=== PATIENT | female | born 1945 | race Caucasian/White ===

== ENCOUNTER 2017-11-02 15:39 | Inpatient (IN) | payer MEDICARE, OTHER ==
[~2017-11-02] VITALS: Ht 157.5 cm; Wt 48.5 kg
[2017-11-02] VITALS (23 sets, daily range): BP systolic 66–158; BP diastolic 37–69; PULSE 74–111; RESP 10–28; TEMP 97.9–98.1; O2SAT 91–98
[~2017-11-02 15:39] MED LIST: ALPR.25 PO; AMLO10TA2 PO; ASPI81CH7 PO; DENO60P SQ; DEXT15CA10 PO; DULC10SU3 RECTAL; FAMO1TAB30 PO; FLUO-1 PO; GABA100C4 PO; GABA300C5 PO; IPRASOL INH; MELA1TAB18 PO; MILKSUS PO; ONETAB22 PO; POTA-163 PO; REME15TA PO; SPIR25TA PO; TYLE325T PO; VITA100T54 PO
[2017-11-02] MEDS ORDERED: SODIUM CHLORIDE 0.9% FLUSH 10 ML FLUSH IVF PRN (16:00)
[2017-11-02] MEDS ORDERED: methylPREDNISolone SOD SUCC 125 MG/2 ML VIAL IV PUSH ONE (16:00)
[2017-11-02] MEDS: RESP: ALBUTEROL 2.5 MG/IPRATROPIUM 0.5 MG NEB (SCH) INH ×2 (16:11→16:12)
--- NOTE | 2017-11-02 16:30 | RADRPT ---
EXAM DATE/TIME: 11/02/2017 16:09 [place] COMPARISON: No previous studies available for comparison. INDICATIONS : Short of breath. MEDICAL HISTORY : None. SURGICAL HISTORY : None. ENCOUNTER: Initial ACUITY: 1 day PAIN SCORE: 0/10 LOCATION: Bilateral chest FINDINGS: The cardiac silhouette is normal in transverse diameter. There is prominence of the aortic knob is wi th calcification characteristic of atherosclerotic vascular disease. There is subsegmental atelectasi s in the right base. Old right humeral head fracture is present with resorption. CONCLUSION: 1. Subsegmental atelectasis right base. Pedro Luis Anderson MD on November 02, 2017 at 16:19 Board Certified Radiologist. This report was verified electronically.
--- NOTE | 2017-11-02 16:31 | PD ---
HPI Chief Complaint: Respiratory Symptoms Time Seen by Provider: 15:56 Travel History International Travel<30 days: No Contact w/Intl Traveler<30days: No Traveled to known affect area: No History of Present Illness HPI 72 y/o female presents with sats in the eighties and shortness of breath from the half-way. She was given 1 DuoNeb and one albuterol treatment. She states this made her feel better. Here she is requiring 5 L of oxygen to maintain her saturations. She denies other specific complaints but history is limited on initial evaluation. PFSH Past Medical History Narrative Medical by half-way and our records Arthritis: Yes Cancer: No Cardiovascular Problems: No COPD: Yes Endocrine: No Genitourinary: No Immune Disorder: No Musculoskeletal: Yes Neurologic: No Psychiatric: No Reproductive: No Respiratory: Yes Past Surgical History Narrative Surgical by half-way and our records Abdominal Surgery: No Eye Surgery: Yes (CATARACTS 2003) Gynecologic Surgery: Yes (HYSTERECTOMY PARTIAL) Oral Surgery: Yes (TONSILS) Social History Tobacco Use: No (none now) Substance Use: No Allergies-Medications (Allergen,Severity, Reaction): Coded Allergies: No Known Allergies (Unverified Adverse Reaction, Unknown, 11/02/17) Reported Meds & Prescriptions Reported Meds & Active Scripts Active Reported Zofran (Ondansetron HCl) 4 Mg Tab 4 Mg PO Q6HR PRN Hydralazine (Hydralazine HCl) 100 Mg Tab 100 Mg PO TID Take with meals Aspirin Children's (Aspirin) 81 Mg Chew 81 Mg PO DAILY Vitamin B-1 (Thiamine HCl) 100 Mg Tab 100 Mg PO DAILY One Daily-Minerals (Multiple Vitamins W/ Minerals) 1 Tab 1 Tab PO DAILY Famotidine 10 Mg Tab 10 Mg PO BID Gabapentin 300 Mg Cap 300 Mg PO Q6HR PRN Duoneb (Ipratropium-Albuterol Neb) 0.5-2.5 Mg/3 Ml Neb 1 Nebule INH Q6HR NEB PRN Tussin Cough (Dextromethorphan HBr) 15 Mg Cap 15 Mg PO Q6H PRN Tylenol (Acetaminophen) 325 Mg Tab 650 Mg PO Q4H PRN Dulcolax Supp (Bisacodyl) 10 Mg Supp 10 Mg RECTAL DAILY PRN Milk of Magnesia Liq (Magnesium Hydroxide) 400 Mg/5 Ml Susp 30 Ml PO DAILY PRN Spironolactone 25 Mg Tab 25 Mg PO BID Amlodipine (Amlodipine Besylate) 10 Mg Tab 10 Mg PO DAILY Gabapentin 100 Mg Cap 200 Mg PO BID Prozac (Fluoxetine HCl) 10 Mg Cap 10 Mg PO DAILY Review of Systems ROS Limitations: Clinical Condition Except as stated in HPI: all other systems reviewed are Neg Physical Exam Exam Limitations: Clinical Condition Narrative GENERAL: 72-year-old female who appears short of breath SKIN: Focused skin assessment warm/dry. HEAD: Atraumatic. Normocephalic. EYES: No scleral icterus. No injection or drainage. ENT: No nasal bleeding or discharge. Mucous membranes pink and moist. NECK: Trachea midline. No JVD. CARDIOVASCULAR: Regular rate and rhythm. RESPIRATORY: Inspiratory and expiratory wheezing throughout, tachypnea noted GASTROINTESTINAL: Abdomen soft,nondistended. NEUROLOGICAL: Opens eyes to voice, moves all extremities, slow clear speech Data Data Last Documented VS Vital Signs Date Time Temp Pulse Resp B/P (MAP) Pulse Ox O2 Delivery O2 Flow Rate FiO2 11/02/17 16:49 111 26 89/65 (73) 93 Nasal Cannula 5.00 11/02/17 15:51 98.1 Orders Orders Complete Blood Count With Diff (11/02/17 15:56) Comprehensive Metabolic Panel (11/02/17 15:56) B-Type Natriuretic Peptide (11/02/17 15:56) Act Partial Throm Time (Ptt) (11/02/17 15:56) Prothrombin Time / Inr (Pt) (11/02/17 15:56) Magnesium (Mg) (11/02/17 15:56) Ckmb (Isoenzyme) Profile (11/02/17 15:56) Troponin I (11/02/17 15:56) Influenzae A/B Antigen (11/02/17 15:56) Blood Culture (11/02/17 15:56) Iv Access Insert/Monitor (11/02/17 15:56) Electrocardiogram (11/02/17 15:56) Ecg Monitoring (11/02/17 15:56) Oximetry (11/02/17 15:56) Oxygen Administration (11/02/17 15:56) Chest, Single Ap (11/02/17 15:56) Sodium Chloride 0.9% Flush (Ns Flush) (11/02/17 16:00) Methylprednisolone So Succ Inj (Solumedr (11/02/17 16:00) Albuterol-Ipratropium Neb (Duoneb Neb) (11/02/17 16:00) Lactic Acid (11/02/17 15:56) Resp Bipap / Cpap Non Invas Vt (11/02/17 ) CKMB (11/02/17 16:10) CKMB% (11/02/17 16:10) Sodium Chlorid 0.9% 500 Ml Inj (Ns 500 M (11/02/17 17:15) Piperacil-Tazo 4.5 Gm Premix (Zosyn 4.5 (11/02/17 17:10) Azithromycin Inj (Zithromax Inj) (11/02/17 17:10) Code Status (11/02/17 17:26) Sodium Chlor 0.9% 1000 Ml Inj (Ns 1000 M (11/02/17 17:30) Admit Order (Ed Use Only) (11/02/17 17:32) Labs Laboratory Tests Test 11/02/17 16:10 11/02/17 16:15 White Blood Count 22.4 TH/MM3 Red Blood Count 3.51 MIL/MM3 Hemoglobin 10.1 GM/DL Hematocrit 29.8 % Mean Corpuscular Volume 85.0 FL Mean Corpuscular Hemoglobin 28.7 PG Mean Corpuscular Hemoglobin Concent 33.8 % Red Cell Distribution Width 13.6 % Platelet Count 346 TH/MM3 Mean Platelet Volume 7.3 FL Neutrophils (%) (Auto) 80.3 % Lymphocytes (%) (Auto) 8.2 % Monocytes (%) (Auto) 11.3 % Eosinophils (%) (Auto) 0.1 % Basophils (%) (Auto) 0.1 % Neutrophils # (Auto) 18.0 TH/MM3 Lymphocytes # (Auto) 1.8 TH/MM3 Monocytes # (Auto) 2.5 TH/MM3 Eosinophils # (Auto) 0.0 TH/MM3 Basophils # (Auto) 0.0 TH/MM3 CBC Comment AUTO DIFF Differential Comment AUTO DIFF CONFIRMED Toxic Granulation 1+ Platelet Estimate NORMAL Platelet Morphology Comment NORMAL Basophilic Stippling FAINT Prothrombin Time 10.0 SEC Prothromb Time International Ratio 1.0 RATIO Activated Partial Thromboplast Time 27.8 SEC Blood Urea Nitrogen 79 MG/DL Creatinine 3.97 MG/DL Random Glucose 153 MG/DL Total Protein 7.8 GM/DL Albumin 3.1 GM/DL Calcium Level 8.0 MG/DL Magnesium Level 2.6 MG/DL Alkaline Phosphatase 58 U/L Aspartate Amino Transf (AST/SGOT) 23 U/L Alanine Aminotransferase (ALT/SGPT) 17 U/L Total Bilirubin 0.2 MG/DL Sodium Level 129 MEQ/L Potassium Level 3.3 MEQ/L Chloride Level 93 MEQ/L Carbon Dioxide Level 20.5 MEQ/L Anion Gap 16 MEQ/L Estimat Glomerular Filtration Rate 11 ML/MIN Total Creatine Kinase 295 U/L Creatine Kinase MB 3.0 NG/ML Creatine Kinase MB % 1.0 % Troponin I LESS THAN 0.02 NG/ML B-Type Natriuretic Peptide 60 PG/ML Lactic Acid Level 1.6 mmol/L [facility] Medical Decision Making Medical Screen Exam Complete: Yes Emergency Medical Condition: Yes Medical Record Reviewed: Yes (Past history confirmed) Interpretation(s) CBC & BMP Diagram 11/02/17 16:10 Total Protein 7.8, Albumin 3.1 L, Calcium Level 8.0 L, Magnesium Level 2.6 H, Alkaline Phosphatase 58, Aspartate Amino Transf (AST/SGOT) 23, Alanine Aminotransferase (ALT/SGPT) 17, Total Bilirubin 0.2 Last 24 hours Impressions Chest X-Ray 11/02/17 1556 Signed Impressions: Service Date/Time: Thursday, November 02, 2017 16:09 - CONCLUSION: 1. Subsegmental atelectasis right base. Pedro Luis Anderson MD Differential Diagnosis Pneumonia, influenza, COPD exacerbation, pneumothorax, heart failure Narrative Course We will check blood work, EKG, chest x-ray and dose with Solu-Medrol, duo nebs and placed on BiPAP., Patient is DNR patient ed workup shows acute renal failure, leukocytosis and COPD exacerbation. Patient did not tolerate BiPAP and stated that she did not want this or other aggressive measures. Will be given broad-spectrum antibiotics and IV fluids. Patient's power of commercial litigation attorney was attempted to be reached over the phone but did not answer. Person that is with patient agrees to care as described. On recheck patient is hypotensive. Will repeat IV fluid bolus. Patient is less responsive. Attempted to reach power of commercial litigation attorney again and left message. She will be monitored closely in the ICU. While honor DNR wishes. 1805 patient's bp improving with fluids, now will open eyes to voice, will continue current care Critical Care Narrative Aggregate critical care time was 45 minutes. Time to perform other separately billable procedures was not included in the critical care time. My time did not include minutes spent treating any other patients simultaneously or on activities that did not directly contribute to the patient's treatment. The services I provided to this patient were to treat and/or prevent clinically significant deterioration that could result in: respiratory failure, I provided critical care services requiring my management, as noted below: Chart data review, documentation time, medication orders and management, vital sign assessments/reviewing monitor data, ordering and reviewing lab tests, ordering and interpreting/reviewing x-rays and diagnostic studies, care of the patient and discussion of the patient with the admitting physicians. Sepsis Criteria SIRS Criteria (2 or more): Heart rate over 90, WBC > 63800, < 4000 or > 10% bands Sepsis Criteria (SIRS+source): Infect source susp/known Severe Sepsis (+one): Acute Oliguria/Renal Failure Criteria Outcome: Meets severe sepsis criteria Physician Communication Physician Communication dr hills agrees to admit in icu and updated about care Diagnosis Primary Impression: COPD exacerbation Additional Impressions: Acute renal failure Qualified Codes: N17.9 - Acute kidney failure, unspecified Sepsis Qualified Codes: A41.9 - Sepsis, unspecified organism Respiratory failure Qualified Codes: J96.00 - Acute respiratory failure, unspecified whether with hypoxia or hypercapnia Admitting Information Admitting Physician Requests: Admit Bertha Resendez MD Nov 02, 2017 16:31
[2017-11-02 16:38] LABS: BASOPHIL % 0.1 % (0.0-2.0); EOSINOPHIL % 0.1 % (0.0-4.0); HEMATOCRIT 29.8 % (35.0-46.0); HEMOGLOBIN 10.1 GM/DL (11.6-15.3); LYMPH % 8.2 % (9.0-44.0); LYMPHOCYTE # 1.8 TH/MM3 (1.0-4.8); MEAN CORPUSCULAR HEMOGLOBIN 28.7 PG (27.0-34.0); MEAN CORPUSCULAR HGB CONC 33.8 % (32.0-36.0); MEAN PLATELET VOLUME 7.3 FL (7.0-11.0); MONO % 11.3 % (0.0-8.0); MONOCYTE # 2.5 TH/MM3 (0-0.9); NEUT % 80.3 % (16.0-70.0); PLATELET COUNT 346 TH/MM3 (150-450); RED BLOOD COUNT 3.51 MIL/MM3 (4.00-5.30); RED CELL DISTRIBUTION WIDTH 13.6 % (11.6-17.2); WHITE BLOOD COUNT 22.4 TH/MM3 (4.0-11.0)
[2017-11-02 16:58] LABS: ALBUMIN 3.1 GM/DL (3.4-5.0); AST (GOT) 23 U/L (15-37); BICARBONATE 20.5 MEQ/L (21.0-32.0); BLOOD UREA NITROGEN 79 MG/DL (7-18); CHLORIDE 93 MEQ/L (98-107); CREATININE 3.97 MG/DL (0.50-1.00); GLOMERULAR FILTRATION RATE 11 ML/MIN (>89); GLUCOSE,RANDOM 153 MG/DL (74-106); MAGNESIUM 2.6 MG/DL (1.5-2.5); SODIUM (NA) 129 MEQ/L (136-145)
[2017-11-02 17:00] LABS: ALT (GPT) 17 U/L (10-53)
[2017-11-02 17:03] LABS: ALKALINE PHOSPHATASE 58 U/L (45-117); TOTAL BILIRUBIN ADULT 0.2 MG/DL (0.2-1.0); TOTAL PROTEIN 7.8 GM/DL (6.4-8.2); TROPONIN I LESS THAN 0.02 NG/ML (0.02-0.05)
[2017-11-02] MEDS ORDERED: AZITHROMYCIN INJ 500 MG in SODIUM CHLOR 0.9% 250 ML INJ 250 ML IV STA (17:10)
[2017-11-02] MEDS ORDERED: PIPERACIL-TAZO 4.5 GM PREMIX 100 ML IV STA (17:10)
[2017-11-02] MEDS ORDERED: SODIUM CHLORID 0.9% 500 ML INJ 500 ML IV ONE (17:15)
[2017-11-02] MEDS ORDERED: SODIUM CHLOR 0.9% 1000 ML INJ 1,000 ML IV ONE (17:30)
[2017-11-02 17:37] LABS: TOXIC GRANULATION 1+ (NORMAL)
[2017-11-02] MEDS ORDERED: ZOFR4TAB PO (17:37)
[2017-11-02] MEDS ORDERED: HYDR-3801 PO (17:37)
[2017-11-02] MEDS ORDERED: PIPERACIL-TAZO 3.375 GM PREMIX 50 ML IV SCH (18:15)
[2017-11-02] MEDS ORDERED: ONDANSETRON HCL 4 MG/2 ML VIAL IVP PRN (18:15)
[2017-11-02] MEDS ORDERED: MAGNESIUM HYDROXIDE SUSP 30 ML CUP PO PRN (18:15)
[2017-11-02] MEDS ORDERED: NALOXONE HCL 0.4 MG/ML AMP IV PUSH PRN (18:15)
[2017-11-02] MEDS ORDERED: BISACODYL 10 MG SUPP RECTAL PRN (18:15)
[2017-11-02] MEDS ORDERED: RESP: ALBUTEROL 1.25 MG/3 ML NEB (PRN) NEB (18:15)
[2017-11-02] MEDS ORDERED: Vancomycin Consult Pharmacy 1 EA OTHER SCH (18:15)
[2017-11-02] MEDS ORDERED: LACTULOSE SYRUP 20 GM/30 ML CUP PO PRN (18:15)
[2017-11-02] MEDS ORDERED: SODIUM CHLORIDE 0.9% FLUSH 10 ML FLUSH IV FLUSH PRN (18:15)
[2017-11-02] MEDS ORDERED: SENNOSIDES 8.6 MG TAB PO PRN (18:15)
--- NOTE | 2017-11-02 18:19 | HHI.HP ---
History of Present Illness Primary Care Physician Unknown Admission Diagnosis acute renal failure, copd exacerbation, sepsis Diagnoses: Sepsis Criteria SIRS Criteria (2 or more): Heart rate over 90, RR > 20 or PaCO2 < 32, WBC > 69386, < 4000 or > 10% bands Sepsis Criteria (SIRS+source): Infect source susp/known Severe Sepsis (+one): Organ Dysfunction, Hypotension, Acute Oliguria/Renal Failure Multiple Organ Dysfunction Syn: Evidence -2 organs failing Criteria Outcome: Meets severe sepsis criteria Review of Systems ROS Limitations: Clinical Condition, Altered Mental Status, Other (NEGATIVE FOURTEEN POINT ROS EXCEPT IN HPI AND A/P) Constitutional: DENIES: Fever, Chills, Change in appetite Endocrine: DENIES: Heat/cold intolerance Eyes: DENIES: Blurred vision, Eye pain Past Family Social History Allergies: Coded Allergies: No Known Allergies (Unverified Allergy, Unknown, 11/02/17) Physical Exam Vital Signs Vital Signs Date Time Temp Pulse Resp B/P (MAP) Pulse Ox O2 Delivery O2 Flow Rate FiO2 11/02/17 17:54 104 24 91/60 (70) 93 Nasal Cannula 5.00 11/02/17 17:39 99 28 99/64 (76) 91 Nasal Cannula 5.00 11/02/17 16:49 111 26 89/65 (73) 93 Nasal Cannula 5.00 11/02/17 15:51 98.1 85 20 158/69 (98) 91 Physical Exam GENERAL: This is a well-nourished, well-developed patient, in no apparent distress. SKIN: No rashes, ecchymoses or lesions. Cool and dry. HEAD: Atraumatic. Normocephalic. No temporal or scalp tenderness. EYES: Pupils equal round and reactive. Extraocular motions intact. No scleral icterus. No injection or drainage. ENT: Nose without bleeding, purulent drainage or septal hematoma. Throat without erythema, tonsillar hypertrophy or exudate. Uvula midline. Airway patent. NECK: Trachea midline. No JVD or lymphadenopathy. Supple, nontender, no meningeal signs. CARDIOVASCULAR: Regular rate and rhythm without murmurs, gallops, or rubs. RESPIRATORY: Clear to auscultation. Breath sounds equal bilaterally. No wheezes , rales, or rhonchi. GASTROINTESTINAL: Abdomen soft, non-tender, nondistended. No hepato-splenomegaly , or palpable masses. No guarding. MUSCULOSKELETAL: Extremities without clubbing, cyanosis, or edema. No joint tenderness, effusion, or edema noted. No calf tenderness. Negative Homans sign bilaterally. NEUROLOGICAL: Awake and alert. Cranial nerves II through XII intact. Motor and sensory grossly within normal limits. Five out of 5 muscle strength in all muscle groups. Normal speech. Laboratory Laboratory Tests Test 11/02/17 16:10 11/02/17 16:15 White Blood Count 22.4 Red Blood Count 3.51 Hemoglobin 10.1 Hematocrit 29.8 Mean Corpuscular Volume 85.0 Mean Corpuscular Hemoglobin 28.7 Mean Corpuscular Hemoglobin Concent 33.8 Red Cell Distribution Width 13.6 Platelet Count 346 Mean Platelet Volume 7.3 Neutrophils (%) (Auto) 80.3 Lymphocytes (%) (Auto) 8.2 Monocytes (%) (Auto) 11.3 Eosinophils (%) (Auto) 0.1 Basophils (%) (Auto) 0.1 Neutrophils # (Auto) 18.0 Lymphocytes # (Auto) 1.8 Monocytes # (Auto) 2.5 Eosinophils # (Auto) 0.0 Basophils # (Auto) 0.0 CBC Comment AUTO DIFF Differential Comment AUTO DIFF CONFIRMED Toxic Granulation 1+ Platelet Estimate NORMAL Platelet Morphology Comment NORMAL Basophilic Stippling FAINT Prothrombin Time 10.0 Prothromb Time International Ratio 1.0 Activated Partial Thromboplast Time 27.8 Blood Urea Nitrogen 79 Creatinine 3.97 Random Glucose 153 Total Protein 7.8 Albumin 3.1 Calcium Level 8.0 Magnesium Level 2.6 Alkaline Phosphatase 58 Aspartate Amino Transf (AST/SGOT) 23 Alanine Aminotransferase (ALT/SGPT) 17 Total Bilirubin 0.2 Sodium Level 129 Potassium Level 3.3 Chloride Level 93 Carbon Dioxide Level 20.5 Anion Gap 16 Estimat Glomerular Filtration Rate 11 Total Creatine Kinase 295 Creatine Kinase MB 3.0 Creatine Kinase MB % 1.0 Troponin I LESS THAN 0.02 B-Type Natriuretic Peptide 60 Lactic Acid Level 1.6 Date/Time Source Procedure Growth Status 11/02/17 16:05 Blood Peripheral Aerobic Blood Culture Pending Received 11/02/17 16:05 Blood Peripheral Anaerobic Blood Culture Pending Received 11/02/17 16:10 Nasal Aspirate Influenza Types A,B Antigen (JEROD) - Final NEGATIVE FOR FLU A AND B ANTIGEN.... Complete Result Diagram: 11/02/17 1610 11/02/17 1610 Caprini VTE Risk Assessment Caprini VTE Risk Assessment: Mod/High Risk (score >= 2) Caprini Risk Assessment Model Point Value = 1 Point Value = 2 Point Value = 3 Point Value = 5 Age 41-60 Minor surgery BMI > 25 kg/m2 Swollen legs Varicose veins or History of unexplained or recurrent spontaneous Oral contraceptives or hormone replacement Sepsis (< 1 month) Serious lung disease, including pneumonia (< 1 month) Abnormal pulmonary function Acute myocardial infarction Congestive heart failure (< 1 month) History of inflammatory bowel disease Medical patient at bed rest Age 61-74 Arthroscopic surgery Major open surgery (> 45 min) Laparoscopic surgery (> 45 min) Malignancy Confined to bed (> 72 hours) Immobilizing plaster cast Central venous access Age >= 75 History of VTE Family history of VTE Factor V Leiden Prothrombin [id number] Lupus anticoagulant Anticardiolipin antibodies Elevated serum homocysteine Heparin-induced thrombocytopenia Other congenital or acquired thrombophilia Stroke (< 1 month) Elective arthroplasty Hip, pelvis, or leg fracture Acute spinal cord injury (< 1 month) Prophylaxis Regimen Total Risk Factor Score Risk Level Prophylaxis Regimen 0-1 Low Early ambulation 2 Moderate Order ONE of the following: *Sequential Compression Device (SCD) *Heparin 5000 units SQ BID 3-4 Higher Order ONE of the following medications: *Heparin 5000 units SQ TID *Enoxaparin/Lovenox 40 mg SQ daily (WT < 150 kg, CrCl > 30 mL/min) *Enoxaparin/Lovenox 30 mg SQ daily (WT < 150 kg, CrCl > 10-29 mL/min) *Enoxaparin/Lovenox 30 mg SQ BID (WT < 150 kg, CrCl > 30 mL/min) AND/OR *Sequential Compression Device (SCD) 5 or more Highest Order ONE of the following medications: *Heparin 5000 units SQ TID (Preferred with Epidurals) *Enoxaparin/Lovenox 40 mg SQ daily (WT < 150 kg, CrCl > 30 mL/min) *Enoxaparin/Lovenox 30 mg SQ daily (WT < 150 kg, CrCl > 10-29 mL/min) *Enoxaparin/Lovenox 30 mg SQ BID (WT < 150 kg, CrCl > 30 mL/min) AND *Sequential Compression Device (SCD) Assessment and Plan Assessment and Plan see dictated h and p SEVERE SEPSIS: IV ABX, IVF, PNA RF: IVF, NEPHRO CONSULT HYPONATREMIA HYPOKALEMIA CVA, CHRONIC R BELEN HTN,, NOW HYPOTENSION Vazquez Sanchez MD Nov 02, 2017 18:19
[2017-11-02] MEDS ORDERED: D5-NS + KCL 40 MEQ INJ 1,000 ML IV SCH (20:00)
[2017-11-02] MEDS ORDERED: CHLORHEXIDINE GLUCONATE 2 % 1 PACK (2 CLOTHS)(extra cloths) TOPICAL PRN (20:30)
[2017-11-02] MEDS ORDERED: VANCOMYCIN 1,000 MG/NS 250 ML IV ONE ×2 (20:45)
[2017-11-02] MEDS: DOCUSATE SODIUM 50 MG/SENNA 8.6 MG TAB PO SCH (21:00)
[2017-11-02] MEDS: HEPARIN SODIUM - SQ 10,000 UNITS/ML VIAL SQ SCH (21:02)
[2017-11-02] MEDS: PANTOPRAZOLE SODIUM 40 MG VIAL IV PUSH SCH (21:02)
[2017-11-02] MEDS: SODIUM CHLORIDE 0.9% FLUSH 10 ML FLUSH IV FLUSH SCH (21:03)
[2017-11-02] MEDS ORDERED: NOREPINEPHRINE 4 MG/D5W 250 ML IV PRN (22:45)
[2017-11-03] VITALS (17 sets, daily range): BP systolic 90–163; BP diastolic 52–71; PULSE 67–121; RESP 10–28; TEMP 98.1–98.8; O2SAT 92–98
[2017-11-03 00:38] LABS: AMORPHOUS SEDIMENT, URINE RARE; BILIRUBIN, URINE NEG (NEG); BLOOD, URINE NEG (NEG); GLUCOSE,URINE NEG (NEG); KETONE, URINE NEG (NEG); NITRITE,URINE NEG (NEG); PH, URINE 5.5 (5.0-8.5); URINE COLOR YELLOW (YELLW/STRAW); URINE LEUKOCYTE ESTERASE NEG (NEG)
[2017-11-03] MEDS: methylPREDNISolone SOD SUCC 125 MG/2 ML VIAL IV PUSH SCH ×4 (01:26→16:38)
[2017-11-03] MEDS: PIPERACIL-TAZO 2.25 GM PREMIX 50 ML IV SCH ×3 (01:28→16:38)
[2017-11-03] MEDS: CHLORHEXIDINE GLUCONATE 2 % 1 PACK (2 CLOTHS)(taper/protocol) TOPICAL SCH (04:00)
[2017-11-03 07:31] LABS: AUTOMATED NEUTROPHIL # 17.6 TH/MM3 (1.8-7.7); BASOPHIL % 0.1 % (0.0-2.0); HEMATOCRIT 27.2 % (35.0-46.0); HEMOGLOBIN 9.2 GM/DL (11.6-15.3); LYMPH % 2.3 % (9.0-44.0); LYMPHOCYTE # 0.4 TH/MM3 (1.0-4.8); MEAN CORPUSCULAR HEMOGLOBIN 28.8 PG (27.0-34.0); MEAN CORPUSCULAR HGB CONC 33.9 % (32.0-36.0); MEAN PLATELET VOLUME 7.6 FL (7.0-11.0); MONO % 1.3 % (0.0-8.0); MONOCYTE # 0.2 TH/MM3 (0-0.9); NEUT % 96.3 % (16.0-70.0); PLATELET COUNT 313 TH/MM3 (150-450); RED CELL DISTRIBUTION WIDTH 13.7 % (11.6-17.2); WHITE BLOOD COUNT 18.3 TH/MM3 (4.0-11.0)
[2017-11-03] MEDS: HEPARIN SODIUM - SQ 10,000 UNITS/ML VIAL SQ SCH ×2 (07:49→16:40)
[2017-11-03] MEDS: SODIUM CHLORIDE 0.9% FLUSH 10 ML FLUSH IV FLUSH SCH ×2 (07:49→19:55)
[2017-11-03] MEDS: DOCUSATE SODIUM 50 MG/SENNA 8.6 MG TAB PO SCH ×2 (07:49→19:55)
[2017-11-03 07:57] LABS: BICARBONATE 17.9 MEQ/L (21.0-32.0); CALCIUM 7.8 MG/DL (8.5-10.1); CREATININE 3.36 MG/DL (0.50-1.00); RANDOM VANCOMYCIN 15.1 COMMENT
--- NOTE | 2017-11-03 09:38 | MB ---
cc: ARLEEN BACON M.D. DATE OF CONSULTATION 11/03/2017 REASON FOR CONSULTATION COPD exacerbation. HISTORY OF PRESENT ILLNESS The patient is a 72-year-old female with a known history of COPD admitted through the emergency room with increasing shortness of breath, cough, expectoration of a small amount of whitish sputum. Denies a history of fever or chills. Denies history of hemoptysis, TB or previous industrial exposure. PAST MEDICAL HISTORY 1. COPD as outlined above. 2. Chronic renal insufficiency. 3. Hypertension 4. Previous CVA MEDICATIONS Include: 1. Piperacillin 2. Tazobactam 3. Norepinephrine drip as needed 4. Was given one dose of vancomycin. 5. Nebulized albuterol ALLERGIES None known to medication. FAMILY HISTORY Noncontributory SOCIAL HISTORY Used to smoke, but not at present. Does not drink any alcohol. Does not use drugs. REVIEW OF SYSTEMS 12-point review of systems as per HPI and past history, otherwise negative. PHYSICAL EXAM On exam, the patient is alert, pulse 98, respiration 20, blood pressure 100/60. HEENT: Exam unremarkable. Eyes without icterus. NECK: Without adenopathy. Thyroid enlargement. Central trachea. CHEST: Few scattered rhonchi and scattered wheezing both lung quintero. CARDIAC: PMI distant. S1-S2 audible. 1/6 ejection systolic murmur left sternal border. ABDOMEN: Lax, bowel sounds audible. EXTREMITIES: No clubbing, cyanosis or edema. SKIN: Normal. No lymphadenopathy. LABORATORY DATA White counts 22,000, hemoglobin 10, hematocrit 29. BUN 79, creatinine 3.9, sodium 129, potassium 3.3. Chest x-ray, minor atelectatic change. IMPRESSION 1. COPD and acute exacerbation 2. Acute renal failure 3. Hypertension 4. CVA 5. Sepsis PLAN The patient is on antibiotic therapy as well as pressor therapy for underlying sepsis. Bronchodilator therapy for underlying COPD is given. Her chest x-ray will be followed. Pressor was weaned as tolerated. We will follow her course along with you and depending on progress proceed further. Arleen Bacon MD WWW/HARPAL /9:05 AM /9:17 AM
[2017-11-03] MEDS ORDERED: SODIUM CHLOR 0.9% 1000 ML INJ 1,000 ML IV SCH (09:45)
--- NOTE | 2017-11-03 10:43 | PD.ID.CON ---
History of Present Illness Service ID Consult Requested By Reason for Consult Evaluation and Mment of Sepsis. Primary Care Physician Unknown Diagnoses: History of Present Illness is a 72 y/o CCM with who presented to the ED on 11/02/17 with reports of shortness of breath, O2 saturation in the 80s from her nursing facility. She received duo nebs and albuterol with some subjective improvement. Patient placed on BiPAP in the ER. Received Solu-Medrol, DuoNeb's. CXR notes subsegmental atelectasis right base. Labs were significantly abnormal with BUN 79/creatinine 3.97. GFR 11. BNP 60. Lactic acid 1.6. Leukocytosis 22.4. DNR implemented patient with known DNR. She was admitted for further evaluation and treatment of sepsis, improving BP after IV fluids opening eyes. Nephrology consulted, pulmonology, palliative care consulted and following. Pulmonology consulted to continue antibiotic therapy and bronchodilators and follow CXR. Overnight critical care was consulted as BP was as low as 70/50s. She received fluids overnight but no pressors and BP now in 130s SBP. ID was consulted for evaluation of sepsis. Empiric antibiotics started Zosyn IV , Vanco IV and 1 dose of Azithro given. CXR with atelectasis.At the time of my evaluation patient is in the [facility], currently not on any pressors, saturations 96 % on 5 L. Review of Systems ROS Limitations: Clinical Condition (expressive aphasia), Poor Historian Past Family Social History Allergies: Coded Allergies: No Known Allergies (Unverified Allergy, Unknown, 11/02/17) Past Medical History Osteoporosis COPD CVA-residual right hemiparesis Past Surgical History Cataract surgery 2003 Partial hysterectomy Tonsillectomy Reported Medications Reported Meds & Active Scripts Active Reported Zofran (Ondansetron HCl) 4 Mg Tab 4 Mg PO Q6HR PRN Hydralazine (Hydralazine HCl) 100 Mg Tab 100 Mg PO TID Take with meals Aspirin Children's (Aspirin) 81 Mg Chew 81 Mg PO DAILY Vitamin B-1 (Thiamine HCl) 100 Mg Tab 100 Mg PO DAILY One Daily-Minerals (Multiple Vitamins W/ Minerals) 1 Tab 1 Tab PO DAILY Famotidine 10 Mg Tab 10 Mg PO BID Gabapentin 300 Mg Cap 300 Mg PO Q6HR PRN Duoneb (Ipratropium-Albuterol Neb) 0.5-2.5 Mg/3 Ml Neb 1 Nebule INH Q6HR NEB PRN Tussin Cough (Dextromethorphan HBr) 15 Mg Cap 15 Mg PO Q6H PRN Tylenol (Acetaminophen) 325 Mg Tab 650 Mg PO Q4H PRN Dulcolax Supp (Bisacodyl) 10 Mg Supp 10 Mg RECTAL DAILY PRN Milk of Magnesia Liq (Magnesium Hydroxide) 400 Mg/5 Ml Susp 30 Ml PO DAILY PRN Spironolactone 25 Mg Tab 25 Mg PO BID Amlodipine (Amlodipine Besylate) 10 Mg Tab 10 Mg PO DAILY Gabapentin 100 Mg Cap 200 Mg PO BID Prozac (Fluoxetine HCl) 10 Mg Cap 10 Mg PO DAILY Active Ordered Medications Current Medications Medications (Trade) Dose Ordered Sig/Felipa Route Start Time Stop Time Status Last Admin (NS Flush) 2 ml UNSCH PRN IV FLUSH 11/02/17 18:15 (NS Flush) 2 ml BID IV FLUSH 11/02/17 21:00 11/03/17 07:49 (Tylenol) 650 mg Q4H PRN PO 11/02/17 18:15 (Zofran Inj) 4 mg Q6H PRN IVP 11/02/17 18:15 (Heparin Inj) 5,000 units Q12H SQ 11/02/17 19:30 11/03/17 07:49 (Narcan Inj) 0.4 mg UNSCH PRN IV PUSH 11/02/17 18:15 (Abby-Colace) 1 tab BID PO 11/02/17 21:00 11/03/17 07:49 (Milk Of Magnesia Liq) 30 ml Q12H PRN PO 11/02/17 18:15 (Senokot) 17.2 mg Q12H PRN PO 11/02/17 18:15 (Dulcolax Supp) 10 mg DAILY PRN RECTAL 11/02/17 18:15 (Lactulose Liq) 30 ml DAILY PRN PO 11/02/17 18:15 (Ativan) 0.5 mg Q8H PRN PO 11/02/17 18:15 (Albuterol Neb) 1.25 mg Q4HR NEB PRN NEB 11/02/17 18:15 (Catapres) 0.1 mg Q6H PRN PO 11/02/17 18:15 (Protonix Inj) 40 mg Q24H IV PUSH 11/02/17 20:00 11/02/17 21:02 (SoluMEDROL INJ) 80 mg Q6HR IV PUSH 11/03/17 00:00 11/03/17 11:57 Miscellaneous Information Patient in critical care unit? Ass... [id number] .XX 11/02/17 20:15 11/02/17 20:15 (Chlorhexidine 2% Cloth) 3 pack DAILY@04 TOPICAL 11/03/17 04:00 11/07/17 04:01 11/03/17 04:00 (Chlorhexidine 2% Cloth) 3 pack UNSCH PRN TOPICAL 11/02/17 20:30 11/07/17 20:15 Piperacillin Sod/ Tazobactam Sod 50 ml @ 100 mls/hr Q8H IV 11/03/17 01:00 11/03/17 07:49 Norepinephrine Bitartrate 250 ml @ 7.5 mls/hr TITRATE PRN IV 11/02/17 22:45 11/02/17 22:40 Sodium Chloride 1,000 ml @ 42 mls/hr [id number] IV 11/03/17 09:45 11/03/17 11:57 (Zithromax) 500 mg Q24H PO 11/03/17 18:00 Linezolid 300 ml @ 300 mls/hr Q12H IV 11/03/17 12:00 11/03/17 11:57 Family History resident of long-term. Has a grand daughter. Social History Smoking exposure in past. No alcohol. No illicit drugs. Physical Exam Vital Signs Vital Signs Date Time Temp Pulse Resp B/P (MAP) Pulse Ox O2 Delivery O2 Flow Rate FiO2 11/03/17 08:55 96 Nasal Cannula 5.00 11/03/17 06:00 69 11/03/17 04:04 98.1 80 22 134/71 (92) 98 11/03/17 04:00 82 11/03/17 02:00 75 11/03/17 02:00 75 22 136/62 (86) 95 11/03/17 00:45 77 125/64 11/03/17 00:21 94 Nasal Cannula 5.00 11/03/17 00:00 98.2 68 10 90/52 (65) 98 2//18 00:00 68 2/20/18 22:40 74 78/44 2/20/18 22:00 74 10 74/40 (51) 94 2/20/18 22:00 74 2/20/18 21:45 75 11 79/43 (55) 94 11/02/18 21:34 76 19 83/44 (57) 94 18 21:33 77 18 79/42 (54) 94 2018 21:32 79 24 79/46 (57) 94 2/20/18 21:30 79 16 72/47 (55) 92 220/18 21:15 85 15 96/51 (66) 98 11/02/17 21:00 82 21 105/56 (72) 97 18 20:45 79 21 80/52 (61) 98 11/02/17 20:31 80 22 78/50 (59) 98 11/02/17 20:30 80 23 77/50 (59) 98 11/02/ 20:15 82 20 104/54 (71) 97 11/02/18 20:05 79 24 92/50 (64) 97 11/02/18 20:03 76 24 69/37 (48) 96 11/02/17 20:01 97.9 76 22 66/41 (49) 96 11/02/18 20:00 76 2/20/18 19:27 86 17 110/56 (74) 95 2/18 19:07 2/18 19:07 87 22 108/59 (75) 94 Nasal Cannula 4.00 18 18:28 89 22 112/55 (74) 95 Nasal Cannula 4.00 2/18 17:54 104 24 91/60 (70) 93 Nasal Cannula 5.00 2/18 17:39 99 28 99/64 (76) 91 Nasal Cannula 5.00 220/18 16:49 93 Nasal Cannula 5.00 220/18 16:49 111 26 89/65 (73) 93 Nasal Cannula 5.00 2/18 15:51 98.1 85 20 158/69 (98) 91 Physical Exam GENERAL: Thin built poorly nourished patient, in no apparent distress. SKIN: No rashes, ecchymoses or lesions. Cool and dry. HEAD: Atraumatic. Normocephalic. No temporal or scalp tenderness. EYES: Pupils equal round and reactive. Extraocular motions intact. No scleral icterus. No injection or drainage. ENT: Nose without bleeding, purulent drainage or septal hematoma. Throat without erythema, tonsillar hypertrophy or exudate. Uvula midline. Airway patent. NECK: Trachea midline. Supple, nontender, no meningeal signs. CARDIOVASCULAR: HS audible. RESPIRATORY: Clear to auscultation. Breath sounds equal bilaterally. No wheezes , rales, or rhonchi. GASTROINTESTINAL: Abdomen soft, non-tender, nondistended. MUSCULOSKELETAL: LLE with contracture. Pain on trying to extend it. Patient keeps her leg flexed at hip joint level. NEUROLOGICAL: Awake and alert. speech hesitant. Psych cooperative IV line sites with no e.o infection Laboratory Laboratory Tests Test 11/02/17 16:10 11/02/17 16:15 11/02/17 19:30 11/02/17 23:46 White Blood Count 22.4 Red Blood Count 3.51 Hemoglobin 10.1 Hematocrit 29.8 Mean Corpuscular Volume 85.0 Mean Corpuscular Hemoglobin 28.7 Mean Corpuscular Hemoglobin Concent 33.8 Red Cell Distribution Width 13.6 Platelet Count 346 Mean Platelet Volume 7.3 Neutrophils (%) (Auto) 80.3 Lymphocytes (%) (Auto) 8.2 Monocytes (%) (Auto) 11.3 Eosinophils (%) (Auto) 0.1 Basophils (%) (Auto) 0.1 Neutrophils # (Auto) 18.0 Lymphocytes # (Auto) 1.8 Monocytes # (Auto) 2.5 Eosinophils # (Auto) 0.0 Basophils # (Auto) 0.0 CBC Comment AUTO DIFF Differential Comment AUTO DIFF CONFIRMED Toxic Granulation 1+ Platelet Estimate NORMAL Platelet Morphology Comment NORMAL Basophilic Stippling FAINT Prothrombin Time 10.0 Prothromb Time International Ratio 1.0 Activated Partial Thromboplast Time 27.8 Blood Urea Nitrogen 79 Creatinine 3.97 Random Glucose 153 Total Protein 7.8 Albumin 3.1 Calcium Level 8.0 Magnesium Level 2.6 Alkaline Phosphatase 58 Aspartate Amino Transf (AST/SGOT) 23 Alanine Aminotransferase (ALT/SGPT) 17 Total Bilirubin 0.2 Sodium Level 129 Potassium Level 3.3 Chloride Level 93 Carbon Dioxide Level 20.5 Anion Gap 16 Estimat Glomerular Filtration Rate 11 Total Creatine Kinase 295 Creatine Kinase MB 3.0 Creatine Kinase MB % 1.0 Troponin I LESS THAN 0.02 B-Type Natriuretic Peptide 60 Lactic Acid Level 1.6 Nasal Screen MRSA (PCR) MRSA DETECTED Blood Gas Puncture Site RT RADIAL Blood Gas Patient Temperature 98.6 Blood Gas HCO3 17 Blood Gas Base Excess -8.4 Blood Gas Oxygen Saturation 92 Arterial Blood pH 7.30 Arterial Blood Partial Pressure CO2 35 Arterial Blood Partial Pressure O2 81 Arterial Blood Oxygen Content 13.9 Arterial Blood Carboxyhemoglobin 0.8 Arterial Blood Methemoglobin 1.5 Blood Gas Hemoglobin 10.6 Oxygen Delivery Device NASAL CANNULA Blood Gas Liter Flow 5 Test 11/03/17 00:05 11/03/17 05:40 Urine Color YELLOW Urine Turbidity HAZY Urine pH 5.5 Urine Specific [place] 1.014 Urine Protein 100 Urine Glucose (UA) NEG Urine Ketones NEG Urine Occult Blood NEG Urine Nitrite NEG Urine Bilirubin NEG Urine Urobilinogen LESS THAN 2.0 Urine Leukocyte Esterase NEG Urine RBC LESS THAN 1 Urine WBC 2 Urine Amorphous Sediment RARE Microscopic Urinalysis Comment CATH-CULT NOT IND White Blood Count 18.3 Red Blood Count 3.20 Hemoglobin 9.2 Hematocrit 27.2 Mean Corpuscular Volume 85.0 Mean Corpuscular Hemoglobin 28.8 Mean Corpuscular Hemoglobin Concent 33.9 Red Cell Distribution Width 13.7 Platelet Count 313 Mean Platelet Volume 7.6 Neutrophils (%) (Auto) 96.3 Lymphocytes (%) (Auto) 2.3 Monocytes (%) (Auto) 1.3 Eosinophils (%) (Auto) 0.0 Basophils (%) (Auto) 0.1 Neutrophils # (Auto) 17.6 Lymphocytes # (Auto) 0.4 Monocytes # (Auto) 0.2 Eosinophils # (Auto) 0.0 Basophils # (Auto) 0.0 CBC Comment DIFF FINAL Differential Comment Blood Urea Nitrogen 80 Creatinine 3.36 Random Glucose 213 Calcium Level 7.8 Sodium Level 135 Potassium Level 4.4 Chloride Level 102 Carbon Dioxide Level 17.9 Anion Gap 15 Estimat Glomerular Filtration Rate 13 Random Vancomycin Level 15.1 Date/Time Source Procedure Growth Status 11/02/17 16:05 Blood Peripheral Aerobic Blood Culture Pending Received 11/02/17 16:05 Blood Peripheral Anaerobic Blood Culture Pending Received 11/02/17 16:10 Nasal Aspirate Influenza Types A,B Antigen (JEROD) - Final NEGATIVE FOR FLU A AND B ANTIGEN.... Complete Result Diagram: 11/03/17 0540 11/03/17 0540 Imaging Last Impressions Chest X-Ray 11/02/17 1556 Signed Impressions: Service Date/Time: Thursday, November 02, 2017 16:09 - CONCLUSION: 1. Subsegmental atelectasis right base. Pedro Luis Anderson MD Assessment and Plan Assessment and Plan Possible Severe Sepsis present on admission (leucocytosis, tachycardia, hypotension) ? atypical Community acquired pneumonia vs aspiration PNA COPD acute exacerbation. Acute resp failure now on 5L NC. Hyponatremia. Acute renal failure: sepsis, prerenal. H/o CVA with left side deficit. Recs: Continue Zosyn IV for now DC vanco IV Start Zyvox IV pending cultures. Check Urine legionella Ag Check Pneumococcal Ag Check sputum Cultures. Check procalcitonin Follow cultures follow clinically. Jacklyn Cruz MD Nov 03, 2017 10:43
--- NOTE | 2017-11-03 10:45 | MH ---
cc: VAZQUEZ NORWOOD MD DATE OF ADMISSION: 11/02/2017 CHIEF COMPLAINT Weakness and coughing. HISTORY OF PRESENT ILLNESS Becky Cummings is a 72-year-old female, [facility] resident, who was there for rehabilitation status post CVA. She has had ongoing urgent hypertension there in the hospital and had been doing pretty well recently. She developed some rash recently as well. Unfortunately, she became weak and rhonchus. I was called by the nurse there to ask for transfer to the emergency room. We transferred her to [place] and she was found to be in renal failure and hypotensive. She is given DuoNeb and Albuterol treatment and was placed on 5 liters of oxygen. It was felt that she may have pneumonia, influenza, COPD. No pneumothorax or heart failure. She was thus treated for COPD exacerbation and severe sepsis in the emergency room. She was given broad-spectrum IV antibiotics and IV fluids. POA was attempted to be contacted. She was given another IV fluid bolus for hypotension and the patient continued to decline and they tried to put BiPAP on her and she was denying having BiPAP or intubation. I was thus called for admission to the ICU by the emergency room doctor. We discussed admission to the ICU and placed orders. I was called back again by the emergency room doctor that the patient was improving some and was less obtunded. She still suggested ICU admission. Was then called back with orders for requesting pressors. We started norepinephrine drip. She has now been taken off of that, she was only on it for 30 minutes. The patient appears to be at her baseline. She is asking to be discharged. PAST MEDICAL HISTORY 1. CVA. 2. Dysphasia. 3. Hypertension. 4. Hypokalemia. 5. Hyponatremia. 6. Gastroesophageal reflux disease. 7. Anxiety. 8. Major depression. 9. Smoker. 10. COPD. MEDICATION USP medications where she is long-term care are: 1. Famotidine 10 mg b.i.d. 2. Multivitamin. 3. Thiamine 100 mg daily. 4. Aspirin 81 mg daily. 5. Prozac 10 mg. 6. Gabapentin 200 mg daily. 7. Norvasc 10 mg. 8. Spironolactone 25 mg b.i.d. 9. Hydralazine 100 mg t.i.d. PAST SURGICAL HISTORY None. ALLERGIES NO KNOWN DRUG ALLERGIES. FAMILY HISTORY Noncontributory in her mother and father. She was unable to recall much. SOCIAL HISTORY She quit smoking. There is remote alcohol use. No illicit drug use that I know of. She lives at [facility] under long-term care. REVIEW OF SYSTEMS Weakness, hypotension, shortness of breath and altered mental status, ongoing chronic rash, it looks better. Negative 14-point review of systems otherwise. VITAL SIGNS: Temperature 98.1, blood pressure 90/52, O2 94% on 5 liters, pulse is 80, respirations are 18, O2 is 96% on 5 liters. PHYSICAL EXAMINATION GENERAL: She is an alert elderly female. She is on O2 in the ICU. She appears almost to be at her baseline but she is very weak. HEENT: Oropharynx is clear. Carotids are clear. No JVD. CHEST: Basilar rhonchi and crackles. Good air movement overall, poor effort. CARDIOVASCULAR: Regular rate and rhythm. No murmurs, rubs, clicks or gallops. ABDOMEN: Soft, nontender. No rebound or guarding. EXTREMITIES: No edema. SKIN: Old excoriations in the left leg and a faint rash in the left tibia. NEURO: A&O x 2. No apparent distress. Cranial nerves are intact. She has stable hemiparesis. LABORATORY DATA Sodium 135, creatinine 3.36, glucose 213, calcium 7.8. WBCs 18.3, previously 22.4, hemoglobin 9.2. IMAGING STUDIES Chest x-ray shows subsegmental atelectasis in the right base. ASSESSMENT A 72-year-old female, intermediate resident, admitted with severe sepsis requiring pressors, health care associated pneumonia, renal failure due to dehydration with chronic hyponatremia and hypokalemia. 1. Severe sepsis. 2. Pneumonia. 3. Renal failure. 4. Hyponatremia. 5. Hypokalemia. 6. CVA. 7. Hypertension, now hypotensive. 8. Pruritus and rash. 9. Anemia of chronic disease. 10. Hyperglycemia. PLAN 1. Inpatient admission for severe sepsis, renal failure and IV antibiotics. Plan as outlined below. Numerous consultations to be obtained as outlined. The patient would without inpatient admission. 2. Speech therapy and heart healthy diet. 3. Followup smart cultures. 4. Norepinephrine drip and we are titrating that to off now. 5. Zosyn IV. 6. Vancomycin IV. 7. DVT prophylaxis with heparin 5000 b.i.d. 8. Lorazepam p.r.n. 9. Solu-Medrol 80 mg IV q.6 hours. 10. GI prophylaxis with Protonix IV. 11. Telemetry. 12. SCDs. 13. Physical therapy. 14. Occupational therapy. 15. Speech therapy. 16. Consults to infectious disease for sepsis, yarn preparation supervisor for sepsis and pressor management, nephrology for renal failure, pulmonology for health care associated pneumonia and palliative care, as the patient is DNR and has failure to thrive, living a intermediate. 17. IV fluids and will remove the potassium at this point. Vazquez Norwood MD RP/TLL /9:29 AM /9:52 AM
--- NOTE | 2017-11-03 11:42 | PD.CONS ---
Consult Service Palliative Care Consult Requested By Dr. Sanchez Primary Care Physician Unknown Reason for Consultation a. To assist with evaluation and management of symptoms including: Dyspnea, confusion b. To assist medical decision maker(s) with: better understanding of current medical conditions; weighing benefits/burdens of medical treatment options; making medical treatment decisions. (Sandra Sanabria) HPI History of Present Illness This 72-year-old patient presented to the ED on 11/02/17 with reports of shortness of breath, O2 saturation in the 80s from her nursing facility. She received duo nebs and albuterol with some subjective improvement. No other complaints reported at time of presentation. * ED course: Patient placed on BiPAP in the ER. Received Solu-Medrol, DuoNeb' s. CXR notes subsegmental atelectasis right base. Labs= acute renal failure BUN 79/creatinine 3.97. GFR 11. BNP 60. Lactic acid 1.6. Leukocytosis 22.4. Urine on broad-spectrum antibiotics, IV fluid. He should not tolerating BiPAP reported she did not want that or other aggressive measures. DNR implemented patient with known DNR. ED physician notes attempt to reach power of cad developer x2. Person accompanying patient agrees to care currently in place. She was admitted for further evaluation and treatment of sepsis, improving BP after IV fluids opening eyes. *ED physician was later able to speak to his daughter on the phone who confirmed DNR, no central line and no BiPAP but continue other aggressive interventions. * Nephrology consulted, pulmonology, palliative care consulted to assist with clarification of goals of treatment. * Pulmonology to continue antibiotic therapy and bronchodilators, follow CXR. * ID consulted: Influenza negative. Blood cultures pending. Sputum pending. Urine for Legionella, pneumococcal pending. Patient on azithromycin, Zyvox. Vancomycin discontinued. Patient seen and examined in room sister Radha, granddaughter present at bedside. Nurse present for part of consultation. Patient is alert and pleasantly confused. Oriented to self and family members however confused hospitalization and hospital course. She is able to answer some ROS questions subjectively. She does indicate that she does not want any machines. Spoke with sister Radha and granddaughter at bedside. They endorse that patient had been doing okay at [facility] her admission there following acute CVA in February 2017. She has not had any recent hospitalizations. They tell me about one week ago she developed a scattered, discrete itching rash which was treated by various creams and eventually with what they describe his high-dose steroids and eventually the rash got better however they noted around the day or day after that the steroids were discontinued patient became increasingly short of breath. She had been short of breath for a a day or 2 prior to hospital presentation, with decreased oral intake only during that time. They tell me her mental status has fluctuated since her stroke she has some times where she is very clear and pretty oriented and other times where she is less clear. She was taking her meals in the dining area of the residential and engaged in some of the social activities there. He feel in general her health had been doing okay since her CVA last summer. Explore them healthcare surrogate, current conditions, prognosis, treatments in place and patient's previously expressed wishes based on review of palliative care consultation in February [address] Tan. They indicate they all remain in close communication with Sandra and the rest of the family. All questions answered, advised I would call daughter/ designated healthcare surrogate Sandra as well. Following this call to Sandra, voicemail left. . Function/Cognitive Trajectory Patient most recently was at [facility] for long- term care (since CVA February 2017). Uses a wheelchair. needs assist for ADLs. Family indicates no problem chewing or swallowing, though following acute CVA patient did have some dysphagia (Sandra Sanabria) Review of Systems ROS Limitations: Poor Historian (confused at times) Constitutional: COMPLAINS OF: Change in appetite (slight decrease past few days ), DENIES: Fatigue, Fever, Chills Respiratory: COMPLAINS OF: Cough, Shortness of breath (onset Wednesday) Cardiovascular: COMPLAINS OF: Dyspnea on Exertion, DENIES: Chest pain, Lower Extremity Edema Gastrointestinal: DENIES: Abdominal pain, Constipation, Diarrhea, Nausea, Vomiting, Difficulty Swallowing Musculoskeletal: COMPLAINS OF: Joint pain (family relates chronic) Integumentary: COMPLAINS OF: Rash (onset 1 week ago, now resolving) Immunologic/Allergic: COMPLAINS OF: Urticaria Neurologic: COMPLAINS OF: Localized weakness (Lt hemiparesis 2/2 CVA) Psychiatric: COMPLAINS OF: Confusion (mild, intermittent since CVA ) (Sandra Sanabria) Past Family Social History Coded Allergies: No Known Allergies (Unverified Allergy, Unknown, 11/02/17) Past Medical History Osteoporosis COPD CVA-residual right hemiparesis Hypertension Chronic low back pain Hyperlipidemia Depression . Past Surgical History Cataract surgery 2004 Partial hysterectomy Tonsillectomy . Reported Medications Zofran (Ondansetron HCl) 4 Mg Tab 4 Mg PO Q6HR PRN Hydralazine (Hydralazine HCl) 100 Mg Tab 100 Mg PO TID Take with meals Aspirin Children's (Aspirin) 81 Mg Chew 81 Mg PO DAILY Vitamin B-1 (Thiamine HCl) 100 Mg Tab 100 Mg PO DAILY One Daily-Minerals (Multiple Vitamins W/ Minerals) 1 Tab 1 Tab PO DAILY Famotidine 10 Mg Tab 10 Mg PO BID Gabapentin 300 Mg Cap 300 Mg PO Q6HR PRN Duoneb (Ipratropium-Albuterol Neb) 0.5-2.5 Mg/3 Ml Neb 1 Nebule INH Q6HR NEB PRN Tussin Cough (Dextromethorphan HBr) 15 Mg Cap 15 Mg PO Q6H PRN Tylenol (Acetaminophen) 325 Mg Tab 650 Mg PO Q4H PRN Dulcolax Supp (Bisacodyl) 10 Mg Supp 10 Mg RECTAL DAILY PRN Milk of Magnesia Liq (Magnesium Hydroxide) 400 Mg/5 Ml Susp 30 Ml PO DAILY PRN Spironolactone 25 Mg Tab 25 Mg PO BID Amlodipine (Amlodipine Besylate) 10 Mg Tab 10 Mg PO DAILY Gabapentin 100 Mg Cap 200 Mg PO BID Prozac (Fluoxetine HCl) 10 Mg Cap 10 Mg PO DAILY . Current Medications Medications (Trade) Dose Ordered Sig/Felipa Route Start Time Stop Time Status Last Admin (NS Flush) 2 ml UNSCH PRN IV FLUSH 11/02/17 18:15 (NS Flush) 2 ml BID IV FLUSH 11/02/17 21:00 11/03/17 07:49 (Tylenol) 650 mg Q4H PRN PO 11/02/17 18:15 (Zofran Inj) 4 mg Q6H PRN IVP 11/02/17 18:15 (Heparin Inj) 5,000 units Q12H SQ 11/02/17 19:30 11/03/17 07:49 (Narcan Inj) 0.4 mg UNSCH PRN IV PUSH 11/02/17 18:15 (Abby-Colace) 1 tab BID PO 11/02/17 21:00 11/03/17 07:49 (Milk Of Magnesia Liq) 30 ml Q12H PRN PO 11/02/17 18:15 (Senokot) 17.2 mg Q12H PRN PO 11/02/17 18:15 (Dulcolax Supp) 10 mg DAILY PRN RECTAL 11/02/17 18:15 (Lactulose Liq) 30 ml DAILY PRN PO 11/02/17 18:15 (Ativan) 0.5 mg Q8H PRN PO 11/02/17 18:15 (Albuterol Neb) 1.25 mg Q4HR NEB PRN NEB 11/02/17 18:15 (Catapres) 0.1 mg Q6H PRN PO 11/02/17 18:15 (Protonix Inj) 40 mg Q24H IV PUSH 11/02/17 20:00 11/02/17 21:02 (SoluMEDROL INJ) 80 mg Q6HR IV PUSH 11/03/17 00:00 11/03/17 06:04 Miscellaneous Information Patient in critical care unit? Ass... [id number] .XX 11/02/17 20:15 11/02/17 20:15 (Chlorhexidine 2% Cloth) 3 pack DAILY@04 TOPICAL 11/03/17 04:00 11/07/17 04:01 11/03/17 04:00 (Chlorhexidine 2% Cloth) 3 pack UNSCH PRN TOPICAL 11/02/17 20:30 11/07/17 20:15 Piperacillin Sod/ Tazobactam Sod 50 ml @ 100 mls/hr Q8H IV 11/03/17 01:00 11/03/17 07:49 Norepinephrine Bitartrate 250 ml @ 7.5 mls/hr TITRATE PRN IV 11/02/17 22:45 11/02/17 22:40 Sodium Chloride 1,000 ml @ 42 mls/hr [id number] IV 11/03/17 09:45 (Zithromax) 500 mg DAILY PO 11/04/17 09:00 UNV Linezolid 300 ml @ 300 mls/hr Q12H IV 11/03/17 11:15 UNV Family History Father secondary to renal disease . mother at age 54 of ICH, had underlying hypertension. Son of lung Cancer at age 46. Substance Use Tobacco: Former smoker/60 pack year history quit February 2017 Alcohol: No recent alcohol use, previously drank wine regularly socially Prescription med abuse: None Illicits: None . Psychosocial History . Most recently lives at [facility] since February 2017. Originally from [place] moved to [place] in 2002. 2011. 5 children, one of lung cancer. All of her children live in other states. Patient served in the [employer], [employer]. Spiritual/Cultural Factors Episcopal background no particular local affiliation, has previously declined supervisor corduroy cutting visits. (Sandra Sanabria) Health Care Surrogate: Copy in medical record Date completed: 02/2017 Health Care Surrogate(s): Name daughter Sandra Cummings as HCS Ethical and Legal Issues Patient orientation and cognitive processing has fluctuated since her CVA in 2016. At times she is more oriented and appropriate other times she is forgetful and mildly confused. She may be able to participate some in decision- making but would be best to observe shared decision making with her designated healthcare surrogate. Health care surrogate is named as daughter Sandra Cummings. It sounds as if family all communicates and is working together for decision- making. (Sandra Sanabria) Physical Exam Vital Signs Date Time Temp Pulse Resp B/P (MAP) Pulse Ox O2 Delivery O2 Flow Rate FiO2 11/03/17 08:55 96 Nasal Cannula 5.00 11/03/17 06:00 69 11/03/17 04:04 98.1 80 22 134/71 (92) 98 11/03/17 04:00 82 11/03/17 02:00 75 11/03/17 02:00 75 22 136/62 (86) 95 11/03/17 00:45 77 125/64 11/03/17 00:21 94 Nasal Cannula 5.00 11/03/17 00:00 98.2 68 10 90/52 (65) 98 11/03/17 00:00 68 11/02/17 22:40 74 78/44 11/02/17 22:00 74 10 74/40 (51) 94 11/02/17 22:00 74 11/02/17 21:45 75 11 79/43 (55) 94 11/02/17 21:34 76 19 83/44 (57) 94 11/02/17 21:33 77 18 79/42 (54) 94 11/02/17 21:32 79 24 79/46 (57) 94 11/02/17 21:30 79 16 72/47 (55) 92 11/02/17 21:15 85 15 96/51 (66) 98 11/02/17 21:00 82 21 105/56 (72) 97 11/02/17 20:45 79 21 80/52 (61) 98 11/02/17 20:31 80 22 78/50 (59) 98 11/02/17 20:30 80 23 77/50 (59) 98 11/02/17 20:15 82 20 104/54 (71) 97 11/02/17 20:05 79 24 92/50 (64) 97 11/02/17 20:03 76 24 69/37 (48) 96 11/02/17 20:01 97.9 76 22 66/41 (49) 96 11/02/17 20:00 76 11/02/17 19:27 86 17 110/56 (74) 95 11/02/17 19:07 11/02/17 19:07 87 22 108/59 (75) 94 Nasal Cannula 4.00 11/02/17 18:28 89 22 112/55 (74) 95 Nasal Cannula 4.00 11/02/17 17:54 104 24 91/60 (70) 93 Nasal Cannula 5.00 11/02/17 17:39 99 28 99/64 (76) 91 Nasal Cannula 5.00 11/02/17 16:49 93 Nasal Cannula 5.00 11/02/17 16:49 111 26 89/65 (73) 93 Nasal Cannula 5.00 11/02/17 15:51 98.1 85 20 158/69 (98) 91 Exam CONSTITUTIONAL/GENERAL: This is a very frail, thin elderly female alert and confused TUBES/LINES/DRAINS: Peripheral IV upper extremity, nasal cannula O2, Harris catheter SKIN: No jaundice, rashes, or lesions. multiple discreet scattered tiny (1-2mm) scabbed lesions LUE, healing. No wounds seen anteriorly. Skin temperature appropriate. Not diaphoretic. HEAD: Atraumatic. Normocephalic. EYES: Pupils equal and round and reactive. Extraocular motions intact. No scleral icterus. No injection or drainage. Fundi not examined. ENT: Hard of hearing. Nose without bleeding or purulent drainage. Throat without visible erythema, exudates, masses, or lesions. MM dry NECK: Trachea midline. Supple, nontender. No palpable thyroid enlargement or nodularity. CARDIOVASCULAR: Regular rate and rhythm without murmur. Peripheral pulses symmetric. RESPIRATORY/CHEST: Symmetric, unlabored respirations. scattered expiratory wheezes. Breath sounds equal bilaterally. NC 5LPM GASTROINTESTINAL: Abdomen soft, flat non-tender, nondistended. No flat palpable masses. No guarding. Bowel sounds present. GENITOURINARY: Without palpable bladder distension. Harris catheter in place. Clear light yellow urine. MUSCULOSKELETAL: Extremities without clubbing, cyanosis, or edema. No joint tenderness or effusion noted. Extremities very thin with muscle atrophy. Left upper extremity rigid, flaccid. Left lower extremity drawn up questionable contracture though patient indicates she can remove it when she wants to. LYMPHATICS: No palpable cervical or supraclavicular adenopathy. NEUROLOGICAL: Awake and alert. Oriented x1-2. pleasantly confused.Follows simple commands. cooperative. Moves RU, RLE, WILBER flaccid/rigid, left leg drawn up, ? contracted PSYCHIATRIC: No obvious anxiety/depression. no apparent hallucinations or other psychotic thought process. (Sandra Sanabria) Diagnostic Tests Laboratory Laboratory Tests Test 11/02/17 16:10 11/02/17 16:15 11/02/17 19:30 11/02/17 23:46 White Blood Count 22.4 TH/MM3 (4.0-11.0) Red Blood Count 3.51 MIL/MM3 (4.00-5.30) Hemoglobin 10.1 GM/DL (11.6-15.3) Hematocrit 29.8 % (35.0-46.0) Mean Corpuscular Volume 85.0 FL (80.0-100.0) Mean Corpuscular Hemoglobin 28.7 PG (27.0-34.0) Mean Corpuscular Hemoglobin Concent 33.8 % (32.0-36.0) Red Cell Distribution Width 13.6 % (11.6-17.2) Platelet Count 346 TH/MM3 (150-450) Mean Platelet Volume 7.3 FL (7.0-11.0) Neutrophils (%) (Auto) 80.3 % (16.0-70.0) Lymphocytes (%) (Auto) 8.2 % (9.0-44.0) Monocytes (%) (Auto) 11.3 % (0.0-8.0) Eosinophils (%) (Auto) 0.1 % (0.0-4.0) Basophils (%) (Auto) 0.1 % (0.0-2.0) Neutrophils # (Auto) 18.0 TH/MM3 (1.8-7.7) Lymphocytes # (Auto) 1.8 TH/MM3 (1.0-4.8) Monocytes # (Auto) 2.5 TH/MM3 (0-0.9) Eosinophils # (Auto) 0.0 TH/MM3 (0-0.4) Basophils # (Auto) 0.0 TH/MM3 (0-0.2) CBC Comment AUTO DIFF Differential Comment AUTO DIFF CONFIRMED Toxic Granulation 1+ (NORMAL) Platelet Estimate NORMAL (NORMAL) Platelet Morphology Comment NORMAL (NORMAL) Basophilic Stippling FAINT (NORMAL) Prothrombin Time 10.0 SEC (9.8-11.6) Prothromb Time International Ratio 1.0 RATIO Activated Partial Thromboplast Time 27.8 SEC (24.3-30.1) Blood Urea Nitrogen 79 MG/DL (7-18) Creatinine 3.97 MG/DL (0.50-1.00) Random Glucose 153 MG/DL (74-106) Total Protein 7.8 GM/DL (6.4-8.2) Albumin 3.1 GM/DL (3.4-5.0) Calcium Level 8.0 MG/DL (8.5-10.1) Magnesium Level 2.6 MG/DL (1.5-2.5) Alkaline Phosphatase 58 U/L (45-117) Aspartate Amino Transf (AST/SGOT) 23 U/L (15-37) Alanine Aminotransferase (ALT/SGPT) 17 U/L (10-53) Total Bilirubin 0.2 MG/DL (0.2-1.0) Sodium Level 129 MEQ/L (136-145) Potassium Level 3.3 MEQ/L (3.5-5.1) Chloride Level 93 MEQ/L (98-107) Carbon Dioxide Level 20.5 MEQ/L (21.0-32.0) Anion Gap 16 MEQ/L (5-15) Estimat Glomerular Filtration Rate 11 ML/MIN (>89) Total Creatine Kinase 295 U/L (26-192) Creatine Kinase MB 3.0 NG/ML (0.5-3.6) Creatine Kinase MB % 1.0 % (0.0-4.0) Troponin I LESS THAN 0.02 NG/ML B-Type Natriuretic Peptide 60 PG/ML (0-100) Lactic Acid Level 1.6 mmol/L (0.4-2.0) Nasal Screen MRSA (PCR) MRSA DETECTED (NOT DETECT) Blood Gas Puncture Site RT RADIAL Blood Gas Patient Temperature 98.6 Blood Gas HCO3 17 mmol/L (22-26) Blood Gas Base Excess -8.4 mmol/L (-2-2) Blood Gas Oxygen Saturation 92 % (90-100) Arterial Blood pH 7.30 (7.380-7.420) Arterial Blood Partial Pressure CO2 35 mmHg (38-42) Arterial Blood Partial Pressure O2 81 mmHg (61-120) Arterial Blood Oxygen Content 13.9 Vol % (12.0-20.0) Arterial Blood Carboxyhemoglobin 0.8 % (0-4) Arterial Blood Methemoglobin 1.5 % (0-2) Blood Gas Hemoglobin 10.6 G/DL (12.0-16.0) Oxygen Delivery Device NASAL CANNULA Blood Gas Liter Flow 5 L/M Test 11/03/17 00:05 11/03/17 05:40 Urine Color YELLOW (YELLW/STRAW) Urine Turbidity HAZY (CLEAR) Urine pH 5.5 (5.0-8.5) Urine Specific Allred 1.014 (1.002-1.035) Urine Protein 100 mg/dL (NEG-TRACE) Urine Glucose (UA) NEG mg/dL (NEG) Urine Ketones NEG mg/dL (NEG) Urine Occult Blood NEG (NEG) Urine Nitrite NEG (NEG) Urine Bilirubin NEG (NEG) Urine Urobilinogen LESS THAN 2.0 MG/DL (LESS Urine Leukocyte Esterase NEG (NEG) Urine RBC LESS THAN 1 /hpf (0-3) Urine WBC 2 /hpf (0-5) Urine Amorphous Sediment RARE Microscopic Urinalysis Comment CATH-CULT NOT IND White Blood Count 18.3 TH/MM3 (4.0-11.0) Red Blood Count 3.20 MIL/MM3 (4.00-5.30) Hemoglobin 9.2 GM/DL (11.6-15.3) Hematocrit 27.2 % (35.0-46.0) Mean Corpuscular Volume 85.0 FL (80.0-100.0) Mean Corpuscular Hemoglobin 28.8 PG (27.0-34.0) Mean Corpuscular Hemoglobin Concent 33.9 % (32.0-36.0) Red Cell Distribution Width 13.7 % (11.6-17.2) Platelet Count 313 TH/MM3 (150-450) Mean Platelet Volume 7.6 FL (7.0-11.0) Neutrophils (%) (Auto) 96.3 % (16.0-70.0) Lymphocytes (%) (Auto) 2.3 % (9.0-44.0) Monocytes (%) (Auto) 1.3 % (0.0-8.0) Eosinophils (%) (Auto) 0.0 % (0.0-4.0) Basophils (%) (Auto) 0.1 % (0.0-2.0) Neutrophils # (Auto) 17.6 TH/MM3 (1.8-7.7) Lymphocytes # (Auto) 0.4 TH/MM3 (1.0-4.8) Monocytes # (Auto) 0.2 TH/MM3 (0-0.9) Eosinophils # (Auto) 0.0 TH/MM3 (0-0.4) Basophils # (Auto) 0.0 TH/MM3 (0-0.2) CBC Comment DIFF FINAL Differential Comment Blood Urea Nitrogen 80 MG/DL (7-18) Creatinine 3.36 MG/DL (0.50-1.00) Random Glucose 213 MG/DL (74-106) Calcium Level 7.8 MG/DL (8.5-10.1) Sodium Level 135 MEQ/L (136-145) Potassium Level 4.4 MEQ/L (3.5-5.1) Chloride Level 102 MEQ/L (98-107) Carbon Dioxide Level 17.9 MEQ/L (21.0-32.0) Anion Gap 15 MEQ/L (5-15) Estimat Glomerular Filtration Rate 13 ML/MIN (>89) Random Vancomycin Level 15.1 COMMENT (Sandra Sanabria) Result Diagram: 11/03/17 0540 11/03/17 0540 Microbiology Microbiology Date/Time Source Procedure Growth Status 11/02/17 16:05 Blood Peripheral Aerobic Blood Culture - Preliminary NO GROWTH IN 1 DAY Resulted 11/02/17 16:05 Blood Peripheral Anaerobic Blood Culture - Preliminary NO GROWTH IN 1 DAY Resulted 11/02/17 16:10 Nasal Aspirate Influenza Types A,B Antigen (JEROD) - Final NEGATIVE FOR FLU A AND B ANTIGEN.... Complete Imaging Last Impressions Chest X-Ray 11/02/17 1556 Signed Impressions: Service Date/Time: Thursday, November 02, 2017 16:09 - CONCLUSION: 1. Subsegmental atelectasis right base. Pedro Luis Anderson MD (Sandra Sanabria) Patient/Family Conference Family Conference Time (mins): 25 Family Conference Location: Bedside Issues Discussed: Met with sisterryanughter bedside. Discussed the following: * Palliative care role, purpose, approach * Additional medical, psychosocial, history * Patients general health, functional status, and cognitive changes in the months leading up to the current hospitalization * Patient/family understanding of the current medical problems * Patient/family understanding of prognosis * Patients goals of care as best understood from advance directives and/or conversations and/or values * Current medical treatment options and benefits/burdens of those options * Likely scenarios comparing ongoing aggressive care with a transition to comfort measures only-review that if clinical course worsens then comfort measures could be considered * Questions answered to the best of my ability * Palliative care contact information provided Spoke with sister Radha and granddaughter at bedside. They endorse that patient had been doing okay at [facility] her admission there following acute CVA in February 2017. She has not had any recent hospitalizations. They tell me about one week ago she developed a scattered, discrete itching rash which was treated by various creams and eventually with what they describe his high-dose steroids and eventually the rash got better however they noted around the day or day after that the steroids were discontinued patient became increasingly short of breath. She had been short of breath for a a day or 2 prior to hospital presentation, with decreased oral intake only during that time. They tell me her mental status has fluctuated since her stroke she has some times where she is very clear and pretty oriented and other times where she is less clear. She was taking her meals in the dining area of the residential and engaged in some of the social activities there. He feel in general her health had been doing okay since her CVA last summer. Explore them healthcare surrogate, current conditions, prognosis, treatments in place and patient's previously expressed wishes based on review of palliative care consultation in February [address] Tan. They indicate they all remain in close communication with Sandra and the rest of the family. All questions answered, advised I would call daughter/ designated healthcare surrogate Sandra as well. (Sandra Sanabria) Assessment and Plan Disease Oriented Problem List: (1) Hypertension (2) H/O: CVA (cerebrovascular accident) (3) Osteoporosis (4) Acute renal failure (5) Respiratory failure (6) Sepsis (7) COPD exacerbation Symptom Scale: (1) Dyspnea 0-10 Scale: Unable to quantify (2) Confusion 0-10 Scale: Unable to quantify Pertinent Non-Medical Issues Psychosocial:. Most recently lives at [facility] since February 2017. Originally from [place] moved to [place] in 2002. 2011. 5 children, one of lung cancer. All of her children live in other states. Patient served in the [employer], [employer] Spiritual: Episcopal-no particular affiliation Legal:Patient orientation and cognitive processing has fluctuated since her CVA in 2016. At times she is more oriented and appropriate other times she is forgetful and mildly confused. She may be able to participate some in decision- making but would be best to observe shared decision making with her designated healthcare surrogate. Health care surrogate is named as daughter Sandra Cummings. It sounds as if family all communicates and is working together for decision- making. Ethical issues impacting care: Important Contacts Daughter Sandra Cummings healthcare surrogate -[phone]-[phone] sister Radha Lares [phone] / [phone] Daughter Claudia Gonzalez [phone] Carmelo Frey son [phone] . Prognosis This patient was admitted for acute shortness of breath. CXR findings of atelectasis, + acute renal failure, leukocytosis. Underlying history of COPD, history of CVA, advanced age. May be able to get through current acute episode and return to prior status at long-term nursing facility however does remain high risk for further complications and setbacks during acute hospital course. . Code Status: No Code Plan * Legal decision maker:Patient orientation and cognitive processing has fluctuated since her CVA in 2017. At times she is more oriented and appropriate other times she is forgetful and mildly confused. She may be able to participate some in decision-making but would be best to observe shared decision making with her designated healthcare surrogate. Health care surrogate is named as daughter Sandra Cummings. It sounds as if family all communicates and is working together for decision-making. * Goals: Currently goals somewhat aggressive to continue current conservative medical treatments short of BiPAP or intubation, cardiac resuscitation. Family hopeful to treat current illness and restore patient back to prior level at residential. *In the past patient and family have discussed hospice and comfort measures in the event of clinical deterioration, prior palliative care consultation February 2017. * CODE STATUS: DNR * SYMPTOMS: --Dyspnea-patient with shortness of breath 3 days, subjective improvement during hospitalization. Currently maintaining on 5 L nasal cannula. On nebulizers, steroids. If clinical deterioration and worsening of dyspnea and goals comfort oriented could consider opiates, benzos for symptom management. --Confusion- patient with history of CVA last year, some residual fluctuating confusion ongoing, this is likely worsened by acute sepsis. Continue to monitor. * Palliative care will continue to follow during hospital course as condition evolves, to assist patient/decision-maker with understanding of medical conditions, weighing benefits/burdens of treatment options, for clarification of goals of treatment. Additionally will assist with any symptoms of palliative concern (Sandra Sanabria) Thank you for the opportunity to participate in the care of Ms. Cummings. (Sandra Sanabria) Attestation To help prompt me to consider important information that might be impacting today's encounter and assessment, information from prior notes written by myself or my colleagues may have been "brought forward" into today's note. My signature on this note, however, is an attestation that I personally performed the exam, history, and/or decision-making noted today, and, unless otherwise indicated, the interactions with patient, family, and staff as well as the review of records all occurred today. I also attest that the listed assessment and stated plan reflect my best clinical judgment today based on the combination of historical information, prior notes, and today's exam/ interactions. When time spent is documented, it refers only to time spent today by the signer, or if indicated, combined time spent today by collaborating physician/nurse practitioner. (Sandra Sanabria) Collaborating MD Comments Chart reviewed. Case discussed with palliative care ARCHITECTURAL MANAGER. Above ARCHITECTURAL MANAGER note reviewed and I concur. . (Haseeb Esteban MD) Sandra Sanabria Nov 03, 2017 11:42 Haseeb Esteban MD Nov 10, 2017 17:07
[2017-11-03] MEDS: LINEZOLID 600 MG PREMIX 300 ML IV SCH (11:57)
[2017-11-03] MEDS ORDERED: VANCOMYCIN 1,000 MG/NS 250 ML IV ONE ×2 (12:00)
--- NOTE | 2017-11-03 12:32 | PD.CONS ---
HPI Service Critical Care Medicine Consult Requested By Dr Sanchez Reason for Consult Medical management, hypotension Primary Care Physician Unknown History of Present Illness I was consulted and managed patient overnight, this documentation is being performed later. 72 yo female with PMH with PMH of COPD, hypertension, hyperlipidemia, ischemic stroke 02/14/17 with residual left facial droop and aphasia, depression. She was admitted to [facility] by Dr. Sanchez 11/02/17 for COPD exacerbation. She was given DuoNeb 2, Solu-Medrol 125 mill grams IV, azithromycin, Zosyn, 1.5 L normal saline bolus in the emergency department. She was placed on BiPAP for increased work of breathing but she did not tolerate BiPAP. She indicated she did not want intubation if needed. She became hypotensive with blood pressure 79/49. Levophed was initiated and critical care medicine was consulted to assist with management of vasopressors and shock. Review of Systems Constitutional: DENIES: Fever Respiratory: COMPLAINS OF: Cough, Sputum production, Shortness of breath Cardiovascular: DENIES: Chest pain, Palpitations Past Family Social History Allergies: Coded Allergies: No Known Allergies (Unverified Allergy, Unknown, 11/02/17) Past Medical History Ischemic stroke 02/27 Chronic low back pain Depression Hypertension Hyperlipidemia History of tobacco abuse Past Surgical History Cataracts Hysterectomy Tonsillectomy Reported Medications Hydralazine 100 mg by mouth 3 times a day DuoNeb every 6 hours as needed Norvasc 10 mg by mouth daily Spironolactone 25 mg by mouth twice a day Aspirin 1 mg by mouth daily Tylenol 650 mg by mouth every 6 hours Gabapentin 300 Milligrams by mouth every 6 hours Prozac 10mg by mouth daily Dextromethorphan by mouth every 6 hours as needed Dulcolax Milk of magnesia 30 ML by mouth daily Zofran 4 mg by mouth every 6 hours Famotidine 10 mg by mouth twice a day Thiamine 100 mg by mouth daily Multivitamin one by mouth daily Family History Patient denies significant family medical history. Social History 60 pyh smoking No illicit drug use In [facility] since February 2017. Physical Exam Vital Signs Vital Signs Date Time Temp Pulse Resp B/P (MAP) Pulse Ox O2 Delivery O2 Flow Rate FiO2 11/03/17 08:55 96 Nasal Cannula 5.00 11/03/17 06:00 69 11/03/17 04:04 98.1 80 22 134/71 (92) 98 11/03/17 04:00 82 2/18 02:00 75 2/18 02:00 75 22 136/62 (86) 95 18 00:45 77 125/64 11/03/17 00:21 94 Nasal Cannula 5.00 11/03/17 00:00 98.2 68 10 90/52 (65) 98 11/03/17 00:00 68 2018 22:40 74 78/44 218 22:00 74 10 74/40 (51) 94 18 22:00 74 /18 21:45 75 11 79/43 (55) 94 11/02/17 21:34 76 19 83/44 (57) 94 11/02/17 21:33 77 18 79/42 (54) 94 11/02/17 21:32 79 24 79/46 (57) 94 11/02/17 21:30 79 16 72/47 (55) 92 11/02/17 21:15 85 15 96/51 (66) 98 11/02/17 21:00 82 21 105/56 (72) 97 11/02/17 20:45 79 21 80/52 (61) 98 11/02/17 20:31 80 22 78/50 (59) 98 11/02/17 20:30 80 23 77/50 (59) 98 11/02/17 20:15 82 20 104/54 (71) 97 11/02/17 20:05 79 24 92/50 (64) 97 11/02/17 20:03 76 24 69/37 (48) 96 11/02/17 20:01 97.9 76 22 66/41 (49) 96 18 20:00 76 220/18 19:27 86 17 110/56 (74) 95 11/02/17 19:07 220/18 19:07 87 22 108/59 (75) 94 Nasal Cannula 4.00 18 18:28 89 22 112/55 (74) 95 Nasal Cannula 4.00 11/02/17 17:54 104 24 91/60 (70) 93 Nasal Cannula 5.00 11/02/17 17:39 99 28 99/64 (76) 91 Nasal Cannula 5.00 11/02/17 16:49 93 Nasal Cannula 5.00 11/02/17 16:49 111 26 89/65 (73) 93 Nasal Cannula 5.00 11/02/17 15:51 98.1 85 20 158/69 (98) 91 Physical Exam GENERAL: Elderly female sitting up in [facility] bed. SKIN: Warm and dry. HEAD: Atraumatic. Normocephalic. EYES: Pupils equal and round, 3 mm and reactive bilaterally.. No scleral icterus. No injection or drainage. ENT: No nasal bleeding or discharge. Mucous membranes dry NECK: Trachea midline. No JVD. CARDIOVASCULAR: Regular rate and rhythm rate in 80s with no murmurs rubs or gallops appreciated. RESPIRATORY: Distant breath sounds with bilateral expiratory wheeze. Tachypneic but no accessory muscle use. No rales + rhonchi. GASTROINTESTINAL: Abdomen soft, non-tender, nondistended. Bowel sounds present MUSCULOSKELETAL: Extremities without clubbing, cyanosis pin. Thin lower extremities with no edema. NEUROLOGICAL: Awake and alert. Dysarthric speech. Left facial droop. No obvious cranial nerve deficits. Moving all extremities Laboratory Laboratory Tests Test 11/02/17 16:10 11/02/17 16:15 11/02/17 19:30 11/02/17 23:46 White Blood Count 22.4 Red Blood Count 3.51 Hemoglobin 10.1 Hematocrit 29.8 Mean Corpuscular Volume 85.0 Mean Corpuscular Hemoglobin 28.7 Mean Corpuscular Hemoglobin Concent 33.8 Red Cell Distribution Width 13.6 Platelet Count 346 Mean Platelet Volume 7.3 Neutrophils (%) (Auto) 80.3 Lymphocytes (%) (Auto) 8.2 Monocytes (%) (Auto) 11.3 Eosinophils (%) (Auto) 0.1 Basophils (%) (Auto) 0.1 Neutrophils # (Auto) 18.0 Lymphocytes # (Auto) 1.8 Monocytes # (Auto) 2.5 Eosinophils # (Auto) 0.0 Basophils # (Auto) 0.0 CBC Comment AUTO DIFF Differential Comment AUTO DIFF CONFIRMED Toxic Granulation 1+ Platelet Estimate NORMAL Platelet Morphology Comment NORMAL Basophilic Stippling FAINT Prothrombin Time 10.0 Prothromb Time International Ratio 1.0 Activated Partial Thromboplast Time 27.8 Blood Urea Nitrogen 79 Creatinine 3.97 Random Glucose 153 Total Protein 7.8 Albumin 3.1 Calcium Level 8.0 Magnesium Level 2.6 Alkaline Phosphatase 58 Aspartate Amino Transf (AST/SGOT) 23 Alanine Aminotransferase (ALT/SGPT) 17 Total Bilirubin 0.2 Sodium Level 129 Potassium Level 3.3 Chloride Level 93 Carbon Dioxide Level 20.5 Anion Gap 16 Estimat Glomerular Filtration Rate 11 Total Creatine Kinase 295 Creatine Kinase MB 3.0 Creatine Kinase MB % 1.0 Troponin I LESS THAN 0.02 B-Type Natriuretic Peptide 60 Lactic Acid Level 1.6 Nasal Screen MRSA (PCR) MRSA DETECTED Blood Gas Puncture Site RT RADIAL Blood Gas Patient Temperature 98.6 Blood Gas HCO3 17 Blood Gas Base Excess -8.4 Blood Gas Oxygen Saturation 92 Arterial Blood pH 7.30 Arterial Blood Partial Pressure CO2 35 Arterial Blood Partial Pressure O2 81 Arterial Blood Oxygen Content 13.9 Arterial Blood Carboxyhemoglobin 0.8 Arterial Blood Methemoglobin 1.5 Blood Gas Hemoglobin 10.6 Oxygen Delivery Device NASAL CANNULA Blood Gas Liter Flow 5 Test 11/03/17 00:05 11/03/17 05:40 Urine Color YELLOW Urine Turbidity HAZY Urine pH 5.5 Urine Specific [place] 1.014 Urine Protein 100 Urine Glucose (UA) NEG Urine Ketones NEG Urine Occult Blood NEG Urine Nitrite NEG Urine Bilirubin NEG Urine Urobilinogen LESS THAN 2.0 Urine Leukocyte Esterase NEG Urine RBC LESS THAN 1 Urine WBC 2 Urine Amorphous Sediment RARE Microscopic Urinalysis Comment CATH-CULT NOT IND White Blood Count 18.3 Red Blood Count 3.20 Hemoglobin 9.2 Hematocrit 27.2 Mean Corpuscular Volume 85.0 Mean Corpuscular Hemoglobin 28.8 Mean Corpuscular Hemoglobin Concent 33.9 Red Cell Distribution Width 13.7 Platelet Count 313 Mean Platelet Volume 7.6 Neutrophils (%) (Auto) 96.3 Lymphocytes (%) (Auto) 2.3 Monocytes (%) (Auto) 1.3 Eosinophils (%) (Auto) 0.0 Basophils (%) (Auto) 0.1 Neutrophils # (Auto) 17.6 Lymphocytes # (Auto) 0.4 Monocytes # (Auto) 0.2 Eosinophils # (Auto) 0.0 Basophils # (Auto) 0.0 CBC Comment DIFF FINAL Differential Comment Blood Urea Nitrogen 80 Creatinine 3.36 Random Glucose 213 Calcium Level 7.8 Sodium Level 135 Potassium Level 4.4 Chloride Level 102 Carbon Dioxide Level 17.9 Anion Gap 15 Estimat Glomerular Filtration Rate 13 Random Vancomycin Level 15.1 Date/Time Source Procedure Growth Status 2/20/18 16:05 Blood Peripheral Aerobic Blood Culture - Preliminary NO GROWTH IN 1 DAY Resulted 11/02/17 16:05 Blood Peripheral Anaerobic Blood Culture - Preliminary NO GROWTH IN 1 DAY Resulted 11/02/17 16:10 Nasal Aspirate Influenza Types A,B Antigen (JEROD) - Final NEGATIVE FOR FLU A AND B ANTIGEN.... Complete Result Diagram: 11/03/17 0540 11/03/17 0540 Septic Shock Reassessment Septic shock perfusion: reassessment completed Assessment and Plan Assessment and Plan NEURO: History of stroke Dysarthria Depression RESP: COPD Prior tobacco abuse Nasal cannula wean as tolerated Did not tolerate BiPAP. Solu-Medrol 80 mg IV every 6. DuoNeb every 6 hours. Albuterol every 2 hours as needed. Antibiotics as per below CV: Severe sepsis Receive total of 2 L normal saline bolus. On Levophed to maintain mean arterial pressure greater than 65, weaned off. GI: Heart healthy diet FEN/RENAL: Acute kidney injury Hyponatremia Noted nephrology consulted ID: Severe sepsis ?Atypical pneumonia vs aspiration Leukocytosis Continue Zosyn and azithromycin. HEME: Anemia Monitor CBC ENDO: Hyperglycemia, steroid induced Monitor bedside glucose before meals/hs and initiate low-dose insulin sliding scale as indicated while on steroids. PROPH: SCDs for DVT prophylaxis. Heparin 5000 units subcutaneous every 12 hours for DVT prophylaxis. Protonix 40 mg IV for stress ulcer prophylaxis. ACCESS: Has peripheral IV. Initially planned to place central venous line but patient weaned off Levophed within an hour and central venous line no longer appears necessary Palliative care medicine following DNR Level 2 Consult Pamela Mason MD Nov 03, 2017 12:32
--- NOTE | 2017-11-03 12:36 | PD.CONS ---
HPI Service Nephrology Consult Requested By Reason for Consult DANIEL Primary Care Physician Unknown History of Present Illness This is a 72 y/o female with COPD admitted for shortness of breath, COPD exacerbation. Her creatinine was 3.9 on arrival, is 3.3 today. There are no prior labs for comparison. PMH of CVA with hemiparesis, HTN, GERD, and osteoporosis. Her blood pressure was very low yesterday, 70/50s, was on pressors until last night. She is oliguric with mckeon, appears to be dehydrated. We were consulted to assist with management. Her blood pressure is now normal. She is DNR/DNI. Has proteinuria and elevated blood sugars. (Stormy Roach) Review of Systems Constitutional: COMPLAINS OF: Fatigue, DENIES: Fever, Weight gain (Stormy oRach) Past Family Social History Allergies: Coded Allergies: No Known Allergies (Unverified Allergy, Unknown, 11/02/17) Past Medical History COPD CVA-residual right hemiparesis OP GERD Depression Past Surgical History Cataract surgery 2003 Partial hysterectomy Tonsillectomy Reported Medications Zofran (Ondansetron HCl) 4 Mg Tab 4 Mg PO Q6HR PRN Hydralazine (Hydralazine HCl) 100 Mg Tab 100 Mg PO TID Take with meals Aspirin Children's (Aspirin) 81 Mg Chew 81 Mg PO DAILY Vitamin B-1 (Thiamine HCl) 100 Mg Tab 100 Mg PO DAILY One Daily-Minerals (Multiple Vitamins W/ Minerals) 1 Tab 1 Tab PO DAILY Famotidine 10 Mg Tab 10 Mg PO BID Gabapentin 300 Mg Cap 300 Mg PO Q6HR PRN Duoneb (Ipratropium-Albuterol Neb) 0.5-2.5 Mg/3 Ml Neb 1 Nebule INH Q6HR NEB PRN Tussin Cough (Dextromethorphan HBr) 15 Mg Cap 15 Mg PO Q6H PRN Tylenol (Acetaminophen) 325 Mg Tab 650 Mg PO Q4H PRN Dulcolax Supp (Bisacodyl) 10 Mg Supp 10 Mg RECTAL DAILY PRN Milk of Magnesia Liq (Magnesium Hydroxide) 400 Mg/5 Ml Susp 30 Ml PO DAILY PRN Spironolactone 25 Mg Tab 25 Mg PO BID Amlodipine (Amlodipine Besylate) 10 Mg Tab 10 Mg PO DAILY Gabapentin 100 Mg Cap 200 Mg PO BID Prozac (Fluoxetine HCl) 10 Mg Cap 10 Mg PO DAILY Active Ordered Medications Current Medications Medications (Trade) Dose Ordered Sig/Felipa Route Start Time Stop Time Status Last Admin (NS Flush) 2 ml UNSCH PRN IV FLUSH 11/02/17 18:15 (NS Flush) 2 ml BID IV FLUSH 11/02/17 21:00 11/03/17 07:49 (Tylenol) 650 mg Q4H PRN PO 11/02/17 18:15 (Zofran Inj) 4 mg Q6H PRN IVP 11/02/17 18:15 (Heparin Inj) 5,000 units Q12H SQ 11/02/17 19:30 11/03/17 07:49 (Narcan Inj) 0.4 mg UNSCH PRN IV PUSH 11/02/17 18:15 (Abby-Colace) 1 tab BID PO 11/02/17 21:00 11/03/17 07:49 (Milk Of Magnesia Liq) 30 ml Q12H PRN PO 11/02/17 18:15 (Senokot) 17.2 mg Q12H PRN PO 11/02/17 18:15 (Dulcolax Supp) 10 mg DAILY PRN RECTAL 11/02/17 18:15 (Lactulose Liq) 30 ml DAILY PRN PO 11/02/17 18:15 (Ativan) 0.5 mg Q8H PRN PO 11/02/17 18:15 (Albuterol Neb) 1.25 mg Q4HR NEB PRN NEB 11/02/17 18:15 (Catapres) 0.1 mg Q6H PRN PO 11/02/17 18:15 (Protonix Inj) 40 mg Q24H IV PUSH 11/02/17 20:00 11/02/17 21:02 (SoluMEDROL INJ) 80 mg Q6HR IV PUSH 11/03/17 00:00 11/03/17 11:57 Miscellaneous Information Patient in critical care unit? Ass... [id number] .XX 11/02/17 20:15 11/02/17 20:15 (Chlorhexidine 2% Cloth) 3 pack DAILY@04 TOPICAL 11/03/17 04:00 11/07/17 04:01 11/03/17 04:00 (Chlorhexidine 2% Cloth) 3 pack UNSCH PRN TOPICAL 11/02/17 20:30 11/07/17 20:15 Piperacillin Sod/ Tazobactam Sod 50 ml @ 100 mls/hr Q8H IV 11/03/17 01:00 11/03/17 07:49 Norepinephrine Bitartrate 250 ml @ 7.5 mls/hr TITRATE PRN IV 11/02/17 22:45 11/02/17 22:40 Sodium Chloride 1,000 ml @ 42 mls/hr [id number] IV 11/03/17 09:45 11/03/17 11:57 (Zithromax) 500 mg Q24H PO 11/03/17 18:00 Linezolid 300 ml @ 300 mls/hr Q12H IV 11/03/17 12:00 11/03/17 11:57 Family History Non contributory Social History Former smoker No ETOH Retired DNR/DNI (Stormy Roach) Physical Exam Vital Signs Vital Signs Date Time Temp Pulse Resp B/P (MAP) Pulse Ox O2 Delivery O2 Flow Rate FiO2 11/03/17 08:55 96 Nasal Cannula 5.00 11/03/17 06:00 69 11/03/17 04:04 98.1 80 22 134/71 (92) 98 11/03/17 04:00 82 11/03/17 02:00 75 11/03/17 02:00 75 22 136/62 (86) 95 11/03/17 00:45 77 125/64 11/03/17 00:21 94 Nasal Cannula 5.00 11/03/17 00:00 98.2 68 10 90/52 (65) 98 11/03/17 00:00 68 11/02/17 22:40 74 78/44 11/02/17 22:00 74 10 74/40 (51) 94 11/02/17 22:00 74 11/02/17 21:45 75 11 79/43 (55) 94 11/02/17 21:34 76 19 83/44 (57) 94 11/02/17 21:33 77 18 79/42 (54) 94 11/02/17 21:32 79 24 79/46 (57) 94 11/02/17 21:30 79 16 72/47 (55) 92 11/02/17 21:15 85 15 96/51 (66) 98 11/02/17 21:00 82 21 105/56 (72) 97 11/02/17 20:45 79 21 80/52 (61) 98 11/02/17 20:31 80 22 78/50 (59) 98 11/02/17 20:30 80 23 77/50 (59) 98 11/02/17 20:15 82 20 104/54 (71) 97 11/02/17 20:05 79 24 92/50 (64) 97 11/02/17 20:03 76 24 69/37 (48) 96 11/02/17 20:01 97.9 76 22 66/41 (49) 96 11/02/17 20:00 76 11/02/17 19:27 86 17 110/56 (74) 95 11/02/17 19:07 11/02/17 19:07 87 22 108/59 (75) 94 Nasal Cannula 4.00 11/02/17 18:28 89 22 112/55 (74) 95 Nasal Cannula 4.00 11/02/17 17:54 104 24 91/60 (70) 93 Nasal Cannula 5.00 11/02/17 17:39 99 28 99/64 (76) 91 Nasal Cannula 5.00 11/02/17 16:49 93 Nasal Cannula 5.00 11/02/17 16:49 111 26 89/65 (73) 93 Nasal Cannula 5.00 11/02/17 15:51 98.1 85 20 158/69 (98) 91 Physical Exam CONSTITUTIONAL/GENERAL: This is an adequately nourished patient, in no apparent distress. SKIN: Intact, dryu HEAD: Atraumatic. Normocephalic. EYES: Pupils equal and round and reactive. Extraocular motions intact. No scleral icterus. No injection or drainage. Fundi not examined. NECK: Trachea midline. Supple, nontender. No palpable thyroid enlargement or nodularity. CARDIOVASCULAR: Regular rate and rhythm without murmurs, gallops, or rubs. No JVD. Peripheral pulses symmetric. RESPIRATORY/CHEST: Symmetric, unlabored respirations. Rhonchi and rales throughout, wheezing. GASTROINTESTINAL: Abdomen soft, non-tender, nondistended. No hepato-splenomegaly , or palpable masses. No guarding. Bowel sounds present. GENITOURINARY: Without palpable bladder distension. Mckeon catheter in place. MUSCULOSKELETAL: Extremities without clubbing, cyanosis, or edema. No joint tenderness or effusion noted. No calf tenderness. No mottling or clubbing. NEUROLOGICAL: Awake and alert. Motor and sensory grossly within normal limits. Follows commands. Cognitively sharp. Moves all extremities. Laboratory Laboratory Tests Test 11/02/17 16:10 11/02/17 16:15 11/02/17 19:30 11/02/17 23:46 White Blood Count 22.4 Red Blood Count 3.51 Hemoglobin 10.1 Hematocrit 29.8 Mean Corpuscular Volume 85.0 Mean Corpuscular Hemoglobin 28.7 Mean Corpuscular Hemoglobin Concent 33.8 Red Cell Distribution Width 13.6 Platelet Count 346 Mean Platelet Volume 7.3 Neutrophils (%) (Auto) 80.3 Lymphocytes (%) (Auto) 8.2 Monocytes (%) (Auto) 11.3 Eosinophils (%) (Auto) 0.1 Basophils (%) (Auto) 0.1 Neutrophils # (Auto) 18.0 Lymphocytes # (Auto) 1.8 Monocytes # (Auto) 2.5 Eosinophils # (Auto) 0.0 Basophils # (Auto) 0.0 CBC Comment AUTO DIFF Differential Comment AUTO DIFF CONFIRMED Toxic Granulation 1+ Platelet Estimate NORMAL Platelet Morphology Comment NORMAL Basophilic Stippling FAINT Prothrombin Time 10.0 Prothromb Time International Ratio 1.0 Activated Partial Thromboplast Time 27.8 Blood Urea Nitrogen 79 Creatinine 3.97 Random Glucose 153 Total Protein 7.8 Albumin 3.1 Calcium Level 8.0 Magnesium Level 2.6 Alkaline Phosphatase 58 Aspartate Amino Transf (AST/SGOT) 23 Alanine Aminotransferase (ALT/SGPT) 17 Total Bilirubin 0.2 Sodium Level 129 Potassium Level 3.3 Chloride Level 93 Carbon Dioxide Level 20.5 Anion Gap 16 Estimat Glomerular Filtration Rate 11 Total Creatine Kinase 295 Creatine Kinase MB 3.0 Creatine Kinase MB % 1.0 Troponin I LESS THAN 0.02 B-Type Natriuretic Peptide 60 Lactic Acid Level 1.6 Nasal Screen MRSA (PCR) MRSA DETECTED Blood Gas Puncture Site RT RADIAL Blood Gas Patient Temperature 98.6 Blood Gas HCO3 17 Blood Gas Base Excess -8.4 Blood Gas Oxygen Saturation 92 Arterial Blood pH 7.30 Arterial Blood Partial Pressure CO2 35 Arterial Blood Partial Pressure O2 81 Arterial Blood Oxygen Content 13.9 Arterial Blood Carboxyhemoglobin 0.8 Arterial Blood Methemoglobin 1.5 Blood Gas Hemoglobin 10.6 Oxygen Delivery Device NASAL CANNULA Blood Gas Liter Flow 5 Test 11/03/17 00:05 11/03/17 05:40 Urine Color YELLOW Urine Turbidity HAZY Urine pH 5.5 Urine Specific Omega 1.014 Urine Protein 100 Urine Glucose (UA) NEG Urine Ketones NEG Urine Occult Blood NEG Urine Nitrite NEG Urine Bilirubin NEG Urine Urobilinogen LESS THAN 2.0 Urine Leukocyte Esterase NEG Urine RBC LESS THAN 1 Urine WBC 2 Urine Amorphous Sediment RARE Microscopic Urinalysis Comment CATH-CULT NOT IND White Blood Count 18.3 Red Blood Count 3.20 Hemoglobin 9.2 Hematocrit 27.2 Mean Corpuscular Volume 85.0 Mean Corpuscular Hemoglobin 28.8 Mean Corpuscular Hemoglobin Concent 33.9 Red Cell Distribution Width 13.7 Platelet Count 313 Mean Platelet Volume 7.6 Neutrophils (%) (Auto) 96.3 Lymphocytes (%) (Auto) 2.3 Monocytes (%) (Auto) 1.3 Eosinophils (%) (Auto) 0.0 Basophils (%) (Auto) 0.1 Neutrophils # (Auto) 17.6 Lymphocytes # (Auto) 0.4 Monocytes # (Auto) 0.2 Eosinophils # (Auto) 0.0 Basophils # (Auto) 0.0 CBC Comment DIFF FINAL Differential Comment Blood Urea Nitrogen 80 Creatinine 3.36 Random Glucose 213 Calcium Level 7.8 Sodium Level 135 Potassium Level 4.4 Chloride Level 102 Carbon Dioxide Level 17.9 Anion Gap 15 Estimat Glomerular Filtration Rate 13 Random Vancomycin Level 15.1 Date/Time Source Procedure Growth Status 11/02/17 16:05 Blood Peripheral Aerobic Blood Culture - Preliminary NO GROWTH IN 1 DAY Resulted 11/02/17 16:05 Blood Peripheral Anaerobic Blood Culture - Preliminary NO GROWTH IN 1 DAY Resulted 11/02/17 16:10 Nasal Aspirate Influenza Types A,B Antigen (JEROD) - Final NEGATIVE FOR FLU A AND B ANTIGEN.... Complete (Stormy Roach) Result Diagram: 11/03/17 0540 11/03/17 0540 Imaging Last 72 hours Impressions Chest X-Ray 11/02/17 6926 Signed Impressions: Service Date/Time: Thursday, November 02, 2017 16:09 - CONCLUSION: 1. Subsegmental atelectasis right base. Pedro Luis Anderson MD (Stormy Roach) Assessment and Plan Problem List: (1) Acute renal failure ICD Codes: N17.9 - Acute kidney failure, unspecified Status: Acute Plan: Unclear if she has preexisting renal disease DANIEL most likely due to sepsis syndrome and hypotension, diminished renal perfusion. UA with proteinuria, her blood sugar is elevated. Obtain A1c. Quantify proteinuria. She appears dry, start Monitor labs, has mild acidosis. Start 1/2 NS with 50 mEq of sodium bicarb at 75 cc/hr Monitor urine output Obtain renal US Repeat labs tomorrow. Avoid nephrotoxic agents, renally dose when appropriate. (2) Sepsis ICD Codes: A41.9 - Sepsis, unspecified organism Status: Acute Plan: Continue symptom management. Await culture results. Given vancomycin, on zithromax, zyvoxx, and zosyn. (3) COPD exacerbation ICD Codes: J44.1 - Chronic obstructive pulmonary disease with (acute) exacerbation Status: Acute Plan: On oxygen, monitor pulmonary status (Stormy Roach) Assessment and Plan patient was seen and examined. Agree with above assessment and plan. Cautious IVF. Avoid nephrotoxic agents. Baseline renal function is not known. (Isaias Miranda MD) Problem Qualifiers (1) Acute renal failure: Qualified Codes: N17.9 - Acute kidney failure, unspecified (2) Sepsis: Qualified Codes: A41.9 - Sepsis, unspecified organism Stormy Roach Nov 03, 2017 12:36 Isaias Miranda MD Nov 03, 2017 16:13
[2017-11-03] MEDS ORDERED: GLUCAGON 1 MG/ML VIAL OTHER PRN (13:00)
[2017-11-03] MEDS ORDERED: DEXTROSE 50% IN WATER 50 ML VIAL(D50) IV PUSH PRN (13:00)
[2017-11-03] MEDS ORDERED: MORPHINE SULFATE 2 MG/ML INJ IV ONE (13:15)
[2017-11-03] MEDS ORDERED: RESP: ALBUTEROL 2.5 MG/3 ML NEB (PRN) NEB (14:00)
[2017-11-03] MEDS: RESP: ALBUTEROL 2.5 MG/IPRATROPIUM 0.5 MG NEB (SCH) NEB ×2 (14:36→19:45)
--- NOTE | 2017-11-03 15:34 | EKG ---
Date Performed: 11/02/2017 Time Performed: 16:52:52 PTAGE: 72 years EKG: ATRIAL FIBRILLATION WITH RAPID VENTRICULAR RESPONSE ST DEPRESSION, CONSIDER SUBENDOCARDIAL INJURY ABNORMAL ECG INTERPRETATION BASED ON A DEFAULT AGE OF 38 YEARS NO PREVIOUS TRACING DOCTOR: Easton Gonzalez Interpretating Date/Time 11/03/2017 15:33:14
[2017-11-03] MEDS: INSULIN ASPART SUPPLEMENTAL SCALE SQ SCH ×2 (16:37→19:56)
[2017-11-03] MEDS: AZITHROMYCIN 250 MG TAB PO SCH (16:39)
[2017-11-03] MEDS: SODIUM BICARBONATE 8.4% INJ 50 MEQ in SODIUM CHLOR 0.45% 1000 ML INJ 1,000 ML IV SCH (18:07)
[2017-11-03] MEDS: PANTOPRAZOLE SODIUM 40 MG VIAL IV PUSH SCH (19:56)
[2017-11-04] VITALS (41 sets, daily range): BP systolic 99–169; BP diastolic 54–78; PULSE 64–101; RESP 11–29; TEMP 97.7–98.9; O2SAT 85–97
[2017-11-04] MEDS: methylPREDNISolone SOD SUCC 125 MG/2 ML VIAL IV PUSH SCH ×5 (00:01→22:34)
[2017-11-04] MEDS: CHLORHEXIDINE GLUCONATE 2 % 1 PACK (2 CLOTHS)(taper/protocol) TOPICAL SCH (00:01)
[2017-11-04] MEDS: LINEZOLID 600 MG PREMIX 300 ML IV SCH ×2 (00:01→13:40)
[2017-11-04] MEDS: PIPERACIL-TAZO 2.25 GM PREMIX 50 ML IV SCH ×3 (00:01→17:38)
[2017-11-04 04:44] LABS: AUTOMATED NEUTROPHIL # 17.2 TH/MM3 (1.8-7.7); HEMATOCRIT 24.4 % (35.0-46.0); HEMOGLOBIN 8.4 GM/DL (11.6-15.3); LYMPHOCYTE # 0.5 TH/MM3 (1.0-4.8); MEAN CELL VOLUME 84.7 FL (80.0-100.0); MEAN CORPUSCULAR HEMOGLOBIN 29.1 PG (27.0-34.0); MEAN CORPUSCULAR HGB CONC 34.4 % (32.0-36.0); MEAN PLATELET VOLUME 7.3 FL (7.0-11.0); MONO % 2.8 % (0.0-8.0); MONOCYTE # 0.5 TH/MM3 (0-0.9); NEUT % 94.2 % (16.0-70.0); PLATELET COUNT 280 TH/MM3 (150-450); RED BLOOD COUNT 2.88 MIL/MM3 (4.00-5.30); RED CELL DISTRIBUTION WIDTH 13.7 % (11.6-17.2); WHITE BLOOD COUNT 18.3 TH/MM3 (4.0-11.0)
[2017-11-04 05:20] LABS: BICARBONATE 20.5 MEQ/L (21.0-32.0); CALCIUM 7.6 MG/DL (8.5-10.1); CREATININE 2.53 MG/DL (0.50-1.00)
[2017-11-04] MEDS: INSULIN ASPART SUPPLEMENTAL SCALE SQ SCH ×4 (08:00→19:55)
[2017-11-04] MEDS: RESP: ALBUTEROL 2.5 MG/IPRATROPIUM 0.5 MG NEB (SCH) NEB ×3 (08:00→19:48)
[2017-11-04] MEDS: DOCUSATE SODIUM 50 MG/SENNA 8.6 MG TAB PO SCH ×2 (09:00→19:54)
[2017-11-04] MEDS: SODIUM CHLORIDE 0.9% FLUSH 10 ML FLUSH IV FLUSH SCH ×2 (09:00→19:55)
[2017-11-04] MEDS: HEPARIN SODIUM - SQ 10,000 UNITS/ML VIAL SQ SCH ×2 (09:21→19:55)
--- NOTE | 2017-11-04 09:31 | RADRPT ---
EXAM DATE/TIME: 11/04/2017 08:16 [place] COMPARISON: No previous studies available for comparison. INDICATIONS : Increased BUN/Creatinine. MEDICAL HISTORY : Chronic obstructive pulmonary disease. Hypertension. Renal failure, acute. Cerebrovascular accident. Weakness. Arthritis. Osteoporosis. GERD. Depression. Measles. MRSA. SURGICAL HISTORY : Tonsillectomy. Hysterectomy. Cataract removal. ENCOUNTER: Initial ACUITY: 1 day PAIN SCORE: 0/10 LOCATION: Bilateral flank MEASUREMENTS: RIGHT KIDNEY: 12.2 x 4.9 x 5.8 cm LEFT KIDNEY: 10.1 x 2.6 x 3.1 cm FINDINGS: RIGHT KIDNEY: Renal cortex is normal thickness. There is mild prominence of the collecting system and dilation of the proximal ureter measuring up to 1.3 cm. No evidence of mass. LEFT KIDNEY: There is diffuse thinning of the renal cortex O. stopped no evidence of mass or hydronephrosis. BLADDER: Harris catheter in a nondistended bladder. CONCLUSION: 1. Possible mild hydronephrosis on the right side. 2. Renal cortical thinning on the left without hydronephrosis. De Haque MD on November 04, 2017 at 9:27 Board Certified Radiologist. This report was verified electronically.
[2017-11-04] MEDS: SODIUM BICARBONATE 8.4% INJ 50 MEQ in SODIUM CHLOR 0.45% 1000 ML INJ 1,000 ML IV SCH ×2 (10:01→22:34)
--- NOTE | 2017-11-04 13:11 | HHI.HCPN ---
Reason for visit a. To assist with evaluation and management of symptoms including: Dyspnea, confusion b. To assist medical decision maker(s) with: better understanding of current medical conditions; weighing benefits/burdens of medical treatment options; making medical treatment decisions. (Sandra Sanabria) Subjective/Interval History Pt seen to follow up on comfort, goals. Seen at 1200. Dr. Cruz ID also seeing patient at time of my exam. Patient stable. Blood cultures negative to date. WBC 18.3. BUN and creatinine slowly downtrending 62/2.53. H&H also slowly downtrending, no reported sources of bleeding. 8.4/24.9. ST following patient tolerating mechanical soft diet with thin liquids with no symptoms of aspiration. Palliative care licensed master social worker called patient residential facility to discuss patient prior cognitive and functional status there in the past months--patient reported to have general confusion though generally pleasant hallucinating at times. At times refuses care. Remains flaccid on one side not able to self propel a wheelchair. Generally eating well feeding herself though otherwise requires total assist. Pt is alert, confused. Generally cooperative. She is trying to call her daughter Sandra on the phone.She thinks she is speaking to her (via the call button/remote). Lungs with some crackles left posterior base, faint expiratory wheezes anterior. No apparent respiratory distress or dyspnea during exam today. She denies any discomfort. She is cooperative though confused. Following exam call to daughter ([facility]) Sandra, voicemail left with palliative contact information. . (Sandra Sanabria) Advance Directives Health Care Surrogate: Copy in medical record (Sandra Sanabria) Advance Directive Specifics Date completed: 02/2017 Health Care Surrogate(s): Name daughter Sandra Cummings as HCS (Sandra Sanabria) Objective Vital Signs Date Time Temp Pulse Resp B/P (MAP) Pulse Ox O2 Delivery O2 Flow Rate FiO2 11/04/17 11:16 94 11/04/17 11:00 75 11/04/17 10:30 79 19 129/63 (85) 94 11/04/17 10:30 79 11/04/17 10:15 73 11 127/60 (82) 93 11/04/17 10:15 73 11/04/17 10:00 78 17 125/58 (80) 94 11/04/17 10:00 78 11/04/17 09:46 76 15 169/67 (101) 93 11/04/17 09:46 76 11/04/17 09:30 72 17 139/68 (91) 92 11/04/17 09:30 72 11/04/17 09:15 76 11/04/17 09:15 76 19 144/70 (94) 91 11/04/17 09:00 69 18 136/65 (88) 90 11/04/17 09:00 69 11/04/17 08:45 73 21 127/56 (79) 92 11/04/17 08:45 73 11/04/17 08:30 71 20 140/66 (90) 91 11/04/17 08:30 71 11/04/17 08:15 72 28 135/61 (85) 92 11/04/17 08:15 72 11/04/17 08:00 98.2 74 18 126/60 (82) 92 11/04/17 08:00 74 11/04/17 06:00 64 11/04/17 04:00 98.6 65 19 133/61 (85) 93 11/04/17 04:00 65 11/04/17 02:00 67 11/04/17 00:00 98.9 66 17 99/54 (69) 97 11/04/17 00:00 66 11/03/17 22:00 84 11/03/17 21:00 97 Nasal Cannula 3.00 11/03/17 20:00 98.8 84 28 121/62 (81) 96 11/03/17 20:00 121 11/03/17 19:44 92 21 11/03/17 18:00 71 11/03/17 16:00 98.6 77 24 124/61 (82) 94 11/03/17 16:00 77 11/03/17 14:00 77 Intake & Output 11/04/17 11/04/17 07:00 19:00 Intake Total 2077 ml Output Total 525 ml Balance 1552 ml Intake Oral 120 ml IV Total 1957 ml Output Urine Total 525 ml Physical Exam CONSTITUTIONAL/GENERAL: This is a very frail, thin elderly female alert and confused TUBES/LINES/DRAINS: Peripheral IV upper extremity, Harris catheter SKIN: No jaundice, rashes, or lesions. multiple discreet scattered tiny (1-2mm) scabbed lesions LUE, LLE, healing. skin warm/dry CARDIOVASCULAR: Regular rate and rhythm without murmur. Peripheral pulses symmetric. RESPIRATORY/CHEST: Symmetric, unlabored respirations. anterior faint expiratory wheezes, left posterior base crackles. Breath sounds equal bilaterally. appears to be tolerating room air GASTROINTESTINAL: Abdomen soft, flat non-tender, nondistended. No flat palpable masses. No guarding. Bowel sounds present. MUSCULOSKELETAL: Extremities without clubbing, cyanosis, or edema. No joint tenderness or effusion noted. Extremities very thin with muscle atrophy. Left upper extremity rigid, flaccid. Left lower extremity drawn up questionable contracture though patient indicates she can remove it when she wants to. NEUROLOGICAL: Awake and alert. Oriented x1-2. pleasantly confused.Follows simple commands, generally cooperative. Moves RU, RLE, WILBER flaccid/rigid, left leg drawn up, ? contracted PSYCHIATRIC: No obvious anxiety/depression. no apparent hallucinations or other psychotic thought process. (Sandra Sanabria) Diagnostic Tests Laboratory Laboratory Tests Test 11/02/17 16:10 11/02/17 16:15 11/02/17 19:30 11/02/17 23:46 White Blood Count 22.4 TH/MM3 (4.0-11.0) Red Blood Count 3.51 MIL/MM3 (4.00-5.30) Hemoglobin 10.1 GM/DL (11.6-15.3) Hematocrit 29.8 % (35.0-46.0) Mean Corpuscular Volume 85.0 FL (80.0-100.0) Mean Corpuscular Hemoglobin 28.7 PG (27.0-34.0) Mean Corpuscular Hemoglobin Concent 33.8 % (32.0-36.0) Red Cell Distribution Width 13.6 % (11.6-17.2) Platelet Count 346 TH/MM3 (150-450) Mean Platelet Volume 7.3 FL (7.0-11.0) Neutrophils (%) (Auto) 80.3 % (16.0-70.0) Lymphocytes (%) (Auto) 8.2 % (9.0-44.0) Monocytes (%) (Auto) 11.3 % (0.0-8.0) Eosinophils (%) (Auto) 0.1 % (0.0-4.0) Basophils (%) (Auto) 0.1 % (0.0-2.0) Neutrophils # (Auto) 18.0 TH/MM3 (1.8-7.7) Lymphocytes # (Auto) 1.8 TH/MM3 (1.0-4.8) Monocytes # (Auto) 2.5 TH/MM3 (0-0.9) Eosinophils # (Auto) 0.0 TH/MM3 (0-0.4) Basophils # (Auto) 0.0 TH/MM3 (0-0.2) CBC Comment AUTO DIFF Differential Comment AUTO DIFF CONFIRMED Toxic Granulation 1+ (NORMAL) Platelet Estimate NORMAL (NORMAL) Platelet Morphology Comment NORMAL (NORMAL) Basophilic Stippling FAINT (NORMAL) Prothrombin Time 10.0 SEC (9.8-11.6) Prothromb Time International Ratio 1.0 RATIO Activated Partial Thromboplast Time 27.8 SEC (24.3-30.1) Blood Urea Nitrogen 79 MG/DL (7-18) Creatinine 3.97 MG/DL (0.50-1.00) Random Glucose 153 MG/DL (74-106) Total Protein 7.8 GM/DL (6.4-8.2) Albumin 3.1 GM/DL (3.4-5.0) Calcium Level 8.0 MG/DL (8.5-10.1) Magnesium Level 2.6 MG/DL (1.5-2.5) Alkaline Phosphatase 58 U/L (45-117) Aspartate Amino Transf (AST/SGOT) 23 U/L (15-37) Alanine Aminotransferase (ALT/SGPT) 17 U/L (10-53) Total Bilirubin 0.2 MG/DL (0.2-1.0) Sodium Level 129 MEQ/L (136-145) Potassium Level 3.3 MEQ/L (3.5-5.1) Chloride Level 93 MEQ/L (98-107) Carbon Dioxide Level 20.5 MEQ/L (21.0-32.0) Anion Gap 16 MEQ/L (5-15) Estimat Glomerular Filtration Rate 11 ML/MIN (>89) Total Creatine Kinase 295 U/L (26-192) Creatine Kinase MB 3.0 NG/ML (0.5-3.6) Creatine Kinase MB % 1.0 % (0.0-4.0) Troponin I LESS THAN 0.02 NG/ML B-Type Natriuretic Peptide 60 PG/ML (0-100) Lactic Acid Level 1.6 mmol/L (0.4-2.0) Nasal Screen MRSA (PCR) MRSA DETECTED (NOT DETECT) Blood Gas Puncture Site RT RADIAL Blood Gas Patient Temperature 98.6 Blood Gas HCO3 17 mmol/L (22-26) Blood Gas Base Excess -8.4 mmol/L (-2-2) Blood Gas Oxygen Saturation 92 % (90-100) Arterial Blood pH 7.30 (7.380-7.420) Arterial Blood Partial Pressure CO2 35 mmHg (38-42) Arterial Blood Partial Pressure O2 81 mmHg (61-120) Arterial Blood Oxygen Content 13.9 Vol % (12.0-20.0) Arterial Blood Carboxyhemoglobin 0.8 % (0-4) Arterial Blood Methemoglobin 1.5 % (0-2) Blood Gas Hemoglobin 10.6 G/DL (12.0-16.0) Oxygen Delivery Device NASAL CANNULA Blood Gas Liter Flow 5 L/M Test 11/03/17 00:05 11/03/17 05:40 11/03/17 14:24 11/04/17 03:30 Urine Color YELLOW (YELLW/STRAW) Urine Turbidity HAZY (CLEAR) Urine pH 5.5 (5.0-8.5) Urine Specific [place] 1.014 (1.002-1.035) Urine Protein 100 mg/dL (NEG-TRACE) Urine Glucose (UA) NEG mg/dL (NEG) Urine Ketones NEG mg/dL (NEG) Urine Occult Blood NEG (NEG) Urine Nitrite NEG (NEG) Urine Bilirubin NEG (NEG) Urine Urobilinogen LESS THAN 2.0 MG/DL (LESS Urine Leukocyte Esterase NEG (NEG) Urine RBC LESS THAN 1 /hpf (0-3) Urine WBC 2 /hpf (0-5) Urine Amorphous Sediment RARE Microscopic Urinalysis Comment CATH-CULT NOT IND White Blood Count 18.3 TH/MM3 (4.0-11.0) 18.3 TH/MM3 (4.0-11.0) Red Blood Count 3.20 MIL/MM3 (4.00-5.30) 2.88 MIL/MM3 (4.00-5.30) Hemoglobin 9.2 GM/DL (11.6-15.3) 8.4 GM/DL (11.6-15.3) Hematocrit 27.2 % (35.0-46.0) 24.4 % (35.0-46.0) Mean Corpuscular Volume 85.0 FL (80.0-100.0) 84.7 FL (80.0-100.0) Mean Corpuscular Hemoglobin 28.8 PG (27.0-34.0) 29.1 PG (27.0-34.0) Mean Corpuscular Hemoglobin Concent 33.9 % (32.0-36.0) 34.4 % (32.0-36.0) Red Cell Distribution Width 13.7 % (11.6-17.2) 13.7 % (11.6-17.2) Platelet Count 313 TH/MM3 (150-450) 280 TH/MM3 (150-450) Mean Platelet Volume 7.6 FL (7.0-11.0) 7.3 FL (7.0-11.0) Neutrophils (%) (Auto) 96.3 % (16.0-70.0) 94.2 % (16.0-70.0) Lymphocytes (%) (Auto) 2.3 % (9.0-44.0) 3.0 % (9.0-44.0) Monocytes (%) (Auto) 1.3 % (0.0-8.0) 2.8 % (0.0-8.0) Eosinophils (%) (Auto) 0.0 % (0.0-4.0) 0.0 % (0.0-4.0) Basophils (%) (Auto) 0.1 % (0.0-2.0) 0.0 % (0.0-2.0) Neutrophils # (Auto) 17.6 TH/MM3 (1.8-7.7) 17.2 TH/MM3 (1.8-7.7) Lymphocytes # (Auto) 0.4 TH/MM3 (1.0-4.8) 0.5 TH/MM3 (1.0-4.8) Monocytes # (Auto) 0.2 TH/MM3 (0-0.9) 0.5 TH/MM3 (0-0.9) Eosinophils # (Auto) 0.0 TH/MM3 (0-0.4) 0.0 TH/MM3 (0-0.4) Basophils # (Auto) 0.0 TH/MM3 (0-0.2) 0.0 TH/MM3 (0-0.2) CBC Comment DIFF FINAL DIFF FINAL Differential Comment Blood Urea Nitrogen 80 MG/DL (7-18) 62 MG/DL (7-18) Creatinine 3.36 MG/DL (0.50-1.00) 2.53 MG/DL (0.50-1.00) Random Glucose 213 MG/DL (74-106) 182 MG/DL (74-106) Calcium Level 7.8 MG/DL (8.5-10.1) 7.6 MG/DL (8.5-10.1) Sodium Level 135 MEQ/L (136-145) 133 MEQ/L (136-145) Potassium Level 4.4 MEQ/L (3.5-5.1) 3.5 MEQ/L (3.5-5.1) Chloride Level 102 MEQ/L (98-107) 102 MEQ/L (98-107) Carbon Dioxide Level 17.9 MEQ/L (21.0-32.0) 20.5 MEQ/L (21.0-32.0) Anion Gap 15 MEQ/L (5-15) 11 MEQ/L (5-15) Estimat Glomerular Filtration Rate 13 ML/MIN (>89) 19 ML/MIN (>89) Random Vancomycin Level 15.1 COMMENT Procalcitonin 1.80 ng/mL (0.00-0.08) (Sandra Sanabria) Result Diagram: 11/04/17 0330 11/04/17 0330 Microbiology Microbiology Date/Time Source Procedure Growth Status 11/02/17 16:05 Blood Peripheral Aerobic Blood Culture - Preliminary NO GROWTH IN 2 DAYS Resulted 11/02/17 16:05 Blood Peripheral Anaerobic Blood Culture - Preliminary NO GROWTH IN 2 DAYS Resulted 11/02/17 16:10 Nasal Aspirate Influenza Types A,B Antigen (JEROD) - Final NEGATIVE FOR FLU A AND B ANTIGEN.... Complete 11/03/17 13:45 Urine Random Urine Legionella Antigen - Final PRESUMPTIVE NEGATIVE FOR LEGIONELLA P... Complete 11/03/17 13:45 Urine Random Urine Streptococcus pneumoniae Antigen (M - Final PRESUMPTIVE NEGATIVE FOR STREPTOCOCCU... Complete Imaging Last Impressions Renal Ultrasound 11/04/17 0000 Signed Impressions: Service Date/Time: October 08:16 - CONCLUSION: 1. Possible mild hydronephrosis on the right side. 2. Renal cortical thinning on the left without hydronephrosis. De Haque MD Chest X-Ray 11/02/17 6620 Signed Impressions: Service Date/Time: Thursday, November 02, 2017 16:09 - CONCLUSION: 1. Subsegmental atelectasis right base. Pedro Luis Anderson MD (EllySandra APPLICATION INTEGRATOR) Assessment and Plan Disease Oriented Problem List: (1) Hypertension (2) H/O: CVA (cerebrovascular accident) (3) Osteoporosis (4) Acute renal failure (5) Respiratory failure (6) Sepsis (7) COPD exacerbation Symptom Scale: (1) Dyspnea 0-10 Scale: Unable to quantify (2) Confusion 0-10 Scale: Unable to quantify Pertinent Non-Medical Issues Psychosocial:. Most recently lives at [facility] since February 2017. Originally from [place] moved to [place] in 2002. 2011. 5 children, one of lung cancer. All of her children live in other states. Patient served in the [employer], [employer], [employer]. Spiritual: Anabaptism-no particular affiliation Legal:Patient orientation and cognitive processing has fluctuated since her CVA in 2016. At times she is more oriented and appropriate other times she is forgetful and mildly confused. She may be able to participate some in decision- making but would be best to observe shared decision making with her designated healthcare surrogate. Health care surrogate is named as daughter Sandra Cummings. It sounds as if family all communicates and is working together for decision- making. Ethical issues impacting care: Important Contacts Daughter Sandra Cummings healthcare surrogate -Yananyqb-[phone] sister Radha Lares [phone] / [phone] Daughter Claudia Gonzalez [phone] Carmelo Frey son [phone] . Prognosis This patient was admitted for acute shortness of breath. CXR findings of atelectasis, + acute renal failure, leukocytosis. Underlying history of COPD, history of CVA, advanced age. May be able to get through current acute episode and return to prior status at long-term nursing facility however does remain high risk for further complications and setbacks during acute hospital course. . Code Status: No Code Plan * Legal decision maker:Patient orientation and cognitive processing has fluctuated since her CVA in 2017. At times she is more oriented and appropriate other times she is forgetful and mildly confused. She may be able to participate some in decision-making but would be best to observe shared decision making with her designated healthcare surrogate. Health care surrogate is named as daughter Sandra Cummings. It sounds as if family all communicates and is working together for decision-making. * Goals: Currently goals somewhat aggressive to continue current conservative medical treatments short of BiPAP or intubation, cardiac resuscitation per initial bedside interaction w family 11/03/17. Family hopeful to treat current illness and restore patient back to prior level at half-way. *In the past patient and family have discussed hospice and comfort measures in the event of clinical deterioration, prior palliative care consultation February 2017. * CODE STATUS: DNR * SYMPTOMS: --Dyspnea-patient with shortness of breath 3 days, subjective improvement during hospitalization. Currently tolerating Room air. On nebulizers, steroids. If clinical deterioration and worsening of dyspnea and goals comfort oriented could consider opiates, benzos for symptom management. --Confusion- patient with history of CVA last year, some residual fluctuating confusion ongoing, this is likely worsened by acute sepsis. Continue to monitor. * Palliative care will continue to follow during hospital course as condition evolves, to assist patient/decision-maker with understanding of medical conditions, weighing benefits/burdens of treatment options, for clarification of goals of treatment. Additionally will assist with any symptoms of palliative concern (Sandra Sanabria) Attestation To help prompt me to consider important information that might be impacting today's encounter and assessment, information from prior notes written by myself or my colleagues may have been "brought forward" into today's note. My signature on this note, however, is an attestation that I personally performed the exam, history, and/or decision-making noted today, and, unless otherwise indicated, the interactions with patient, family, and staff as well as the review of records all occurred today. I also attest that the listed assessment and stated plan reflect my best clinical judgment today based on the combination of historical information, prior notes, and today's exam/ interactions. When time spent is documented, it refers only to time spent today by the signer, or if indicated, combined time spent today by collaborating physician/nurse practitioner. (Sandra Sanabria) Collaborating MD Comments Chart reviewed. Case discussed with palliative care APPLICATION INTEGRATOR. Above APPLICATION INTEGRATOR note reviewed and I concur. . (Haseeb Esteban MD) Sandra Sanabria Nov 04, 2017 13:11 Haseeb Esteban MD Nov 10, 2017 17:18
--- NOTE | 2017-11-04 13:21 | HHI.HCSW ---
[employer] Visit [employer] Spoke with 's Kane RN to inquire about patient's functional status prior to hospitalization. Nursing reports Ms. Cummings was confused with possible hallucinations at times. Reportedly to have limited to no long-term or short- term memory. She is incontinent, needing cueing for care and refusing of care at times. Due to flaccidity she was unable to propel herself in a wheelchair and was total assist for most ADLs. She was able to feed herself and had a fairly good appetite. . Codie Gorman RN STARS, WHEAT WASHER Nov 04, 2017 13:21
--- NOTE | 2017-11-04 15:04 | HHI.FPPN ---
Subjective Remarks hallucinating, c/o pygmy ratllers everywhere seems to recognize me d/w RN almost to baseline, still weaker Objective Vitals Vital Signs Date Time Temp Pulse Resp B/P (MAP) Pulse Ox O2 Delivery O2 Flow Rate FiO2 11/04/17 11:16 94 11/04/17 11:00 75 11/04/17 10:30 79 19 129/63 (85) 94 11/04/17 10:30 79 11/04/17 10:15 73 11 127/60 (82) 93 11/04/17 10:15 73 11/04/17 10:00 78 17 125/58 (80) 94 11/04/17 10:00 78 11/04/17 09:46 76 15 169/67 (101) 93 11/04/17 09:46 76 11/04/17 09:30 72 17 139/68 (91) 92 11/04/17 09:30 72 11/04/17 09:15 76 11/04/17 09:15 76 19 144/70 (94) 91 11/04/17 09:00 69 18 136/65 (88) 90 11/04/17 09:00 69 11/04/17 08:45 73 21 127/56 (79) 92 11/04/17 08:45 73 11/04/17 08:30 71 20 140/66 (90) 91 11/04/17 08:30 71 11/04/17 08:15 72 28 135/61 (85) 92 11/04/17 08:15 72 11/04/17 08:00 98.2 74 18 126/60 (82) 92 11/04/17 08:00 74 11/04/17 06:00 64 11/04/17 04:00 98.6 65 19 133/61 (85) 93 11/04/17 04:00 65 11/04/17 02:00 67 11/04/17 00:00 98.9 66 17 99/54 (69) 97 11/04/17 00:00 66 11/03/17 22:00 84 11/03/17 21:00 97 Nasal Cannula 3.00 11/03/17 20:00 98.8 84 28 121/62 (81) 96 11/03/17 20:00 121 11/03/17 19:44 92 21 11/03/17 18:00 71 11/03/17 16:00 98.6 77 24 124/61 (82) 94 11/03/17 16:00 77 I/O 11/03/17 11/03/17 11/03/17 11/04/17 11/04/17 11/04/17 07:00 15:00 23:00 07:00 15:00 23:00 Intake Total 50 ml 50 ml 2087 ml 470 ml Output Total 450 ml 700 ml 525 ml Balance -400 ml 50 ml 1387 ml -55 ml Intake Oral 480 ml 120 ml IV Total 50 ml 50 ml 1607 ml 350 ml Output Urine Total 450 ml 700 ml 525 ml # Bowel Movements 1 Result Diagram: 11/04/1732911/04/17329 Objective Remarks GENERAL: SKIN: Warm and dry. HEAD: Atraumatic. Normocephalic. EYES: Pupils equal and round. No scleral icterus. No injection or drainage. ENT: No nasal bleeding or discharge. Mucous membranes pink and moist. NECK: Trachea midline. No JVD. CARDIOVASCULAR: Regular rate and rhythm. RESPIRATORY: No accessory muscle use. Clear to auscultation. Breath sounds equal bilaterally. GASTROINTESTINAL: Abdomen soft, non-tender, nondistended. Hepatic and splenic margins not palpable. MUSCULOSKELETAL: Extremities without clubbing, cyanosis, or edema. No obvious deformities. NEUROLOGICAL: Awake and alert. No obvious cranial nerve deficits. Motor grossly within normal limits. r joe, Normal speech. PSYCHIATRIC: Appropriate mood and affect; insight and judgment normal. Medications and IVs Current Medications Medications (Trade) Dose Ordered Sig/Felipa Route Start Time Stop Time Status Last Admin (NS Flush) 2 ml UNSCH PRN IV FLUSH 11/02/17 18:15 (NS Flush) 2 ml BID IV FLUSH 11/02/17 21:00 11/04/17 09:00 (Tylenol) 650 mg Q4H PRN PO 11/02/17 18:15 (Zofran Inj) 4 mg Q6H PRN IVP 11/02/17 18:15 (Heparin Inj) 5,000 units Q12H SQ 11/02/17 19:30 11/04/17 09:21 (Narcan Inj) 0.4 mg UNSCH PRN IV PUSH 11/02/17 18:15 (Abby-Colace) 1 tab BID PO 11/02/17 21:00 11/03/17 19:55 (Milk Of Magnesia Liq) 30 ml Q12H PRN PO 11/02/17 18:15 (Senokot) 17.2 mg Q12H PRN PO 11/02/17 18:15 (Dulcolax Supp) 10 mg DAILY PRN RECTAL 11/02/17 18:15 (Lactulose Liq) 30 ml DAILY PRN PO 11/02/17 18:15 (Ativan) 0.5 mg Q8H PRN PO 11/02/17 18:15 (Catapres) 0.1 mg Q6H PRN PO 11/02/17 18:15 (Protonix Inj) 40 mg Q24H IV PUSH 11/02/17 20:00 11/03/17 19:56 (SoluMEDROL INJ) 80 mg Q6HR IV PUSH 11/03/17 00:00 11/04/17 13:40 Miscellaneous Information Patient in critical care unit? Ass... [id number] .XX 11/02/17 20:15 11/02/17 20:15 (Chlorhexidine 2% Cloth) 3 pack DAILY@04 TOPICAL 11/03/17 04:00 11/07/17 04:01 11/04/17 00:01 (Chlorhexidine 2% Cloth) 3 pack UNSCH PRN TOPICAL 11/02/17 20:30 11/07/17 20:15 Piperacillin Sod/ Tazobactam Sod 50 ml @ 100 mls/hr Q8H IV 11/03/17 01:00 11/04/17 09:19 Norepinephrine Bitartrate 250 ml @ 7.5 mls/hr TITRATE PRN IV 11/02/17 22:45 11/02/17 22:40 (Zithromax) 500 mg Q24H PO 11/03/17 18:00 11/03/17 16:39 Linezolid 300 ml @ 300 mls/hr Q12H IV 11/03/17 12:00 11/04/17 13:40 (Duoneb Neb) 1 ampule Q6HR WHILE AWAKE NEB NEB 11/03/17 14:00 11/04/17 11:15 (Albuterol Neb) 2.5 mg Q2HR NEB PRN NEB 11/03/17 14:00 (D50w (Vial) Inj) 50 ml UNSCH PRN IV PUSH 11/03/17 13:00 (Glucagon Inj) 1 mg UNSCH PRN OTHER 11/03/17 13:00 (NovoLOG SUPPLEMENTAL SCALE) 1 ACHS SLIDING SCALE SQ 11/03/17 17:00 Sodium Bicarbonate 50 meq/Sodium Chloride 1,050 ml @ 75 mls/hr Q14H IV 11/03/17 18:00 11/04/17 10:01 A/P Assessment and Plan ASSESSMENT- A 72-year-old female, longterm resident, admitted with severe sepsis requiring pressors, health care associated pneumonia, renal failure due to dehydration with chronic hyponatremia and hypokalemia. 1. Severe sepsis. 2. Pneumonia. 3. Renal failure. 4. Hyponatremia. 5. Hypokalemia. 6. CVA. 7. Hypertension, now hypotensive. 8. Pruritus and rash. 9. Anemia of chronic disease. 10. Hyperglycemia. 11. hydronephrosis PLAN- -urology consult for hydronephrosis -Speech therapy and heart healthy diet. -Followup smart cultures. -Zosyn IV. -Vancomycin IV. -DVT prophylaxis with heparin 5000 b.i.d. -Lorazepam p.r.n. -Solu-Medrol 80 mg IV q.6 hours. -mckeon -GI prophylaxis with Protonix IV. -Telemetry. -SCDs. -Physical therapy. -Occupational therapy. -Speech therapy. -Consults to infectious disease for sepsis, general service officer for sepsis and pressor management, nephrology for renal failure, pulmonology for health care associated pneumonia and palliative care, as the patient is DNR and has failure to thrive, living in a longterm. -ivf Vazquez Sanchez MD Nov 04, 2017 15:04
--- NOTE | 2017-11-04 16:48 | HHI.IDPN ---
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 She received duo nebs and albuterol with some subjective improvement. Patient placed on BiPAP in the ER. Received Solu-Medrol, DuoNeb's. CXR notes subsegmental atelectasis right base. Labs were significantly abnormal with BUN 79/creatinine 3.97. GFR 11. BNP 60. Lactic acid 1.6. Leukocytosis 22.4. DNR implemented patient with known DNR. She was admitted for further evaluation and treatment of sepsis, improving BP after IV fluids opening eyes. Nephrology consulted, pulmonology, palliative care consulted and following. Pulmonology consulted to continue antibiotic therapy and bronchodilators and follow CXR. Overnight critical care was consulted as BP was as low as 70/50s. She received fluids overnight but no pressors and BP now in 130s SBP. ID was consulted for evaluation of sepsis. Empiric antibiotics started Zosyn IV , Vanco IV and 1 dose of Azithro given. CXR with atelectasis.At the time of my evaluation patient is in the IMC, currently not on any pressors, saturations 96 % on 5 L. Overnight events reviewed No fevers No rash No diarrhea Antibiotics Past Medical History Osteoporosis COPD CVA-residual right hemiparesis Past Surgical History Cataract surgery 2004 Partial hysterectomy Tonsillectomy Lines Line sites with no e.o infection Past Medical History reviewed Allergies: Coded Allergies: No Known Allergies (Unverified Allergy, Unknown, 11/02/17) Objective . Vital Signs Date Time Temp Pulse Resp B/P (MAP) Pulse Ox O2 Delivery O2 Flow Rate FiO2 11/04/17 16:45 83 16 134/63 (86) 11/04/17 16:30 82 24 132/62 (85) 85 11/04/17 16:00 98.1 85 21 118/72 (87) 11/04/17 15:15 91 11/04/17 15:00 91 11/04/17 15:00 91 14 136/64 (88) 11/04/17 14:45 95 19 129/59 (82) 11/04/17 14:45 95 11/04/17 14:30 91 26 127/60 (82) 11/04/17 14:30 91 11/04/17 14:15 91 11/04/17 14:15 91 26 130/58 (82) 11/04/17 14:00 101 19 132/78 (96) 11/04/17 14:00 101 11/04/17 13:45 92 11/04/17 13:45 92 27 134/65 (88) 11/04/17 13:30 93 11/04/17 13:30 93 26 133/62 (85) 11/04/17 13:15 92 29 143/64 (90) 11/04/17 13:15 92 11/04/17 13:00 88 11/04/17 13:00 88 23 132/63 (86) 11/04/17 12:45 94 25 145/70 (95) 11/04/17 12:45 94 11/04/17 12:31 91 11/04/17 12:31 91 18 147/70 (95) 11/04/17 12:15 90 11/04/17 12:15 90 23 113/70 (84) 11/04/17 12:00 98.5 90 25 122/58 (79) 11/04/17 12:00 90 11/04/17 11:16 94 11/04/17 11:00 75 11/04/17 10:30 79 19 129/63 (85) 94 11/04/17 10:30 79 11/04/17 10:15 73 11 127/60 (82) 93 11/04/17 10:15 73 11/04/17 10:00 78 17 125/58 (80) 94 11/04/17 10:00 78 11/04/17 09:46 76 15 169/67 (101) 93 11/04/17 09:46 76 11/04/17 09:30 72 17 139/68 (91) 92 11/04/17 09:30 72 11/04/17 09:15 76 11/04/17 09:15 76 19 144/70 (94) 91 11/04/17 09:00 69 18 136/65 (88) 90 11/04/17 09:00 69 11/04/17 08:45 73 21 127/56 (79) 92 11/04/17 08:45 73 11/04/17 08:30 71 20 140/66 (90) 91 2/22/18 08:30 71 11/04/17 08:15 72 28 135/61 (85) 92 11/04/17 08:15 72 11/04/17 08:00 98.2 74 18 126/60 (82) 92 11/04/17 08:00 74 11/04/17 06:00 64 11/04/17 04:00 98.6 65 19 133/61 (85) 93 11/04/17 04:00 65 11/04/17 02:00 67 11/04/17 00:00 98.9 66 17 99/54 (69) 97 11/04/17 00:00 66 11/03/17 22:00 84 11/03/17 21:00 97 Nasal Cannula 3.00 11/03/17 20:00 98.8 84 28 121/62 (81) 96 11/03/17 20:00 121 11/03/17 19:44 92 21 11/03/17 18:00 71 . Laboratory Tests Test 11/03/17 05:40 11/04/17 03:30 White Blood Count 18.3 TH/MM3 18.3 TH/MM3 Red Blood Count 3.20 MIL/MM3 2.88 MIL/MM3 Hemoglobin 9.2 GM/DL 8.4 GM/DL Hematocrit 27.2 % 24.4 % Mean Corpuscular Volume 85.0 FL 84.7 FL Mean Corpuscular Hemoglobin 28.8 PG 29.1 PG Mean Corpuscular Hemoglobin Concent 33.9 % 34.4 % Red Cell Distribution Width 13.7 % 13.7 % Platelet Count 313 TH/MM3 280 TH/MM3 Mean Platelet Volume 7.6 FL 7.3 FL Neutrophils (%) (Auto) 96.3 % 94.2 % Lymphocytes (%) (Auto) 2.3 % 3.0 % Monocytes (%) (Auto) 1.3 % 2.8 % Eosinophils (%) (Auto) 0.0 % 0.0 % Basophils (%) (Auto) 0.1 % 0.0 % Neutrophils # (Auto) 17.6 TH/MM3 17.2 TH/MM3 Lymphocytes # (Auto) 0.4 TH/MM3 0.5 TH/MM3 Monocytes # (Auto) 0.2 TH/MM3 0.5 TH/MM3 Eosinophils # (Auto) 0.0 TH/MM3 0.0 TH/MM3 Basophils # (Auto) 0.0 TH/MM3 0.0 TH/MM3 CBC Comment DIFF FINAL DIFF FINAL Differential Comment Laboratory Tests Test 11/03/17 05:40 11/03/17 14:24 11/04/17 03:30 Blood Urea Nitrogen 80 MG/DL 62 MG/DL Creatinine 3.36 MG/DL 2.53 MG/DL Random Glucose 213 MG/DL 182 MG/DL Calcium Level 7.8 MG/DL 7.6 MG/DL Sodium Level 135 MEQ/L 133 MEQ/L Potassium Level 4.4 MEQ/L 3.5 MEQ/L Chloride Level 102 MEQ/L 102 MEQ/L Carbon Dioxide Level 17.9 MEQ/L 20.5 MEQ/L Anion Gap 15 MEQ/L 11 MEQ/L Estimat Glomerular Filtration Rate 13 ML/MIN 19 ML/MIN Procalcitonin 1.80 ng/mL Microbiology Date/Time Source Procedure Growth Status 11/02/17 16:05 Blood Peripheral Aerobic Blood Culture - Preliminary NO GROWTH IN 2 DAYS Resulted 11/02/17 16:05 Blood Peripheral Anaerobic Blood Culture - Preliminary NO GROWTH IN 2 DAYS Resulted 11/02/17 16:10 Nasal Aspirate Influenza Types A,B Antigen (JEROD) - Final NEGATIVE FOR FLU A AND B ANTIGEN.... Complete 11/03/17 13:45 Urine Random Urine Legionella Antigen - Final PRESUMPTIVE NEGATIVE FOR LEGIONELLA P... Complete 11/03/17 13:45 Urine Random Urine Streptococcus pneumoniae Antigen (M - Final PRESUMPTIVE NEGATIVE FOR STREPTOCOCCU... Complete Imaging Last Impressions Renal Ultrasound 11/04/17 0000 Signed Impressions: Service Date/Time: October 08:16 - CONCLUSION: 1. Possible mild hydronephrosis on the right side. 2. Renal cortical thinning on the left without hydronephrosis. De Haque MD Chest X-Ray 11/02/17 1556 Signed Impressions: Service Date/Time: Thursday, November 02, 2017 16:09 - CONCLUSION: 1. Subsegmental atelectasis right base. Pedro Luis Anderson MD Physical Exam GENERAL: Thin built poorly nourished patient, in no apparent distress. SKIN: No rashes, ecchymoses or lesions. Cool and dry. HEAD: Atraumatic. Normocephalic. No temporal or scalp tenderness. EYES: Pupils equal round and reactive. Extraocular motions intact. No scleral icterus. No injection or drainage. ENT: Nose without bleeding, purulent drainage or septal hematoma. Throat without erythema, tonsillar hypertrophy or exudate. Uvula midline. Airway patent. NECK: Trachea midline. Supple, nontender, no meningeal signs. CARDIOVASCULAR: HS audible. RESPIRATORY: Clear to auscultation. Breath sounds equal bilaterally. No wheezes , rales, or rhonchi. GASTROINTESTINAL: Abdomen soft, non-tender, nondistended. MUSCULOSKELETAL: LLE with contracture. Pain on trying to extend it. Patient keeps her leg flexed at hip joint level. NEUROLOGICAL: Awake and alert. speech hesitant. Psych cooperative IV line sites with no e.o infection Assessment & Plan Remarks Possible Severe Sepsis present on admission (leucocytosis, tachycardia, hypotension) ? atypical Community acquired pneumonia vs aspiration PNA COPD acute exacerbation. Acute resp failure now on 5L NC. Hyponatremia. Acute renal failure: sepsis, prerenal. H/o CVA with left side deficit. Recs: Continue Zosyn IV for now. Continue Azithro oral. DC Zyvox IV. Check procalcitonin Follow cultures follow clinically. I will be off 11/05/2017 to 11/07/2017. Other ID MDs covering for me. Please check [facility] call center. Jacklyn Cruz MD Nov 04, 2017 16:48
--- NOTE | 2017-11-04 16:55 | HHI.PR ---
Subjective Remarks NO DISTRESS ON O2 CONFUSED Objective Vital Signs Date Time Temp Pulse Resp B/P (MAP) Pulse Ox O2 Delivery O2 Flow Rate FiO2 11/04/17 16:45 83 16 134/63 (86) 11/04/17 16:30 82 24 132/62 (85) 85 11/04/17 16:00 98.1 85 21 118/72 (87) 11/04/17 15:15 91 11/04/17 15:00 91 11/04/17 15:00 91 14 136/64 (88) 11/04/17 14:45 95 19 129/59 (82) 11/04/17 14:45 95 11/04/17 14:30 91 26 127/60 (82) 11/04/17 14:30 91 11/04/17 14:15 91 11/04/17 14:15 91 26 130/58 (82) 11/04/17 14:00 101 19 132/78 (96) 11/04/17 14:00 101 11/04/17 13:45 92 11/04/17 13:45 92 27 134/65 (88) 11/04/17 13:30 93 11/04/17 13:30 93 26 133/62 (85) 11/04/17 13:15 92 29 143/64 (90) 11/04/17 13:15 92 11/04/17 13:00 88 11/04/17 13:00 88 23 132/63 (86) 11/04/17 12:45 94 25 145/70 (95) 11/04/17 12:45 94 11/04/17 12:31 91 11/04/17 12:31 91 18 147/70 (95) 11/04/17 12:15 90 11/04/17 12:15 90 23 113/70 (84) 11/04/17 12:00 98.5 90 25 122/58 (79) 11/04/17 12:00 90 11/04/17 11:16 94 11/04/17 11:00 75 11/04/17 10:30 79 19 129/63 (85) 94 11/04/17 10:30 79 11/04/17 10:15 73 11 127/60 (82) 93 11/04/17 10:15 73 11/04/17 10:00 78 17 125/58 (80) 94 11/04/17 10:00 78 11/04/17 09:46 76 15 169/67 (101) 93 11/04/17 09:46 76 11/04/17 09:30 72 17 139/68 (91) 92 11/04/17 09:30 72 11/04/17 09:15 76 11/04/17 09:15 76 19 144/70 (94) 91 11/04/17 09:00 69 18 136/65 (88) 90 11/04/17 09:00 69 11/04/17 08:45 73 21 127/56 (79) 92 11/04/17 08:45 73 11/04/17 08:30 71 20 140/66 (90) 91 11/04/17 08:30 71 11/04/17 08:15 72 28 135/61 (85) 92 11/04/17 08:15 72 11/04/17 08:00 98.2 74 18 126/60 (82) 92 11/04/17 08:00 74 11/04/17 06:00 64 11/04/17 04:00 98.6 65 19 133/61 (85) 93 11/04/17 04:00 65 11/04/17 02:00 67 11/04/17 00:00 98.9 66 17 99/54 (69) 97 11/04/17 00:00 66 11/03/17 22:00 84 11/03/17 21:00 97 Nasal Cannula 3.00 11/03/17 20:00 98.8 84 28 121/62 (81) 96 11/03/17 20:00 121 11/03/17 19:44 92 21 11/03/17 18:00 71 I/O 11/03/17 11/03/17 11/03/17 11/04/17 11/04/17 11/04/17 07:00 15:00 23:00 07:00 15:00 23:00 Intake Total 50 ml 50 ml 2087 ml 470 ml Output Total 450 ml 700 ml 525 ml Balance -400 ml 50 ml 1387 ml -55 ml Intake Oral 480 ml 120 ml IV Total 50 ml 50 ml 1607 ml 350 ml Output Urine Total 450 ml 700 ml 525 ml # Bowel Movements 1 Result Diagram: 11/04/1732911/04/17329 Objective Remarks GENERAL: SKIN: Warm and dry. HEAD: Atraumatic. Normocephalic. EYES: Pupils equal and round. No scleral icterus. No injection or drainage. ENT: No nasal bleeding or discharge. Mucous membranes pink and moist. NECK: Trachea midline. No JVD. CARDIOVASCULAR: Regular rate and rhythm. RESPIRATORY: No accessory muscle use. Clear to auscultation. Breath sounds equal bilaterally. GASTROINTESTINAL: Abdomen soft, non-tender, nondistended. Hepatic and splenic margins not palpable. MUSCULOSKELETAL: Extremities without clubbing, cyanosis, or edema. No obvious deformities. NEUROLOGICAL: Awake and alert. No obvious cranial nerve deficits. Motor grossly within normal limits. Five out of 5 muscle strength in the arms and legs. Normal speech. PSYCHIATRIC: Appropriate mood and affect; insight and judgment normal. Assessment and Plan Assessment and Plan RESPIRATORY FAILURE PNA PLAN O2 ANTIBX F/U CXRAY Arleen Bacon MD Nov 04, 2017 16:55
[2017-11-04] MEDS: AZITHROMYCIN 250 MG TAB PO SCH (17:38)
--- NOTE | 2017-11-04 17:48 | HHI.CCPN ---
Subjective Remarks/Hospital Course 11/03: 72 yo female with PMH with PMH of COPD, hypertension, hyperlipidemia, ischemic stroke 02/14/17 with residual left facial droop and aphasia, depression. She was admitted to [facility] by Dr. Sanchez 11/02/17 for COPD exacerbation. She was given DuoNeb 2, Solu-Medrol 125 mill grams IV, azithromycin, Zosyn, 1.5 L normal saline bolus in the emergency department. She was placed on BiPAP for increased work of breathing but she did not tolerate BiPAP. She indicated she did not want intubation if needed. She became hypotensive with blood pressure 79/49. Levophed was initiated and critical care medicine was consulted to assist with management of vasopressors and shock. 11/04: Resting comfortably on nasal cannula today. Blood pressure maintained off pressors since yesterday. Objective Vital Signs Date Time Temp Pulse Resp B/P (MAP) Pulse Ox O2 Delivery O2 Flow Rate FiO2 11/04/17 17:15 79 11/04/17 16:45 16 134/63 (86) 11/04/17 16:30 85 11/04/17 16:00 98.1 11/03/17 21:00 Nasal Cannula 3.00 11/03/17 19:44 21 Intake and Output 11/04/17 11/04/17 11/05/17 08:00 16:00 00:00 Intake Total 470 ml Output Total 525 ml Balance -55 ml Result Diagram: 11/04/17 0330 11/04/17 0330 Other Results Microbiology Date/Time Source Procedure Growth Status 11/02/17 16:10 Nasal Aspirate Influenza Types A,B Antigen (JEROD) - Final NEGATIVE FOR FLU A AND B ANTIGEN.... Complete 11/03/17 13:45 Urine Random Urine Legionella Antigen - Final PRESUMPTIVE NEGATIVE FOR LEGIONELLA P... Complete 11/03/17 13:45 Urine Random Urine Streptococcus pneumoniae Antigen (M - Final PRESUMPTIVE NEGATIVE FOR STREPTOCOCCU... Complete Objective Remarks GENERAL: Elderly female sitting up in [facility] bed. SKIN: Warm and dry. HEAD: Atraumatic. Normocephalic. EYES: Pupils equal and round, 3 mm and reactive bilaterally.. No scleral icterus. No injection or drainage. ENT: No nasal bleeding or discharge. Mucous membranes dry NECK: Trachea midline. No JVD. CARDIOVASCULAR: Regular rate and rhythm rate in 80s with no murmurs rubs or gallops appreciated. RESPIRATORY: Distant breath sounds with bilateral expiratory wheeze. Tachypneic but no accessory muscle use. No rales + rhonchi. GASTROINTESTINAL: Abdomen soft, non-tender, nondistended. Bowel sounds present MUSCULOSKELETAL: Extremities without clubbing, cyanosis pin. Thin lower extremities with no edema. NEUROLOGICAL: Awake and alert. Dysarthric speech. Left facial droop. No obvious cranial nerve deficits. Moving all extremities A/P Assessment and Plan NEURO: History of stroke Dysarthria Depression RESP: COPD Prior tobacco abuse Nasal cannula wean as tolerated Did not tolerate BiPAP. Solu-Medrol 80 mg IV every 6. DuoNeb every 6 hours. Albuterol every 2 hours as needed. Antibiotics as per below CV: Severe sepsis Receive total of 2 L normal saline bolus yesterday. Off Levophed since yesterday. GI: Heart healthy diet FEN/RENAL: Acute kidney injury Hyponatremia Left hydronephrosis mild Noted nephrology consulted Left hydronephrosis on ultrasound which is mild. Urology consult requested for further evaluation. ID: Severe sepsis ?Atypical pneumonia vs aspiration Leukocytosis Continue Zosyn and azithromycin. HEME: Anemia Monitor CBC ENDO: Hyperglycemia, steroid induced Monitor bedside glucose before meals/hs and initiate low-dose insulin sliding scale as indicated while on steroids. PROPH: SCDs for DVT prophylaxis. Heparin 5000 units subcutaneous every 12 hours for DVT prophylaxis. Protonix 40 mg IV for stress ulcer prophylaxis. ACCESS: Has peripheral IV. Initially planned to place central venous line but patient weaned off Levophed within an hour and central venous line no longer appears necessary Palliative care medicine following DNR Discussed with Dr. Sanchez. Critical care will be signing off at this time, please reconsult if needed. Brian Cruz MD Nov 04, 2017 17:47
[2017-11-04] MEDS: PANTOPRAZOLE SODIUM 40 MG VIAL IV PUSH SCH (19:55)
--- NOTE | 2017-11-04 21:11 | HHI.NPPN ---
Subjective General Problems: Anemia, Hypotension Renal Failure: Acute History of Present Illness 72 y/o female with COPD admitted for shortness of breath, COPD exacerbation. Her creatinine was 3.9 on arrival, PMH of CVA with hemiparesis, HTN, GERD, and osteoporosis. Additional Remarks Patient is alert, mild SOB, not in distress. Review of Systems General Constitutional: Fatigue Respiratory Lungs: SOB Cardiovascular Cardiac: [place] Objective Data Data 11/04/17 11/05/17 19:00 07:00 Intake Total 2310 ml Output Total 850 ml Balance 1460 ml Intake Oral 960 ml IV Total 1350 ml Output Urine Total 850 ml # Bowel Movements 0 Vital Signs Date Time Temp Pulse Resp B/P (MAP) Pulse Ox O2 Delivery O2 Flow Rate FiO2 11/04/17 18:15 73 11/04/17 18:00 75 11/04/17 17:15 79 11/04/17 17:00 80 11/04/17 16:45 83 16 134/63 (86) 11/04/17 16:45 83 11/04/17 16:30 82 24 132/62 (85) 85 11/04/17 16:30 82 11/04/17 16:00 85 11/04/17 16:00 98.1 85 21 118/72 (87) 11/04/17 15:15 91 11/04/17 15:00 91 11/04/17 15:00 91 14 136/64 (88) 11/04/17 14:45 95 19 129/59 (82) 11/04/17 14:45 95 11/04/17 14:30 91 26 127/60 (82) 11/04/17 14:30 91 11/04/17 14:15 91 11/04/17 14:15 91 26 130/58 (82) 11/04/17 14:00 101 19 132/78 (96) 11/04/17 14:00 101 11/04/17 13:45 92 11/04/17 13:45 92 27 134/65 (88) 11/04/17 13:30 93 11/04/17 13:30 93 26 133/62 (85) 11/04/17 13:15 92 29 143/64 (90) 11/04/17 13:15 92 11/04/17 13:00 88 11/04/17 13:00 88 23 132/63 (86) 11/04/17 12:45 94 25 145/70 (95) 11/04/17 12:45 94 11/04/17 12:31 91 11/04/17 12:31 91 18 147/70 (95) 11/04/17 12:15 90 11/04/17 12:15 90 23 113/70 (84) 11/04/17 12:00 98.5 90 25 122/58 (79) 11/04/17 12:00 90 11/04/17 11:16 94 11/04/17 11:00 75 11/04/17 10:30 79 19 129/63 (85) 94 11/04/17 10:30 79 11/04/17 10:15 73 11 127/60 (82) 93 11/04/17 10:15 73 11/04/17 10:00 78 17 125/58 (80) 94 11/04/17 10:00 78 11/04/17 09:46 76 15 169/67 (101) 93 11/04/17 09:46 76 11/04/17 09:30 72 17 139/68 (91) 92 11/04/17 09:30 72 11/04/17 09:15 76 11/04/17 09:15 76 19 144/70 (94) 91 11/04/17 09:00 69 18 136/65 (88) 90 11/04/17 09:00 69 11/04/17 08:45 73 21 127/56 (79) 92 11/04/17 08:45 73 11/04/17 08:30 71 20 140/66 (90) 91 11/04/17 08:30 71 11/04/17 08:15 72 28 135/61 (85) 92 11/04/17 08:15 72 11/04/17 08:00 98.2 74 18 126/60 (82) 92 11/04/17 08:00 74 11/04/17 06:00 64 11/04/17 04:00 98.6 65 19 133/61 (85) 93 11/04/17 04:00 65 11/04/17 02:00 67 11/04/17 00:00 98.9 66 17 99/54 (69) 97 11/04/17 00:00 66 11/03/17 22:00 84 -: 11/04/17 0330 11/04/17 0330 Physical Exam General Appearance: No Acute Distress, Comfortable Eyes Eye Exam: Pupils Equal Throat Throat Exam: Oral Mucosa [place] & Moist Neck Neck Exam: Neck Supple Pulmonary Resp Exam: Breath Sounds Equal, No Distress, Crackles, Rhonchi, Decreased Bases Gastrointestinal/Abdomen GI Exam: Soft, Non-Tender, Non-Distended Genitourinary Exam: Clear Urine Extremeties Extremities Exam: Trace Edema Neurologic Neuro Exam: Alert, Awake Psychiatric Psych Exam: Appropriate Responses Assessment/Plan Problem List: (1) Acute renal failure ICD Codes: N17.9 - Acute kidney failure, unspecified Status: Acute Plan: Unclear if she has preexisting renal disease DANIEL most likely due to sepsis syndrome and hypotension, diminished renal perfusion. UA with proteinuria, her blood sugar is elevated. Obtain A1c. Quantify proteinuria. She appears dry, start Monitor labs, has mild acidosis. Start 1/2 NS with 50 mEq of sodium bicarb at 75 cc/hr Monitor urine output Renal U/S noted, if Creatinine not normalized, will get CT abd. Continue IVF. Creatinine and acidosis improving. Avoid Nephrotoxins, follow BMP. (2) Sepsis ICD Codes: A41.9 - Sepsis, unspecified organism Status: Acute Plan: Continue symptom management. Await culture results. Given vancomycin, on zithromax, zyvoxx, and zosyn. (3) COPD exacerbation ICD Codes: J44.1 - Chronic obstructive pulmonary disease with (acute) exacerbation Status: Acute Plan: On oxygen, monitor pulmonary status Problem Qualifiers (1) Acute renal failure: Qualified Codes: N17.9 - Acute kidney failure, unspecified (2) Sepsis: Qualified Codes: A41.9 - Sepsis, unspecified organism Gem Dempsey MD Nov 04, 2017 21:11
[2017-11-05] VITALS (49 sets, daily range): BP systolic 100–186; BP diastolic 61–115; PULSE 57–132; RESP 11–33; TEMP 97.9–98.6; O2SAT 89–97
[2017-11-05] MEDS: PIPERACIL-TAZO 2.25 GM PREMIX 50 ML IV SCH ×3 (00:25→18:18)
[2017-11-05] MEDS: CHLORHEXIDINE GLUCONATE 2 % 1 PACK (2 CLOTHS)(taper/protocol) TOPICAL SCH (04:00)
[2017-11-05 05:28] LABS: AUTOMATED NEUTROPHIL # 10.3 TH/MM3 (1.8-7.7); BASOPHIL % 0.1 % (0.0-2.0); HEMATOCRIT 24.6 % (35.0-46.0); HEMOGLOBIN 8.6 GM/DL (11.6-15.3); LYMPH % 3.8 % (9.0-44.0); LYMPHOCYTE # 0.4 TH/MM3 (1.0-4.8); MEAN CORPUSCULAR HEMOGLOBIN 28.9 PG (27.0-34.0); MEAN CORPUSCULAR HGB CONC 34.9 % (32.0-36.0); MEAN PLATELET VOLUME 7.6 FL (7.0-11.0); MONO % 3.5 % (0.0-8.0); MONOCYTE # 0.4 TH/MM3 (0-0.9); NEUT % 92.6 % (16.0-70.0); PLATELET COUNT 313 TH/MM3 (150-450); RED BLOOD COUNT 2.97 MIL/MM3 (4.00-5.30); RED CELL DISTRIBUTION WIDTH 13.8 % (11.6-17.2); WHITE BLOOD COUNT 11.1 TH/MM3 (4.0-11.0)
[2017-11-05] MEDS: methylPREDNISolone SOD SUCC 125 MG/2 ML VIAL IV PUSH SCH ×3 (05:30→18:18)
[2017-11-05 05:53] LABS: BICARBONATE 23.9 MEQ/L (21.0-32.0); CALCIUM 7.6 MG/DL (8.5-10.1); CREATININE 2.01 MG/DL (0.50-1.00)
[2017-11-05] MEDS: DOCUSATE SODIUM 50 MG/SENNA 8.6 MG TAB PO SCH ×2 (07:35→20:26)
[2017-11-05] MEDS: SODIUM CHLORIDE 0.9% FLUSH 10 ML FLUSH IV FLUSH SCH ×2 (07:35→20:25)
[2017-11-05] MEDS: HEPARIN SODIUM - SQ 10,000 UNITS/ML VIAL SQ SCH ×2 (07:36→18:19)
[2017-11-05] MEDS: INSULIN ASPART SUPPLEMENTAL SCALE SQ SCH ×4 (07:42→20:26)
[2017-11-05] MEDS: RESP: ALBUTEROL 2.5 MG/IPRATROPIUM 0.5 MG NEB (SCH) NEB ×3 (08:19→20:08)
[2017-11-05] MEDS ORDERED: POTASSIUM CHLORIDE 25 MEQ EFFERVESCENT TAB PO ONE (10:00)
--- NOTE | 2017-11-05 10:28 | HHI.IDPN ---
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 She received duo nebs and albuterol with some subjective improvement. Patient placed on BiPAP in the ER. Received Solu-Medrol, DuoNeb's. CXR notes subsegmental atelectasis right base. Labs were significantly abnormal with BUN 79/creatinine 3.97. GFR 11. BNP 60. Lactic acid 1.6. Leukocytosis 22.4. DNR implemented patient with known DNR. She was admitted for further evaluation and treatment of sepsis, improving BP after IV fluids opening eyes. Nephrology consulted, pulmonology, palliative care consulted and following. Pulmonology consulted to continue antibiotic therapy and bronchodilators and follow CXR. Overnight critical care was consulted as BP was as low as 70/50s. She received fluids overnight but no pressors and BP now in 130s SBP. ID was consulted for evaluation of sepsis. Empiric antibiotics started Zosyn IV , Vanco IV and 1 dose of Azithro given. CXR with atelectasis.At the time of my evaluation patient is in the IMC, currently not on any pressors, saturations 96 % on 5 L. Notes reviewed Temps ok BP ok On nasal O2 States her breathing is better Coughing, weak, not able to bring up any phlegm No CP No swallowing problem, no N/V No diarrhea No rash or itching WBC improving Creatinine improving UO good Antibiotics Current Medications Zosyn Zithromax Medications (Trade) Dose Ordered Sig/Felipa Route Start Time Stop Time Status Last Admin (NS Flush) 2 ml UNSCH PRN IV FLUSH 11/02/17 18:15 (NS Flush) 2 ml BID IV FLUSH 11/02/17 21:00 11/05/17 07:35 (Tylenol) 650 mg Q4H PRN PO 11/02/17 18:15 (Zofran Inj) 4 mg Q6H PRN IVP 11/02/17 18:15 (Heparin Inj) 5,000 units Q12H SQ 11/02/17 19:30 11/05/17 07:36 (Narcan Inj) 0.4 mg UNSCH PRN IV PUSH 11/02/17 18:15 (Abby-Colace) 1 tab BID PO 11/02/17 21:00 11/05/17 07:35 (Milk Of Magnesia Liq) 30 ml Q12H PRN PO 11/02/17 18:15 (Senokot) 17.2 mg Q12H PRN PO 11/02/17 18:15 (Dulcolax Supp) 10 mg DAILY PRN RECTAL 11/02/17 18:15 (Lactulose Liq) 30 ml DAILY PRN PO 11/02/17 18:15 (Ativan) 0.5 mg Q8H PRN PO 11/02/17 18:15 (Catapres) 0.1 mg Q6H PRN PO 11/02/17 18:15 (Protonix Inj) 40 mg Q24H IV PUSH 11/02/17 20:00 11/04/17 19:55 (SoluMEDROL INJ) 80 mg Q6HR IV PUSH 11/03/17 00:00 11/05/17 05:30 Miscellaneous Information Patient in critical care unit? Ass... [id number] .XX 11/02/17 20:15 11/02/17 20:15 (Chlorhexidine 2% Cloth) 3 pack DAILY@04 TOPICAL 11/03/17 04:00 11/07/17 04:01 11/05/17 04:00 (Chlorhexidine 2% Cloth) 3 pack UNSCH PRN TOPICAL 11/02/17 20:30 11/07/17 20:15 Piperacillin Sod/ Tazobactam Sod 50 ml @ 100 mls/hr Q8H IV 11/03/17 01:00 11/05/17 07:35 Norepinephrine Bitartrate 250 ml @ 7.5 mls/hr TITRATE PRN IV 11/02/17 22:45 11/02/17 22:40 (Zithromax) 500 mg Q24H PO 11/03/17 18:00 11/04/17 17:38 (Duoneb Neb) 1 ampule Q6HR WHILE AWAKE NEB NEB 11/03/17 14:00 11/05/17 08:19 (Albuterol Neb) 2.5 mg Q2HR NEB PRN NEB 11/03/17 14:00 (D50w (Vial) Inj) 50 ml UNSCH PRN IV PUSH 11/03/17 13:00 (Glucagon Inj) 1 mg UNSCH PRN OTHER 11/03/17 13:00 (NovoLOG SUPPLEMENTAL SCALE) 1 ACHS SLIDING SCALE SQ 11/03/17 17:00 11/04/17 17:00 Sodium Bicarbonate 50 meq/Sodium Chloride 1,050 ml @ 75 mls/hr Q14H IV 11/03/17 18:00 11/04/17 22:34 Lines Line sites with no e.o infection Past Medical History Past Medical History Osteoporosis COPD CVA-residual right hemiparesis Past Surgical History Cataract surgery 2004 Partial hysterectomy Tonsillectomy Allergies: Coded Allergies: No Known Allergies (Unverified Allergy, Unknown, 11/02/17) Objective . Vital Signs Date Time Temp Pulse Resp B/P (MAP) Pulse Ox O2 Delivery O2 Flow Rate FiO2 11/05/17 08:19 95 Nasal Cannula 2.00 11/05/17 06:26 92 11/05/17 04:00 93 11/05/17 04:00 98.6 93 21 151/68 (95) 91 11/05/17 02:00 95 11/05/17 00:00 98.3 89 13 128/61 (83) 90 11/05/17 00:00 89 11/04/17 22:00 96 11/04/17 20:00 97.7 84 23 147/69 (95) 90 11/04/17 20:00 84 11/04/17 19:47 93 21 11/04/17 18:15 73 11/04/17 18:00 75 11/04/17 17:15 79 11/04/17 17:00 80 11/04/17 16:45 83 16 134/63 (86) 11/04/17 16:45 83 11/04/17 16:30 82 24 132/62 (85) 85 11/04/17 16:30 82 11/04/17 16:00 85 11/04/17 16:00 98.1 85 21 118/72 (87) 11/04/17 15:15 91 11/04/17 15:00 91 11/04/17 15:00 91 14 136/64 (88) 11/04/17 14:45 95 19 129/59 (82) 11/04/17 14:45 95 11/04/17 14:30 91 26 127/60 (82) 11/04/17 14:30 91 11/04/17 14:15 91 11/04/17 14:15 91 26 130/58 (82) 11/04/17 14:00 101 19 132/78 (96) 11/04/17 14:00 101 11/04/17 13:45 92 11/04/17 13:45 92 27 134/65 (88) 11/04/17 13:30 93 11/04/17 13:30 93 26 133/62 (85) 11/04/17 13:15 92 29 143/64 (90) 11/04/17 13:15 92 11/04/17 13:00 88 11/04/17 13:00 88 23 132/63 (86) 11/04/17 12:45 94 25 145/70 (95) 11/04/17 12:45 94 11/04/17 12:31 91 11/04/17 12:31 91 18 147/70 (95) 11/04/17 12:15 90 11/04/17 12:15 90 23 113/70 (84) 11/04/17 12:00 98.5 90 25 122/58 (79) 11/04/17 12:00 90 11/04/17 11:16 94 11/04/17 11:00 75 11/04/17 10:30 79 19 129/63 (85) 94 11/04/17 10:30 79 . Laboratory Tests Test 11/04/17 03:30 11/05/17 04:24 White Blood Count 18.3 TH/MM3 11.1 TH/MM3 Red Blood Count 2.88 MIL/MM3 2.97 MIL/MM3 Hemoglobin 8.4 GM/DL 8.6 GM/DL Hematocrit 24.4 % 24.6 % Mean Corpuscular Volume 84.7 FL 83.0 FL Mean Corpuscular Hemoglobin 29.1 PG 28.9 PG Mean Corpuscular Hemoglobin Concent 34.4 % 34.9 % Red Cell Distribution Width 13.7 % 13.8 % Platelet Count 280 TH/MM3 313 TH/MM3 Mean Platelet Volume 7.3 FL 7.6 FL Neutrophils (%) (Auto) 94.2 % 92.6 % Lymphocytes (%) (Auto) 3.0 % 3.8 % Monocytes (%) (Auto) 2.8 % 3.5 % Eosinophils (%) (Auto) 0.0 % 0.0 % Basophils (%) (Auto) 0.0 % 0.1 % Neutrophils # (Auto) 17.2 TH/MM3 10.3 TH/MM3 Lymphocytes # (Auto) 0.5 TH/MM3 0.4 TH/MM3 Monocytes # (Auto) 0.5 TH/MM3 0.4 TH/MM3 Eosinophils # (Auto) 0.0 TH/MM3 0.0 TH/MM3 Basophils # (Auto) 0.0 TH/MM3 0.0 TH/MM3 CBC Comment DIFF FINAL DIFF FINAL Differential Comment Laboratory Tests Test 11/03/17 14:24 11/04/17 03:30 11/05/17 04:24 Procalcitonin 1.80 ng/mL Blood Urea Nitrogen 62 MG/DL 48 MG/DL Creatinine 2.53 MG/DL 2.01 MG/DL Random Glucose 182 MG/DL 124 MG/DL Calcium Level 7.6 MG/DL 7.6 MG/DL Sodium Level 133 MEQ/L 135 MEQ/L Potassium Level 3.5 MEQ/L 2.5 MEQ/L Chloride Level 102 MEQ/L 99 MEQ/L Carbon Dioxide Level 20.5 MEQ/L 23.9 MEQ/L Anion Gap 11 MEQ/L 12 MEQ/L Estimat Glomerular Filtration Rate 19 ML/MIN 24 ML/MIN Microbiology Date/Time Source Procedure Growth Status 11/02/17 16:05 Blood Peripheral Aerobic Blood Culture - Preliminary NO GROWTH IN 2 DAYS Resulted 11/02/17 16:05 Blood Peripheral Anaerobic Blood Culture - Preliminary NO GROWTH IN 2 DAYS Resulted 11/02/17 16:10 Nasal Aspirate Influenza Types A,B Antigen (JEROD) - Final NEGATIVE FOR FLU A AND B ANTIGEN.... Complete 11/03/17 13:45 Urine Random Urine Legionella Antigen - Final PRESUMPTIVE NEGATIVE FOR LEGIONELLA P... Complete 11/03/17 13:45 Urine Random Urine Streptococcus pneumoniae Antigen (M - Final PRESUMPTIVE NEGATIVE FOR STREPTOCOCCU... Complete Imaging Last Impressions Renal Ultrasound 11/04/17 0000 Signed Impressions: Service Date/Time: October 08:16 - CONCLUSION: 1. Possible mild hydronephrosis on the right side. 2. Renal cortical thinning on the left without hydronephrosis. De Haque MD Chest X-Ray 11/02/17 1556 Signed Impressions: Service Date/Time: Thursday, November 02, 2017 16:09 - CONCLUSION: 1. Subsegmental atelectasis right base. Pedro Luis Anderson MD Physical Exam GENERAL: awake, alert, frail, NAD SKIN: No rashes, ecchymoses or lesions. Cool and dry. HEAD: Atraumatic. Normocephalic. No temporal or scalp tenderness. EYES: Pupils equal round and reactive. Extraocular motions intact. No scleral icterus. No injection or drainage. ENT: Nose without bleeding, purulent drainage. MOist mucosa NECK: Trachea midline. Supple, nontender, no meningeal signs. CARDIOVASCULAR: HS audible. RESPIRATORY: Clear to auscultation. Breath sounds equal bilaterally. No wheezes , rales, or rhonchi. Decreased at bases GASTROINTESTINAL: Abdomen soft, non-tender, nondistended. MUSCULOSKELETAL: LLE with contracture. No pedal edema NEUROLOGICAL: Awake and alert. speech hesitant. Psych cooperative IV line sites with no e.o infection Assessment & Plan Remarks Possible Severe Sepsis present on admission (leucocytosis, tachycardia, hypotension) - leukocytosis improving ? atypical Community acquired pneumonia vs aspiration PNA COPD acute exacerbation. Acute resp failure now on 5L NC. Hyponatremia. Acute renal failure: sepsis, prerenal. - improving H/o CVA with left side deficit. Recs: Continue Zosyn IV for now. Continue Azithro oral. Repeat CXR. Follow procalcitonin Try and get sputum C/S Monitor progress Mi Rodarte MD Nov 05, 2017 10:28
[2017-11-05] MEDS: ACETAMINOPHEN 325 MG TAB PO PRN (10:37)
[2017-11-05] MEDS: cloNIDine HCL 0.1 MG TAB PO PRN (10:40)
--- NOTE | 2017-11-05 10:49 | HHI.FPPN ---
Objective Vitals Vital Signs Date Time Temp Pulse Resp B/P (MAP) Pulse Ox O2 Delivery O2 Flow Rate FiO2 11/05/17 08:19 95 Nasal Cannula 2.00 11/05/17 06:26 92 11/05/17 04:00 93 11/05/17 04:00 98.6 93 21 151/68 (95) 91 11/05/17 02:00 95 11/05/17 00:00 98.3 89 13 128/61 (83) 90 11/05/17 00:00 89 11/04/17 22:00 96 11/04/17 20:00 97.7 84 23 147/69 (95) 90 11/04/17 20:00 84 11/04/17 19:47 93 21 11/04/17 18:15 73 11/04/17 18:00 75 11/04/17 17:15 79 11/04/17 17:00 80 11/04/17 16:45 83 16 134/63 (86) 11/04/17 16:45 83 11/04/17 16:30 82 24 132/62 (85) 85 11/04/17 16:30 82 11/04/17 16:00 85 11/04/17 16:00 98.1 85 21 118/72 (87) 11/04/17 15:15 91 11/04/17 15:00 91 11/04/17 15:00 91 14 136/64 (88) 11/04/17 14:45 95 19 129/59 (82) 11/04/17 14:45 95 11/04/17 14:30 91 26 127/60 (82) 11/04/17 14:30 91 11/04/17 14:15 91 11/04/17 14:15 91 26 130/58 (82) 11/04/17 14:00 101 19 132/78 (96) 11/04/17 14:00 101 11/04/17 13:45 92 11/04/17 13:45 92 27 134/65 (88) 11/04/17 13:30 93 11/04/17 13:30 93 26 133/62 (85) 11/04/17 13:15 92 29 143/64 (90) 11/04/17 13:15 92 11/04/17 13:00 88 2/22/18 13:00 88 23 132/63 (86) 11/04/17 12:45 94 25 145/70 (95) 11/04/17 12:45 94 11/04/17 12:31 91 11/04/17 12:31 91 18 147/70 (95) 11/04/17 12:15 90 11/04/17 12:15 90 23 113/70 (84) 11/04/17 12:00 98.5 90 25 122/58 (79) 11/04/17 12:00 90 11/04/17 11:16 94 11/04/17 11:00 75 I/O 11/04/17 11/04/17 11/04/17 11/05/17 11/05/17 11/05/17 07:00 15:00 23:00 07:00 15:00 23:00 Intake Total 470 ml 1050 ml 2310 ml 200 ml Output Total 525 ml 850 ml 1000 ml Balance -55 ml 1050 ml 1460 ml -800 ml Intake Oral 120 ml 960 ml 150 ml IV Total 350 ml 1050 ml 1350 ml 50 ml Output Urine Total 525 ml 850 ml 1000 ml # Bowel Movements 0 1 Result Diagram: 11/05/17 0424 11/05/17423 Objective Remarks GENERAL: SKIN: Warm and dry. HEAD: Atraumatic. Normocephalic. EYES: Pupils equal and round. No scleral icterus. No injection or drainage. ENT: No nasal bleeding or discharge. Mucous membranes pink and moist. NECK: Trachea midline. No JVD. CARDIOVASCULAR: Regular rate and rhythm. RESPIRATORY: No accessory muscle use. Clear to auscultation. Breath sounds equal bilaterally. GASTROINTESTINAL: Abdomen soft, non-tender, nondistended. Hepatic and splenic margins not palpable. MUSCULOSKELETAL: Extremities without clubbing, cyanosis, or edema. No obvious deformities. NEUROLOGICAL: Awake and alert. No obvious cranial nerve deficits. Motor grossly within normal limits. r joe, Normal speech. PSYCHIATRIC: Appropriate mood and affect; insight and judgment normal. A/P Assessment and Plan ASSESSMENT- A 72-year-old female, residential resident, admitted with severe sepsis requiring pressors, health care associated pneumonia, renal failure due to dehydration with chronic hyponatremia and hypokalemia. 1. Severe sepsis. 2. Pneumonia. 3. Renal failure. 4. Hyponatremia. 5. Hypokalemia. 6. CVA. 7. Hypertension, now hypotensive. 8. Pruritus and rash. 9. Anemia of chronic disease. 10. Hyperglycemia. 11. hydronephrosis PLAN- -urology consult for hydronephrosis -Speech therapy and heart healthy diet. -Followup smart cultures. -ABX PER ID -DVT prophylaxis with heparin 5000 b.i.d. -Lorazepam p.r.n. -Solu-Medrol 80 mg IV q.6 hours. -mckeon -GI prophylaxis with Protonix IV. -Telemetry. -SCDs. -Physical therapy. -Occupational therapy. -Speech therapy. -Consults to infectious disease for sepsis, real estate closing coordinator for sepsis and pressor management, nephrology for renal failure, pulmonology for health care associated pneumonia and palliative care, as the patient is DNR and has failure to thrive, living in a residential. -ivf Vazquez Sanchez MD Nov 05, 2017 10:49
--- NOTE | 2017-11-05 11:28 | RADRPT ---
EXAM DATE/TIME: 11/05/2017 10:36 [facility] COMPARISON: CHEST SINGLE AP, November 02, 2017, 16:09. INDICATIONS : Cough. MEDICAL HISTORY : Chronic obstructive pulmonary disease. Hypertension. Renal failure, acute. Cerebrovascular accident. Weakness. Arthritis. Osteoporosis. GERD. Depression. Measles. MRSA. SURGICAL HISTORY : Tonsillectomy. Hysterectomy. Cataract removal. ENCOUNTER: Subsequent ACUITY: 3 days PAIN SCORE: Non-responsive. LOCATION: Bilateral chest FINDINGS: Rotated examination demonstrates a heart being mildly enlarged. There is left basilar effusion and co nsolidative change concerning for basilar pneumonia. The right lung demonstrates chronic interstitial changes. There is an old fracture of the right proximal humerus. CONCLUSION: 1. Left basilar consolidation and effusion concerning for pneumonia. Elan Menjivar MD on November 05, 2017 at 11:26 Board Certified Radiologist. This report was verified electronically.
--- NOTE | 2017-11-05 11:44 | HHI.HCPN ---
Reason for visit a. To assist with evaluation and management of symptoms including: Dyspnea, confusion b. To assist medical decision maker(s) with: better understanding of current medical conditions; weighing benefits/burdens of medical treatment options; making medical treatment decisions. (Sandra Sanabria) Subjective/Interval History Pt seen to follow up on comfort, goals Maintain stable in the ICU. Renal function slowly improving. Hypokalemia 2.5 this morning, repletion her medical attending. CXR Left basilar consolidation and effusion concerning for pneumonia. Patient has remained awake, confused at times though generally cooperative per nursing. Eating 50-75% meals w family assist. +having BMs. Patient examined in room, nurse is at bedside starting new IV. She is alert, oriented to self, naming family members. Otherwise confused. She is moving around-- hemiparesis CHIO VALENCIA drawn up. She appears comfortable-- no dyspnea or pain. . Family/friend interactions I attempted to reach daughter and healthcare surrogate Sandra again today, voicemail was full. . (Sandra Sanabria) Advance Directives Health Care Surrogate: Copy in medical record (Sandra Sanabria) Advance Directive Specifics Date completed: 02/2017 Health Care Surrogate(s): Name daughter Sandra Cummings as HCS (Sandra Sanabria) Objective Vital Signs Date Time Temp Pulse Resp B/P (MAP) Pulse Ox O2 Delivery O2 Flow Rate FiO2 11/05/17 08:19 95 Nasal Cannula 2.00 11/05/17 06:26 92 11/05/17 04:00 93 11/05/17 04:00 98.6 93 21 151/68 (95) 91 11/05/17 02:00 95 11/05/17 00:00 98.3 89 13 128/61 (83) 90 11/05/17 00:00 89 11/04/17 22:00 96 11/04/17 20:00 97.7 84 23 147/69 (95) 90 11/04/17 20:00 84 11/04/17 19:47 93 21 11/04/17 18:15 73 11/04/17 18:00 75 11/04/17 17:15 79 11/04/17 17:00 80 11/04/17 16:45 83 16 134/63 (86) 11/04/17 16:45 83 11/04/17 16:30 82 24 132/62 (85) 85 11/04/17 16:30 82 11/04/17 16:00 85 11/04/17 16:00 98.1 85 21 118/72 (87) 11/04/17 15:15 91 11/04/17 15:00 91 11/04/17 15:00 91 14 136/64 (88) 11/04/17 14:45 95 19 129/59 (82) 11/04/17 14:45 95 11/04/17 14:30 91 26 127/60 (82) 11/04/17 14:30 91 11/04/17 14:15 91 11/04/17 14:15 91 26 130/58 (82) 11/04/17 14:00 101 19 132/78 (96) 11/04/17 14:00 101 11/04/17 13:45 92 11/04/17 13:45 92 27 134/65 (88) 11/04/17 13:30 93 11/04/17 13:30 93 26 133/62 (85) 11/04/17 13:15 92 29 143/64 (90) 11/04/17 13:15 92 11/04/17 13:00 88 11/04/17 13:00 88 23 132/63 (86) 11/04/17 12:45 94 25 145/70 (95) 11/04/17 12:45 94 11/04/17 12:31 91 11/04/17 12:31 91 18 147/70 (95) 11/04/17 12:15 90 11/04/17 12:15 90 23 113/70 (84) 11/04/17 12:00 98.5 90 25 122/58 (79) 11/04/17 12:00 90 Intake & Output 11/05/17 11/05/17 07:00 19:00 Intake Total 1250 ml Output Total 1000 ml Balance 250 ml Intake Oral 150 ml IV Total 1100 ml Output Urine Total 1000 ml # Bowel Movements 1 Physical Exam CONSTITUTIONAL/GENERAL: This is a very frail, thin elderly female alert and confused TUBES/LINES/DRAINS: Peripheral IV RT upper extremity, Harris catheter SKIN: No jaundice, rashes, or lesions. multiple discreet scattered tiny (1-2mm) scabbed lesions LUE, LLE, healing. skin warm/dry CARDIOVASCULAR: Regular rate and rhythm without murmur. Peripheral pulses symmetric. RESPIRATORY/CHEST: Symmetric, unlabored respirations. decreased air movement. Breath sounds equal bilaterally. appears to be tolerating room air GASTROINTESTINAL: Abdomen soft, flat non-tender, nondistended. No flat palpable masses. No guarding. Bowel sounds present. NEUROLOGICAL: Awake and alert. Oriented x1-2. pleasantly confused.Follows simple commands, generally cooperative. Moves RU, RLE, WILBER flaccid/rigid, left leg drawn up, ? contracted PSYCHIATRIC: No obvious anxiety/depression. no apparent hallucinations or other psychotic thought process. (Sandra Sanabria) Diagnostic Tests Laboratory Laboratory Tests Test 11/02/17 16:10 11/02/17 16:15 11/02/17 19:30 11/02/17 23:46 White Blood Count 22.4 TH/MM3 (4.0-11.0) Red Blood Count 3.51 MIL/MM3 (4.00-5.30) Hemoglobin 10.1 GM/DL (11.6-15.3) Hematocrit 29.8 % (35.0-46.0) Mean Corpuscular Volume 85.0 FL (80.0-100.0) Mean Corpuscular Hemoglobin 28.7 PG (27.0-34.0) Mean Corpuscular Hemoglobin Concent 33.8 % (32.0-36.0) Red Cell Distribution Width 13.6 % (11.6-17.2) Platelet Count 346 TH/MM3 (150-450) Mean Platelet Volume 7.3 FL (7.0-11.0) Neutrophils (%) (Auto) 80.3 % (16.0-70.0) Lymphocytes (%) (Auto) 8.2 % (9.0-44.0) Monocytes (%) (Auto) 11.3 % (0.0-8.0) Eosinophils (%) (Auto) 0.1 % (0.0-4.0) Basophils (%) (Auto) 0.1 % (0.0-2.0) Neutrophils # (Auto) 18.0 TH/MM3 (1.8-7.7) Lymphocytes # (Auto) 1.8 TH/MM3 (1.0-4.8) Monocytes # (Auto) 2.5 TH/MM3 (0-0.9) Eosinophils # (Auto) 0.0 TH/MM3 (0-0.4) Basophils # (Auto) 0.0 TH/MM3 (0-0.2) CBC Comment AUTO DIFF Differential Comment AUTO DIFF CONFIRMED Toxic Granulation 1+ (NORMAL) Platelet Estimate NORMAL (NORMAL) Platelet Morphology Comment NORMAL (NORMAL) Basophilic Stippling FAINT (NORMAL) Prothrombin Time 10.0 SEC (9.8-11.6) Prothromb Time International Ratio 1.0 RATIO Activated Partial Thromboplast Time 27.8 SEC (24.3-30.1) Blood Urea Nitrogen 79 MG/DL (7-18) Creatinine 3.97 MG/DL (0.50-1.00) Random Glucose 153 MG/DL (74-106) Total Protein 7.8 GM/DL (6.4-8.2) Albumin 3.1 GM/DL (3.4-5.0) Calcium Level 8.0 MG/DL (8.5-10.1) Magnesium Level 2.6 MG/DL (1.5-2.5) Alkaline Phosphatase 58 U/L (45-117) Aspartate Amino Transf (AST/SGOT) 23 U/L (15-37) Alanine Aminotransferase (ALT/SGPT) 17 U/L (10-53) Total Bilirubin 0.2 MG/DL (0.2-1.0) Sodium Level 129 MEQ/L (136-145) Potassium Level 3.3 MEQ/L (3.5-5.1) Chloride Level 93 MEQ/L (98-107) Carbon Dioxide Level 20.5 MEQ/L (21.0-32.0) Anion Gap 16 MEQ/L (5-15) Estimat Glomerular Filtration Rate 11 ML/MIN (>89) Total Creatine Kinase 295 U/L (26-192) Creatine Kinase MB 3.0 NG/ML (0.5-3.6) Creatine Kinase MB % 1.0 % (0.0-4.0) Troponin I LESS THAN 0.02 NG/ML B-Type Natriuretic Peptide 60 PG/ML (0-100) Lactic Acid Level 1.6 mmol/L (0.4-2.0) Nasal Screen MRSA (PCR) MRSA DETECTED (NOT DETECT) Blood Gas Puncture Site RT RADIAL Blood Gas Patient Temperature 98.6 Blood Gas HCO3 17 mmol/L (22-26) Blood Gas Base Excess -8.4 mmol/L (-2-2) Blood Gas Oxygen Saturation 92 % (90-100) Arterial Blood pH 7.30 (7.380-7.420) Arterial Blood Partial Pressure CO2 35 mmHg (38-42) Arterial Blood Partial Pressure O2 81 mmHg (61-120) Arterial Blood Oxygen Content 13.9 Vol % (12.0-20.0) Arterial Blood Carboxyhemoglobin 0.8 % (0-4) Arterial Blood Methemoglobin 1.5 % (0-2) Blood Gas Hemoglobin 10.6 G/DL (12.0-16.0) Oxygen Delivery Device NASAL CANNULA Blood Gas Liter Flow 5 L/M Test 11/03/17 00:05 11/03/17 05:40 11/03/17 14:24 11/04/17 03:30 Urine Color YELLOW (YELLW/STRAW) Urine Turbidity HAZY (CLEAR) Urine pH 5.5 (5.0-8.5) Urine Specific [place] 1.014 (1.002-1.035) Urine Protein 100 mg/dL (NEG-TRACE) Urine Glucose (UA) NEG mg/dL (NEG) Urine Ketones NEG mg/dL (NEG) Urine Occult Blood NEG (NEG) Urine Nitrite NEG (NEG) Urine Bilirubin NEG (NEG) Urine Urobilinogen LESS THAN 2.0 MG/DL (LESS Urine Leukocyte Esterase NEG (NEG) Urine RBC LESS THAN 1 /hpf (0-3) Urine WBC 2 /hpf (0-5) Urine Amorphous Sediment RARE Microscopic Urinalysis Comment CATH-CULT NOT IND White Blood Count 18.3 TH/MM3 (4.0-11.0) 18.3 TH/MM3 (4.0-11.0) Red Blood Count 3.20 MIL/MM3 (4.00-5.30) 2.88 MIL/MM3 (4.00-5.30) Hemoglobin 9.2 GM/DL (11.6-15.3) 8.4 GM/DL (11.6-15.3) Hematocrit 27.2 % (35.0-46.0) 24.4 % (35.0-46.0) Mean Corpuscular Volume 85.0 FL (80.0-100.0) 84.7 FL (80.0-100.0) Mean Corpuscular Hemoglobin 28.8 PG (27.0-34.0) 29.1 PG (27.0-34.0) Mean Corpuscular Hemoglobin Concent 33.9 % (32.0-36.0) 34.4 % (32.0-36.0) Red Cell Distribution Width 13.7 % (11.6-17.2) 13.7 % (11.6-17.2) Platelet Count 313 TH/MM3 (150-450) 280 TH/MM3 (150-450) Mean Platelet Volume 7.6 FL (7.0-11.0) 7.3 FL (7.0-11.0) Neutrophils (%) (Auto) 96.3 % (16.0-70.0) 94.2 % (16.0-70.0) Lymphocytes (%) (Auto) 2.3 % (9.0-44.0) 3.0 % (9.0-44.0) Monocytes (%) (Auto) 1.3 % (0.0-8.0) 2.8 % (0.0-8.0) Eosinophils (%) (Auto) 0.0 % (0.0-4.0) 0.0 % (0.0-4.0) Basophils (%) (Auto) 0.1 % (0.0-2.0) 0.0 % (0.0-2.0) Neutrophils # (Auto) 17.6 TH/MM3 (1.8-7.7) 17.2 TH/MM3 (1.8-7.7) Lymphocytes # (Auto) 0.4 TH/MM3 (1.0-4.8) 0.5 TH/MM3 (1.0-4.8) Monocytes # (Auto) 0.2 TH/MM3 (0-0.9) 0.5 TH/MM3 (0-0.9) Eosinophils # (Auto) 0.0 TH/MM3 (0-0.4) 0.0 TH/MM3 (0-0.4) Basophils # (Auto) 0.0 TH/MM3 (0-0.2) 0.0 TH/MM3 (0-0.2) CBC Comment DIFF FINAL DIFF FINAL Differential Comment Blood Urea Nitrogen 80 MG/DL (7-18) 62 MG/DL (7-18) Creatinine 3.36 MG/DL (0.50-1.00) 2.53 MG/DL (0.50-1.00) Random Glucose 213 MG/DL (74-106) 182 MG/DL (74-106) Calcium Level 7.8 MG/DL (8.5-10.1) 7.6 MG/DL (8.5-10.1) Sodium Level 135 MEQ/L (136-145) 133 MEQ/L (136-145) Potassium Level 4.4 MEQ/L (3.5-5.1) 3.5 MEQ/L (3.5-5.1) Chloride Level 102 MEQ/L (98-107) 102 MEQ/L (98-107) Carbon Dioxide Level 17.9 MEQ/L (21.0-32.0) 20.5 MEQ/L (21.0-32.0) Anion Gap 15 MEQ/L (5-15) 11 MEQ/L (5-15) Estimat Glomerular Filtration Rate 13 ML/MIN (>89) 19 ML/MIN (>89) Random Vancomycin Level 15.1 COMMENT Procalcitonin 1.80 ng/mL (0.00-0.08) Test 11/05/17 04:24 White Blood Count 11.1 TH/MM3 (4.0-11.0) Red Blood Count 2.97 MIL/MM3 (4.00-5.30) Hemoglobin 8.6 GM/DL (11.6-15.3) Hematocrit 24.6 % (35.0-46.0) Mean Corpuscular Volume 83.0 FL (80.0-100.0) Mean Corpuscular Hemoglobin 28.9 PG (27.0-34.0) Mean Corpuscular Hemoglobin Concent 34.9 % (32.0-36.0) Red Cell Distribution Width 13.8 % (11.6-17.2) Platelet Count 313 TH/MM3 (150-450) Mean Platelet Volume 7.6 FL (7.0-11.0) Neutrophils (%) (Auto) 92.6 % (16.0-70.0) Lymphocytes (%) (Auto) 3.8 % (9.0-44.0) Monocytes (%) (Auto) 3.5 % (0.0-8.0) Eosinophils (%) (Auto) 0.0 % (0.0-4.0) Basophils (%) (Auto) 0.1 % (0.0-2.0) Neutrophils # (Auto) 10.3 TH/MM3 (1.8-7.7) Lymphocytes # (Auto) 0.4 TH/MM3 (1.0-4.8) Monocytes # (Auto) 0.4 TH/MM3 (0-0.9) Eosinophils # (Auto) 0.0 TH/MM3 (0-0.4) Basophils # (Auto) 0.0 TH/MM3 (0-0.2) CBC Comment DIFF FINAL Differential Comment Blood Urea Nitrogen 48 MG/DL (7-18) Creatinine 2.01 MG/DL (0.50-1.00) Random Glucose 124 MG/DL (74-106) Calcium Level 7.6 MG/DL (8.5-10.1) Sodium Level 135 MEQ/L (136-145) Potassium Level 2.5 MEQ/L (3.5-5.1) Chloride Level 99 MEQ/L (98-107) Carbon Dioxide Level 23.9 MEQ/L (21.0-32.0) Anion Gap 12 MEQ/L (5-15) Estimat Glomerular Filtration Rate 24 ML/MIN (>89) (Sandra Sanabria [facility]) Result Diagram: 11/05/17 0424 11/05/17 0424 Microbiology Microbiology Date/Time Source Procedure Growth Status 11/02/17 16:05 Blood Peripheral Aerobic Blood Culture - Preliminary NO GROWTH IN 3 DAYS Resulted 11/02/17 16:05 Blood Peripheral Anaerobic Blood Culture - Preliminary NO GROWTH IN 3 DAYS Resulted 11/02/17 16:10 Nasal Aspirate Influenza Types A,B Antigen (JEROD) - Final NEGATIVE FOR FLU A AND B ANTIGEN.... Complete 11/03/17 13:45 Urine Random Urine Legionella Antigen - Final PRESUMPTIVE NEGATIVE FOR LEGIONELLA P... Complete 11/03/17 13:45 Urine Random Urine Streptococcus pneumoniae Antigen (M - Final PRESUMPTIVE NEGATIVE FOR STREPTOCOCCU... Complete Imaging Last Impressions Chest X-Ray 11/05/17 0000 Signed Impressions: Service Date/Time: Sunday, November 05, 2017 10:36 - CONCLUSION: 1. Left basilar consolidation and effusion concerning for pneumonia. Elan Menjivar MD Renal Ultrasound 11/04/17 0000 Signed Impressions: Service Date/Time: October 08:16 - CONCLUSION: 1. Possible mild hydronephrosis on the right side. 2. Renal cortical thinning on the left without hydronephrosis. De Haque MD (EllySandra JOSEPH) Assessment and Plan Disease Oriented Problem List: (1) Hypertension (2) H/O: CVA (cerebrovascular accident) (3) Osteoporosis (4) Acute renal failure (5) Respiratory failure (6) Sepsis (7) COPD exacerbation Symptom Scale: (1) Dyspnea 0-10 Scale: Unable to quantify (2) Confusion 0-10 Scale: Unable to quantify Pertinent Non-Medical Issues Psychosocial:. Most recently lives at [facility] since February 2017. Originally from [place] moved to [place] in 2002. 2011. 5 children, one of lung cancer. All of her children live in other states. Patient served in the [employer], [employer], [employer]. Spiritual: Worship-no particular affiliation Legal:Patient orientation and cognitive processing has fluctuated since her CVA in 2016. At times she is more oriented and appropriate other times she is forgetful and mildly confused. She may be able to participate some in decision- making but would be best to observe shared decision making with her designated healthcare surrogate. Health care surrogate is named as daughter Sandra Cummings. It sounds as if family all communicates and is working together for decision- making. Ethical issues impacting care: Important Contacts Daughter Sandra Cummings healthcare surrogate -[phone] sister Radha Lares [phone] / [phone] Daughter Claudia Gonzalez [phone] Carmelo Frey son [phone] . Prognosis This patient was admitted for acute shortness of breath. CXR findings of atelectasis, + acute renal failure, leukocytosis. Underlying history of COPD, history of CVA, advanced age. May be able to get through current acute episode and return to prior status at long-term nursing facility however does remain high risk for further complications and setbacks during acute hospital course. . Code Status: No Code Plan * Legal decision maker:Patient orientation and cognitive processing has fluctuated since her CVA in 2016. At times she is more oriented and appropriate other times she is forgetful and mildly confused. She may be able to participate some in decision-making but would be best to observe shared decision making with her designated healthcare surrogate. Health care surrogate is named as daughter Sandra Cummings. It sounds as if family all communicates and is working together for decision-making. * Goals: Currently goals somewhat aggressive to continue current conservative medical treatments short of BiPAP or intubation, cardiac resuscitation per initial bedside interaction w family 11/03/17. Family hopeful to treat current illness and restore patient back to prior level at shelter. I have left several for dtr/HCS Sandra. *In the past patient and family have discussed hospice and comfort measures in the event of clinical deterioration, prior palliative care consultation February 2017. * CODE STATUS: DNR * SYMPTOMS: --Dyspnea-patient with shortness of breath 3 days, subjective improvement during hospitalization. Currently tolerating Room air. On nebulizers, steroids. If clinical deterioration and worsening of dyspnea and goals comfort oriented could consider opiates, benzos for symptom management. --Confusion- patient with history of CVA last year, some residual fluctuating confusion ongoing, this is likely worsened by acute sepsis. Continue to monitor. * Palliative care will continue to follow during hospital course as condition evolves, to assist patient/decision-maker with understanding of medical conditions, weighing benefits/burdens of treatment options, for clarification of goals of treatment. Additionally will assist with any symptoms of palliative concern (Sandra Sanabria) Attestation To help prompt me to consider important information that might be impacting today's encounter and assessment, information from prior notes written by myself or my colleagues may have been "brought forward" into today's note. My signature on this note, however, is an attestation that I personally performed the exam, history, and/or decision-making noted today, and, unless otherwise indicated, the interactions with patient, family, and staff as well as the review of records all occurred today. I also attest that the listed assessment and stated plan reflect my best clinical judgment today based on the combination of historical information, prior notes, and today's exam/ interactions. When time spent is documented, it refers only to time spent today by the signer, or if indicated, combined time spent today by collaborating physician/nurse practitioner. (Sandra Sanabria) Collaborating MD Comments Chart reviewed. Case discussed with palliative care AFRICAN HISTORY PROFESSOR. Above AFRICAN HISTORY PROFESSOR note reviewed and I concur. . (Haseeb Esteban MD) EllySandra RUIZ Nov 05, 2017 11:44 Haseeb Esteban MD Nov 10, 2017 17:29
--- NOTE | 2017-11-05 11:52 | HHI.NPPN ---
Subjective General Problems: Anemia, Hypotension Renal Failure: Acute History of Present Illness 72 y/o female with COPD admitted for shortness of breath, COPD exacerbation. Her creatinine was 3.9 on arrival, PMH of CVA with hemiparesis, HTN, GERD, and osteoporosis. Additional Remarks Patient is alert, not in distress, denies any SOB. (Malinda Dial) Review of Systems General Constitutional: Fatigue (Malinda Dial) Respiratory Lungs: SOB (Malinda Dial) Cardiovascular Cardiac: MCKEON Cardiac Remarks denies CP (Malinda Dial) Gastrointestinal GI Remarks No abdominal pain (Malinda Dial) Objective Data Data Vital Signs Date Time Temp Pulse Resp B/P (MAP) Pulse Ox O2 Delivery O2 Flow Rate FiO2 11/05/17 08:19 95 Nasal Cannula 2.00 11/05/17 06:26 92 11/05/17 04:00 93 11/05/17 04:00 98.6 93 21 151/68 (95) 91 11/05/17 02:00 95 11/05/17 00:00 98.3 89 13 128/61 (83) 90 11/05/17 00:00 89 11/04/17 22:00 96 11/04/17 20:00 97.7 84 23 147/69 (95) 90 11/04/17 20:00 84 11/04/17 19:47 93 21 11/04/17 18:15 73 11/04/17 18:00 75 11/04/17 17:15 79 11/04/17 17:00 80 11/04/17 16:45 83 16 134/63 (86) 11/04/17 16:45 83 11/04/17 16:30 82 24 132/62 (85) 85 11/04/17 16:30 82 11/04/17 16:00 85 11/04/17 16:00 98.1 85 21 118/72 (87) 11/04/17 15:15 91 11/04/17 15:00 91 11/04/17 15:00 91 14 136/64 (88) 11/04/17 14:45 95 19 129/59 (82) 11/04/17 14:45 95 11/04/17 14:30 91 26 127/60 (82) 11/04/17 14:30 91 11/04/17 14:15 91 11/04/17 14:15 91 26 130/58 (82) 11/04/17 14:00 101 19 132/78 (96) 11/04/17 14:00 101 11/04/17 13:45 92 11/04/17 13:45 92 27 134/65 (88) 11/04/17 13:30 93 11/04/17 13:30 93 26 133/62 (85) 11/04/17 13:15 92 29 143/64 (90) 11/04/17 13:15 92 11/04/17 13:00 88 11/04/17 13:00 88 23 132/63 (86) 11/04/17 12:45 94 25 145/70 (95) 11/04/17 12:45 94 11/04/17 12:31 91 11/04/17 12:31 91 18 147/70 (95) 11/04/17 12:15 90 11/04/17 12:15 90 23 113/70 (84) 11/04/17 12:00 98.5 90 25 122/58 (79) 11/04/17 12:00 90 (Malinda Dial) -: 11/05/17 0424 11/05/17 0424 Imaging Last Impressions Chest X-Ray 11/05/17 0000 Signed Impressions: Service Date/Time: Sunday, November 05, 2017 10:36 - CONCLUSION: 1. Left basilar consolidation and effusion concerning for pneumonia. Elan Menjivar MD Renal Ultrasound 11/04/17 0000 Signed Impressions: Service Date/Time: October 08:16 - CONCLUSION: 1. Possible mild hydronephrosis on the right side. 2. Renal cortical thinning on the left without hydronephrosis. De Haque MD (Malinda Dial) Physical Exam General Appearance: No Acute Distress, Comfortable (Malinda Dial) Eyes Eye Exam: Pupils Equal (Malinda Dial) Throat Throat Exam: Oral Mucosa [place] & Moist (Malinda Dial) Neck Neck Exam: Neck Supple (Malinda Dial) Pulmonary Resp Exam: Breath Sounds Equal, No Distress, Crackles, Decreased Bases (Malinda Dial) Gastrointestinal/Abdomen GI Exam: Soft, Non-Tender, Non-Distended (Malinda Dial) Genitourinary Exam: Clear Urine (Malinda Dial) Extremeties Extremities Exam: Trace Edema (Malinda Dial) Neurologic Neuro Exam: Alert, Awake (Malinda Dial) Psychiatric Psych Exam: Appropriate Responses (Malinda Dial) Assessment/Plan Problem List: (1) Acute renal failure ICD Codes: N17.9 - Acute kidney failure, unspecified Status: Acute Plan: Unclear if she has preexisting renal disease DANIEL most likely due to sepsis syndrome and hypotension, diminished renal perfusion. UA with proteinuria, Renal U/S noted Continues to have good UOP Plan Continue to monitor urine output Creatinine improving at 2.01 down from 2.53 Acidosis has resolved and patient is taking in Oral fluids well, will discontinue Bicarb gtt Avoid Nephrotoxins Will continue to monitor labs and UOP (2) Sepsis ICD Codes: A41.9 - Sepsis, unspecified organism Status: Acute Plan: Continue symptom management. Await culture results. Given vancomycin, on zithromax, zyvoxx, and zosyn. (3) COPD exacerbation ICD Codes: J44.1 - Chronic obstructive pulmonary disease with (acute) exacerbation Status: Acute Plan: On oxygen, monitor pulmonary status (Malinda Dial) Problem List: (1) Acute renal failure ICD Codes: N17.9 - Acute kidney failure, unspecified Status: Acute Plan: Unclear if she has preexisting renal disease DANIEL most likely due to sepsis syndrome and hypotension, diminished renal perfusion. UA with proteinuria, Renal U/S noted Continues to have good UOP Plan Continue to monitor urine output Creatinine improving at 2.01 down from 2.53 Acidosis has resolved and patient is taking in Oral fluids well, will discontinue Bicarb gtt Avoid Nephrotoxins Will continue to monitor labs and UOP Patient seen and examined, agree with above. Creatinine is improving, K was low and replaced. (2) Sepsis ICD Codes: A41.9 - Sepsis, unspecified organism Status: Acute Plan: Continue symptom management. Await culture results. Given vancomycin, on zithromax, zyvoxx, and zosyn. (3) COPD exacerbation ICD Codes: J44.1 - Chronic obstructive pulmonary disease with (acute) exacerbation Status: Acute Plan: On oxygen, monitor pulmonary status (Gem Dempsey MD) Problem Qualifiers (1) Acute renal failure: Qualified Codes: N17.9 - Acute kidney failure, unspecified (2) Sepsis: Qualified Codes: A41.9 - Sepsis, unspecified organism Malinda Dial Nov 05, 2017 11:52 Gem Dempsey MD Nov 05, 2017 22:50
--- NOTE | 2017-11-05 15:40 | HHI.PR ---
Subjective Remarks NO DISTRESS ON O2 CONFUSED Objective Vital Signs Date Time Temp Pulse Resp B/P (MAP) Pulse Ox O2 Delivery O2 Flow Rate FiO2 11/05/17 12:15 74 11/05/17 12:15 74 14 139/64 (89) 11/05/17 12:00 74 11/05/17 12:00 97.9 74 11 139/65 (89) 11/05/17 11:45 79 20 147/66 (93) 11/05/17 11:45 79 11/05/17 11:30 95 11/05/17 11:30 95 17 139/66 (90) 11/05/17 11:01 122 29 171/78 (109) 91 11/05/17 11:01 122 11/05/17 11:00 121 25 91 11/05/17 11:00 121 11/05/17 10:45 91 24 166/88 (114) 92 11/05/17 10:45 91 11/05/17 10:32 127 16 186/93 (124) 96 11/05/17 10:32 127 11/05/17 10:31 132 11/05/17 10:31 132 19 180/97 (124) 96 11/05/17 10:15 108 23 157/70 (99) 91 11/05/17 10:15 108 11/05/17 10:00 126 33 145/88 (107) 90 11/05/17 10:00 126 11/05/17 09:45 123 11/05/17 09:45 123 22 135/64 (87) 91 11/05/17 09:31 122 26 174/77 (109) 91 11/05/17 09:31 122 11/05/17 09:15 120 11/05/17 09:15 120 23 149/70 (96) 90 11/05/17 09:00 119 21 140/67 (91) 91 11/05/17 09:00 119 11/05/17 08:46 125 29 150/87 (108) 93 11/05/17 08:46 125 11/05/17 08:30 119 22 100/63 (75) 93 11/05/17 08:30 119 11/05/17 08:19 95 Nasal Cannula 2.00 11/05/17 08:15 96 11/05/17 08:15 96 23 149/84 (105) 90 11/05/17 08:03 98 11/05/17 08:03 98 16 152/70 (97) 94 11/05/17 08:00 105 11/05/17 08:00 98.1 105 20 182/86 (118) 96 11/05/17 06:26 92 11/05/17 04:00 93 11/05/17 04:00 98.6 93 21 151/68 (95) 91 11/05/17 02:00 95 11/05/17 00:00 98.3 89 13 128/61 (83) 90 11/05/17 00:00 89 11/04/17 22:00 96 11/04/17 20:00 97.7 84 23 147/69 (95) 90 11/04/17 20:00 84 11/04/17 19:47 93 21 11/04/17 18:15 73 11/04/17 18:00 75 11/04/17 17:15 79 11/04/17 17:00 80 11/04/17 16:45 83 16 134/63 (86) 11/04/17 16:45 83 11/04/17 16:30 82 24 132/62 (85) 85 11/04/17 16:30 82 11/04/17 16:00 85 11/04/17 16:00 98.1 85 21 118/72 (87) I/O 11/04/17 11/04/17 11/04/17 11/05/17 11/05/17 11/05/17 07:00 15:00 23:00 07:00 15:00 23:00 Intake Total 470 ml 1050 ml 2310 ml 200 ml 1000 ml Output Total 525 ml 850 ml 1000 ml Balance -55 ml 1050 ml 1460 ml -800 ml 1000 ml Intake Oral 120 ml 960 ml 150 ml IV Total 350 ml 1050 ml 1350 ml 50 ml 1000 ml Output Urine Total 525 ml 850 ml 1000 ml # Bowel Movements 0 1 Result Diagram: 11/05/1742311/05/17423 Objective Remarks GENERAL: SKIN: Warm and dry. HEAD: Atraumatic. Normocephalic. EYES: Pupils equal and round. No scleral icterus. No injection or drainage. ENT: No nasal bleeding or discharge. Mucous membranes pink and moist. NECK: Trachea midline. No JVD. CARDIOVASCULAR: Regular rate and rhythm. RESPIRATORY: No accessory muscle use. Clear to auscultation. Breath sounds equal bilaterally. GASTROINTESTINAL: Abdomen soft, non-tender, nondistended. Hepatic and splenic margins not palpable. MUSCULOSKELETAL: Extremities without clubbing, cyanosis, or edema. No obvious deformities. NEUROLOGICAL: Awake and alert. No obvious cranial nerve deficits. Motor grossly within normal limits. Five out of 5 muscle strength in the arms and legs. Normal speech. PSYCHIATRIC: Appropriate mood and affect; insight and judgment normal. Assessment and Plan Assessment and Plan RESPIRATORY FAILURE PNA S/P CVA CXRAY SAME PLAN O2 ANTIBX Arleen Bacon MD Nov 05, 2017 15:40
--- NOTE | 2017-11-05 15:54 | RADRPT ---
EXAM DATE/TIME: 11/05/2017 15:33 [facility] COMPARISON: No previous studies available for comparison. INDICATIONS : Acute renal failure, hydronephrosis. ORAL CONTRAST: No oral contrast ingested. RADIATION DOSE: 7.75 CTDIvol (mGy) MEDICAL HISTORY : Hypertension. Cerebrovascular disease. SURGICAL HISTORY : Hysterectomy. ENCOUNTER: Initial ACUITY: 1 day PAIN SCALE: 0/10 LOCATION: Bilateral abdomen TECHNIQUE: Volumetric scanning of the abdomen and pelvis was performed. Using automated exposure control and ad justment of the mA and/or kV according to patient size, radiation dose was kept as low as reasonably achievable to obtain optimal diagnostic quality images. DICOM format image data is available electro nically for review and comparison. FINDINGS: Imaging through the lung bases demonstrates bibasilar atelectasis. There is minimal pericardial effus ion. The appearance of the liver, spleen, pancreas and adrenal glands is within normal limits. The left ki dney is somewhat small in size. The right kidney is normal in size. There is no hydronephrosis. The abdominal aorta is mildly aneurysmal at the level the renal arteries measuring 3 cm. Distally, it measures 3.2 cm just above the iliac bifurcation. There is advanced atherosclerotic plaquing. There is no significant retroperitoneal adenopathy. No free air or free fluid is seen. The loops of small large bowel are nondilated. No free air is seen. There is a small amount of free fluid within the pelvis. No iliac or inguinal adenopathy is seen. The re is a Harris catheter within the bladder. There is a 6.5 x 4.9 cm masslike density in the lateral as pect of the right low pelvis. This may simply represent multiple loops of bowel matted together howev er, I cannot exclude a mass. Repeat imaging with oral contrast would be of benefit for further assess ment. The visualized osseous structures demonstrate degenerative changes but are otherwise intact. CONCLUSION: 1. The left kidney is somewhat smaller in size than the right. There is no hydronephrosis. 2. There is a 6.5 x 4.9 cm masslike density in the low pelvis on the right. This may simply be severa l loops of small bowel matted together however I cannot definitively exclude a mass. CT imaging with oral contrast would be of benefit for further assessment. 3. There are bibasilar areas of atelectasis. Elan Menjivar MD on November 05, 2017 at 15:44 Board Certified Radiologist. This report was verified electronically.
[2017-11-05] MEDS: NS + KCL 20 MEQ INJ 1,000 ML IV SCH (16:30)
--- NOTE | 2017-11-05 17:03 | PD.CONS ---
HPI Service Urology Consult Requested By Dr Urena Reason for Consult Right hydronephrosis Primary Care Physician Unknown Diagnosis: (1) Hydronephrosis ICD Code: N13.30 - Unspecified hydronephrosis (2) Acute renal failure ICD Code: N17.9 - Acute kidney failure, unspecified (3) Confusion ICD Code: R41.0 - Disorientation, unspecified History of Present Illness A 72-year-old female, [place], admitted with severe sepsis requiring pressors, health care associated pneumonia, renal failure due to dehydration with chronic hyponatremia and hypokalemia. She found an elevated Creatinine up to 3.9 which is improving now to 2, also had elevated white count. She also had a mckeon cath placed which is draining well. She is still confused so unable to collect a good history. Her leukocytosis is improving as well. On her initial Renal sonogram there was a mild hydro noted, possibly due to her septic condition effecting her renal function. Earlier today Dr Gabriel recommended to do CT scan and based on CT results she has no hydronephrosis b/ l. But she does have a questionable Large pelvic mass on a right which requires additional evaluation Review of Systems Except as stated in HPI: all other systems reviewed are Neg Past Family Social History Past Medical History Osteoporosis COPD CVA-residual right hemiparesis Hypertension Chronic low back pain Hyperlipidemia Depression Past Surgical History Cataract surgery 2004 Partial hysterectomy Tonsillectomy Allergies: Coded Allergies: No Known Allergies (Unverified Allergy, Unknown, 11/02/17) Family History cannot obtain Social History cannot obtain Physical Exam Vital Signs Date Time Temp Pulse Resp B/P (MAP) Pulse Ox O2 Delivery O2 Flow Rate FiO2 11/05/17 12:15 74 11/05/17 12:15 74 14 139/64 (89) 11/05/17 12:00 74 11/05/17 12:00 97.9 74 11 139/65 (89) 11/05/17 11:45 79 20 147/66 (93) 11/05/17 11:45 79 11/05/17 11:30 95 11/05/17 11:30 95 17 139/66 (90) 11/05/17 11:01 122 29 171/78 (109) 91 11/05/17 11:01 122 11/05/17 11:00 121 25 91 2/23/18 11:00 121 11/05/17 10:45 91 24 166/88 (114) 92 11/05/17 10:45 91 11/05/17 10:32 127 16 186/93 (124) 96 11/05/17 10:32 127 11/05/17 10:31 132 11/05/17 10:31 132 19 180/97 (124) 96 11/05/17 10:15 108 23 157/70 (99) 91 11/05/17 10:15 108 11/05/17 10:00 126 33 145/88 (107) 90 11/05/17 10:00 126 11/05/17 09:45 123 11/05/17 09:45 123 22 135/64 (87) 91 11/05/17 09:31 122 26 174/77 (109) 91 11/05/17 09:31 122 11/05/17 09:15 120 11/05/17 09:15 120 23 149/70 (96) 90 11/05/17 09:00 119 21 140/67 (91) 91 11/05/17 09:00 119 11/05/17 08:46 125 29 150/87 (108) 93 11/05/17 08:46 125 11/05/17 08:30 119 22 100/63 (75) 93 11/05/17 08:30 119 11/05/17 08:19 95 Nasal Cannula 2.00 11/05/17 08:15 96 11/05/17 08:15 96 23 149/84 (105) 90 11/05/17 08:03 98 11/05/17 08:03 98 16 152/70 (97) 94 11/05/17 08:00 105 11/05/17 08:00 98.1 105 20 182/86 (118) 96 11/05/17 06:26 92 11/05/17 04:00 93 11/05/17 04:00 98.6 93 21 151/68 (95) 91 11/05/17 02:00 95 11/05/17 00:00 98.3 89 13 128/61 (83) 90 11/05/17 00:00 89 11/04/17 22:00 96 11/04/17 20:00 97.7 84 23 147/69 (95) 90 11/04/17 20:00 84 11/04/17 19:47 93 21 11/04/17 18:15 73 11/04/17 18:00 75 11/04/17 17:15 79 11/04/17 17:00 80 11/04/17 16:45 83 16 134/63 (86) 11/04/17 16:45 83 Physical Exam GENERAL: This is a well-nourished, well-developed patient, in no apparent distress. NECK: Supple, nontender, no meningeal signs. CARDIOVASCULAR: Regular rate and rhythm without murmurs, gallops, or rubs. RESPIRATORY: Clear to auscultation. Breath sounds equal bilaterally. No wheezes , rales, or rhonchi. GASTROINTESTINAL: Abdomen soft, non-tender, nondistended. No hepato-splenomegaly , or palpable masses. No guarding. GENITOURINARY:Mckeon is in place draining clear yellow urine NEUROLOGICAL: Awake and alert. Confused Lab results reviewed: Yes Laboratory Tests Test 11/05/17 04:24 White Blood Count 11.1 Red Blood Count 2.97 Hemoglobin 8.6 Hematocrit 24.6 Mean Corpuscular Volume 83.0 Mean Corpuscular Hemoglobin 28.9 Mean Corpuscular Hemoglobin Concent 34.9 Red Cell Distribution Width 13.8 Platelet Count 313 Mean Platelet Volume 7.6 Neutrophils (%) (Auto) 92.6 Lymphocytes (%) (Auto) 3.8 Monocytes (%) (Auto) 3.5 Eosinophils (%) (Auto) 0.0 Basophils (%) (Auto) 0.1 Neutrophils # (Auto) 10.3 Lymphocytes # (Auto) 0.4 Monocytes # (Auto) 0.4 Eosinophils # (Auto) 0.0 Basophils # (Auto) 0.0 CBC Comment DIFF FINAL Differential Comment Blood Urea Nitrogen 48 Creatinine 2.01 Random Glucose 124 Calcium Level 7.6 Sodium Level 135 Potassium Level 2.5 Chloride Level 99 Carbon Dioxide Level 23.9 Anion Gap 12 Estimat Glomerular Filtration Rate 24 Date/Time Source Procedure Growth Status 11/02/17 16:05 Blood Peripheral Aerobic Blood Culture - Preliminary NO GROWTH IN 3 DAYS Resulted 11/02/17 16:05 Blood Peripheral Anaerobic Blood Culture - Preliminary NO GROWTH IN 3 DAYS Resulted 11/02/17 16:10 Nasal Aspirate Influenza Types A,B Antigen (JEROD) - Final NEGATIVE FOR FLU A AND B ANTIGEN.... Complete 11/03/17 13:45 Urine Random Urine Legionella Antigen - Final PRESUMPTIVE NEGATIVE FOR LEGIONELLA P... Complete 11/03/17 13:45 Urine Random Urine Streptococcus pneumoniae Antigen (M - Final PRESUMPTIVE NEGATIVE FOR STREPTOCOCCU... Complete Result Diagram: 11/05/17 0424 11/05/17 0424 Personally reviewed images: Yes Imaging Last Impressions Chest X-Ray 11/05/17 0000 Signed Impressions: Service Date/Time: Sunday, November 05, 2017 10:36 - CONCLUSION: 1. Left basilar consolidation and effusion concerning for pneumonia. Elan Menjivar MD Abdomen/Pelvis CT 11/05/17 0000 Signed Impressions: Service Date/Time: Sunday, November 05, 2017 15:33 - CONCLUSION: 1. The left kidney is somewhat smaller in size than the right. There is no hydronephrosis. 2. There is a 6.5 x 4.9 cm masslike density in the low pelvis on the right. This may simply be several loops of small bowel matted together however I cannot definitively exclude a mass. CT imaging with oral contrast would be of benefit for further assessment. 3. There are bibasilar areas of atelectasis. Elan Menjivar MD Renal Ultrasound 11/04/17 0000 Signed Impressions: Service Date/Time: October 08:16 - CONCLUSION: 1. Possible mild hydronephrosis on the right side. 2. Renal cortical thinning on the left without hydronephrosis. De Haque MD Assessment and Plan Assessment and Plan 72 y.o F admitted due to sepsis and DANIEL Found mild hydro on a right, Urology consulted Plan: No acute intervention needed by REFUGIO Continue care as per primary team. Treat UTI according to C&S No hydronephrosis seen on CT scan Labs and vitals are improving Primary team is to Address right pelvic mass Keep mckeon as long as needed by primary team to monitor I&O while treating her other issues Discussed Condition With Dr Harvey HUFF attending, who agrees with this plan Problem Qualifiers (1) Acute renal failure: Qualified Codes: N17.9 - Acute kidney failure, unspecified Armando Quinonez Nov 05, 2017 17:03
[2017-11-05] MEDS: AZITHROMYCIN 250 MG TAB PO SCH (18:19)
[2017-11-05] MEDS: PANTOPRAZOLE SODIUM 40 MG VIAL IV PUSH SCH (20:25)
[2017-11-06] VITALS (13 sets, daily range): BP systolic 126–188; BP diastolic 74–91; PULSE 56–101; RESP 9–27; TEMP 97.4–98.9; O2SAT 87–99
[2017-11-06] MEDS: PIPERACIL-TAZO 2.25 GM PREMIX 50 ML IV SCH ×3 (00:26→16:36)
[2017-11-06] MEDS: methylPREDNISolone SOD SUCC 125 MG/2 ML VIAL IV PUSH SCH ×2 (00:26→06:24)
[2017-11-06] MEDS: CHLORHEXIDINE GLUCONATE 2 % 1 PACK (2 CLOTHS)(taper/protocol) TOPICAL SCH (04:00)
[2017-11-06 06:40] LABS: AUTOMATED NEUTROPHIL # 6.6 TH/MM3 (1.8-7.7); BASOPHIL % 0.1 % (0.0-2.0); HEMATOCRIT 27.6 % (35.0-46.0); HEMOGLOBIN 9.6 GM/DL (11.6-15.3); LYMPH % 6.1 % (9.0-44.0); LYMPHOCYTE # 0.4 TH/MM3 (1.0-4.8); MEAN CELL VOLUME 83.3 FL (80.0-100.0); MEAN CORPUSCULAR HGB CONC 34.9 % (32.0-36.0); MEAN PLATELET VOLUME 7.5 FL (7.0-11.0); MONO % 4.3 % (0.0-8.0); MONOCYTE # 0.3 TH/MM3 (0-0.9); NEUT % 89.5 % (16.0-70.0); PLATELET COUNT 335 TH/MM3 (150-450); RED BLOOD COUNT 3.31 MIL/MM3 (4.00-5.30); RED CELL DISTRIBUTION WIDTH 13.3 % (11.6-17.2); WHITE BLOOD COUNT 7.4 TH/MM3 (4.0-11.0)
[2017-11-06 06:51] LABS: BICARBONATE 26.7 MEQ/L (21.0-32.0); CREATININE 1.73 MG/DL (0.50-1.00)
[2017-11-06] MEDS: HEPARIN SODIUM - SQ 10,000 UNITS/ML VIAL SQ SCH ×2 (07:30→20:05)
[2017-11-06] MEDS: RESP: ALBUTEROL 2.5 MG/IPRATROPIUM 0.5 MG NEB (SCH) NEB ×3 (07:50→19:18)
[2017-11-06] MEDS: INSULIN ASPART SUPPLEMENTAL SCALE SQ SCH ×4 (08:00→20:19)
[2017-11-06] MEDS: DOCUSATE SODIUM 50 MG/SENNA 8.6 MG TAB PO SCH ×3 (09:00→20:20)
[2017-11-06] MEDS: SODIUM CHLORIDE 0.9% FLUSH 10 ML FLUSH IV FLUSH SCH ×2 (10:30→20:05)
--- NOTE | 2017-11-06 10:36 | HHI.PR ---
Subjective Remarks Patient is lying in bed in NAD. On room air oxygen Objective Vital Signs Vital Signs Date Time Temp Pulse Resp B/P (MAP) Pulse Ox O2 Delivery O2 Flow Rate FiO2 11/06/17 08:00 98.9 81 14 188/84 (118) 94 11/06/17 07:51 93 21 11/06/17 06:00 61 11/06/17 04:00 59 11/06/17 04:00 97.4 59 12 184/81 (115) 90 11/06/17 02:00 101 11/06/17 00:00 56 11/06/17 00:00 98.6 56 9 161/74 (103) 92 11/05/17 22:00 57 11/05/17 20:09 95 21 11/05/17 20:00 98.6 66 16 159/72 (101) 89 11/05/17 20:00 66 11/05/17 19:00 66 12 148/67 (94) 92 11/05/17 18:45 68 14 168/81 (110) 95 11/05/17 18:45 68 11/05/17 18:32 69 11/05/17 18:32 69 26 155/78 (103) 11/05/17 18:31 71 11/05/17 18:31 71 27 161/115 (130) 11/05/17 18:15 63 12 159/82 (107) 94 11/05/17 18:15 63 11/05/17 18:00 63 11/05/17 18:00 63 16 156/75 (102) 97 11/05/17 17:46 70 11/05/17 17:46 70 30 162/77 (105) 93 11/05/17 17:30 72 16 156/75 (102) 89 11/05/17 17:30 72 18 17:15 68 18 17:15 68 17 149/81 (103) 95 11/05/17 17:00 65 11/05/17 17:00 65 11 148/76 (100) 94 11/05/17 16:45 68 17 151/84 (106) 94 11/05/17 16:45 68 11/05/17 16:30 66 19 154/74 (100) 93 11/05/17 16:30 66 11/05/17 16:15 66 11/05/17 16:15 66 21 154/72 (99) 94 11/05/17 16:00 67 11/05/17 16:00 98.6 67 12 94 11/05/17 15:50 68 11/05/17 15:15 71 11/05/17 15:00 71 11/05/17 14:45 72 11/05/17 14:30 72 11/05/17 14:15 81 11/05/17 14:00 78 11/05/17 12:15 74 11/05/17 12:15 74 14 139/64 (89) 11/05/17 12:00 74 11/05/17 12:00 97.9 74 11 139/65 (89) 11/05/17 11:45 79 20 147/66 (93) 11/05/17 11:45 79 11/05/17 11:30 95 11/05/17 11:30 95 17 139/66 (90) 11/05/17 11:01 122 29 171/78 (109) 91 11/05/17 11:01 122 11/05/17 11:00 121 25 91 11/05/17 11:00 121 11/05/17 10:45 91 24 166/88 (114) 92 11/05/17 10:45 91 11/05/17 10:32 127 16 186/93 (124) 96 11/05/17 10:32 127 11/05/17 10:31 132 11/05/17 10:31 132 19 180/97 (124) 96 I/O 11/05/17 11/05/17 11/05/17 11/06/17 11/06/17 11/06/17 07:00 15:00 23:00 07:00 15:00 23:00 Intake Total 200 ml 1000 ml 1010 ml 170 ml Output Total 1000 ml 500 ml 550 ml Balance -800 ml 1000 ml 510 ml -380 ml Intake Oral 150 ml 960 ml 120 ml IV Total 50 ml 1000 ml 50 ml 50 ml Output Urine Total 1000 ml 500 ml 550 ml # Bowel Movements 1 4 1 Result Diagram: 11/06/17 0512 11/06/17 0512 Other Results Last Impressions Chest X-Ray 11/05/17 0000 Signed Impressions: Service Date/Time: Sunday, November 05, 2017 10:36 - CONCLUSION: 1. Left basilar consolidation and effusion concerning for pneumonia. Elan Menjivar MD Abdomen/Pelvis CT 11/05/17 0000 Signed Impressions: Service Date/Time: Sunday, November 05, 2017 15:33 - CONCLUSION: 1. The left kidney is somewhat smaller in size than the right. There is no hydronephrosis. 2. There is a 6.5 x 4.9 cm masslike density in the low pelvis on the right. This may simply be several loops of small bowel matted together however I cannot definitively exclude a mass. CT imaging with oral contrast would be of benefit for further assessment. 3. There are bibasilar areas of atelectasis. Elan Menjivar MD Renal Ultrasound 11/04/17 0000 Signed Impressions: Service Date/Time: October 08:16 - CONCLUSION: 1. Possible mild hydronephrosis on the right side. 2. Renal cortical thinning on the left without hydronephrosis. De Haque MD Objective Remarks GENERAL: Patient is 72 lying in bed in NAD SKIN: Warm and dry. HEAD: Normocephalic. EYES: No scleral icterus. No injection or drainage. NECK: Supple, trachea midline. No JVD or lymphadenopathy. CARDIOVASCULAR: Regular rate and rhythm without murmurs, gallops, or rubs. RESPIRATORY: Breath sounds equal bilaterally. No accessory muscle use. GASTROINTESTINAL: Abdomen soft, non-tender, nondistended. MUSCULOSKELETAL: No cyanosis, or edema. Neuro: Awake. A/P Assessment and Plan 1)Resp Insuff 2)Pneumonia 3)ARF 4)Hyponatremia 5)CVA Plan Oxygen PRN keep sat >92% Bronchodilators Taper IV steroids- Decrease solumederol 40mg Q6 Continue with abx ( Zosyn) WBC is trending down Monitor renal function, avoid nephrotoxins. Needs K replacement GI./DVT prophylaxis- on Protonix and Heparin SQ respectively Continue treatment plan Paulette Cruz MD Nov 06, 2017 10:36
[2017-11-06] MEDS: methylPREDNISolone SOD SUCC 40 MG/1 ML VIAL IV PUSH SCH ×3 (11:52→23:33)
--- NOTE | 2017-11-06 12:05 | HHI.NPPN ---
Subjective General Problems: Anemia, Hypotension Renal Failure: Acute History of Present Illness 72 y/o female with COPD admitted for shortness of breath, COPD exacerbation. Her creatinine was 3.9 on arrival, PMH of CVA with hemiparesis, HTN, GERD, and osteoporosis. Additional Remarks No acute complaints Review of Systems General Constitutional: Fatigue Respiratory Lungs: SOB Cardiovascular Cardiac: MCKEON Cardiac Remarks denies CP Gastrointestinal GI Remarks No abdominal pain Objective Data Data Vital Signs Date Time Temp Pulse Resp B/P (MAP) Pulse Ox O2 Delivery O2 Flow Rate FiO2 11/06/17 10:00 96 11/06/17 08:00 81 11/06/17 08:00 98.9 81 14 188/84 (118) 94 11/06/17 07:51 93 21 11/06/17 06:00 61 11/06/17 04:00 59 11/06/17 04:00 97.4 59 12 184/81 (115) 90 11/06/17 02:00 101 11/06/17 00:00 56 11/06/17 00:00 98.6 56 9 161/74 (103) 92 11/05/17 22:00 57 11/05/17 20:09 95 21 11/05/17 20:00 98.6 66 16 159/72 (101) 89 11/05/17 20:00 66 11/05/17 19:00 66 12 148/67 (94) 92 11/05/17 18:45 68 14 168/81 (110) 95 11/05/17 18:45 68 11/05/17 18:32 69 11/05/17 18:32 69 26 155/78 (103) 11/05/17 18:31 71 11/05/17 18:31 71 27 161/115 (130) 11/05/17 18:15 63 12 159/82 (107) 94 11/05/17 18:15 63 11/05/17 18:00 63 11/05/17 18:00 63 16 156/75 (102) 97 11/05/17 17:46 70 11/05/17 17:46 70 30 162/77 (105) 93 11/05/17 17:30 72 16 156/75 (102) 89 11/05/17 17:30 72 11/05/17 17:15 68 11/05/17 17:15 68 17 149/81 (103) 95 11/05/17 17:00 65 11/05/17 17:00 65 11 148/76 (100) 94 11/05/17 16:45 68 17 151/84 (106) 94 11/05/17 16:45 68 11/05/17 16:30 66 19 154/74 (100) 93 11/05/17 16:30 66 11/05/17 16:15 66 11/05/17 16:15 66 21 154/72 (99) 94 11/05/17 16:00 67 11/05/17 16:00 98.6 67 12 94 11/05/17 15:50 68 11/05/17 15:15 71 11/05/17 15:00 71 11/05/17 14:45 72 11/05/17 14:30 72 11/05/17 14:15 81 11/05/17 14:00 78 11/05/17 12:15 74 11/05/17 12:15 74 14 139/64 (89) -: 11/06/17 0512 11/06/17 0512 Physical Exam General Appearance: No Acute Distress, Comfortable Eyes Eye Exam: Pupils Equal Throat Throat Exam: Oral Mucosa Devine & Moist Neck Neck Exam: Neck Supple Pulmonary Resp Exam: Breath Sounds Equal, No Distress, Crackles, Decreased Bases Gastrointestinal/Abdomen GI Exam: Soft, Non-Tender, Non-Distended Genitourinary Exam: Clear Urine Extremeties Extremities Exam: Trace Edema Neurologic Neuro Exam: Alert, Awake Psychiatric Psych Exam: Appropriate Responses Assessment/Plan Problem List: (1) Acute renal failure ICD Codes: N17.9 - Acute kidney failure, unspecified Status: Acute Plan: Unclear if she has preexisting renal disease DANIEL most likely due to sepsis syndrome and hypotension, diminished renal perfusion. UA with proteinuria, Renal U/S noted Continues to have good UOP Plan Continue to monitor urine output Creatinine continues to improve - 2.5 -> 2.0 -> 1.7 today Acidosis has resolved and patient is taking in Oral fluids well Avoid Nephrotoxins Will continue to monitor labs and UOP Will give KCl today, check Mag in AM (2) Sepsis ICD Codes: A41.9 - Sepsis, unspecified organism Status: Acute Plan: Continue symptom management. cultures negative, continue to monitor. (3) COPD exacerbation ICD Codes: J44.1 - Chronic obstructive pulmonary disease with (acute) exacerbation Status: Acute Plan: On oxygen, monitor pulmonary status Problem Qualifiers (1) Acute renal failure: Qualified Codes: N17.9 - Acute kidney failure, unspecified (2) Sepsis: Qualified Codes: A41.9 - Sepsis, unspecified organism Elan Barber MD Nov 06, 2017 12:05
[2017-11-06] MEDS: POTASSIUM CHLOR 20 MEQ PREMIX 100 ML IV SCH ×2 (12:51→14:33)
--- NOTE | 2017-11-06 13:27 | HHI.PR ---
Subjective Remarks f/u for sepsis, PNA, COPD exacerbation patient asking for coke. otherwise she has no complaints. Denied any SOB, CP, or cough. discussed case with patient's nurse who stated no issues and transfer already placed. patient did not know location but gave me her name. she could also answer questions appropriately. Objective Vitals Vital Signs Date Time Temp Pulse Resp B/P (MAP) Pulse Ox O2 Delivery O2 Flow Rate FiO2 11/06/17 10:00 96 11/06/17 08:00 81 11/06/17 08:00 98.9 81 14 188/84 (118) 94 11/06/17 07:51 93 21 11/06/17 06:00 61 11/06/17 04:00 59 11/06/17 04:00 97.4 59 12 184/81 (115) 90 11/06/17 02:00 101 11/06/17 00:00 56 11/06/17 00:00 98.6 56 9 161/74 (103) 92 11/05/17 22:00 57 11/05/17 20:09 95 21 11/05/17 20:00 98.6 66 16 159/72 (101) 89 11/05/17 20:00 66 11/05/17 19:00 66 12 148/67 (94) 92 11/05/17 18:45 68 14 168/81 (110) 95 11/05/17 18:45 68 11/05/17 18:32 69 11/05/17 18:32 69 26 155/78 (103) 11/05/17 18:31 71 11/05/17 18:31 71 27 161/115 (130) 11/05/17 18:15 63 12 159/82 (107) 94 11/05/17 18:15 63 11/05/17 18:00 63 11/05/17 18:00 63 16 156/75 (102) 97 11/05/17 17:46 70 11/05/17 17:46 70 30 162/77 (105) 93 11/05/17 17:30 72 16 156/75 (102) 89 11/05/17 17:30 72 11/05/17 17:15 68 11/05/17 17:15 68 17 149/81 (103) 95 11/05/17 17:00 65 11/05/17 17:00 65 11 148/76 (100) 94 11/05/17 16:45 68 17 151/84 (106) 94 11/05/17 16:45 68 11/05/17 16:30 66 19 154/74 (100) 93 11/05/17 16:30 66 11/05/17 16:15 66 11/05/17 16:15 66 21 154/72 (99) 94 11/05/17 16:00 67 11/05/17 16:00 98.6 67 12 94 11/05/17 15:50 68 11/05/17 15:15 71 11/05/17 15:00 71 11/05/17 14:45 72 11/05/17 14:30 72 11/05/17 14:15 81 11/05/17 14:00 78 I/O 11/05/17 11/05/17 11/05/17 11/06/17 11/06/17 11/06/17 07:00 15:00 23:00 07:00 15:00 23:00 Intake Total 200 ml 1000 ml 1010 ml 170 ml Output Total 1000 ml 500 ml 550 ml Balance -800 ml 1000 ml 510 ml -380 ml Intake Oral 150 ml 960 ml 120 ml IV Total 50 ml 1000 ml 50 ml 50 ml Output Urine Total 1000 ml 500 ml 550 ml # Bowel Movements 1 4 1 Result Diagram: 11/06/1751111/06/17511 Objective Remarks GENERAL: in NAD CARDIOVASCULAR: Regular rate and rhythm without murmurs, gallops, or rubs. RESPIRATORY: Breath sounds equal bilaterally. No accessory muscle use. GASTROINTESTINAL: Abdomen soft, non-tender, nondistended. MUSCULOSKELETAL: No cyanosis, or edema. BACK: Nontender without obvious deformity. No CVA tenderness. Medications and IVs Current Medications Sodium Chloride (NS Flush) 2 ml UNSCH PRN IVF FLUSH AFTER USING IV ACCESS Last administered on 11/02/17at 16:33; Start 11/02/17 at 16:00; Stop 11/02/17 at 19:06 ; Status DC Methylprednisolone Sodium Succinate (SoluMEDROL INJ) 125 mg ONCE ONCE IV PUSH Last administered on 11/02/17at 16:33; Start 11/02/17 at 16:00; Stop 11/02/17 at 16:01; Status DC Albuterol/ Ipratropium (Duoneb Neb) 1 ampule Q15M INH Last administered on 11/02at 16:12; Start 11/02/17 at 16:00; Stop 11/02/17 at 16:16; Status DC Sodium Chloride 500 ml @ 500 mls/hr BOLUS ONCE IV Last administered on at 17:25; Start 11/02/17 at 17:15; Stop 11/02/17 at 18:14; Status DC Piperacillin Sod/ Tazobactam Sod 100 ml @ 200 mls/hr ONCE STAT IV Last administered on 11/02/17at 17:25; Start 11/02/17 at 17:10; Stop 11/02/17 at 17:39 ; Status DC Azithromycin 500 mg/Sodium Chloride 250 ml @ 250 mls/hr ONCE STAT IV Last administered on 11/02/17at 18:34; Start 11/02/17 at 17:10; Stop 11/02/17 at 18:09 ; Status DC Sodium Chloride 1,000 ml @ 999 mls/hr BOLUS ONCE IV Last administered on 11/02at 18:35; Start 11/02/17 at 17:30; Stop 11/02/17 at 18:30; Status DC Sodium Chloride (NS Flush) 2 ml UNSCH PRN IV FLUSH FLUSH AFTER USING IV ACCESS ; Start 11/02/17 at 18:15 Sodium Chloride (NS Flush) 2 ml BID IV FLUSH Last administered on 11/06/17at 10: 30; Start 11/02/17 at 21:00 Acetaminophen (Tylenol) 650 mg Q4H PRN PO TEMP > 100.4 Last administered on at 10:37; Start 11/02/17 at 18:15 Ondansetron HCl (Zofran Inj) 4 mg Q6H PRN IVP NAUSEA OR VOMITING; Start at 18:15 Heparin Sodium (Porcine) (Heparin Inj) 5,000 units Q12H SQ Last administered on 11/06/17at 07:30; Start 11/02/17 at 19:30 Naloxone HCl (Narcan Inj) 0.4 mg UNSCH PRN IV PUSH SEE LABEL COMMENTS; Start at 18:15 Senna/Docusate Sodium (Abby-Colace) 1 tab BID PO Last administered on at 07:35; Start 11/02/17 at 21:00 Magnesium Hydroxide (Milk Of Magnesia Liq) 30 ml Q12H PRN PO Mild constipation ; Start 11/02/17 at 18:15 Sennosides (Senokot) 17.2 mg Q12H PRN PO Moderate constipation; Start 11/02/17 at 18:15 Bisacodyl (Dulcolax Supp) 10 mg DAILY PRN RECTAL SEVERE CONSITIPATION; Start at 18:15 Lactulose (Lactulose Liq) 30 ml DAILY PRN PO SEVERE CONSITIPATION; Start at 18:15 Lorazepam (Ativan) 0.5 mg Q8H PRN PO SEVERE ANXIETY OR AGITATION; Start at 18:15 Albuterol Sulfate (Albuterol Neb) 1.25 mg Q4HR NEB PRN NEB COUGH; Start at 18:15; Stop 11/03/17 at 12:51; Status DC Clonidine (Catapres) 0.1 mg Q6H PRN PO SBP>160, DBP>90 Last administered on at 10:40; Start 11/02/17 at 18:15 Potassium Chloride/Dextrose/ Sod Cl 1,000 ml @ 84 mls/hr [id number] IV Last administered on 11/02/17at 21:02; Start 11/02/17 at 20:00; Stop 11/03/17 at 09:41 ; Status DC Pantoprazole Sodium (Protonix Inj) 40 mg Q24H IV PUSH Last administered on 11/05at 20:25; Start 11/02/17 at 20:00 Methylprednisolone Sodium Succinate (SoluMEDROL INJ) 80 mg Q6HR IV PUSH Last administered on 11/06/17at 06:24; Start 11/03/17 at 00:00; Stop 11/06/17 at 10:37 ; Status DC Piperacillin Sod/ Tazobactam Sod 50 ml @ 100 mls/hr Q6H IV ; Start 11/02/17 at 18:15; Status UNV Pharmacy Profile Note 0 ml @ 0 mls/hr UNSCH OTHER ; Start 11/02/17 at 18:15; Stop 11/03/17 at 11:09; Status DC Miscellaneous Information Patient in critical care unit? Ass... [id number] Last administered on 11/02/17at 20:15; Start 11/02/17 at 20:15 Chlorhexidine Gluconate (Chlorhexidine 2% Cloth) 3 pack DAILY@04 TOPICAL Last administered on 11/06/17at 04:00; Start 11/03/17 at 04:00; Stop 11/07/17 at 04:01 Chlorhexidine Gluconate (Chlorhexidine 2% Cloth) 3 pack UNSCH PRN TOPICAL HYGIENIC CARE; Start 11/02/17 at 20:30; Stop 11/07/17 at 20:15 Vancomycin HCl 1000 mg/Sodium Chloride 250 ml @ 250 mls/hr ONCE ONCE IV Last administered on 11/02/17at 21:03; Start 11/02/17 at 20:45; Stop 11/03/17 at 11:09 ; Status DC Piperacillin Sod/ Tazobactam Sod 50 ml @ 100 mls/hr Q8H IV Last administered on 11/06/17at 10:39; Start 11/03/17 at 01:00 Norepinephrine Bitartrate 250 ml @ 7.5 mls/hr TITRATE PRN IV Maintain MAP > 65 mmHg Last administered on 11/02/17at 22:40; Start 11/02/17 at 22:45 Sodium Chloride 1,000 ml @ 42 mls/hr [id number] IV Last administered on at 11:57; Start 11/03/17 at 09:45; Stop 11/03/17 at 21:20; Status DC Vancomycin HCl 1000 mg/Sodium Chloride 250 ml @ 250 mls/hr ONCE ONCE IV ; Start 11/03/17 at 12:00; Stop 11/03/17 at 12:00; Status DC Azithromycin (Zithromax) 500 mg Q24H PO Last administered on 11/05/17at 18:19; Start 11/03/17 at 18:00 Linezolid 300 ml @ 300 mls/hr Q12H IV Last administered on 11/04/17at 13:40; Start 11/03/17 at 12:00; Stop 11/04/17 at 16:56; Status DC Albuterol/ Ipratropium (Duoneb Neb) 1 ampule Q6HR WHILE AWAKE NEB NEB Last administered on 11/06/17at 07:50; Start 11/03/17 at 14:00 Albuterol Sulfate (Albuterol Neb) 2.5 mg Q2HR NEB PRN NEB WHEEZING; Start 11/03 at 14:00 Dextrose (D50w (Vial) Inj) 50 ml UNSCH PRN IV PUSH HYPOGLYCEMIA-SEE COMMENTS; Start 11/03/17 at 13:00 Glucagon (Glucagon Inj) 1 mg UNSCH PRN OTHER HYPOGLYCEMIA-SEE COMMENTS; Start 11/03/17 at 13:00 Insulin Aspart (NovoLOG SUPPLEMENTAL SCALE) 1 ACHS SLIDING SCALE SQ Last administered on 11/06/17at 12:00; Start 11/03/17 at 17:00 Morphine Sulfate (Morphine Inj) 1 mg ONCE ONCE IV Last administered on at 15:17; Start 11/03/17 at 13:15; Stop 11/03/17 at 13:16; Status DC Sodium Bicarbonate 50 meq/Sodium Chloride 1,050 ml @ 75 mls/hr Q14H IV Last administered on 11/04/17at 22:34; Start 11/03/17 at 18:00; Stop 11/05/17 at 11:53 ; Status DC Potassium Bicarb/ Potassium Chloride (K-Lyte Cl Eff) 50 meq NOW ONCE PO Last administered on 11/05/17at 10:00; Start 11/05/17 at 10:00; Stop 11/05/17 at 10:01 ; Status DC Potassium Chloride/Sodium Chloride 1,000 ml @ 30 mls/hr Q24H IV Last administered on 11/05/17at 16:30; Start 11/05/17 at 15:45 Methylprednisolone Sodium Succinate (SoluMEDROL INJ) 40 mg Q6HR IV PUSH Last administered on 11/06/17at 11:52; Start 11/06/17 at 12:00 Potassium Chloride 100 ml @ 50 mls/hr Q2H IV Last administered on 11/06/17at 12 :51; Start 11/06/17 at 13:00; Stop 11/06/17 at 16:59 A/P Problem List: (1) Hydronephrosis ICD Code: N13.30 - Unspecified hydronephrosis (2) Acute renal failure ICD Code: N17.9 - Acute kidney failure, unspecified Status: Acute (3) Confusion ICD Code: R41.0 - Disorientation, unspecified Assessment and Plan A 72-year-old female, residential resident, admitted with severe sepsis requiring pressors, health care associated pneumonia, renal failure due to dehydration with chronic hyponatremia and hypokalemia. Severe sepsis -s/p pressors. -on zosyn on azithromycin. -ID ff. PNA -CAP vs aspiration -on zosyn and azithromycin. Acute Renal failure with hydronephrosis -improving. -urologist consulted continue with medical management. COPD exacerbation -improving. -continue with current regimen. DVT prophylaxis with heparin 5000 b.i.d. Discharge Planning clinically improving pending transfer to med/surg Problem Qualifiers (1) Acute renal failure: Qualified Codes: N17.9 - Acute kidney failure, unspecified Svetlana Quezada MD Nov 06, 2017 13:27
[2017-11-06] MEDS: AZITHROMYCIN 250 MG TAB PO SCH (18:23)
[2017-11-06] MEDS: PANTOPRAZOLE SODIUM 40 MG VIAL IV PUSH SCH (20:05)
[2017-11-06] MEDS: NS + KCL 20 MEQ INJ 1,000 ML IV SCH (23:34)
[2017-11-07] VITALS (14 sets, daily range): BP systolic 149–200; BP diastolic 64–92; PULSE 54–80; RESP 12–26; TEMP 97.4–98.9; O2SAT 88–94
[2017-11-07] MEDS: PIPERACIL-TAZO 2.25 GM PREMIX 50 ML IV SCH ×3 (00:31→16:05)
[2017-11-07] MEDS: CHLORHEXIDINE GLUCONATE 2 % 1 PACK (2 CLOTHS)(taper/protocol) TOPICAL SCH (04:00)
[2017-11-07 05:13] LABS: AUTOMATED NEUTROPHIL # 7.5 TH/MM3 (1.8-7.7); BASOPHIL % 0.1 % (0.0-2.0); EOSINOPHIL % 0.1 % (0.0-4.0); HEMATOCRIT 26.2 % (35.0-46.0); HEMOGLOBIN 9.1 GM/DL (11.6-15.3); LYMPH % 5.1 % (9.0-44.0); LYMPHOCYTE # 0.4 TH/MM3 (1.0-4.8); MEAN CELL VOLUME 83.9 FL (80.0-100.0); MEAN CORPUSCULAR HEMOGLOBIN 29.1 PG (27.0-34.0); MEAN CORPUSCULAR HGB CONC 34.7 % (32.0-36.0); MEAN PLATELET VOLUME 7.4 FL (7.0-11.0); MONO % 5.2 % (0.0-8.0); MONOCYTE # 0.4 TH/MM3 (0-0.9); NEUT % 89.5 % (16.0-70.0); PLATELET COUNT 295 TH/MM3 (150-450); RED BLOOD COUNT 3.12 MIL/MM3 (4.00-5.30); RED CELL DISTRIBUTION WIDTH 13.5 % (11.6-17.2); WHITE BLOOD COUNT 8.4 TH/MM3 (4.0-11.0)
[2017-11-07 05:38] LABS: ALBUMIN 2.7 GM/DL (3.4-5.0); AST (GOT) 16 U/L (15-37); BICARBONATE 26.7 MEQ/L (21.0-32.0); BLOOD UREA NITROGEN 33 MG/DL (7-18); CALCIUM 8.2 MG/DL (8.5-10.1); CHLORIDE 104 MEQ/L (98-107); CREATININE 1.63 MG/DL (0.50-1.00); GLOMERULAR FILTRATION RATE 31 ML/MIN (>89); GLUCOSE,RANDOM 116 MG/DL (74-106); MAGNESIUM 1.7 MG/DL (1.5-2.5); SODIUM (NA) 138 MEQ/L (136-145)
[2017-11-07 05:40] LABS: ALT (GPT) 19 U/L (10-53); PHOSPHORUS 2.7 MG/DL (2.5-4.9)
[2017-11-07 05:41] LABS: ALKALINE PHOSPHATASE 39 U/L (45-117); TOTAL BILIRUBIN ADULT 0.2 MG/DL (0.2-1.0); TOTAL PROTEIN 6.5 GM/DL (6.4-8.2)
[2017-11-07] MEDS: methylPREDNISolone SOD SUCC 40 MG/1 ML VIAL IV PUSH SCH ×2 (06:06→20:13)
[2017-11-07] MEDS: HEPARIN SODIUM - SQ 10,000 UNITS/ML VIAL SQ SCH ×2 (06:06→20:13)
[2017-11-07] MEDS: INSULIN ASPART SUPPLEMENTAL SCALE SQ SCH ×4 (07:52→20:20)
[2017-11-07] MEDS: cloNIDine HCL 0.1 MG TAB PO PRN ×2 (07:52→16:05)
[2017-11-07] MEDS: DOCUSATE SODIUM 50 MG/SENNA 8.6 MG TAB PO SCH ×2 (08:12→20:14)
[2017-11-07] MEDS: SODIUM CHLORIDE 0.9% FLUSH 10 ML FLUSH IV FLUSH SCH ×2 (08:25→20:14)
[2017-11-07 08:56] LABS: BANDS 4 % (0-6); LYMPHOCYTES 14 % (9-44); MONOCYTES 9 % (0-8); MYELOCYTES 2 % (0-0); NEUTROPHIL # MANUAL DIFF 6.5 TH/MM3 (1.8-7.7); POLYS (SEG NEUTROPHILS) 71 % (16-70)
--- NOTE | 2017-11-07 10:31 | HHI.PR ---
Subjective Remarks Patient is lying in bed in NAD. On room air oxygen. Afebrile. Denies any SOB Objective Vital Signs Vital Signs Date Time Temp Pulse Resp B/P (MAP) Pulse Ox O2 Delivery O2 Flow Rate FiO2 11/07/17 10:00 60 11/07/17 08:00 97.4 80 24 167/92 (117) 88 11/07/17 08:00 80 11/07/17 06:00 62 11/07/17 04:00 60 11/07/17 04:00 97.9 60 12 156/74 (101) 88 11/07/17 02:00 59 11/07/17 00:00 65 11/07/17 00:00 98.2 65 12 149/64 (92) 90 11/06/17 22:00 69 11/06/17 20:00 98.5 87 13 129/91 (104) 87 11/06/17 20:00 87 11/06/17 19:19 92 11/06/17 18:00 64 11/06/17 16:00 98.3 88 13 137/90 (106) 88 11/06/17 16:00 88 11/06/17 12:00 98.4 97 27 126/74 (91) 99 11/06/17 12:00 97 I/O 11/06/17 11/06/17 11/06/17 11/07/17 11/07/17 11/07/17 07:00 15:00 23:00 07:00 15:00 23:00 Intake Total 170 ml 150 ml 390 ml 1463 ml Output Total 550 ml 850 ml 450 ml Balance -380 ml 150 ml -460 ml 1013 ml Intake Oral 120 ml 240 ml 240 ml IV Total 50 ml 150 ml 150 ml 1223 ml Output Urine Total 550 ml 850 ml 450 ml # Bowel Movements 1 3 0 Result Diagram: 11/07/17 0437 11/07/17 0437 Other Results Last Impressions Chest X-Ray 11/05/17 0000 Signed Impressions: Service Date/Time: Sunday, November 05, 2017 10:36 - CONCLUSION: 1. Left basilar consolidation and effusion concerning for pneumonia. Elan Menjivar MD Abdomen/Pelvis CT 11/05/17 0000 Signed Impressions: Service Date/Time: Sunday, November 05, 2017 15:33 - CONCLUSION: 1. The left kidney is somewhat smaller in size than the right. There is no hydronephrosis. 2. There is a 6.5 x 4.9 cm masslike density in the low pelvis on the right. This may simply be several loops of small bowel matted together however I cannot definitively exclude a mass. CT imaging with oral contrast would be of benefit for further assessment. 3. There are bibasilar areas of atelectasis. Elan Menjivar MD Renal Ultrasound 11/04/17 0000 Signed Impressions: Service Date/Time: October 08:16 - CONCLUSION: 1. Possible mild hydronephrosis on the right side. 2. Renal cortical thinning on the left without hydronephrosis. De Haque MD Objective Remarks GENERAL: Patient is 72 lying in bed in NAD SKIN: Warm and dry. HEAD: Normocephalic. EYES: No scleral icterus. No injection or drainage. NECK: Supple, trachea midline. No JVD or lymphadenopathy. CARDIOVASCULAR: Regular rate and rhythm without murmurs, gallops, or rubs. RESPIRATORY: Breath sounds equal bilaterally. No accessory muscle use. GASTROINTESTINAL: Abdomen soft, non-tender, nondistended. MUSCULOSKELETAL: No cyanosis, or edema. Neuro: Awake. A/P Assessment and Plan 1)Resp Insuff 2)Pneumonia 3)ARF 4)Hyponatremia 5)CVA Plan Oxygen PRN keep sat >92% Bronchodilators, check CXR Taper IV steroids- decrease solumederol 40mg Q12 Continue with abx ( Zosyn) WBC is trending down Strep pneumonia and Legionella urinary ag negative Monitor renal function, avoid nephrotoxins. GI./DVT prophylaxis- on Protonix and Heparin SQ respectively Continue treatment plan Paulette Cruz MD Nov 07, 2017 10:31
--- NOTE | 2017-11-07 11:24 | HHI.NPPN ---
Subjective General Problems: Anemia, Hypotension Renal Failure: Acute History of Present Illness 72 y/o female with COPD admitted for shortness of breath, COPD exacerbation. Her creatinine was 3.9 on arrival, PMH of CVA with hemiparesis, HTN, GERD, and osteoporosis. Additional Remarks No acute complaints Review of Systems General Constitutional: Fatigue Respiratory Lungs: SOB Cardiovascular Cardiac: MCKEON Cardiac Remarks denies CP Gastrointestinal GI Remarks No abdominal pain Objective Data Data Vital Signs Date Time Temp Pulse Resp B/P (MAP) Pulse Ox O2 Delivery O2 Flow Rate FiO2 11/07/17 10:00 60 11/07/17 08:00 97.4 80 24 167/92 (117) 88 11/07/17 08:00 80 11/07/17 06:00 62 11/07/17 04:00 60 11/07/17 04:00 97.9 60 12 156/74 (101) 88 11/07/17 02:00 59 11/07/17 00:00 65 11/07/17 00:00 98.2 65 12 149/64 (92) 90 11/06/17 22:00 69 11/06/17 20:00 98.5 87 13 129/91 (104) 87 11/06/17 20:00 87 11/06/17 19:19 92 11/06/17 18:00 64 11/06/17 16:00 98.3 88 13 137/90 (106) 88 11/06/17 16:00 88 11/06/17 12:00 98.4 97 27 126/74 (91) 99 11/06/17 12:00 97 -: 11/07/17 0437 11/07/17 0437 Physical Exam General Appearance: No Acute Distress, Comfortable Eyes Eye Exam: Pupils Equal Throat Throat Exam: Oral Mucosa [place] & Moist Neck Neck Exam: Neck Supple Pulmonary Resp Exam: Breath Sounds Equal, No Distress, Crackles, Decreased Bases Gastrointestinal/Abdomen GI Exam: Soft, Non-Tender, Non-Distended Genitourinary Exam: Clear Urine Extremeties Extremities Exam: Trace Edema Neurologic Neuro Exam: Alert, Awake Psychiatric Psych Exam: Appropriate Responses Assessment/Plan Problem List: (1) Acute renal failure ICD Codes: N17.9 - Acute kidney failure, unspecified Status: Acute Plan: Unclear if she has preexisting renal disease DANIEL most likely due to sepsis syndrome and hypotension, diminished renal perfusion. UA with proteinuria, Renal U/S noted Continues to have good UOP Plan Continue to monitor urine output Creatinine continues to improve - 2.5 -> 2.0 -> 1.7-> 1.6 today Good UOP with 1.3 L UOP/24 hours Acidosis has resolved and patient is taking in Oral fluids well Avoid Nephrotoxins Will continue to monitor labs and UOP given KCl yesterday, continue to monitor. (2) Sepsis ICD Codes: A41.9 - Sepsis, unspecified organism Status: Acute Plan: Continue symptom management. cultures negative, continue to monitor. (3) COPD exacerbation ICD Codes: J44.1 - Chronic obstructive pulmonary disease with (acute) exacerbation Status: Acute Plan: On oxygen, monitor pulmonary status Problem Qualifiers (1) Acute renal failure: Qualified Codes: N17.9 - Acute kidney failure, unspecified (2) Sepsis: Qualified Codes: A41.9 - Sepsis, unspecified organism Elan Barber MD Nov 07, 2017 11:24
--- NOTE | 2017-11-07 15:36 | HHI.PR ---
Subjective Remarks Follow-up for pneumonia COPD exacerbation Patient has no complaints. She denied any shortness of breathing. She continues to seem intermittently confused but can follow commands. This seems stable from her baseline yesterday. Patient again asking for Coke. Her nurses at the bedside during interview. She stated that they have Pepsi and she can call down to nutrition for that. 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 Otherwise no other acute events overnight. Objective Vitals Vital Signs Date Time Temp Pulse Resp B/P (MAP) Pulse Ox O2 Delivery O2 Flow Rate FiO2 11/07/17 15:25 89 11/07/17 14:00 58 11/07/17 12:00 64 11/07/17 12:00 98.9 64 16 155/67 (96) 93 11/07/17 10:00 60 11/07/17 08:00 97.4 80 24 167/92 (117) 88 11/07/17 08:00 80 11/07/17 06:00 62 11/07/17 04:00 60 11/07/17 04:00 97.9 60 12 156/74 (101) 88 11/07/17 02:00 59 11/07/17 00:00 65 11/07/17 00:00 98.2 65 12 149/64 (92) 90 11/06/17 22:00 69 11/06/17 20:00 98.5 87 13 129/91 (104) 87 11/06/17 20:00 87 11/06/17 19:19 92 11/06/17 18:00 64 11/06/17 16:00 98.3 88 13 137/90 (106) 88 11/06/17 16:00 88 I/O 11/06/17 11/06/17 11/06/17 11/07/17 11/07/17 11/07/17 07:00 15:00 23:00 07:00 15:00 23:00 Intake Total 170 ml 150 ml 390 ml 1463 ml 50 ml Output Total 550 ml 850 ml 450 ml Balance -380 ml 150 ml -460 ml 1013 ml 50 ml Intake Oral 120 ml 240 ml 240 ml IV Total 50 ml 150 ml 150 ml 1223 ml 50 ml Output Urine Total 550 ml 850 ml 450 ml # Bowel Movements 1 3 0 Result Diagram: 11/07/17 0437 11/07/17 0437 Objective Remarks GENERAL: in NAD CARDIOVASCULAR: Regular rate and rhythm without murmurs, gallops, or rubs. RESPIRATORY: Breath sounds equal bilaterally. No accessory muscle use. GASTROINTESTINAL: Abdomen soft, non-tender, nondistended. MUSCULOSKELETAL: No cyanosis, or edema. BACK: Nontender without obvious deformity. No CVA tenderness. Medications and IVs Current Medications Sodium Chloride (NS Flush) 2 ml UNSCH PRN IVF FLUSH AFTER USING IV ACCESS Last administered on 11/02/17at 16:33; Start 11/02/17 at 16:00; Stop 11/02/17 at 19:06 ; Status DC Methylprednisolone Sodium Succinate (SoluMEDROL INJ) 125 mg ONCE ONCE IV PUSH Last administered on 11/02/17at 16:33; Start 11/02/17 at 16:00; Stop 11/02/17 at 16:01; Status DC Albuterol/ Ipratropium (Duoneb Neb) 1 ampule Q15M INH Last administered on 11/02at 16:12; Start 11/02/17 at 16:00; Stop 11/02/17 at 16:16; Status DC Sodium Chloride 500 ml @ 500 mls/hr BOLUS ONCE IV Last administered on at 17:25; Start 11/02/17 at 17:15; Stop 11/02/17 at 18:14; Status DC Piperacillin Sod/ Tazobactam Sod 100 ml @ 200 mls/hr ONCE STAT IV Last administered on 11/02/17at 17:25; Start 11/02/17 at 17:10; Stop 11/02/17 at 17:39 ; Status DC Azithromycin 500 mg/Sodium Chloride 250 ml @ 250 mls/hr ONCE STAT IV Last administered on 11/02/17at 18:34; Start 11/02/17 at 17:10; Stop 11/02/17 at 18:09 ; Status DC Sodium Chloride 1,000 ml @ 999 mls/hr BOLUS ONCE IV Last administered on 11/02at 18:35; Start 11/02/17 at 17:30; Stop 11/02/17 at 18:30; Status DC Sodium Chloride (NS Flush) 2 ml UNSCH PRN IV FLUSH FLUSH AFTER USING IV ACCESS ; Start 11/02/17 at 18:15 Sodium Chloride (NS Flush) 2 ml BID IV FLUSH Last administered on 11/07/17at 08: 25; Start 11/02/17 at 21:00 Acetaminophen (Tylenol) 650 mg Q4H PRN PO TEMP > 100.4 Last administered on at 10:37; Start 11/02/17 at 18:15 Ondansetron HCl (Zofran Inj) 4 mg Q6H PRN IVP NAUSEA OR VOMITING Last administered on 11/06/17at 16:36; Start 11/02/17 at 18:15 Heparin Sodium (Porcine) (Heparin Inj) 5,000 units Q12H SQ Last administered on 11/07/17 06:06; Start 11/02/17 at 19:30 Naloxone HCl (Narcan Inj) 0.4 mg UNSCH PRN IV PUSH SEE LABEL COMMENTS; Start at 18:15 Senna/Docusate Sodium (Abby-Colace) 1 tab BID PO Last administered on at 07:35; Start 11/02/17 at 21:00 Magnesium Hydroxide (Milk Of Magnesia Liq) 30 ml Q12H PRN PO Mild constipation ; Start 11/02/17 at 18:15 Sennosides (Senokot) 17.2 mg Q12H PRN PO Moderate constipation; Start 11/02/17 at 18:15 Bisacodyl (Dulcolax Supp) 10 mg DAILY PRN RECTAL SEVERE CONSITIPATION; Start at 18:15 Lactulose (Lactulose Liq) 30 ml DAILY PRN PO SEVERE CONSITIPATION; Start at 18:15 Lorazepam (Ativan) 0.5 mg Q8H PRN PO SEVERE ANXIETY OR AGITATION; Start at 18:15 Albuterol Sulfate (Albuterol Neb) 1.25 mg Q4HR NEB PRN NEB COUGH; Start at 18:15; Stop 11/03/17 at 12:51; Status DC Clonidine (Catapres) 0.1 mg Q6H PRN PO SBP>160, DBP>90 Last administered on at 07:52; Start 11/02/17 at 18:15 Potassium Chloride/Dextrose/ Sod Cl 1,000 ml @ 84 mls/hr [id number] IV Last administered on 11/02/17at 21:02; Start 11/02/17 at 20:00; Stop 11/03/17 at 09:41 ; Status DC Pantoprazole Sodium (Protonix Inj) 40 mg Q24H IV PUSH Last administered on 11/06at 20:05; Start 11/02/17 at 20:00 Methylprednisolone Sodium Succinate (SoluMEDROL INJ) 80 mg Q6HR IV PUSH Last administered on 11/06/17at 06:24; Start 11/03/17 at 00:00; Stop 11/06/17 at 10:37 ; Status DC Piperacillin Sod/ Tazobactam Sod 50 ml @ 100 mls/hr Q6H IV ; Start 11/02/17 at 18:15; Status UNV Pharmacy Profile Note 0 ml @ 0 mls/hr UNSCH OTHER ; Start 11/02/17 at 18:15; Stop 11/03/17 at 11:09; Status DC Miscellaneous Information Patient in critical care unit? Ass... Q361D .XX Last administered on 11/02/17at 20:15; Start 11/02/17 at 20:15 Chlorhexidine Gluconate (Chlorhexidine 2% Cloth) 3 pack DAILY@04 TOPICAL Last administered on 11/07/17at 04:00; Start 11/03/17 at 04:00; Stop 11/07/17 at 04:01 ; Status DC Chlorhexidine Gluconate (Chlorhexidine 2% Cloth) 3 pack UNSCH PRN TOPICAL HYGIENIC CARE; Start 11/02/17 at 20:30; Stop 11/07/17 at 20:15 Vancomycin HCl 1000 mg/Sodium Chloride 250 ml @ 250 mls/hr ONCE ONCE IV Last administered on 11/02/17at 21:03; Start 11/02/17 at 20:45; Stop 11/03/17 at 11:09 ; Status DC Piperacillin Sod/ Tazobactam Sod 50 ml @ 100 mls/hr Q8H IV Last administered on 11/07/17at 08:12; Start 11/03/17 at 01:00 Norepinephrine Bitartrate 250 ml @ 7.5 mls/hr TITRATE PRN IV Maintain MAP > 65 mmHg Last administered on 11/02/17at 22:40; Start 11/02/17 at 22:45 Sodium Chloride 1,000 ml @ 42 mls/hr [id number] IV Last administered on at 11:57; Start 11/03/17 at 09:45; Stop 11/03/17 at 21:20; Status DC Vancomycin HCl 1000 mg/Sodium Chloride 250 ml @ 250 mls/hr ONCE ONCE IV ; Start 11/03/17 at 12:00; Stop 11/03/17 at 12:00; Status DC Azithromycin (Zithromax) 500 mg Q24H PO Last administered on 11/06/17at 18:23; Start 11/03/17 at 18:00 Linezolid 300 ml @ 300 mls/hr Q12H IV Last administered on 11/04/17at 13:40; Start 11/03/17 at 12:00; Stop 11/04/17 at 16:56; Status DC Albuterol/ Ipratropium (Duoneb Neb) 1 ampule Q6HR WHILE AWAKE NEB NEB Last administered on 11/06/17at 19:18; Start 11/03/17 at 14:00; Stop 11/07/17 at 13:59 ; Status DC Albuterol Sulfate (Albuterol Neb) 2.5 mg Q2HR NEB PRN NEB WHEEZING Last administered on 11/07/17at 15:25; Start 11/03/17 at 14:00 Dextrose (D50w (Vial) Inj) 50 ml UNSCH PRN IV PUSH HYPOGLYCEMIA-SEE COMMENTS; Start 11/03/17 at 13:00 Glucagon (Glucagon Inj) 1 mg UNSCH PRN OTHER HYPOGLYCEMIA-SEE COMMENTS; Start 11/03/17 at 13:00 Insulin Aspart (NovoLOG SUPPLEMENTAL SCALE) 1 ACHS SLIDING SCALE SQ Last administered on 11/06/17at 12:00; Start 11/03/17 at 17:00 Morphine Sulfate (Morphine Inj) 1 mg ONCE ONCE IV Last administered on at 15:17; Start 11/03/17 at 13:15; Stop 11/03/17 at 13:16; Status DC Sodium Bicarbonate 50 meq/Sodium Chloride 1,050 ml @ 75 mls/hr Q14H IV Last administered on 11/04/17at 22:34; Start 11/03/17 at 18:00; Stop 11/05/17 at 11:53 ; Status DC Potassium Bicarb/ Potassium Chloride (K-Lyte Cl Eff) 50 meq NOW ONCE PO Last administered on 11/05/17at 10:00; Start 11/05/17 at 10:00; Stop 11/05/17 at 10:01 ; Status DC Potassium Chloride/Sodium Chloride 1,000 ml @ 30 mls/hr Q24H IV Last administered on 11/06/17at 23:34; Start 11/05/17 at 15:45 Methylprednisolone Sodium Succinate (SoluMEDROL INJ) 40 mg Q6HR IV PUSH Last administered on 11/07/17at 06:06; Start 11/06/17 at 12:00; Stop 11/07/17 at 10:31 ; Status DC Potassium Chloride 100 ml @ 50 mls/hr Q2H IV Last administered on 11/06/17at 14 :33; Start 11/06/17 at 13:00; Stop 11/06/17 at 16:59; Status DC Methylprednisolone Sodium Succinate (SoluMEDROL INJ) 40 mg Q12HR IV PUSH ; Start 11/07/17 at 21:00 A/P Problem List: (1) Hydronephrosis ICD Code: N13.30 - Unspecified hydronephrosis (2) Acute renal failure ICD Code: N17.9 - Acute kidney failure, unspecified Status: Acute (3) Confusion ICD Code: R41.0 - Disorientation, unspecified Assessment and Plan A 72-year-old female, longterm resident, admitted with severe sepsis requiring pressors, health care associated pneumonia, renal failure due to dehydration with chronic hyponatremia and hypokalemia. Severe sepsis -s/p pressors. -on zosyn on azithromycin. -ID ff. PNA -CAP vs aspiration -on zosyn and azithromycin. Acute Renal failure with hydronephrosis -improving. -urologist consulted continue with medical management. COPD exacerbation -improving. -continue with current regimen. -Geomagnetist following. Patient on Zosyn, azithromycin, nebulizer, and Solu- Medrol. Solu-Medrol is being weaned off by fermenter champagne. DVT prophylaxis with heparin 5000 b.i.d. Discharge Planning Transfer place about 2 days ago to [facility]. She continues to improve clinically. Problem Qualifiers (1) Acute renal failure: Qualified Codes: N17.9 - Acute kidney failure, unspecified Svetlana Quezada MD Nov 07, 2017 15:36
[2017-11-07] MEDS: AZITHROMYCIN 250 MG TAB PO SCH (18:04)
[2017-11-07] MEDS: PANTOPRAZOLE SODIUM 40 MG VIAL IV PUSH SCH (20:13)
[2017-11-08] VITALS (11 sets, daily range): BP systolic 158–184; BP diastolic 72–93; PULSE 50–82; RESP 10–22; TEMP 96.9–99; O2SAT 89–96
[2017-11-08] MEDS: PIPERACIL-TAZO 2.25 GM PREMIX 50 ML IV SCH (00:08)
[2017-11-08] MEDS: cloNIDine HCL 0.1 MG TAB PO PRN ×2 (00:08→05:34)
[2017-11-08] MEDS: LORazepam 0.5 MG TAB PO PRN ×2 (03:14→15:31)
[2017-11-08 04:52] LABS: AUTOMATED NEUTROPHIL # 11.7 TH/MM3 (1.8-7.7); BASOPHIL % 0.2 % (0.0-2.0); HEMOGLOBIN 9.3 GM/DL (11.6-15.3); LYMPH % 6.6 % (9.0-44.0); LYMPHOCYTE # 0.9 TH/MM3 (1.0-4.8); MEAN CELL VOLUME 84.1 FL (80.0-100.0); MEAN CORPUSCULAR HGB CONC 34.5 % (32.0-36.0); MEAN PLATELET VOLUME 7.4 FL (7.0-11.0); MONO % 4.6 % (0.0-8.0); MONOCYTE # 0.6 TH/MM3 (0-0.9); NEUT % 88.6 % (16.0-70.0); PLATELET COUNT 293 TH/MM3 (150-450); RED BLOOD COUNT 3.21 MIL/MM3 (4.00-5.30); RED CELL DISTRIBUTION WIDTH 13.3 % (11.6-17.2); WHITE BLOOD COUNT 13.2 TH/MM3 (4.0-11.0)
[2017-11-08 05:06] LABS: ALBUMIN 2.5 GM/DL (3.4-5.0); ALT (GPT) 23 U/L (10-53); AST (GOT) 22 U/L (15-37); BICARBONATE 26.4 MEQ/L (21.0-32.0); BLOOD UREA NITROGEN 26 MG/DL (7-18); CALCIUM 7.8 MG/DL (8.5-10.1); CHLORIDE 103 MEQ/L (98-107); CREATININE 1.49 MG/DL (0.50-1.00); GLOMERULAR FILTRATION RATE 34 ML/MIN (>89); GLUCOSE,RANDOM 107 MG/DL (74-106); MAGNESIUM 1.6 MG/DL (1.5-2.5); PHOSPHORUS 2.3 MG/DL (2.5-4.9); SODIUM (NA) 136 MEQ/L (136-145)
[2017-11-08 05:08] LABS: ALKALINE PHOSPHATASE 36 U/L (45-117); TOTAL BILIRUBIN ADULT 0.2 MG/DL (0.2-1.0); TOTAL PROTEIN 6.1 GM/DL (6.4-8.2)
--- NOTE | 2017-11-08 05:59 | RADRPT ---
EXAM DATE/TIME: 11/08/2017 02:59 [place] COMPARISON: CHEST SINGLE AP, November 05, 2017, 10:36. INDICATIONS : Shortness of breath, possible pulmonary disease. MEDICAL HISTORY : Chronic obstructive pulmonary disease. Hypertension Renal failure, acute. CVA GERD MRSA SURGICAL HISTORY : Tonsillectomy. Hysterectomy. ENCOUNTER: Subsequent ACUITY: 4 - 6 days PAIN SCORE: Non-responsive. LOCATION: Bilateral chest FINDINGS: Persistent mild airspace consolidation and likely trace left pleural effusion. Cardiomediastinal cont ours are stable. Remainder of exam is unchanged. CONCLUSION: 1. Stable left lower lung zone airspace disease and trace pleural effusion. 2. No significant interval change. Dylon Medrano MD on November 08, 2017 at 5:57 Board Certified Radiologist. This report was verified electronically.
[2017-11-08] MEDS: NS + KCL 20 MEQ INJ 1,000 ML IV SCH ×2 (06:36→18:01)
[2017-11-08] MEDS: HEPARIN SODIUM - SQ 10,000 UNITS/ML VIAL SQ SCH ×2 (06:37→19:22)
--- NOTE | 2017-11-08 07:15 | HHI.FPPN ---
Subjective Remarks bp over 200 d/w RN very weak Objective Vitals Vital Signs Date Time Temp Pulse Resp B/P (MAP) Pulse Ox O2 Delivery O2 Flow Rate FiO2 11/08/17 06:00 50 11/08/17 04:00 52 11/08/17 04:00 98.8 52 13 180/81 (114) 95 11/08/17 02:00 51 11/08/17 00:00 53 11/08/17 00:00 99.0 53 10 174/72 (106) 89 11/07/17 22:03 92 21 11/07/17 22:00 55 11/07/17 20:00 61 11/07/17 20:00 98.4 61 12 200/81 (120) 93 11/07/17 18:00 54 11/07/17 16:00 98.6 60 26 182/77 (112) 94 11/07/17 16:00 60 11/07/17 15:25 89 11/07/17 14:00 58 11/07/17 12:00 64 11/07/17 12:00 98.9 64 16 155/67 (96) 93 11/07/17 10:00 60 11/07/17 08:00 97.4 80 24 167/92 (117) 88 11/07/17 08:00 80 I/O 11/07/17 11/07/17 11/07/17 11/08/17 11/08/17 11/08/17 07:00 15:00 23:00 07:00 15:00 23:00 Intake Total 1463 ml 50 ml 530 ml 1005 ml Output Total 450 ml 525 ml 1000 ml Balance 1013 ml 50 ml 5 ml 5 ml Intake Oral 240 ml 480 ml 240 ml IV Total 1223 ml 50 ml 50 ml 765 ml Output Urine Total 450 ml 525 ml 1000 ml # Bowel Movements 0 0 Result Diagram: 11/08/1739911/08/17399 Objective Remarks GENERAL: SKIN: Warm and dry. HEAD: Atraumatic. Normocephalic. EYES: Pupils equal and round. No scleral icterus. No injection or drainage. ENT: No nasal bleeding or discharge. Mucous membranes pink and moist. NECK: Trachea midline. No JVD. CARDIOVASCULAR: Regular rate and rhythm. RESPIRATORY: No accessory muscle use. Clear to auscultation. Breath sounds equal bilaterally. GASTROINTESTINAL: Abdomen soft, non-tender, nondistended. Hepatic and splenic margins not palpable. MUSCULOSKELETAL: Extremities without clubbing, cyanosis, or edema. No obvious deformities. NEUROLOGICAL: Awake and alert. No obvious cranial nerve deficits. Motor grossly within normal limits. r joe, Normal speech. PSYCHIATRIC: Appropriate mood and affect; insight and judgment normal. Medications and IVs Current Medications Medications (Trade) Dose Ordered Sig/Felipa Route Start Time Stop Time Status Last Admin (NS Flush) 2 ml UNSCH PRN IV FLUSH 11/02/17 18:15 (NS Flush) 2 ml BID IV FLUSH 11/02/17 21:00 11/08/17 08:33 (Tylenol) 650 mg Q4H PRN PO 11/02/17 18:15 11/05/17 10:37 (Zofran Inj) 4 mg Q6H PRN IVP 11/02/17 18:15 11/06/17 16:36 (Heparin Inj) 5,000 units Q12H SQ 11/02/17 19:30 11/08/17 06:37 (Narcan Inj) 0.4 mg UNSCH PRN IV PUSH 11/02/17 18:15 (Abby-Colace) 1 tab BID PO 11/02/17 21:00 11/08/17 08:32 (Milk Of Magnesia Liq) 30 ml Q12H PRN PO 11/02/17 18:15 (Senokot) 17.2 mg Q12H PRN PO 11/02/17 18:15 (Dulcolax Supp) 10 mg DAILY PRN RECTAL 11/02/17 18:15 (Lactulose Liq) 30 ml DAILY PRN PO 11/02/17 18:15 (Ativan) 0.5 mg Q8H PRN PO 11/02/17 18:15 11/08/17 03:14 (Catapres) 0.1 mg Q6H PRN PO 11/02/17 18:15 11/08/17 05:34 (Protonix Inj) 40 mg Q24H IV PUSH 11/02/17 20:00 11/07/17 20:13 Miscellaneous Information Patient in critical care unit? Ass... Q361D .XX 11/02/17 20:15 11/02/17 20:15 Norepinephrine Bitartrate 250 ml @ 7.5 mls/hr TITRATE PRN IV 11/02/17 22:45 11/02/17 22:40 (Zithromax) 500 mg Q24H PO 11/03/17 18:00 11/07/17 18:04 (Albuterol Neb) 2.5 mg Q2HR NEB PRN NEB 11/03/17 14:00 11/07/17 15:25 (D50w (Vial) Inj) 50 ml UNSCH PRN IV PUSH 11/03/17 13:00 (Glucagon Inj) 1 mg UNSCH PRN OTHER 11/03/17 13:00 (NovoLOG SUPPLEMENTAL SCALE) 1 ACHS SLIDING SCALE SQ 11/03/17 17:00 11/06/17 12:00 Potassium Chloride/Sodium Chloride 1,000 ml @ 30 mls/hr Q24H IV 11/05/17 15:45 11/08/17 06:36 (SoluMEDROL INJ) 40 mg Q12HR IV PUSH 11/07/17 21:00 11/08/17 08:32 Ceftriaxone Sodium 1000 mg/ Sodium Chloride 100 ml @ 200 mls/hr Q24H IV 11/08/17 08:30 UNV A/P Assessment and Plan ASSESSMENT- A 72-year-old female, [facility] resident, admitted with severe sepsis requiring pressors, health care associated pneumonia, renal failure due to dehydration with chronic hyponatremia and hypokalemia. 1. Severe sepsis. 2. Pneumonia. 3. Renal failure. 4. Hyponatremia. 5. Hypokalemia. 6. CVA. 7. Hypertension, now hypotensive. 8. Pruritus and rash. 9. Anemia of chronic disease. 10. Hyperglycemia. 11. hydronephrosis 12. abdominal mass PLAN- -CT abdomen without iv contrast but with po contrast for abdom mass, discussed with radiologist -urology consult for hydronephrosis -Speech therapy and heart healthy diet. -Followup smart cultures. -ABX PER ID -DVT prophylaxis with heparin 5000 b.i.d. -Lorazepam p.r.n. -Solu-Medrol 80 mg IV q.6 hours. -mckeon -GI prophylaxis with Protonix IV. -Telemetry. -SCDs. -Physical therapy. -Occupational therapy. -Speech therapy. -Consults to infectious disease for sepsis, an/syq 13 nav/c2 operator for sepsis and pressor management, nephrology for renal failure, pulmonology for health care associated pneumonia and palliative care, as the patient is DNR and has failure to thrive, living in a [facility]. -Vazquez Vázquez MD Nov 08, 2017 07:15
[2017-11-08] MEDS: INSULIN ASPART SUPPLEMENTAL SCALE SQ SCH ×4 (08:00→20:24)
--- NOTE | 2017-11-08 08:22 | HHI.IDPN ---
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 She received duo nebs and albuterol with some subjective improvement. Patient placed on BiPAP in the ER. Received Solu-Medrol, DuoNeb's. CXR notes subsegmental atelectasis right base. Labs were significantly abnormal with BUN 79/creatinine 3.97. GFR 11. BNP 60. Lactic acid 1.6. Leukocytosis 22.4. DNR implemented patient with known DNR. She was admitted for further evaluation and treatment of sepsis, improving BP after IV fluids opening eyes. Nephrology consulted, pulmonology, palliative care consulted and following. Pulmonology consulted to continue antibiotic therapy and bronchodilators and follow CXR. Overnight critical care was consulted as BP was as low as 70/50s. She received fluids overnight but no pressors and BP now in 130s SBP. ID was consulted for evaluation of sepsis. Empiric antibiotics started Zosyn IV , Vanco IV and 1 dose of Azithro given. CXR with atelectasis.At the time of my evaluation patient is in the [facility], currently not on any pressors, saturations 96 % on 5 L. ID following for Pneumonia. Overnight events reviewed. Notes reviewed CT with right pelvic mass. Temps ok BP ok No diarrhea No rash or itching WBC improving Creatinine improving UO good Antibiotics Current Medications Zosyn Zithromax Medications (Trade) Dose Ordered Sig/Felipa Route Start Time Stop Time Status Last Admin (NS Flush) 2 ml UNSCH PRN IV FLUSH 11/02/17 18:15 (NS Flush) 2 ml BID IV FLUSH 11/02/17 21:00 11/05/17 07:35 (Tylenol) 650 mg Q4H PRN PO 11/02/17 18:15 (Zofran Inj) 4 mg Q6H PRN IVP 11/02/17 18:15 (Heparin Inj) 5,000 units Q12H SQ 11/02/17 19:30 11/05/17 07:36 (Narcan Inj) 0.4 mg UNSCH PRN IV PUSH 11/02/17 18:15 (Abby-Colace) 1 tab BID PO 11/02/17 21:00 11/05/17 07:35 (Milk Of Magnesia Liq) 30 ml Q12H PRN PO 11/02/17 18:15 (Senokot) 17.2 mg Q12H PRN PO 11/02/17 18:15 (Dulcolax Supp) 10 mg DAILY PRN RECTAL 11/02/17 18:15 (Lactulose Liq) 30 ml DAILY PRN PO 11/02/17 18:15 (Ativan) 0.5 mg Q8H PRN PO 11/02/17 18:15 (Catapres) 0.1 mg Q6H PRN PO 11/02/17 18:15 (Protonix Inj) 40 mg Q24H IV PUSH 11/02/17 20:00 11/04/17 19:55 (SoluMEDROL INJ) 80 mg Q6HR IV PUSH 11/03/17 00:00 11/05/17 05:30 Miscellaneous Information Patient in critical care unit? Ass... Q361D .XX 11/02/17 20:15 11/02/17 20:15 (Chlorhexidine 2% Cloth) 3 pack DAILY@04 TOPICAL 11/03/17 04:00 11/07/17 04:01 11/05/17 04:00 (Chlorhexidine 2% Cloth) 3 pack UNSCH PRN TOPICAL 11/02/17 20:30 11/07/17 20:15 Piperacillin Sod/ Tazobactam Sod 50 ml @ 100 mls/hr Q8H IV 11/03/17 01:00 11/05/17 07:35 Norepinephrine Bitartrate 250 ml @ 7.5 mls/hr TITRATE PRN IV 11/02/17 22:45 11/02/17 22:40 (Zithromax) 500 mg Q24H PO 11/03/17 18:00 11/04/17 17:38 (Duoneb Neb) 1 ampule Q6HR WHILE AWAKE NEB NEB 11/03/17 14:00 11/05/17 08:19 (Albuterol Neb) 2.5 mg Q2HR NEB PRN NEB 11/03/17 14:00 (D50w (Vial) Inj) 50 ml UNSCH PRN IV PUSH 11/03/17 13:00 (Glucagon Inj) 1 mg UNSCH PRN OTHER 11/03/17 13:00 (NovoLOG SUPPLEMENTAL SCALE) 1 ACHS SLIDING SCALE SQ 11/03/17 17:00 11/04/17 17:00 Sodium Bicarbonate 50 meq/Sodium Chloride 1,050 ml @ 75 mls/hr Q14H IV 11/03/17 18:00 11/04/17 22:34 Lines Line sites with no e.o infection Past Medical History Past Medical History Osteoporosis COPD CVA-residual right hemiparesis Past Surgical History Cataract surgery 2004 Partial hysterectomy Tonsillectomy Allergies: Coded Allergies: No Known Allergies (Unverified Allergy, Unknown, 11/02/17) Objective . Vital Signs Date Time Temp Pulse Resp B/P (MAP) Pulse Ox O2 Delivery O2 Flow Rate FiO2 11/08/17 06:00 50 11/08/17 04:00 52 11/08/17 04:00 98.8 52 13 180/81 (114) 95 11/08/17 02:00 51 11/08/17 00:00 53 11/08/17 00:00 99.0 53 10 174/72 (106) 89 11/07/17 22:03 92 21 11/07/17 22:00 55 11/07/17 20:00 61 11/07/17 20:00 98.4 61 12 200/81 (120) 93 11/07/17 18:00 54 11/07/17 16:00 98.6 60 26 182/77 (112) 94 11/07/17 16:00 60 11/07/17 15:25 89 11/07/17 14:00 58 11/07/17 12:00 64 11/07/17 12:00 98.9 64 16 155/67 (96) 93 11/07/17 10:00 60 . Laboratory Tests Test 11/07/17 04:37 11/08/17 04:00 White Blood Count 8.4 TH/MM3 13.2 TH/MM3 Red Blood Count 3.12 MIL/MM3 3.21 MIL/MM3 Hemoglobin 9.1 GM/DL 9.3 GM/DL Hematocrit 26.2 % 27.0 % Mean Corpuscular Volume 83.9 FL 84.1 FL Mean Corpuscular Hemoglobin 29.1 PG 29.0 PG Mean Corpuscular Hemoglobin Concent 34.7 % 34.5 % Red Cell Distribution Width 13.5 % 13.3 % Platelet Count 295 TH/MM3 293 TH/MM3 Mean Platelet Volume 7.4 FL 7.4 FL Neutrophils (%) (Auto) 89.5 % 88.6 % Lymphocytes (%) (Auto) 5.1 % 6.6 % Monocytes (%) (Auto) 5.2 % 4.6 % Eosinophils (%) (Auto) 0.1 % 0.0 % Basophils (%) (Auto) 0.1 % 0.2 % Neutrophils # (Auto) 7.5 TH/MM3 11.7 TH/MM3 Lymphocytes # (Auto) 0.4 TH/MM3 0.9 TH/MM3 Monocytes # (Auto) 0.4 TH/MM3 0.6 TH/MM3 Eosinophils # (Auto) 0.0 TH/MM3 0.0 TH/MM3 Basophils # (Auto) 0.0 TH/MM3 0.0 TH/MM3 CBC Comment AUTO DIFF DIFF FINAL Differential Total Cells Counted 100 Neutrophils % (Manual) 71 % Band Neutrophils % 4 % Lymphocytes % 14 % Monocytes % 9 % Neutrophils # (Manual) 6.5 TH/MM3 Myelocytes 2 % Differential Comment FINAL DIFF MANUAL Platelet Estimate NORMAL Platelet Morphology Comment NORMAL Laboratory Tests Test 11/07/17 04:37 11/08/17 04:00 Blood Urea Nitrogen 33 MG/DL 26 MG/DL Creatinine 1.63 MG/DL 1.49 MG/DL Random Glucose 116 MG/DL 107 MG/DL Total Protein 6.5 GM/DL 6.1 GM/DL Albumin 2.7 GM/DL 2.5 GM/DL Calcium Level 8.2 MG/DL 7.8 MG/DL Phosphorus Level 2.7 MG/DL 2.3 MG/DL Magnesium Level 1.7 MG/DL 1.6 MG/DL Alkaline Phosphatase 39 U/L 36 U/L Aspartate Amino Transf (AST/SGOT) 16 U/L 22 U/L Alanine Aminotransferase (ALT/SGPT) 19 U/L 23 U/L Total Bilirubin 0.2 MG/DL 0.2 MG/DL Sodium Level 138 MEQ/L 136 MEQ/L Potassium Level 3.5 MEQ/L 3.6 MEQ/L Chloride Level 104 MEQ/L 103 MEQ/L Carbon Dioxide Level 26.7 MEQ/L 26.4 MEQ/L Anion Gap 7 MEQ/L 7 MEQ/L Estimat Glomerular Filtration Rate 31 ML/MIN 34 ML/MIN Imaging Last Impressions Chest X-Ray 11/05/17 0000 Signed Impressions: Service Date/Time: Sunday, November 05, 2017 10:36 - CONCLUSION: 1. Left basilar consolidation and effusion concerning for pneumonia. Elan Menjivar MD Abdomen/Pelvis CT 11/05/17 0000 Signed Impressions: Service Date/Time: Sunday, November 05, 2017 15:33 - CONCLUSION: 1. The left kidney is somewhat smaller in size than the right. There is no hydronephrosis. 2. There is a 6.5 x 4.9 cm masslike density in the low pelvis on the right. This may simply be several loops of small bowel matted together however I cannot definitively exclude a mass. CT imaging with oral contrast would be of benefit for further assessment. 3. There are bibasilar areas of atelectasis. Elan Menjivar MD Renal Ultrasound 11/04/17 0000 Signed Impressions: Service Date/Time: October 08:16 - CONCLUSION: 1. Possible mild hydronephrosis on the right side. 2. Renal cortical thinning on the left without hydronephrosis. De Haque MD Physical Exam GENERAL: awake, alert, frail, NAD SKIN: No rashes, ecchymoses or lesions. Cool and dry. HEAD: Atraumatic. Normocephalic. No temporal or scalp tenderness. EYES: Pupils equal round and reactive. Extraocular motions intact. No scleral icterus. No injection or drainage. ENT: Nose without bleeding, purulent drainage. MOist mucosa NECK: Trachea midline. Supple, nontender, no meningeal signs. CARDIOVASCULAR: HS audible. RESPIRATORY: Clear to auscultation. Breath sounds equal bilaterally. No wheezes , rales, or rhonchi. Decreased at bases GASTROINTESTINAL: Abdomen soft, non-tender, nondistended. MUSCULOSKELETAL: LLE with contracture. No pedal edema NEUROLOGICAL: Awake and alert. speech hesitant. Psych cooperative IV line sites with no e.o infection Assessment & Plan Remarks Possible Severe Sepsis present on admission (leucocytosis, tachycardia, hypotension) - leukocytosis improving ? atypical Community acquired pneumonia vs aspiration PNA COPD acute exacerbation. Acute resp failure now on 5L NC. Hyponatremia. Acute renal failure: sepsis, prerenal. - improving H/o CVA with left side deficit. Recs: DC Zosyn IV for now. Start Ceftriaxone IV. Continue Azithro oral. Check procalcitonin dw RN Kezia Torres to bring to attention of and Palliative care team the Right pelvic mass seen on CT Abd/pelvis. Will likely stop antibiotics in am and observe clinically. Right pelvic mass needs to be addressed. Jacklyn Cruz MD Nov 08, 2017 08:22
[2017-11-08] MEDS: DOCUSATE SODIUM 50 MG/SENNA 8.6 MG TAB PO SCH ×2 (08:32→20:18)
[2017-11-08] MEDS: methylPREDNISolone SOD SUCC 40 MG/1 ML VIAL IV PUSH SCH ×2 (08:32→20:18)
[2017-11-08] MEDS: SODIUM CHLORIDE 0.9% FLUSH 10 ML FLUSH IV FLUSH SCH ×2 (08:33→20:18)
[2017-11-08] MEDS ORDERED: DIATRIZOATE MEGLUM/DIATRIZOATE SOD 9 ML CUP PO ONE (09:30)
--- NOTE | 2017-11-08 09:44 | HHI.NPPN ---
Subjective General Problems: Anemia, Hypotension Renal Failure: Acute History of Present Illness 72 y/o female with COPD admitted for shortness of breath, COPD exacerbation. Her creatinine was 3.9 on arrival, no hx of CKD. PMH of CVA with hemiparesis, HTN, GERD, and osteoporosis. Interval History She is resting, easy to arouse. Blood pressure is elevated today. Renal function is better. Non oliguric. (Stormy Roach) Review of Systems General Constitutional: Fatigue (Stormy Roach) Respiratory Lungs: SOB (Stormy Roach) Cardiovascular Cardiac: MCKEON Cardiac Remarks denies CP (Stormy Roach) Gastrointestinal GI Remarks No abdominal pain (Stormy Roach) Objective Data Data Vital Signs Date Time Temp Pulse Resp B/P (MAP) Pulse Ox O2 Delivery O2 Flow Rate FiO2 11/08/17 06:00 50 11/08/17 04:00 52 11/08/17 04:00 98.8 52 13 180/81 (114) 95 11/08/17 02:00 51 11/08/17 00:00 53 11/08/17 00:00 99.0 53 10 174/72 (106) 89 11/07/17 22:03 92 21 11/07/17 22:00 55 11/07/17 20:00 61 11/07/17 20:00 98.4 61 12 200/81 (120) 93 11/07/17 18:00 54 11/07/17 16:00 98.6 60 26 182/77 (112) 94 11/07/17 16:00 60 11/07/17 15:25 89 11/07/17 14:00 58 11/07/17 12:00 64 11/07/17 12:00 98.9 64 16 155/67 (96) 93 11/07/17 10:00 60 (Stormy Roach) -: 11/08/17 0400 11/08/17 0400 Tubes & Lines: Mckeon (Stormy Roach) Physical Exam General Appearance: No Acute Distress, Comfortable, Sleeping, Malnourished (Stormy Roach) Eyes Eye Exam: Pupils Equal, Pupils Reactive (Stormy Roach) Throat Throat Exam: Oral Mucosa [place] & Moist (Stormy RoachP) Neck Neck Exam: Neck Supple (Stormy Roach) Pulmonary Resp Exam: Breath Sounds Equal, No Distress, Crackles, Decreased Bases Resp Remarks wheezing bilaterally (Stormy Roach SOCIAL MEDIA DEVELOPER) Gastrointestinal/Abdomen GI Exam: Soft, Non-Tender, Bowel Sounds Present, Non-Distended (Stormy Roach) Genitourinary Exam: Clear Urine (Stormy Roach) Musculoskeletal MS Exam: Joints Intact, Atrophy, Unable to Ambulate (Stormy Roach) Integumentary Skin Exam: Warm, Dry, Intact (Stormy Roach) Extremeties Extremities Exam: No Edema, Pedal Pulses Palpable (Stormy Roach) Neurologic Neuro Exam: Alert, Awake (Stormy Roach) Psychiatric Psych Exam: Appropriate Responses (Stormy Roach) Assessment/Plan Discussed Condition With: Patient Assessment Summary: DANIEL/Acute Renal Failure, Dehydration Problem List: (1) Acute renal failure ICD Codes: N17.9 - Acute kidney failure, unspecified Status: Acute Plan: Unclear if she has preexisting renal disease DANIEL most likely due to sepsis syndrome and hypotension, diminished renal perfusion. Renal function is improving, she is non oliguric Taper off IVF over next day, encourage PO fluids. CT negative for hydronephrosis, urology has evaluated Replace phosphorus orally Start amlodipine for HTN. Attempt mckeon removal. Avoid nephrotoxic agents. (2) Sepsis ICD Codes: A41.9 - Sepsis, unspecified organism Status: Acute Plan: Continue symptom management. cultures negative, continue to monitor. (3) COPD exacerbation ICD Codes: J44.1 - Chronic obstructive pulmonary disease with (acute) exacerbation Status: Acute Plan: On oxygen, monitor pulmonary status Plan We will sign off at this time. Please call us if needed. (Stormy Roach) Plan patient was seen and examined. Agree with above assessment and plan. Renal function has improved. Avoid nephrotoxins. (Isaias Miranda MD) Problem Qualifiers (1) Acute renal failure: Qualified Codes: N17.9 - Acute kidney failure, unspecified (2) Sepsis: Qualified Codes: A41.9 - Sepsis, unspecified organism Stormy Roach Nov 08, 2017 09:44 Isaias Miranda MD Nov 08, 2017 12:31
[2017-11-08] MEDS ORDERED: POTASSIUM PHOSPHATE MONOBASIC 500 MG TAB PO ONE (10:00)
[2017-11-08] MEDS: cefTRIAXone INJ 1,000 MG in SODIUM CHLORIDE 0.9% INJ 100 ML IV SCH (10:27)
[2017-11-08] MEDS: ACETAMINOPHEN 325 MG TAB PO PRN (10:48)
--- NOTE | 2017-11-08 15:26 | RADRPT ---
EXAM DATE/TIME: 11/08/2017 15:05 [facility] COMPARISON: CT ABDOMEN & PELVIS W/O CONTRAST, November 05, 2017, 15:33. INDICATIONS : Abdnormal prior CT abdomen, evaluate for mass. ORAL CONTRAST: Prescribed oral contrast ingested. RADIATION DOSE: 12.96 CTDIvol (mGy) MEDICAL HISTORY : Hypertension. Chronic obstructive pulmonary disease. Stroke. SURGICAL HISTORY : Hysterectomy. ENCOUNTER: Subsequent ACUITY: 1 day PAIN SCALE: 0/10 LOCATION: Bilateral abdomen TECHNIQUE: Volumetric scanning of the abdomen and pelvis was performed. Using automated exposure control and ad justment of the mA and/or kV according to patient size, radiation dose was kept as low as reasonably achievable to obtain optimal diagnostic quality images. DICOM format image data is available electro nically for review and comparison. FINDINGS: Stable bibasilar parenchymal changes with mild cardiomegaly. The liver and spleen are unremarkable The pancreas appears normal The left kidney is small. The right kidney is normal size. Extensive Vas-Cath cases are evident. There is no ascites or adenopathy In the pelvis trace ascites is evident. Pelvic mass is not identified. Bladder decompressed by Fole y. Abdominal cedeño intact. There is no inguinal adenopathy Review of bone windows reveals only degenerative changes. CONCLUSION: There is no intrapelvic mass. There is mild ascites. Combination of ascites and unopacified was bow el simulating mass. Otherwise exam is stable. Papo Menjivar MD FACR on November 08, 2017 at 15:22 Board Certified Radiologist. This report was verified electronically.
--- NOTE | 2017-11-08 16:43 | HHI.PR ---
Subjective Remarks NO SOB ON O2 CONFUSED Objective Vital Signs Date Time Temp Pulse Resp B/P (MAP) Pulse Ox O2 Delivery O2 Flow Rate FiO2 11/08/17 12:00 98.0 82 22 184/81 (115) 96 11/08/17 12:00 82 11/08/17 10:00 53 11/08/17 08:00 61 11/08/17 08:00 97.8 61 17 177/93 (121) 91 11/08/17 06:00 50 11/08/17 04:00 52 11/08/17 04:00 98.8 52 13 180/81 (114) 95 11/08/17 02:00 51 11/08/17 00:00 53 11/08/17 00:00 99.0 53 10 174/72 (106) 89 11/07/17 22:03 92 21 11/07/17 22:00 55 11/07/17 20:00 61 11/07/17 20:00 98.4 61 12 200/81 (120) 93 11/07/17 18:00 54 I/O 11/07/17 11/07/17 11/07/17 11/08/17 11/08/17 11/08/17 07:00 15:00 23:00 07:00 15:00 23:00 Intake Total 1463 ml 50 ml 530 ml 1005 ml Output Total 450 ml 525 ml 1000 ml Balance 1013 ml 50 ml 5 ml 5 ml Intake Oral 240 ml 480 ml 240 ml IV Total 1223 ml 50 ml 50 ml 765 ml Output Urine Total 450 ml 525 ml 1000 ml # Bowel Movements 0 0 Result Diagram: 11/08/17 04011/08/17 040 Objective Remarks GENERAL: SKIN: Warm and dry. HEAD: Atraumatic. Normocephalic. EYES: Pupils equal and round. No scleral icterus. No injection or drainage. ENT: No nasal bleeding or discharge. Mucous membranes pink and moist. NECK: Trachea midline. No JVD. CARDIOVASCULAR: Regular rate and rhythm. RESPIRATORY: No accessory muscle use. Clear to auscultation. Breath sounds equal bilaterally. GASTROINTESTINAL: Abdomen soft, non-tender, nondistended. Hepatic and splenic margins not palpable. MUSCULOSKELETAL: Extremities without clubbing, cyanosis, or edema. No obvious deformities. NEUROLOGICAL: Awake and alert. No obvious cranial nerve deficits. Motor grossly within normal limits. Five out of 5 muscle strength in the arms and legs. Normal speech. PSYCHIATRIC: Appropriate mood and affect; insight and judgment normal. Medications and IVs GENERAL: SKIN: Warm and dry. HEAD: Atraumatic. Normocephalic. EYES: Pupils equal and round. No scleral icterus. No injection or drainage. ENT: No nasal bleeding or discharge. Mucous membranes pink and moist. NECK: Trachea midline. No JVD. CARDIOVASCULAR: Regular rate and rhythm. RESPIRATORY: No accessory muscle use. Clear to auscultation. Breath sounds equal bilaterally. GASTROINTESTINAL: Abdomen soft, non-tender, nondistended. Hepatic and splenic margins not palpable. MUSCULOSKELETAL: Extremities without clubbing, cyanosis, or edema. No obvious deformities. NEUROLOGICAL: Awake and alert. No obvious cranial nerve deficits. Motor grossly within normal limits. Five out of 5 muscle strength in the arms and legs. Normal speech. PSYCHIATRIC: Appropriate mood and affect; insight and judgment normal. Assessment and Plan Assessment and Plan RESPIRATORY FAILURE PNA S/P CVA CXRAY SAME PLAN O2 ANTIBX INCREASE ACTIVITY Arleen Bacon MD Nov 08, 2017 16:43
[2017-11-08] MEDS: AZITHROMYCIN 250 MG TAB PO SCH (17:58)
[2017-11-08] MEDS: PANTOPRAZOLE SODIUM 40 MG VIAL IV PUSH SCH (20:18)
[2017-11-09] VITALS (9 sets, daily range): BP systolic 134–184; BP diastolic 69–92; PULSE 54–94; RESP 16–18; TEMP 96.2–98.4; O2SAT 92–98
[2017-11-09] MEDS: INSULIN ASPART SUPPLEMENTAL SCALE SQ SCH ×4 (07:13→21:00)
[2017-11-09 07:42] LABS: AUTOMATED NEUTROPHIL # 13.3 TH/MM3 (1.8-7.7); LYMPH % 8.3 % (9.0-44.0); LYMPHOCYTE # 1.3 TH/MM3 (1.0-4.8); MEAN CELL VOLUME 83.2 FL (80.0-100.0); MEAN CORPUSCULAR HEMOGLOBIN 28.6 PG (27.0-34.0); MEAN CORPUSCULAR HGB CONC 34.4 % (32.0-36.0); MEAN PLATELET VOLUME 7.3 FL (7.0-11.0); MONO % 5.7 % (0.0-8.0); MONOCYTE # 0.9 TH/MM3 (0-0.9); PLATELET COUNT 325 TH/MM3 (150-450); RED BLOOD COUNT 3.85 MIL/MM3 (4.00-5.30); RED CELL DISTRIBUTION WIDTH 13.2 % (11.6-17.2); WHITE BLOOD COUNT 15.5 TH/MM3 (4.0-11.0)
[2017-11-09] MEDS: DOCUSATE SODIUM 50 MG/SENNA 8.6 MG TAB PO SCH ×2 (07:59→21:00)
[2017-11-09] MEDS: HEPARIN SODIUM - SQ 10,000 UNITS/ML VIAL SQ SCH ×2 (08:00→18:19)
[2017-11-09 08:01] LABS: BICARBONATE 24.6 MEQ/L (21.0-32.0); CALCIUM 8.1 MG/DL (8.5-10.1); CREATININE 1.3 MG/DL (0.50-1.00)
[2017-11-09] MEDS: cefTRIAXone INJ 1,000 MG in SODIUM CHLORIDE 0.9% INJ 100 ML IV SCH (08:01)
[2017-11-09] MEDS: SODIUM CHLORIDE 0.9% FLUSH 10 ML FLUSH IV FLUSH SCH ×2 (08:02→21:00)
[2017-11-09] MEDS: methylPREDNISolone SOD SUCC 40 MG/1 ML VIAL IV PUSH SCH (08:02)
--- NOTE | 2017-11-09 09:20 | HHI.FPPN ---
Subjective Remarks increased weakness harsh cough returned c/o sputum asking to smoke d/w RN Objective Vitals Vital Signs Date Time Temp Pulse Resp B/P (MAP) Pulse Ox O2 Delivery O2 Flow Rate FiO2 11/09/17 08:00 98.4 88 18 166/92 (116) 92 11/09/17 05:13 96.2 54 17 160/70 (100) 94 11/09/17 03:53 61 11/09/17 00:00 97.8 54 17 168/80 (109) 98 11/08/17 23:44 57 11/08/17 20:22 96.9 52 16 166/88 (114) 93 11/08/17 20:05 71 11/08/17 16:00 97.8 53 158/77 (104) 94 11/08/17 16:00 53 11/08/17 12:00 98.0 82 22 184/81 (115) 96 11/08/17 12:00 82 11/08/17 10:00 53 I/O 11/08/17 11/08/17 11/08/17 11/09/17 11/09/17 11/09/17 07:00 15:00 23:00 07:00 15:00 23:00 Intake Total 1005 ml 1108 ml 608 ml Output Total 1000 ml 900 ml Balance 5 ml 208 ml 608 ml Intake Oral 240 ml 720 ml 480 ml IV Total 765 ml 388 ml 128 ml Output Urine Total 1000 ml 900 ml # Voids 4 # Bowel Movements 0 1 3 Result Diagram: 11/09/1725 11/09/1725 Objective Remarks GENERAL: SKIN: Warm and dry. HEAD: Atraumatic. Normocephalic. EYES: Pupils equal and round. No scleral icterus. No injection or drainage. ENT: No nasal bleeding or discharge. Mucous membranes pink and moist. NECK: Trachea midline. No JVD. CARDIOVASCULAR: Regular rate and rhythm. RESPIRATORY: No accessory muscle use. Clear to auscultation. Breath sounds equal bilaterally. GASTROINTESTINAL: Abdomen soft, non-tender, nondistended. Hepatic and splenic margins not palpable. MUSCULOSKELETAL: Extremities without clubbing, cyanosis, or edema. No obvious deformities. NEUROLOGICAL: Awake and alert. No obvious cranial nerve deficits. Motor grossly within normal limits. r joe, Normal speech. PSYCHIATRIC: Appropriate mood and affect; insight and judgment normal. Medications and IVs Current Medications Medications (Trade) Dose Ordered Sig/Felipa Route Start Time Stop Time Status Last Admin (NS Flush) 2 ml UNSCH PRN IV FLUSH 11/02/17 18:15 (NS Flush) 2 ml BID IV FLUSH 11/02/17 21:00 11/09/17 08:02 (Tylenol) 650 mg Q4H PRN PO 11/02/17 18:15 11/08/17 10:48 (Zofran Inj) 4 mg Q6H PRN IVP 11/02/17 18:15 11/06/17 16:36 (Heparin Inj) 5,000 units Q12H SQ 11/02/17 19:30 11/09/17 08:00 (Narcan Inj) 0.4 mg UNSCH PRN IV PUSH 11/02/17 18:15 (Abby-Colace) 1 tab BID PO 11/02/17 21:00 11/08/17 20:18 (Milk Of Magnesia Liq) 30 ml Q12H PRN PO 11/02/17 18:15 (Senokot) 17.2 mg Q12H PRN PO 11/02/17 18:15 (Dulcolax Supp) 10 mg DAILY PRN RECTAL 11/02/17 18:15 (Lactulose Liq) 30 ml DAILY PRN PO 11/02/17 18:15 (Ativan) 0.5 mg Q8H PRN PO 11/02/17 18:15 11/08/17 15:31 (Catapres) 0.1 mg Q6H PRN PO 11/02/17 18:15 11/08/17 05:34 (Protonix Inj) 40 mg Q24H IV PUSH 11/02/17 20:00 11/08/17 20:18 Miscellaneous Information Patient in critical care unit? Ass... [id number] .XX 11/02/17 20:15 11/02/17 20:15 Norepinephrine Bitartrate 250 ml @ 7.5 mls/hr TITRATE PRN IV 11/02/17 22:45 11/02/17 22:40 (Zithromax) 500 mg Q24H PO 11/03/17 18:00 11/08/17 17:58 (Albuterol Neb) 2.5 mg Q2HR NEB PRN NEB 11/03/17 14:00 11/07/17 15:25 (D50w (Vial) Inj) 50 ml UNSCH PRN IV PUSH 11/03/17 13:00 (Glucagon Inj) 1 mg UNSCH PRN OTHER 11/03/17 13:00 (NovoLOG SUPPLEMENTAL SCALE) 1 ACHS SLIDING SCALE SQ 11/03/17 17:00 11/06/17 12:00 Potassium Chloride/Sodium Chloride 1,000 ml @ 30 mls/hr Q24H IV 11/05/17 15:45 11/08/17 18:01 (SoluMEDROL INJ) 40 mg Q12HR IV PUSH 11/07/17 21:00 11/09/17 08:02 Ceftriaxone Sodium 1000 mg/ Sodium Chloride 100 ml @ 200 mls/hr Q24H IV 11/08/17 09:00 11/09/17 08:01 (Norvasc) 10 mg DAILY PO 11/08/17 09:30 11/09/17 07:59 A/P Assessment and Plan ASSESSMENT- A 72-year-old female, senior care resident, admitted with severe sepsis requiring pressors, health care associated pneumonia, renal failure due to dehydration with chronic hyponatremia and hypokalemia. 1. Severe sepsis. 2. Pneumonia. 3. Renal failure. 4. Hyponatremia. 5. Hypokalemia. 6. CVA. 7. Hypertension, now hypotensive. 8. Pruritus and rash. 9. Anemia of chronic disease. 10. Hyperglycemia. 11. hydronephrosis 12. abdominal mass, negative on ct, no ,mass PLAN- -Restart iv azithrom, increase solumedrol iv, start duonebs, cxr and maybe dc when pneumonia resolves/controlled. -restart hydralazine -urology consult for hydronephrosis -Speech therapy and heart healthy diet. -Followup smart cultures. -DVT prophylaxis with heparin 5000 b.i.d. -Lorazepam p.r.n. -mckeon -GI prophylaxis with Protonix IV. -Telemetry. -SCDs. -Physical therapy. -Occupational therapy. -Speech therapy. -s/p Consults to infectious disease for sepsis, entry level accounting clerk for sepsis and pressor management, nephrology for renal failure, pulmonology for health care associated pneumonia and palliative care, as the patient is DNR and has failure to thrive, living in a senior care. -ivf Vazquez Sanchez MD Nov 09, 2017 09:20
[2017-11-09] MEDS: cloNIDine HCL 0.1 MG TAB PO PRN (10:46)
[2017-11-09] MEDS: hydrALAZINE HCL 25 MG TAB PO SCH ×2 (10:46→18:17)
[2017-11-09] MEDS: methylPREDNISolone SOD SUCC 125 MG/2 ML VIAL IV SCH ×2 (10:47→18:19)
--- NOTE | 2017-11-09 14:18 | HHI.HCPN ---
Reason for visit a. To assist with evaluation and management of symptoms including: Dyspnea, confusion b. To assist medical decision maker(s) with: better understanding of current medical conditions; weighing benefits/burdens of medical treatment options; making medical treatment decisions. Subjective/Interval History Pt seen to follow up on comfort, goals transferred out of ICU to medical unit. Renal function slowly improving. CBC unremarkable, except WBC 15.5- pt on steroids. Concern RE poss mass on CT abdomen/pelvis, repeat w contrast negative, no mass identified.D/w ID, will transition to PO abx. She is documented to be eating about 10% of meals. Nursing reports mental status continues to fluctuate, periods of confusion. Seen in room as ID also evaluating pt. oriented to self, Da Russo and though she is in the hospital however does not know why she is in hospital. 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 She denies pain, complains of not hungry for the food that they have sense on her lunch tray which is in front of her currently. She says she doesn't like it. She denies dyspnea. She does wants to get out of the hospital and have a cigarette, she points to the window and indicates she can go out there and smoke. . Family/friend interactions Following exam call to daughter Sandra provided update. Review of current treatments, patient status. Sounds as if patient is close to her baseline based on family's report of her mild confusion. She reports patient had been maintained on a pured diet due to holding solid foods in her mouth. At this time she remains hopeful the patient can be stabilized back to baseline of a week or so ago and return to her prior function and status at long-term nursing facility. If the patient experiences additional complication or decline she is open to have further conversations regarding hospice and comfort measures. Additionally if the patient begins to experience recurrent infections or issues in a nursing facility she would also want to transition to comfort probably with hospice at that time. All questions answered, she has palliative contact information. . Advance Directives Health Care Surrogate: Copy in medical record Advance Directive Specifics Date completed: 02/2017 Health Care Surrogate(s): Name daughter Sandra Cummings as HCS Objective Vital Signs Date Time Temp Pulse Resp B/P (MAP) Pulse Ox O2 Delivery O2 Flow Rate FiO2 11/09/17 08:30 184/82 (116) 11/09/17 08:00 98.4 88 18 166/92 (116) 92 11/09/17 05:13 96.2 54 17 160/70 (100) 94 11/09/17 03:53 61 11/09/17 00:00 97.8 54 17 168/80 (109) 98 11/08/17 23:44 57 11/08/17 20:22 96.9 52 16 166/88 (114) 93 11/08/17 20:05 71 11/08/17 16:00 97.8 53 158/77 (104) 94 11/08/17 16:00 53 Intake & Output 11/09/17 11/09/17 07:00 19:00 Intake Total 996 ml 100 ml Balance 996 ml 100 ml Intake Oral 480 ml IV Total 516 ml 100 ml # Voids 4 # Bowel Movements 3 Physical Exam CONSTITUTIONAL/GENERAL: This is a very frail, thin elderly female alert and confused TUBES/LINES/DRAINS: Peripheral IV RT upper extremity, Harris catheter SKIN: No jaundice, rashes, or lesions. multiple discreet scattered tiny (1-2mm) scabbed lesions LUE, LLE, healing. skin warm/dry CARDIOVASCULAR: Regular rate and rhythm without murmur. Peripheral pulses symmetric. RESPIRATORY/CHEST: Symmetric, unlabored respirations. decreased air movement, faint expiratory wheezes upper. Breath sounds equal bilaterally. appears to be tolerating room air GASTROINTESTINAL: Abdomen soft, flat non-tender, nondistended. No flat palpable masses. No guarding. Bowel sounds present. NEUROLOGICAL: Awake and alert. Oriented x2. pleasantly confused.Follows simple commands, generally cooperative. Moves RU, RLE, WILBER flaccid/rigid, left leg ? contracted PSYCHIATRIC: No obvious anxiety/depression. no apparent hallucinations or other psychotic thought process. Diagnostic Tests Laboratory Laboratory Tests Test 11/07/17 04:37 11/08/17 04:00 11/09/17 06:25 White Blood Count 8.4 TH/MM3 (4.0-11.0) 13.2 TH/MM3 (4.0-11.0) 15.5 TH/MM3 (4.0-11.0) Red Blood Count 3.12 MIL/MM3 (4.00-5.30) 3.21 MIL/MM3 (4.00-5.30) 3.85 MIL/MM3 (4.00-5.30) Hemoglobin 9.1 GM/DL (11.6-15.3) 9.3 GM/DL (11.6-15.3) 11.0 GM/DL (11.6-15.3) Hematocrit 26.2 % (35.0-46.0) 27.0 % (35.0-46.0) 32.0 % (35.0-46.0) Mean Corpuscular Volume 83.9 FL (80.0-100.0) 84.1 FL (80.0-100.0) 83.2 FL (80.0-100.0) Mean Corpuscular Hemoglobin 29.1 PG (27.0-34.0) 29.0 PG (27.0-34.0) 28.6 PG (27.0-34.0) Mean Corpuscular Hemoglobin Concent 34.7 % (32.0-36.0) 34.5 % (32.0-36.0) 34.4 % (32.0-36.0) Red Cell Distribution Width 13.5 % (11.6-17.2) 13.3 % (11.6-17.2) 13.2 % (11.6-17.2) Platelet Count 295 TH/MM3 (150-450) 293 TH/MM3 (150-450) 325 TH/MM3 (150-450) Mean Platelet Volume 7.4 FL (7.0-11.0) 7.4 FL (7.0-11.0) 7.3 FL (7.0-11.0) Neutrophils (%) (Auto) 89.5 % (16.0-70.0) 88.6 % (16.0-70.0) 86.0 % (16.0-70.0) Lymphocytes (%) (Auto) 5.1 % (9.0-44.0) 6.6 % (9.0-44.0) 8.3 % (9.0-44.0) Monocytes (%) (Auto) 5.2 % (0.0-8.0) 4.6 % (0.0-8.0) 5.7 % (0.0-8.0) Eosinophils (%) (Auto) 0.1 % (0.0-4.0) 0.0 % (0.0-4.0) 0.0 % (0.0-4.0) Basophils (%) (Auto) 0.1 % (0.0-2.0) 0.2 % (0.0-2.0) 0.0 % (0.0-2.0) Neutrophils # (Auto) 7.5 TH/MM3 (1.8-7.7) 11.7 TH/MM3 (1.8-7.7) 13.3 TH/MM3 (1.8-7.7) Lymphocytes # (Auto) 0.4 TH/MM3 (1.0-4.8) 0.9 TH/MM3 (1.0-4.8) 1.3 TH/MM3 (1.0-4.8) Monocytes # (Auto) 0.4 TH/MM3 (0-0.9) 0.6 TH/MM3 (0-0.9) 0.9 TH/MM3 (0-0.9) Eosinophils # (Auto) 0.0 TH/MM3 (0-0.4) 0.0 TH/MM3 (0-0.4) 0.0 TH/MM3 (0-0.4) Basophils # (Auto) 0.0 TH/MM3 (0-0.2) 0.0 TH/MM3 (0-0.2) 0.0 TH/MM3 (0-0.2) CBC Comment AUTO DIFF DIFF FINAL DIFF FINAL Differential Total Cells Counted 100 Neutrophils % (Manual) 71 % (16-70) Band Neutrophils % 4 % (0-6) Lymphocytes % 14 % (9-44) Monocytes % 9 % (0-8) Neutrophils # (Manual) 6.5 TH/MM3 (1.8-7.7) Myelocytes 2 % (0-0) Differential Comment FINAL DIFF MANUAL Platelet Estimate NORMAL (NORMAL) Platelet Morphology Comment NORMAL (NORMAL) Blood Urea Nitrogen 33 MG/DL (7-18) 26 MG/DL (7-18) 22 MG/DL (7-18) Creatinine 1.63 MG/DL (0.50-1.00) 1.49 MG/DL (0.50-1.00) 1.30 MG/DL (0.50-1.00) Random Glucose 116 MG/DL (74-106) 107 MG/DL (74-106) 82 MG/DL (74-106) Total Protein 6.5 GM/DL (6.4-8.2) 6.1 GM/DL (6.4-8.2) Albumin 2.7 GM/DL (3.4-5.0) 2.5 GM/DL (3.4-5.0) Calcium Level 8.2 MG/DL (8.5-10.1) 7.8 MG/DL (8.5-10.1) 8.1 MG/DL (8.5-10.1) Phosphorus Level 2.7 MG/DL (2.5-4.9) 2.3 MG/DL (2.5-4.9) Magnesium Level 1.7 MG/DL (1.5-2.5) 1.6 MG/DL (1.5-2.5) Alkaline Phosphatase 39 U/L (45-117) 36 U/L (45-117) Aspartate Amino Transf (AST/SGOT) 16 U/L (15-37) 22 U/L (15-37) Alanine Aminotransferase (ALT/SGPT) 19 U/L (10-53) 23 U/L (10-53) Total Bilirubin 0.2 MG/DL (0.2-1.0) 0.2 MG/DL (0.2-1.0) Sodium Level 138 MEQ/L (136-145) 136 MEQ/L (136-145) 136 MEQ/L (136-145) Potassium Level 3.5 MEQ/L (3.5-5.1) 3.6 MEQ/L (3.5-5.1) 3.6 MEQ/L (3.5-5.1) Chloride Level 104 MEQ/L (98-107) 103 MEQ/L (98-107) 102 MEQ/L (98-107) Carbon Dioxide Level 26.7 MEQ/L (21.0-32.0) 26.4 MEQ/L (21.0-32.0) 24.6 MEQ/L (21.0-32.0) Anion Gap 7 MEQ/L (5-15) 7 MEQ/L (5-15) 9 MEQ/L (5-15) Estimat Glomerular Filtration Rate 31 ML/MIN (>89) 34 ML/MIN (>89) 40 ML/MIN (>89) Procalcitonin 0.18 ng/mL (0.00-0.08) Result Diagram: 11/09/1762411/09/17624 Microbiology Microbiology Date/Time Source Procedure Growth Status 11/02/17 16:05 Blood Peripheral Aerobic Blood Culture - Final NO GROWTH IN 5 DAYS Complete 11/02/17 16:05 Blood Peripheral Anaerobic Blood Culture - Final NO GROWTH IN 5 DAYS Complete 11/02/17 16:10 Nasal Aspirate Influenza Types A,B Antigen (JEROD) - Final NEGATIVE FOR FLU A AND B ANTIGEN.... Complete 11/03/17 13:45 Urine Random Urine Legionella Antigen - Final PRESUMPTIVE NEGATIVE FOR LEGIONELLA P... Complete 11/03/17 13:45 Urine Random Urine Streptococcus pneumoniae Antigen (M - Final PRESUMPTIVE NEGATIVE FOR STREPTOCOCCU... Complete Imaging Last Impressions Chest X-Ray 11/08/17 0600 Signed Impressions: Service Date/Time: Wednesday, November 08, 2017 02:59 - CONCLUSION: 1. Stable left lower lung zone airspace disease and trace pleural effusion. 2. No significant interval change. Dylon Medrano MD Abdomen/Pelvis CT 11/08/17 0000 Signed Impressions: Service Date/Time: Wednesday, November 08, 2017 15:05 - CONCLUSION: There is no intrapelvic mass. There is mild ascites. Combination of ascites and unopacified was bowel simulating mass. Otherwise exam is stable. Papo Menjivar MD FACR Renal Ultrasound 11/04/17 0000 Signed Impressions: Service Date/Time: October 08:16 - CONCLUSION: 1. Possible mild hydronephrosis on the right side. 2. Renal cortical thinning on the left without hydronephrosis. De Haque MD Assessment and Plan Disease Oriented Problem List: (1) Hypertension (2) H/O: CVA (cerebrovascular accident) (3) Osteoporosis (4) Acute renal failure (5) Respiratory failure (6) Sepsis (7) COPD exacerbation Symptom Scale: (1) Dyspnea 0-10 Scale: Unable to quantify (2) Confusion 0-10 Scale: Unable to quantify Pertinent Non-Medical Issues Psychosocial:. Most recently lives at [facility] since February 2017. Originally from [place] moved to [place] in 2002. 2011. 5 children, one of lung cancer. All of her children live in other states. Patient served in the [employer], [employer], [employer]. Spiritual: Congregational-no particular affiliation Legal:Patient orientation and cognitive processing has fluctuated since her CVA in 2016. At times she is more oriented and appropriate other times she is forgetful and mildly confused. She may be able to participate some in decision- making but would be best to observe shared decision making with her designated healthcare surrogate. Health care surrogate is named as daughter Sandra Cummings. It sounds as if family all communicates and is working together for decision- making. Ethical issues impacting care: Important Contacts Daughter Sandra Cummings healthcare surrogate -Njqafeqh-[phone] sister Radha Lares [phone] / [phone] Daughter Claudia Gonzalez [phone] Carmelo Frey son [phone] . Prognosis This patient was admitted for acute shortness of breath. CXR findings of atelectasis, + acute renal failure, leukocytosis. Underlying history of COPD, history of CVA, advanced age. May be able to get through current acute episode and return to prior status at long-term nursing facility however does remain high risk for further complications and setbacks during acute hospital course. . Code Status: No Code Plan * Legal decision maker:Patient orientation and cognitive processing has fluctuated since her CVA in 2016. At times she is more oriented and appropriate other times she is forgetful and mildly confused. She may be able to participate some in decision-making but would be best to observe shared decision making with her designated healthcare surrogate. Health care surrogate is named as daughter Sandra Cummings. It sounds as if family all communicates and is working together for decision-making. * Goals: Currently goals somewhat aggressive to continue current conservative medical treatments short of BiPAP or intubation, cardiac resuscitation per initial bedside interaction w family 11/03/17. Family hopeful to treat current illness and restore patient back to prior level at residential. Health care surrogate Sandra will consider hospice and comfort transition if the parent has additional complication or decline, or experiences recurrent issues once back in her nursing facility. *In the past patient and family have discussed hospice and comfort measures in the event of clinical deterioration, prior palliative care consultation February 2017. * CODE STATUS: DNR * SYMPTOMS: --Dyspnea-patient with shortness of breath 3 days, subjective improvement during hospitalization. Currently tolerating Room air. On nebulizers, steroids. If clinical deterioration and worsening of dyspnea and goals comfort oriented could consider opiates, benzos for symptom management. --Confusion- patient with history of CVA last year, some residual fluctuating confusion ongoing, this is likely worsened by acute sepsis. Continue to monitor. -- Dysphagia:-Daughter indicates in the past patient had been maintained on a pured diet because with solid consistencies at times she would forget to swallow and hold food in her mouth, may consider putting patient back on pured diet. ST evaluated patient here 11/03 and patient tolerated all diet consistencies at that time. * Palliative care will continue to follow during hospital course as condition evolves, to assist patient/decision-maker with understanding of medical conditions, weighing benefits/burdens of treatment options, for clarification of goals of treatment. Additionally will assist with any symptoms of palliative concern Attestation To help prompt me to consider important information that might be impacting today's encounter and assessment, information from prior notes written by myself or my colleagues may have been "brought forward" into today's note. My signature on this note, however, is an attestation that I personally performed the exam, history, and/or decision-making noted today, and, unless otherwise indicated, the interactions with patient, family, and staff as well as the review of records all occurred today. I also attest that the listed assessment and stated plan reflect my best clinical judgment today based on the combination of historical information, prior notes, and today's exam/ interactions. When time spent is documented, it refers only to time spent today by the signer, or if indicated, combined time spent today by collaborating physician/nurse practitioner. Sandra Sanabria Nov 09, 2017 14:17
[2017-11-09] MEDS: NS + KCL 20 MEQ INJ 1,000 ML IV SCH (14:32)
[2017-11-09] MEDS: LORazepam 0.5 MG TAB PO PRN (14:54)
--- NOTE | 2017-11-09 15:01 | HHI.IDPN ---
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 She received duo nebs and albuterol with some subjective improvement. Patient placed on BiPAP in the ER. Received Solu-Medrol, DuoNeb's. CXR notes subsegmental atelectasis right base. Labs were significantly abnormal with BUN 79/creatinine 3.97. GFR 11. BNP 60. Lactic acid 1.6. Leukocytosis 22.4. DNR implemented patient with known DNR. She was admitted for further evaluation and treatment of sepsis, improving BP after IV fluids opening eyes. Nephrology consulted, pulmonology, palliative care consulted and following. Pulmonology consulted to continue antibiotic therapy and bronchodilators and follow CXR. Overnight critical care was consulted as BP was as low as 70/50s. She received fluids overnight but no pressors and BP now in 130s SBP. ID was consulted for evaluation of sepsis. Empiric antibiotics started Zosyn IV , Vanco IV and 1 dose of Azithro given. CXR with atelectasis.At the time of my evaluation patient is in the [facility], currently not on any pressors, saturations 96 % on 5 L. ID following for Pneumonia. Overnight events reviewed. Notes reviewed CT with right pelvic mass. Temps ok BP ok No diarrhea No rash or itching WBC improving Creatinine improving UO good Antibiotics Current Medications Zosyn Zithromax Medications (Trade) Dose Ordered Sig/Felipa Route Start Time Stop Time Status Last Admin (NS Flush) 2 ml UNSCH PRN IV FLUSH 11/02/17 18:15 (NS Flush) 2 ml BID IV FLUSH 11/02/17 21:00 11/05/17 07:35 (Tylenol) 650 mg Q4H PRN PO 11/02/17 18:15 (Zofran Inj) 4 mg Q6H PRN IVP 11/02/17 18:15 (Heparin Inj) 5,000 units Q12H SQ 11/02/17 19:30 11/05/17 07:36 (Narcan Inj) 0.4 mg UNSCH PRN IV PUSH 11/02/17 18:15 (Abby-Colace) 1 tab BID PO 11/02/17 21:00 11/05/17 07:35 (Milk Of Magnesia Liq) 30 ml Q12H PRN PO 11/02/17 18:15 (Senokot) 17.2 mg Q12H PRN PO 11/02/17 18:15 (Dulcolax Supp) 10 mg DAILY PRN RECTAL 11/02/17 18:15 (Lactulose Liq) 30 ml DAILY PRN PO 11/02/17 18:15 (Ativan) 0.5 mg Q8H PRN PO 11/02/17 18:15 (Catapres) 0.1 mg Q6H PRN PO 11/02/17 18:15 (Protonix Inj) 40 mg Q24H IV PUSH 11/02/17 20:00 11/04/17 19:55 (SoluMEDROL INJ) 80 mg Q6HR IV PUSH 11/03/17 00:00 11/05/17 05:30 Miscellaneous Information Patient in critical care unit? Ass... [id number] .XX 11/02/17 20:15 11/02/17 20:15 (Chlorhexidine 2% Cloth) 3 pack DAILY@04 TOPICAL 11/03/17 04:00 11/07/17 04:01 11/05/17 04:00 (Chlorhexidine 2% Cloth) 3 pack UNSCH PRN TOPICAL 11/02/17 20:30 11/07/17 20:15 Piperacillin Sod/ Tazobactam Sod 50 ml @ 100 mls/hr Q8H IV 11/03/17 01:00 11/05/17 07:35 Norepinephrine Bitartrate 250 ml @ 7.5 mls/hr TITRATE PRN IV 11/02/17 22:45 11/02/17 22:40 (Zithromax) 500 mg Q24H PO 11/03/17 18:00 11/04/17 17:38 (Duoneb Neb) 1 ampule Q6HR WHILE AWAKE NEB NEB 11/03/17 14:00 11/05/17 08:19 (Albuterol Neb) 2.5 mg Q2HR NEB PRN NEB 11/03/17 14:00 (D50w (Vial) Inj) 50 ml UNSCH PRN IV PUSH 11/03/17 13:00 (Glucagon Inj) 1 mg UNSCH PRN OTHER 11/03/17 13:00 (NovoLOG SUPPLEMENTAL SCALE) 1 ACHS SLIDING SCALE SQ 11/03/17 17:00 11/04/17 17:00 Sodium Bicarbonate 50 meq/Sodium Chloride 1,050 ml @ 75 mls/hr Q14H IV 11/03/17 18:00 11/04/17 22:34 Lines Line sites with no e.o infection Past Medical History Past Medical History Osteoporosis COPD CVA-residual right hemiparesis Past Surgical History Cataract surgery 2004 Partial hysterectomy Tonsillectomy Allergies: Coded Allergies: No Known Allergies (Unverified Allergy, Unknown, 11/02/17) Objective . Vital Signs Date Time Temp Pulse Resp B/P (MAP) Pulse Ox O2 Delivery O2 Flow Rate FiO2 11/09/17 14:04 150/77 (101) 11/09/17 08:30 184/82 (116) 11/09/17 08:00 98.4 88 18 166/92 (116) 92 11/09/17 05:13 96.2 54 17 160/70 (100) 94 11/09/17 03:53 61 11/09/17 00:00 97.8 54 17 168/80 (109) 98 11/08/17 23:44 57 11/08/17 20:22 96.9 52 16 166/88 (114) 93 11/08/17 20:05 71 11/08/17 16:00 97.8 53 158/77 (104) 94 11/08/17 16:00 53 11/09/17 11/09/17 11/10/17 15:00 23:00 07:00 Intake Total 100 ml Balance 100 ml IV Total 100 ml . Laboratory Tests Test 11/08/17 04:00 11/09/17 06:25 White Blood Count 13.2 TH/MM3 15.5 TH/MM3 Red Blood Count 3.21 MIL/MM3 3.85 MIL/MM3 Hemoglobin 9.3 GM/DL 11.0 GM/DL Hematocrit 27.0 % 32.0 % Mean Corpuscular Volume 84.1 FL 83.2 FL Mean Corpuscular Hemoglobin 29.0 PG 28.6 PG Mean Corpuscular Hemoglobin Concent 34.5 % 34.4 % Red Cell Distribution Width 13.3 % 13.2 % Platelet Count 293 TH/MM3 325 TH/MM3 Mean Platelet Volume 7.4 FL 7.3 FL Neutrophils (%) (Auto) 88.6 % 86.0 % Lymphocytes (%) (Auto) 6.6 % 8.3 % Monocytes (%) (Auto) 4.6 % 5.7 % Eosinophils (%) (Auto) 0.0 % 0.0 % Basophils (%) (Auto) 0.2 % 0.0 % Neutrophils # (Auto) 11.7 TH/MM3 13.3 TH/MM3 Lymphocytes # (Auto) 0.9 TH/MM3 1.3 TH/MM3 Monocytes # (Auto) 0.6 TH/MM3 0.9 TH/MM3 Eosinophils # (Auto) 0.0 TH/MM3 0.0 TH/MM3 Basophils # (Auto) 0.0 TH/MM3 0.0 TH/MM3 CBC Comment DIFF FINAL DIFF FINAL Differential Comment Laboratory Tests Test 11/08/17 04:00 11/09/17 06:25 Blood Urea Nitrogen 26 MG/DL 22 MG/DL Creatinine 1.49 MG/DL 1.30 MG/DL Random Glucose 107 MG/DL 82 MG/DL Total Protein 6.1 GM/DL Albumin 2.5 GM/DL Calcium Level 7.8 MG/DL 8.1 MG/DL Phosphorus Level 2.3 MG/DL Magnesium Level 1.6 MG/DL Alkaline Phosphatase 36 U/L Aspartate Amino Transf (AST/SGOT) 22 U/L Alanine Aminotransferase (ALT/SGPT) 23 U/L Total Bilirubin 0.2 MG/DL Sodium Level 136 MEQ/L 136 MEQ/L Potassium Level 3.6 MEQ/L 3.6 MEQ/L Chloride Level 103 MEQ/L 102 MEQ/L Carbon Dioxide Level 26.4 MEQ/L 24.6 MEQ/L Anion Gap 7 MEQ/L 9 MEQ/L Estimat Glomerular Filtration Rate 34 ML/MIN 40 ML/MIN Procalcitonin 0.18 ng/mL Imaging Last Impressions Chest X-Ray 11/05/17 0000 Signed Impressions: Service Date/Time: Sunday, November 05, 2017 10:36 - CONCLUSION: 1. Left basilar consolidation and effusion concerning for pneumonia. Elan Menjivar MD Abdomen/Pelvis CT 11/05/17 0000 Signed Impressions: Service Date/Time: Sunday, November 05, 2017 15:33 - CONCLUSION: 1. The left kidney is somewhat smaller in size than the right. There is no hydronephrosis. 2. There is a 6.5 x 4.9 cm masslike density in the low pelvis on the right. This may simply be several loops of small bowel matted together however I cannot definitively exclude a mass. CT imaging with oral contrast would be of benefit for further assessment. 3. There are bibasilar areas of atelectasis. Elan Menjivar MD Renal Ultrasound 11/04/17 0000 Signed Impressions: Service Date/Time: October 08:16 - CONCLUSION: 1. Possible mild hydronephrosis on the right side. 2. Renal cortical thinning on the left without hydronephrosis. De Haque MD Physical Exam GENERAL: awake, alert, frail, NAD SKIN: No rashes, ecchymoses or lesions. Cool and dry. HEAD: Atraumatic. Normocephalic. No temporal or scalp tenderness. EYES: Pupils equal round and reactive. Extraocular motions intact. No scleral icterus. No injection or drainage. ENT: Nose without bleeding, purulent drainage. MOist mucosa NECK: Trachea midline. Supple, nontender, no meningeal signs. CARDIOVASCULAR: HS audible. RESPIRATORY: Clear to auscultation. Breath sounds equal bilaterally. No wheezes , rales, or rhonchi. Decreased at bases GASTROINTESTINAL: Abdomen soft, non-tender, nondistended. MUSCULOSKELETAL: LLE with contracture. No pedal edema NEUROLOGICAL: Awake and alert. speech hesitant. Psych cooperative IV line sites with no e.o infection Assessment & Plan Remarks Possible Severe Sepsis present on admission (leucocytosis, tachycardia, hypotension) - leukocytosis improving ? atypical Community acquired pneumonia vs aspiration PNA COPD acute exacerbation. Leucocytosis: improved then increased once steroid dose increased. Likely steroid effect. Acute resp failure now on 5L NC. Hyponatremia. Acute renal failure: sepsis, prerenal. - improving H/o CVA with left side deficit. Recs: DC Ceftriaxone IV. Continue Azithro oral (stop date in [facility]) Follow clinically. Will sign off please call back if any change in clinical condition or questions. Jacklyn Cruz MD Nov 09, 2017 15:01
[2017-11-09] MEDS: RESP: ALBUTEROL 2.5 MG/IPRATROPIUM 0.5 MG NEB (SCH) NEB ×2 (15:44→19:33)
[2017-11-09] MEDS ORDERED: AZITHROMYCIN INJ 500 MG in SODIUM CHLOR 0.9% 250 ML INJ 250 ML IV SCH (17:00)
--- NOTE | 2017-11-09 18:52 | HHI.PR ---
Subjective Remarks NO SOB ON O2 CONFUSED Objective Vital Signs Date Time Temp Pulse Resp B/P (MAP) Pulse Ox O2 Delivery O2 Flow Rate FiO2 11/09/17 15:44 92 21 11/09/17 14:04 150/77 (101) 11/09/17 08:30 184/82 (116) 11/09/17 08:00 98.4 88 18 166/92 (116) 92 11/09/17 05:13 96.2 54 17 160/70 (100) 94 11/09/17 03:53 61 11/09/17 00:00 97.8 54 17 168/80 (109) 98 11/08/17 23:44 57 11/08/17 20:22 96.9 52 16 166/88 (114) 93 11/08/17 20:05 71 I/O 11/08/17 11/08/17 11/08/17 11/09/17 11/09/17 11/09/17 07:00 15:00 23:00 07:00 15:00 23:00 Intake Total 1005 ml 1108 ml 608 ml 1100 ml 320 ml Output Total 1000 ml 900 ml Balance 5 ml 208 ml 608 ml 1100 ml 320 ml Intake Oral 240 ml 720 ml 480 ml 320 ml IV Total 765 ml 388 ml 128 ml 1100 ml Output Urine Total 1000 ml 900 ml # Voids 4 2 # Bowel Movements 0 1 3 2 Result Diagram: 11/09/1762411/09/17624 Objective Remarks GENERAL: SKIN: Warm and dry. HEAD: Atraumatic. Normocephalic. EYES: Pupils equal and round. No scleral icterus. No injection or drainage. ENT: No nasal bleeding or discharge. Mucous membranes pink and moist. NECK: Trachea midline. No JVD. CARDIOVASCULAR: Regular rate and rhythm. RESPIRATORY: No accessory muscle use. Clear to auscultation. Breath sounds equal bilaterally. GASTROINTESTINAL: Abdomen soft, non-tender, nondistended. Hepatic and splenic margins not palpable. MUSCULOSKELETAL: Extremities without clubbing, cyanosis, or edema. No obvious deformities. NEUROLOGICAL: Awake and alert. No obvious cranial nerve deficits. Motor grossly within normal limits. Five out of 5 muscle strength in the arms and legs. Normal speech. PSYCHIATRIC: Appropriate mood and affect; insight and judgment normal. Assessment and Plan Assessment and Plan RESPIRATORY FAILURE PNA S/P CVA PLAN O2 ANTIBX pulmonary toilet Arleen Bacon MD Nov 09, 2017 18:52
[2017-11-09] MEDS: PANTOPRAZOLE SODIUM 40 MG VIAL IV PUSH SCH (21:45)
[2017-11-10] VITALS (7 sets, daily range): BP systolic 120–153; BP diastolic 64–78; PULSE 62–85; RESP 15–17; TEMP 96.5–98.4; O2SAT 90–98
[2017-11-10] MEDS: methylPREDNISolone SOD SUCC 125 MG/2 ML VIAL IV SCH ×3 (00:28→10:54)
[2017-11-10] MEDS: LORazepam 0.5 MG TAB PO PRN ×2 (00:32→08:24)
[2017-11-10] MEDS: hydrALAZINE HCL 25 MG TAB PO SCH ×2 (04:32→10:53)
[2017-11-10] MEDS: RESP: ALBUTEROL 2.5 MG/IPRATROPIUM 0.5 MG NEB (SCH) NEB ×2 (07:43→11:25)
[2017-11-10] MEDS: INSULIN ASPART SUPPLEMENTAL SCALE SQ SCH ×2 (08:00→11:43)
[2017-11-10] MEDS: DOCUSATE SODIUM 50 MG/SENNA 8.6 MG TAB PO SCH (08:23)
[2017-11-10] MEDS: HEPARIN SODIUM - SQ 10,000 UNITS/ML VIAL SQ SCH (08:27)
[2017-11-10] MEDS: SODIUM CHLORIDE 0.9% FLUSH 10 ML FLUSH IV FLUSH SCH (08:29)
[2017-11-10] MEDS ORDERED: AZITHROMYCIN 250 MG TAB PO SCH (09:00)
[2017-11-10] MEDS ORDERED: HYDR-3799 PO (09:08)
[2017-11-10] MEDS ORDERED: AZIT250T3 PO (09:08)
[2017-11-10] MEDS ORDERED: Albuterol Neb NEB (09:08)
--- NOTE | 2017-11-10 09:09 | HHI.DCPOC ---
Discharge Care Plan Diagnosis: (1) Hydronephrosis (2) H/O: CVA (cerebrovascular accident) (3) Hypertension (4) Dyspnea (5) Confusion (6) Osteoporosis (7) COPD exacerbation (8) Sepsis (9) Respiratory failure (10) Acute renal failure Goals to Promote Your Health * To prevent worsening of your condition and complications * To maintain your health at the optimal level Directions to Meet Your Goals Take your medications as prescribed Follow your dietary instruction Follow activity as directed Keep your appointments as scheduled Take your immunizations and boosters as scheduled If your symptoms worsen call your PCP, if no PCP go to Urgent Care Center or Emergency Room Smoking is Dangerous to Your Health. Avoid second hand smoke Call the 24-hour hour crisis hotline for domestic abuse at Vazquez Sanchez MD Nov 10, 2017 09:09
--- NOTE | 2017-11-10 09:12 | HHI.DS ---
Discharge Summary Admission Date Nov 02, 2017 at 17:33 Discharge Date: Nov 10, 2017 Admitting Diagnosis acute renal failure, copd exacerbation, sepsis (1) Hydronephrosis ICD Codes: N13.30 - Unspecified hydronephrosis (2) Acute renal failure ICD Codes: N17.9 - Acute kidney failure, unspecified Status: Acute (3) Confusion ICD Codes: R41.0 - Disorientation, unspecified CBC/BMP: 11/09/17 0625 11/09/17 0625 Significant Findings Laboratory Tests Test 11/08/17 04:00 11/09/17 06:25 White Blood Count 13.2 TH/MM3 (4.0-11.0) 15.5 TH/MM3 (4.0-11.0) Red Blood Count 3.21 MIL/MM3 (4.00-5.30) 3.85 MIL/MM3 (4.00-5.30) Hemoglobin 9.3 GM/DL (11.6-15.3) 11.0 GM/DL (11.6-15.3) Hematocrit 27.0 % (35.0-46.0) 32.0 % (35.0-46.0) Neutrophils (%) (Auto) 88.6 % (16.0-70.0) 86.0 % (16.0-70.0) Lymphocytes (%) (Auto) 6.6 % (9.0-44.0) 8.3 % (9.0-44.0) Neutrophils # (Auto) 11.7 TH/MM3 (1.8-7.7) 13.3 TH/MM3 (1.8-7.7) Lymphocytes # (Auto) 0.9 TH/MM3 (1.0-4.8) Blood Urea Nitrogen 26 MG/DL (7-18) 22 MG/DL (7-18) Creatinine 1.49 MG/DL (0.50-1.00) 1.30 MG/DL (0.50-1.00) Random Glucose 107 MG/DL (74-106) Total Protein 6.1 GM/DL (6.4-8.2) Albumin 2.5 GM/DL (3.4-5.0) Calcium Level 7.8 MG/DL (8.5-10.1) 8.1 MG/DL (8.5-10.1) Phosphorus Level 2.3 MG/DL (2.5-4.9) Alkaline Phosphatase 36 U/L (45-117) Estimat Glomerular Filtration Rate 34 ML/MIN (>89) 40 ML/MIN (>89) Procalcitonin 0.18 ng/mL (0.00-0.08) Imaging GENERAL: SKIN: Warm and dry. HEAD: Atraumatic. Normocephalic. EYES: Pupils equal and round. No scleral icterus. No injection or drainage. ENT: No nasal bleeding or discharge. Mucous membranes pink and moist. NECK: Trachea midline. No JVD. CARDIOVASCULAR: Regular rate and rhythm. RESPIRATORY: No accessory muscle use. Clear to auscultation. Breath sounds equal bilaterally. GASTROINTESTINAL: Abdomen soft, non-tender, nondistended. Hepatic and splenic margins not palpable. MUSCULOSKELETAL: Extremities without clubbing, cyanosis, or edema. No obvious deformities. NEUROLOGICAL: Awake and alert. No obvious cranial nerve deficits. Motor grossly within normal limits.R BELEN.. Normal speech. PSYCHIATRIC: Appropriate mood and affect; insight and judgment normal. Hospital Course A 72-year-old female, [facility] resident, admitted with severe sepsis requiring pressors, health care associated pneumonia, renal failure due to dehydration with chronic hyponatremia and hypokalemia. 1. Severe sepsis. 2. Pneumonia. 3. Renal failure. d/t dehyration and spironolactone 4. Hyponatremia. 5. Hypokalemia. 6. CVA. 7. Hypertension, now hypotensive. 8. Pruritus and rash. 9. Anemia of chronic disease. 10. Hyperglycemia. 11. hydronephrosis 12. abdominal mass, negative on ct, no ,mass PLAN- -Restarted iv azithrom, increase solumedrol iv, start duonebs, cxr and maybe dc when pneumonia resolves/controlled. -restart hydralazine -urology consult for hydronephrosis -Speech therapy and heart healthy diet. -Followup smart cultures. -DVT prophylaxis with heparin 5000 b.i.d. -Lorazepam p.r.n. -mckeon -GI prophylaxis with Protonix IV. -Telemetry. -SCDs. -Physical therapy. -Occupational therapy. -Speech therapy. -s/p Consults to infectious disease for sepsis, etiquette teacher for sepsis and pressor management, nephrology for renal failure, pulmonology for health care associated pneumonia and palliative care, as the patient is DNR and has failure to thrive, living in a [facility]. -ivf stable, chest clear, see orders for dc to snf Pt Condition on Discharge: Stable Discharge Disposition: Discharge to SNF Discharge Instructions DIET: Follow Instructions for: Heart Healthy Diet Speech Therapy-Diet Recommenda: Mechanical Soft Activities you can perform: Regular-No Restrictions New Medications: Azithromycin (Azithromycin) 250 Mg Tab 250 MG PO DAILY for pna for 5 Days, #5 TAB Hydralazine HCl (Hydralazine HCl) 25 Mg Tablet 25 MG PO Q8H for HTN for 30 Days, #90 TAB 11 Refills [Albuterol Neb] () 2.5 MG/3 ML NEBU 2.5 MG NEB Q2HR NEB PRN for WHEEZING for 30 Days Continued Medications: Acetaminophen (Tylenol) 325 Mg Tab 650 MG PO Q4H PRN for MILD PAIN/ELEVATED TEMP, TAB 0 Refills Amlodipine (Amlodipine) 10 Mg Tab 10 MG PO DAILY for Blood Pressure Management, #30 TAB 0 Refills Aspirin (Aspirin Children's) 81 Mg Chew 81 MG PO DAILY, TAB 0 Refills Bisacodyl Supp (Dulcolax Supp) 10 Mg Supp 10 MG RECTAL DAILY PRN for CONSTIPATION, #12 SUPP 0 Refills Dextromethorphan (Tussin Cough) 15 Mg Cap 15 MG PO Q6H PRN for COUGH, CAP 0 Refills Ipratropium-Albuterol Neb (Duoneb) 0.5-2.5 Mg/3 Ml Neb 1 NEBULE INH Q6HR NEB PRN for SOB/WHEEZING, #120 NEBULE 0 Refills Magnesium Hydroxide Liq (Milk of Magnesia Liq) 400 Mg/5 Ml Susp 30 ML PO DAILY PRN for INDIGESTION OR UPSET STOMACH, #1 BOTTLE 0 Refills Ondansetron (Zofran) 4 Mg Tab 4 MG PO Q6HR PRN for NAUSEA OR VOMITING, TAB 0 Refills Discontinued Medications: Famotidine (Famotidine) 10 Mg Tab 10 MG PO BID, #60 TAB 0 Refills Fluoxetine (Prozac) 10 Mg Cap 10 MG PO DAILY, #30 CAP 0 Refills Gabapentin (Gabapentin) 100 Mg Cap 200 MG PO BID, #60 CAP 0 Refills Gabapentin (Gabapentin) 300 Mg Cap 300 MG PO Q6HR PRN for PAIN, #60 CAP 0 Refills Hydralazine (Hydralazine) 100 Mg Tab 100 MG PO TID for Blood Pressure Management, TAB 0 Refills Take with meals Multiple Vitamins W/ Minerals (One Daily-Minerals) 1 Tab 1 TAB PO DAILY for Nutritional Supplement, #100 TAB 0 Refills Spironolactone (Spironolactone) 25 Mg Tab 25 MG PO BID, #60 TAB 0 Refills Thiamine (Vitamin B-1) 100 Mg Tab 100 MG PO DAILY for Nutritional Supplement, TAB 0 Refills Vazquez Sanchez MD Nov 10, 2017 09:12
[2017-11-10 09:32] LABS: AUTOMATED NEUTROPHIL # 13.1 TH/MM3 (1.8-7.7); BASOPHIL % 0.1 % (0.0-2.0); HEMATOCRIT 35.7 % (35.0-46.0); HEMOGLOBIN 12.1 GM/DL (11.6-15.3); LYMPH % 3.7 % (9.0-44.0); LYMPHOCYTE # 0.5 TH/MM3 (1.0-4.8); MEAN CELL VOLUME 83.9 FL (80.0-100.0); MEAN CORPUSCULAR HEMOGLOBIN 28.5 PG (27.0-34.0); MEAN PLATELET VOLUME 7.4 FL (7.0-11.0); MONO % 1.5 % (0.0-8.0); MONOCYTE # 0.2 TH/MM3 (0-0.9); NEUT % 94.7 % (16.0-70.0); PLATELET COUNT 359 TH/MM3 (150-450); RED BLOOD COUNT 4.26 MIL/MM3 (4.00-5.30); RED CELL DISTRIBUTION WIDTH 13.4 % (11.6-17.2); WHITE BLOOD COUNT 13.9 TH/MM3 (4.0-11.0)
[2017-11-10 09:58] LABS: BICARBONATE 20.5 MEQ/L (21.0-32.0); CALCIUM 8.2 MG/DL (8.5-10.1); CREATININE 1.44 MG/DL (0.50-1.00)
== END 2017-11-10 13:19 | DRG 871 ==
LOC: NEPE 15:39 → NEDA 17:33 → HIMW 19:20 → N07A 11-08 19:16
PROVIDERS: ADMIT Family Medicine; ATTEND Family Medicine
DX: A41.9 Sepsis, unspecified organism (principal); J96.00 Acute respiratory failure, unspecified whether with hypoxia or hypercapnia; R57.9 Shock, unspecified; J18.9 Pneumonia, unspecified organism; N17.9 Acute kidney failure, unspecified; E87.2 Acidosis; I69.351 Hemiplegia and hemiparesis following cerebral infarction affecting right dominant side; E86.0 Dehydration; Z68.1 Body mass index [BMI] 19.9 or less, adult; J44.1 Chronic obstructive pulmonary disease with (acute) exacerbation; J44.0 Chronic obstructive pulmonary disease with (acute) lower respiratory infection; E87.1 Hypo-osmolality and hyponatremia; J98.11 Atelectasis; N39.0 Urinary tract infection, site not specified; R44.3 Hallucinations, unspecified; D63.8 Anemia in other chronic diseases classified elsewhere; R65.20 Severe sepsis without septic shock; R62.7 Adult failure to thrive; M19.90 Unspecified osteoarthritis, unspecified site; Z66 Do not resuscitate; K21.9 Gastro-esophageal reflux disease without esophagitis; E87.6 Hypokalemia; I10 Essential (primary) hypertension; R21 Rash and other nonspecific skin eruption; F41.9 Anxiety disorder, unspecified; F32.9 Major depressive disorder, single episode, unspecified; Y95 Nosocomial condition; R73.9 Hyperglycemia, unspecified; M81.0 Age-related osteoporosis without current pathological fracture; M54.5 Low back pain; T38.0X5A Adverse effect of glucocorticoids and synthetic analogues, initial encounter; L29.9 Pruritus, unspecified; G89.29 Other chronic pain; R19.00 Intra-abdominal and pelvic swelling, mass and lump, unspecified site; E78.5 Hyperlipidemia, unspecified; I69.320 Aphasia following cerebral infarction; Z87.891 Personal history of nicotine dependence
CPT/HCPCS: 36600; 71045; 74176; 76775; 80048; 80053; 80202; 81001; 82550; 82552; 82805; 82948; 83605; 83735; 83880; 84100; 84145; 84484; 85007; 85025; 85027; 85610; 85730; 87040; 87449; 87641; 87804; 93005; 94640; 94664; 96374; 96375; C9113; J0456; J0696; J1644; J1815; J2020; J2270; J2405; J2543; J2920; J2930; J3370; J3480; J7030; J7040; J7050; J7613; Q9963

== ENCOUNTER 2017-11-16 16:17 | Observation (INO) | payer MEDICARE, OTHER ==
[~2017-11-16] VITALS: Ht 162.6 cm; Wt 48.0 kg
[~2017-11-16 16:17] MED LIST changes: +ASPI-516 CHEW; +AZIT250T3 PO; +Albuterol Neb NEB; -DENO60P SQ; +DIFL100T PO; -FAMO1TAB30 PO; +FAMO20TA2 PO; -FLUO-1 PO; +FLUO20CA12 PO; -GABA300C5 PO; +HYDR-3516 PO; +HYDR-3799 PO; -MELA1TAB18 PO; +MELA1TAB31 PO; +NICO21DI25 T-DERMAL; -ONETAB22 PO; -POTA-163 PO; -REME15TA PO; -SPIR25TA PO; +THERTAB15 PO; +THIA100 PO; -VITA100T54 PO; +ZOFR4TAB PO
[2017-11-16 16:20] VITALS: BP 175/85; PULSE 101; RESP 18; TEMP 98.3; O2SAT 98
[2017-11-16] MEDS ORDERED: SODIUM CHLORIDE 0.9% FLUSH 10 ML FLUSH IVF PRN (16:30)
[2017-11-16] MEDS ORDERED: DOXY1CAP74 PO (16:34)
[2017-11-16] MEDS ORDERED: ALBU.5I NEB (16:34)
[2017-11-16] MEDS ORDERED: HYDR-3801 PO (16:34)
[2017-11-16] MEDS ORDERED: LEVA500T33 PO (16:34)
[2017-11-16 16:57] LABS: AUTOMATED NEUTROPHIL # 15.5 TH/MM3 (1.8-7.7); BASOPHIL # 0.1 TH/MM3 (0-0.2); BASOPHIL % 0.4 % (0.0-2.0); EOSINOPHIL # 0.1 TH/MM3 (0-0.4); EOSINOPHIL % 0.4 % (0.0-4.0); HEMATOCRIT 33.1 % (35.0-46.0); HEMOGLOBIN 11.1 GM/DL (11.6-15.3); LYMPHOCYTE # 0.9 TH/MM3 (1.0-4.8); MEAN CELL VOLUME 85.2 FL (80.0-100.0); MEAN CORPUSCULAR HEMOGLOBIN 28.5 PG (27.0-34.0); MEAN CORPUSCULAR HGB CONC 33.5 % (32.0-36.0); MEAN PLATELET VOLUME 7.2 FL (7.0-11.0); MONO % 7.2 % (0.0-8.0); MONOCYTE # 1.3 TH/MM3 (0-0.9); PLATELET COUNT 246 TH/MM3 (150-450); RED BLOOD COUNT 3.88 MIL/MM3 (4.00-5.30); WHITE BLOOD COUNT 17.8 TH/MM3 (4.0-11.0)
[2017-11-16 17:13] LABS: BACTERIA, URINE RARE /hpf; BILIRUBIN, URINE NEG (NEG); BLOOD, URINE NEG (NEG); GLUCOSE,URINE NEG (NEG); KETONE, URINE NEG (NEG); NITRITE,URINE NEG (NEG); URINE COLOR YELLOW (YELLW/STRAW); URINE LEUKOCYTE ESTERASE NEG (NEG)
[2017-11-16 17:22] LABS: ALBUMIN 3.1 GM/DL (3.4-5.0); AST (GOT) 21 U/L (15-37); BICARBONATE 23.9 MEQ/L (21.0-32.0); BLOOD UREA NITROGEN 12 MG/DL (7-18); CALCIUM 8.4 MG/DL (8.5-10.1); CHLORIDE 104 MEQ/L (98-107); CREATININE 1.16 MG/DL (0.50-1.00); GLOMERULAR FILTRATION RATE 46 ML/MIN (>89); GLUCOSE,RANDOM 108 MG/DL (74-106); SODIUM (NA) 136 MEQ/L (136-145)
[2017-11-16 17:23] LABS: ALKALINE PHOSPHATASE 43 U/L (45-117); ALT (GPT) 19 U/L (10-53); TOTAL BILIRUBIN ADULT 0.3 MG/DL (0.2-1.0); TOTAL PROTEIN 7.1 GM/DL (6.4-8.2)
--- NOTE | 2017-11-16 17:39 | PD ---
HPI Chief Complaint: Seizure Time Seen by Provider: 16:28 Travel History International Travel<30 days: No Contact w/Intl Traveler<30days: No Traveled to known affect area: No History of Present Illness HPI 72-year-old female patient from [facility] with history of previous CVA, hypertension, multiple medical issues, here because of a witnessed seizure episode and was post ictal according to staff and halfway and daughter. She currently is fairly disoriented and not able to give me much history. She apparently does not have history of seizures in the past. Modifying Factors: None Associated Signs & Symptoms: Seizure, disorientation Risk Factors: Elderly PFSH Past Medical History Medical History: Unable to Obtain Arthritis: Yes Asthma: Yes Autoimmune Disease: No Depression: Yes Heart Rhythm Problems: No Cancer: No Cardiovascular Problems: Yes High Cholesterol: No Chemotherapy: No Chest Pain: No Congestive Heart Failure: No COPD: No Cerebrovascular Accident: Yes Diabetes: No Endocrine: No GERD: No Genitourinary: Yes Headaches: Yes Hiatal Hernia: No Hypertension: Yes Immune Disorder: No Kidney Stones: No Musculoskeletal: Yes Neurologic: Yes Psychiatric: No Reproductive: Yes Respiratory: Yes Migraines: Yes Radiation Therapy: No Renal Failure: No Seizures: No Sickle Cell Disease: No Sleep Apnea: No Thyroid Disease: No Ulcer: No Influenza Vaccination: No (uto) Past Surgical History Abdominal Surgery: No AICD: No Arteriovenous Shunt: No Cardiac Surgery: No Ear Surgery: Yes (Otitismedia to left ear in 1962, MD removed infection) Endocrine Surgery: No Eye Surgery: No Genitourinary Surgery: No Gynecologic Surgery: Yes (Partial hysterectomy at age 29 due to Endometriosis) Insulin Pump: No Joint Replacement: No Oral Surgery: Yes (Tonsellectomy at age 8) Pacemaker: No Thoracic Surgery: No Other Surgery: Yes Social History Alcohol Use: No Tobacco Use: No Substance Use: No Allergies-Medications (Allergen,Severity, Reaction): Coded Allergies: bee venom protein (honey bee) (Unverified Allergy, Severe, Anaphalyxis, 11/16/17) Throat closes Reported Meds & Prescriptions Reported Meds & Active Scripts Active Gabapentin 100 Mg Cap 100 Mg PO BID Fluoxetine (Fluoxetine HCl) 20 Mg Capsule 20 Mg PO HS Aspirin 81 Mg Chew 81 Mg CHEW DAILY Amlodipine (Amlodipine Besylate) 10 Mg Tab 10 Mg PO DAILY Reported Doxycycline 40 Mg Cap 100 Mg PO DAILY Levaquin (Levofloxacin) 500 Mg Tablet 500 Mg PO DAILY Hydralazine (Hydralazine HCl) 100 Mg Tab 75 Mg PO TID Take with meals Albuterol Neb (Albuterol Sulfate) 2.5 Mg/0.5 Ml Neb 2.5 Mg NEB Q2HR NEB PRN Note: The Albuterol Sulfate Inhalation Solution is concentrated and must be diluted. Read complete instructions carefully before using. Review of Systems Except as stated in HPI: all other systems reviewed are Neg Physical Exam Narrative GENERAL: Well-developed elderly female patient currently and moderate distress, awake, disoriented. SKIN: Focused skin assessment warm/dry. HEAD: Atraumatic. Normocephalic. EYES: Pupils equal and round. No scleral icterus. No injection or drainage. ENT: No nasal bleeding or discharge. Mucous membranes pink and moist. NECK: Trachea midline. No JVD. CARDIOVASCULAR: Regular rate and rhythm. No murmur appreciated. RESPIRATORY: No accessory muscle use. Clear to auscultation. Breath sounds equal bilaterally. GASTROINTESTINAL: Abdomen soft, non-tender, nondistended. Hepatic and splenic margins not palpable. MUSCULOSKELETAL: No obvious deformities. No clubbing. No cyanosis. No edema. NEUROLOGICAL: Awake and alert. No obvious cranial nerve deficits. Motor grossly within normal limits. Normal speech. PSYCHIATRIC: Disoriented; insight and judgment poor. Data Data Last Documented VS Vital Signs Date Time Temp Pulse Resp B/P (MAP) Pulse Ox O2 Delivery O2 Flow Rate FiO2 11/16/17 16:20 98.3 101 18 175/85 (115) 98 Room Air Orders Orders Complete Blood Count With Diff (11/16/17 16:28) Electrocardiogram (11/16/17 ) Ct Brain W/O Iv Contrast(Rout) (11/16/17 ) Blood Glucose (11/16/17 16:28) Ecg Monitoring (11/16/17 16:28) Iv Access Insert/Monitor (11/16/17 16:28) Oximetry (11/16/17 16:28) Cath For Specimen (11/16/17 16:28) Comprehensive Metabolic Panel (11/16/17 16:28) Sodium Chloride 0.9% Flush (Ns Flush) (11/16/17 16:30) Urinalysis - C+S If Indicated (11/16/17 16:28) Labs Laboratory Tests Test 11/16/17 16:20 White Blood Count 17.8 TH/MM3 Red Blood Count 3.88 MIL/MM3 Hemoglobin 11.1 GM/DL Hematocrit 33.1 % Mean Corpuscular Volume 85.2 FL Mean Corpuscular Hemoglobin 28.5 PG Mean Corpuscular Hemoglobin Concent 33.5 % Red Cell Distribution Width 14.0 % Platelet Count 246 TH/MM3 Mean Platelet Volume 7.2 FL Neutrophils (%) (Auto) 87.0 % Lymphocytes (%) (Auto) 5.0 % Monocytes (%) (Auto) 7.2 % Eosinophils (%) (Auto) 0.4 % Basophils (%) (Auto) 0.4 % Neutrophils # (Auto) 15.5 TH/MM3 Lymphocytes # (Auto) 0.9 TH/MM3 Monocytes # (Auto) 1.3 TH/MM3 Eosinophils # (Auto) 0.1 TH/MM3 Basophils # (Auto) 0.1 TH/MM3 CBC Comment DIFF FINAL Differential Comment Urine Color YELLOW Urine Turbidity CLEAR Urine pH 7.0 Urine Specific [place] 1.014 Urine Protein 300 mg/dL Urine Glucose (UA) NEG mg/dL Urine Ketones NEG mg/dL Urine Occult Blood NEG Urine Nitrite NEG Urine Bilirubin NEG Urine Urobilinogen LESS THAN 2.0 MG/DL Urine Leukocyte Esterase NEG Urine RBC 1 /hpf Urine WBC 4 /hpf Urine Bacteria RARE /hpf Urine Yeast (Budding) FEW Microscopic Urinalysis Comment CULT NOT INDICATED Blood Urea Nitrogen 12 MG/DL Creatinine 1.16 MG/DL Random Glucose 108 MG/DL Total Protein 7.1 GM/DL Albumin 3.1 GM/DL Calcium Level 8.4 MG/DL Alkaline Phosphatase 43 U/L Aspartate Amino Transf (AST/SGOT) 21 U/L Alanine Aminotransferase (ALT/SGPT) 19 U/L Total Bilirubin 0.3 MG/DL Sodium Level 136 MEQ/L Potassium Level 3.5 MEQ/L Chloride Level 104 MEQ/L Carbon Dioxide Level 23.9 MEQ/L Anion Gap 8 MEQ/L Estimat Glomerular Filtration Rate 46 ML/MIN [facility] Medical Decision Making Medical Screen Exam Complete: Yes Emergency Medical Condition: Yes Medical Record Reviewed: Yes Interpretation(s) EKG shows sinus tachycardia at a rate of 100 bpm with no signs of ST acute elevations or depressions. Laboratory Tests Test 11/16/17 16:20 White Blood Count 17.8 TH/MM3 (4.0-11.0) Red Blood Count 3.88 MIL/MM3 (4.00-5.30) Hemoglobin 11.1 GM/DL (11.6-15.3) Hematocrit 33.1 % (35.0-46.0) Neutrophils (%) (Auto) 87.0 % (16.0-70.0) Lymphocytes (%) (Auto) 5.0 % (9.0-44.0) Neutrophils # (Auto) 15.5 TH/MM3 (1.8-7.7) Lymphocytes # (Auto) 0.9 TH/MM3 (1.0-4.8) Monocytes # (Auto) 1.3 TH/MM3 (0-0.9) Urine Protein 300 mg/dL (NEG-TRACE) Urine Bacteria RARE /hpf (NONE) Urine Yeast (Budding) FEW (NONE) Creatinine 1.16 MG/DL (0.50-1.00) Random Glucose 108 MG/DL (74-106) Albumin 3.1 GM/DL (3.4-5.0) Calcium Level 8.4 MG/DL (8.5-10.1) Alkaline Phosphatase 43 U/L (45-117) Estimat Glomerular Filtration Rate 46 ML/MIN (>89) Last [address] 11/16/17 0000 Signed Impressions: Service Date/Time: Thursday, November 16, 2017 17:22 - CONCLUSION: 1. No acute intracranial hemorrhage. 2. Large old infarct involving the right MCA territory. 3. Bilateral cortical atrophy. Nicola Hillman MD Differential Diagnosis New onset seizure, altered mental status: Epileptic seizure versus acute intracranial processes versus metabolic issues versus dehydration versus dysrhythmias Narrative Course CAT scan did not show any signs of acute intracranial processes. Lab work was unremarkable for significant metabolic issues. At this point, patient is postictal in the ER my plan would be to admit her for observation and further evaluation of new onset seizure. She apparently has not had history. Case was discussed with Dr. Sanchez for admission. Diagnosis Primary Impression: New onset seizure Admitting Information Admitting Physician Requests: Admit Jaziel Arrington MD Nov 16, 2017 17:39
--- NOTE | 2017-11-16 17:41 | RADRPT ---
EXAM DATE/TIME: 11/16/2017 17:22 [facility] COMPARISON: CT BRAIN W/O CONTRAST, March 02, 2017, 15:39. INDICATIONS : Altered mental status. RADIATION DOSE: 32.85 CTDIvol (mGy) MEDICAL HISTORY : Cerebrovascular disease. Hypertension. SURGICAL HISTORY : None. ENCOUNTER: Initial ACUITY: 1 day PAIN SCALE: 3/10 LOCATION: Bilateral cranial TECHNIQUE: Multiple contiguous axial images were obtained of the head. Using automated exposure control and adj ustment of the mA and/or kV according to patient size, radiation dose was kept as low as reasonably a chievable to obtain optimal diagnostic quality images. DICOM format image data is available electro nically for review and comparison. FINDINGS: CEREBRUM: The ventricles are normal for age. There is bilateral cortical atrophy. No evidence of midline shift , mass lesion, hemorrhage or acute infarction. No extra-axial fluid collections are seen. There is a n old infarct involving the right MCA territory. POSTERIOR FOSSA: The cerebellum and brainstem are intact. The 4th ventricle is midline. The cerebellopontine angle i s unremarkable. EXTRACRANIAL: The visualized portion of the orbits is intact. SKULL: The calvaria is intact. No evidence of skull fracture. CONCLUSION: 1. No acute intracranial hemorrhage. 2. Large old infarct involving the right MCA territory. 3. Bilateral cortical atrophy. Nicola Hillman MD on November 16, 2017 at 17:39 Board Certified Radiologist. This report was verified electronically.
[2017-11-16] MEDS ORDERED: LORazepam 2 MG/ML VIAL IV PRN (19:30)
[2017-11-16] MEDS: DEXT 5%-NACL 0.9% 1000 ML INJ 1,000 ML IV SCH (19:36)
[2017-11-16 19:52] VITALS: BP 165/77; PULSE 85; RESP 16; O2SAT 95
--- NOTE | 2017-11-16 21:13 | HHI.HP ---
History of Present Illness Primary Care Physician Vazquez Sanchez MD Admission Diagnosis New onset seizure Diagnoses: Past Family Social History Allergies: Coded Allergies: bee venom protein (honey bee) (Unverified Allergy, Severe, Anaphalyxis, 11/16/17) Throat closes Physical Exam Vital Signs Vital Signs Date Time Temp Pulse Resp B/P (MAP) Pulse Ox O2 Delivery O2 Flow Rate FiO2 11/16/17 19:52 85 16 165/77 (106) 95 Room Air 11/16/17 19:52 85 Room Air 11/16/17 16:20 98.3 101 18 175/85 (115) 98 Room Air Physical Exam GENERAL: This is a well-nourished, well-developed patient, in no apparent distress. SKIN: No rashes, ecchymoses or lesions. Cool and dry. HEAD: Atraumatic. Normocephalic. No temporal or scalp tenderness. EYES: Pupils equal round and reactive. Extraocular motions intact. No scleral icterus. No injection or drainage. ENT: Nose without bleeding, purulent drainage or septal hematoma. Throat without erythema, tonsillar hypertrophy or exudate. Uvula midline. Airway patent. NECK: Trachea midline. No JVD or lymphadenopathy. Supple, nontender, no meningeal signs. CARDIOVASCULAR: Regular rate and rhythm without murmurs, gallops, or rubs. RESPIRATORY: Clear to auscultation. Breath sounds equal bilaterally. No wheezes , rales, or rhonchi. GASTROINTESTINAL: Abdomen soft, non-tender, nondistended. No hepato-splenomegaly , or palpable masses. No guarding. MUSCULOSKELETAL: Extremities without clubbing, cyanosis, or edema. No joint tenderness, effusion, or edema noted. No calf tenderness. Negative Homans sign bilaterally. NEUROLOGICAL: Awake and alert. Cranial nerves II through XII intact. Motor and sensory grossly within normal limits. Five out of 5 muscle strength in all muscle groups. Normal speech. Laboratory Laboratory Tests Test 11/16/17 16:20 White Blood Count 17.8 Red Blood Count 3.88 Hemoglobin 11.1 Hematocrit 33.1 Mean Corpuscular Volume 85.2 Mean Corpuscular Hemoglobin 28.5 Mean Corpuscular Hemoglobin Concent 33.5 Red Cell Distribution Width 14.0 Platelet Count 246 Mean Platelet Volume 7.2 Neutrophils (%) (Auto) 87.0 Lymphocytes (%) (Auto) 5.0 Monocytes (%) (Auto) 7.2 Eosinophils (%) (Auto) 0.4 Basophils (%) (Auto) 0.4 Neutrophils # (Auto) 15.5 Lymphocytes # (Auto) 0.9 Monocytes # (Auto) 1.3 Eosinophils # (Auto) 0.1 Basophils # (Auto) 0.1 CBC Comment DIFF FINAL Differential Comment Urine Color YELLOW Urine Turbidity CLEAR Urine pH 7.0 Urine Specific [place] 1.014 Urine Protein 300 Urine Glucose (UA) NEG Urine Ketones NEG Urine Occult Blood NEG Urine Nitrite NEG Urine Bilirubin NEG Urine Urobilinogen LESS THAN 2.0 Urine Leukocyte Esterase NEG Urine RBC 1 Urine WBC 4 Urine Bacteria RARE Urine Yeast (Budding) FEW Microscopic Urinalysis Comment CULT NOT INDICATED Blood Urea Nitrogen 12 Creatinine 1.16 Random Glucose 108 Total Protein 7.1 Albumin 3.1 Calcium Level 8.4 Alkaline Phosphatase 43 Aspartate Amino Transf (AST/SGOT) 21 Alanine Aminotransferase (ALT/SGPT) 19 Total Bilirubin 0.3 Sodium Level 136 Potassium Level 3.5 Chloride Level 104 Carbon Dioxide Level 23.9 Anion Gap 8 Estimat Glomerular Filtration Rate 46 Result Diagram: 11/16/17 1620 11/16/17 1620 Caprini VTE Risk Assessment Caprini VTE Risk Assessment: Mod/High Risk (score >= 2) Caprini Risk Assessment Model Point Value = 1 Point Value = 2 Point Value = 3 Point Value = 5 Age 41-60 Minor surgery BMI > 25 kg/m2 Swollen legs Varicose veins or History of unexplained or recurrent spontaneous Oral contraceptives or hormone replacement Sepsis (< 1 month) Serious lung disease, including pneumonia (< 1 month) Abnormal pulmonary function Acute myocardial infarction Congestive heart failure (< 1 month) History of inflammatory bowel disease Medical patient at bed rest Age 61-74 Arthroscopic surgery Major open surgery (> 45 min) Laparoscopic surgery (> 45 min) Malignancy Confined to bed (> 72 hours) Immobilizing plaster cast Central venous access Age >= 75 History of VTE Family history of VTE Factor V Leiden Prothrombin [id number] Lupus anticoagulant Anticardiolipin antibodies Elevated serum homocysteine Heparin-induced thrombocytopenia Other congenital or acquired thrombophilia Stroke (< 1 month) Elective arthroplasty Hip, pelvis, or leg fracture Acute spinal cord injury (< 1 month) Prophylaxis Regimen Total Risk Factor Score Risk Level Prophylaxis Regimen 0-1 Low Early ambulation 2 Moderate Order ONE of the following: *Sequential Compression Device (SCD) *Heparin 5000 units SQ BID 3-4 Higher Order ONE of the following medications: *Heparin 5000 units SQ TID *Enoxaparin/Lovenox 40 mg SQ daily (WT < 150 kg, CrCl > 30 mL/min) *Enoxaparin/Lovenox 30 mg SQ daily (WT < 150 kg, CrCl > 10-29 mL/min) *Enoxaparin/Lovenox 30 mg SQ BID (WT < 150 kg, CrCl > 30 mL/min) AND/OR *Sequential Compression Device (SCD) 5 or more Highest Order ONE of the following medications: *Heparin 5000 units SQ TID (Preferred with Epidurals) *Enoxaparin/Lovenox 40 mg SQ daily (WT < 150 kg, CrCl > 30 mL/min) *Enoxaparin/Lovenox 30 mg SQ daily (WT < 150 kg, CrCl > 10-29 mL/min) *Enoxaparin/Lovenox 30 mg SQ BID (WT < 150 kg, CrCl > 30 mL/min) AND *Sequential Compression Device (SCD) Vazquez Sanchez MD Nov 16, 2017 21:13
[2017-11-16] MEDS ORDERED: hydrALAZINE HCL 20 MG/ML VIAL IV PUSH PRN (21:15)
[2017-11-16] MEDS ORDERED: LACTULOSE SYRUP 20 GM/30 ML CUP PO PRN (21:15)
[2017-11-16] MEDS ORDERED: ACETAMINOPHEN/HYDROcodone 325 MG/5 MG TAB PO PRN (21:15)
[2017-11-16] MEDS ORDERED: cloNIDine HCL 0.1 MG TAB PO PRN (21:15)
[2017-11-16] MEDS ORDERED: BISACODYL 10 MG SUPP RECTAL PRN (21:15)
[2017-11-16] MEDS ORDERED: NALOXONE HCL 0.4 MG/ML AMP IV PUSH PRN (21:15)
[2017-11-16] MEDS ORDERED: ACETAMINOPHEN 325 MG TAB PO PRN (21:15)
[2017-11-16] MEDS ORDERED: MORPHINE SULFATE 8 MG/ML INJ IV PUSH PRN (21:15)
[2017-11-16] MEDS ORDERED: ENALAPRILAT 2.5 MG/2 ML VIAL IV PUSH PRN (21:15)
[2017-11-16] MEDS ORDERED: SENNOSIDES 8.6 MG TAB PO PRN (21:15)
[2017-11-16] MEDS ORDERED: ONDANSETRON HCL 4 MG/2 ML VIAL IVP PRN (21:15)
[2017-11-16] MEDS ORDERED: MAGNESIUM HYDROXIDE SUSP 30 ML CUP PO PRN (21:15)
[2017-11-16] MEDS ORDERED: AZITHROMYCIN INJ 500 MG in SODIUM CHLOR 0.9% 250 ML INJ 250 ML IV SCH (22:00)
[2017-11-16] MEDS ORDERED: LEVOFLOXACIN 750 MG PREMIX INJ 150 ML IV SCH (22:00)
[2017-11-16 22:32] VITALS: BP 161/69; PULSE 73; RESP 16; TEMP 98.7; O2SAT 95
[2017-11-16 22:41] VITALS: PULSE 81
[2017-11-17] VITALS (14 sets, daily range): BP systolic 116–175; BP diastolic 63–86; PULSE 64–102; RESP 12–16; TEMP 96.4–99; O2SAT 96–98
[2017-11-17] MEDS: HEPARIN SODIUM - SQ 10,000 UNITS/ML VIAL SQ SCH ×3 (00:02→21:21)
[2017-11-17] MEDS: PANTOPRAZOLE SODIUM 40 MG VIAL IV PUSH SCH ×2 (00:02→21:21)
[2017-11-17] MEDS: methylPREDNISolone SOD SUCC 125 MG/2 ML VIAL IV PUSH SCH ×5 (01:42→23:48)
--- NOTE | 2017-11-17 07:21 | RADRPT ---
EXAM DATE/TIME: 11/17/2017 06:56 [facility] COMPARISON: CHEST SINGLE AP, March 08, 2017, 15:41. INDICATIONS : Leukocytosis. MEDICAL HISTORY : Cerebrovascular disease. Hypertension. SURGICAL HISTORY : None. ENCOUNTER: Subsequent ACUITY: 2 days PAIN SCORE: Non-responsive. LOCATION: chest FINDINGS: A single view of the chest demonstrates the lungs to be symmetrically aerated without evidence of mas s, infiltrate or effusion. The cardiomediastinal contours are unremarkable. Osseous structures are intact. CONCLUSION: Normal examination. Easton Macario MD on November 17, 2017 at 7:20 Board Certified Radiologist. This report was verified electronically.
[2017-11-17 07:56] LABS: ALT (GPT) 19 U/L (10-53)
[2017-11-17 08:01] LABS: ALBUMIN 3.1 GM/DL (3.4-5.0); AST (GOT) 13 U/L (15-37); BICARBONATE 23.8 MEQ/L (21.0-32.0); BLOOD UREA NITROGEN 11 MG/DL (7-18); CHLORIDE 105 MEQ/L (98-107); CREATININE 1.15 MG/DL (0.50-1.00); GLOMERULAR FILTRATION RATE 46 ML/MIN (>89); GLUCOSE,RANDOM 147 MG/DL (74-106); SODIUM (NA) 138 MEQ/L (136-145)
[2017-11-17 08:06] LABS: ALKALINE PHOSPHATASE 43 U/L (45-117); TOTAL BILIRUBIN ADULT 0.2 MG/DL (0.2-1.0); TOTAL PROTEIN 6.6 GM/DL (6.4-8.2)
[2017-11-17] MEDS: RESP: ALBUTEROL 2.5 MG/IPRATROPIUM 0.5 MG NEB (SCH) NEB ×4 (08:11→19:05)
[2017-11-17] MEDS ORDERED: hydrALAZINE HCL 100 MG TAB PO SCH (09:00)
[2017-11-17] MEDS: SODIUM CHLORIDE 0.9% FLUSH 10 ML FLUSH IV FLUSH SCH ×2 (09:00→21:00)
[2017-11-17] MEDS: hydrALAZINE HCL 100 MG TAB PO SCH ×3 (10:35→17:29)
[2017-11-17] MEDS: DOCUSATE SODIUM 50 MG/SENNA 8.6 MG TAB PO SCH ×2 (10:35→21:20)
[2017-11-17] MEDS: GABAPENTIN 100 MG CAP PO SCH ×2 (10:35→21:20)
[2017-11-17] MEDS: DEXT 5%-NACL 0.9% 1000 ML INJ 1,000 ML IV SCH (10:36)
[2017-11-17] MEDS: ASPIRIN 81 MG CHEW TAB CHEW SCH (10:36)
--- NOTE | 2017-11-17 12:18 | MH ---
cc: Vazquez Sanchez MD DATE OF ADMISSION: 11/16/2017 CHIEF COMPLAINT: Seizure at the nursing facility. HISTORY OF PRESENT ILLNESS: Becky Cummings is a 72-year-old female who resides at [facility]. She has had a massive stroke previously, no seizure history, however, a long history of COPD and recurrent pneumonias. I saw the patient recently. She had developed pneumonia again and I started her on Levaquin and doxycycline. She had been doing much better, however unfortunately yesterday, she had a witnessed seizure at the [facility]. She was postictal and brought into the emergency room. The patient is weakened and not able to give any history other than that she states she has never had seizures before. I was thus called by the emergency room physician and CT scan was negative. Labs were negative and no antiepileptics were started as she was postictal. I thus consulted neurology. PAST MEDICAL HISTORY: 1. CVA. 2. Left hemiparesis. 3. COPD. 4. Asthma. 5. Depression. 6. Coronary artery disease. 7. Headaches. 8. Hypertension. PAST SURGICAL HISTORY: 1. Otitis media surgery. 2. Partial hysterectomy due to endometriosis. 3. Tonsillectomy. SOCIAL HISTORY: No current alcohol, tobacco or illicit drug usage, however, she was a heavy smoker. 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 ALLERGIES: BEE VENOM PROTEIN. CARE HOME MEDICATIONS: 1. Gabapentin 100 mg twice a day. 2. Fluoxetine 20 mg. 3. Aspirin 81. 4. Amlodipine 10 mg. 5. Doxycycline. 6. Levaquin. 7. Hydralazine 75 mg three times a day. 8. Albuterol nebs as needed. REVIEW OF SYSTEMS: Apparently she had a witnessed seizure by the daughter at the nursing facility and then she was postictal and she appears somewhat postictal at this point as she is more weakened than usual. She has had no further coughing, congestion and a negative 14 point review of systems otherwise. LABS: WBC 17.8, hemoglobin 11.1. Creatinine 1.15, glucose 147, calcium 8.0. Negative LFTs. Lactic acid 0.6. Vitamin D is 21. Albumin 3.1. Urinalysis 300 protein, rare bacteria, few yeast. IMAGING: Head CT showed no acute hemorrhage. Large old infarct in the right MCA and cortical atrophy. Chest x-ray shows normal examination. PHYSICAL EXAM: VITAL SIGNS: Temperature 99.0, pulse 64, respirations 16, blood pressure 157/68, pulse ox 96% on room air. GENERAL: She is an alert, elderly female. She is laying flat and sleeping and she arouses to voice. She appears more fatigued and lethargic than usual, although not far off. HEENT: Oropharynx is clear. Carotids are clear. No JVD. Normocephalic/atraumatic. No injuries or hematomas. CHEST: Clear bilaterally. No wheezes, rales, crackles or coughing. CARDIOVASCULAR: Regular rate and rhythm. No murmurs, rubs, clicks or gallops. ABDOMEN: Soft and nontender. EXTREMITIES: No edema. SKIN: Clear. NEUROLOGIC: A and O times 1. She has dense left hemiparesis. Cranial nerves are otherwise grossly intact. She has sensory loss on the left side. MUSCULOSKELETAL: 2/5 strength on the right side, 0/5 on the left. PSYCH: Mood is normal. She is flat, however. ASSESSMENT AND PLAN: This is a 72-year-old female with a long history of chronic obstructive pulmonary disease and cerebrovascular accident with left hemiparesis residing at [facility] who had a witnessed seizure and remains postictal. - Seizures: NPO, IV fluids, consult neurology. - Cerebrovascular accident with left hemiparesis: Seizure possibly from previous cerebrovascular accident or cortical atrophy. - Chronic obstructive pulmonary disease: IV methylprednisolone, DuoNeb four times a day, will discontinue her antibiotics to not precipitate seizures. - Hypertension: Increase the hydralazine to 100 three times a day, continue Norvasc. - Leukocytosis: Check smart cultures, possibly due to seizure. - Physical therapy. - Occupational therapy. - Speech therapy. - Disposition: Discharge back to long-term after seizure workup and will follow labs and patient will likely be here for two midnights depending on the length of time for imaging and consultations. - Deep venous thrombosis prophylaxis: Heparin 5000 twice a day. - Gastrointestinal prophylaxis: Pantoprazole 40 IV daily. - Telemetry. - 45 minutes spent with patient half of which was counseling and coordination of care. MD SUNIL Castellano/ASHLEY/mindi , 10:33 AM , 10:58 AM
[2017-11-17] MEDS: SODIUM CHLORIDE 0.9% FLUSH 10 ML FLUSH IV FLUSH PRN ×2 (12:52→17:29)
--- NOTE | 2017-11-17 14:15 | EKG ---
Date Performed: 11/16/2017 Time Performed: 16:28:43 PTAGE: 72 years EKG: SINUS TACHYCARDIA WITH OCCASIONAL SUPRAVENTRICULAR PREMATURE COMPLEXES NO PREVIOUS TRACING DOCTOR: Easton Gonzalez Interpretating Date/Time 11/17/2017 14:14:11
--- NOTE | 2017-11-17 16:11 | RADRPT ---
EXAM DATE/TIME: 11/17/2017 15:32 [place] COMPARISON: MRI BRAIN W/O CONTRAST, February 19, 2017, 9:51. INDICATIONS : Seizures. MEDICAL HISTORY : Stroke SURGICAL HISTORY : Hysterectomy. ENCOUNTER: Subsequent ACUITY: 2 day PAIN SCORE: 0/10 LOCATION: head. TECHNIQUE: Multiplanar, multisequence MRI of the brain was performed without contrast. FINDINGS: CEREBRUM: A large area of encephalomalacia containing hemosiderin deposit is identified involving the right fro ntal, right temporal and right parietal lobes. There is significant dilatation of the ipsilateral damian tricle. Significant post infarct atrophy of the basal ganglia is noted. Wallerian degeneration in the right cerebral peduncle is noted with loss of volume and abnormal signal intensity. WHITE MATTER: Extensive gliosis is identified outlining the right cerebral infarction. Mild periventricular hyperin tensity is identified in the left cerebral hemisphere. POSTERIOR FOSSA: The cerebellum and brainstem are intact. The 4th ventricle is midline. The cerebellopontine angle is unremarkable. The cerebellar tonsils are normal in position. DIFFUSION IMAGING: No focal areas of restricted diffusion are seen. No evidence of acute infarction. EXTRACRANIAL: The visualized portions of the orbits and paranasal sinuses are unremarkable. CONCLUSION: 1. Post infarct right cerebral encephalomalacia with hemosiderin deposits and Wallerian degeneration. 2. No evidence of acute infarct, hemorrhage, mass or edema. Khang Shoemaker MD on November 17, 2017 at 15:58 Board Certified Radiologist. This report was verified electronically.
[2017-11-17] MEDS ORDERED: FLUoxetine HCL 20 MG CAP PO SCH (21:00)
--- NOTE | 2017-11-17 21:07 | MB ---
cc: Feliciano Moy MD, PhD DATE OF CONSULT: REASON FOR CONSULTATION: Seizure. HISTORY OF PRESENT ILLNESS: Ms. Cummings is a 72-year-old woman who has a history of previous large right hemisphere stroke. She is at a senior care and had a witnessed generalized seizure, was brought to the emergency room for further evaluation. Apparently has had no seizures in the past. PAST MEDICAL HISTORY: History of right hemisphere stroke in the past with chronic left hemiparesis, COPD, asthma, depression, coronary artery disease, hypertension, headache, otitis media. PAST SURGICAL HISTORY: Hysterectomy for endometriosis, tonsillectomy. CURRENT MEDICATIONS: Prozac 20 mg daily, Norvasc 10 mg daily, aspirin 81 mg daily, gabapentin 100 mg b.i.d., Apresoline 100 mg t.i.d., PeriColace 1 tablet b.i.d., DuoNeb, Solu-Medrol 80 IV q. 6 hours, subcutaneous heparin 5000 units b.i.d., Protonix 40 mg IV daily, Tylenol p.r.n., Zofran p.r.n., Narcan p.r.n., Senokot p.r.n., lactulose p.r.n. NEUROLOGICAL EXAMINATION: VITAL SIGNS: Blood pressure is 126/63, pulse 99, recovery room is 16, temperature 96.4 degrees. HIGHER CRITICAL FUNCTION: She is lethargic but arousable. She follows commands. Speech is fluent. 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 Extraocular movements intact. MOTOR EXAMINATION: She has a left hemiparesis, roughly 0/5 strength left upper extremity, 1/5 left lower extremity strength. She has normal strength of right arm and right leg. Reflexes are symmetric. CT scan of the brain: No acute intracranial hemorrhage. There is a large old infarct of the right MCA territory. MRI brain shows right cerebral infarction with hemosiderin deposits. No acute change present. LABORATORY DATA: White count 17,800, hemoglobin 11.1, hematocrit 33.1%, platelet count 246,000. Sodium is 138, potassium is 4, chloride 105, CO2 is 23.8, the BUN is 11, creatinine 1.15, GFR is 46, glucose 147, AST 13, ALT 19. Ammonia less than 10. IMPRESSION: New onset seizure, probably related to her previous right middle cerebral artery stroke. RECOMMENDATIONS: Will obtain and EEG. Also recommend starting Keppra 750 mg b.i.d. Feliciano Moy MD, PhD EDITH/rt , 08:37 PM , 09:05 PM
[2017-11-17] MEDS: levETIRAcetam INJ 750 MG in SODIUM CHLORIDE 0.9% INJ 100 ML IV SCH (23:46)
[2017-11-18] MEDS: DEXT 5%-NACL 0.9% 1000 ML INJ 1,000 ML IV SCH ×2 (03:06→13:36)
[2017-11-18 04:54] VITALS: BP 118/60; PULSE 79; RESP 16; TEMP 98.7; O2SAT 97
[2017-11-18 05:50] LABS: ALBUMIN 2.8 GM/DL (3.4-5.0); ALT (GPT) 13 U/L (10-53); AST (GOT) 11 U/L (15-37); BICARBONATE 21.2 MEQ/L (21.0-32.0); BLOOD UREA NITROGEN 13 MG/DL (7-18); CHLORIDE 108 MEQ/L (98-107); CREATININE 1.33 MG/DL (0.50-1.00); GLOMERULAR FILTRATION RATE 39 ML/MIN (>89); GLUCOSE,RANDOM 171 MG/DL (74-106); SODIUM (NA) 140 MEQ/L (136-145)
[2017-11-18 05:54] LABS: ALKALINE PHOSPHATASE 36 U/L (45-117); TOTAL BILIRUBIN ADULT 0.2 MG/DL (0.2-1.0); TOTAL PROTEIN 6.3 GM/DL (6.4-8.2)
[2017-11-18] MEDS: methylPREDNISolone SOD SUCC 125 MG/2 ML VIAL IV PUSH SCH ×2 (06:13→12:14)
[2017-11-18] MEDS: RESP: ALBUTEROL 2.5 MG/IPRATROPIUM 0.5 MG NEB (SCH) NEB ×3 (07:45→14:45)
[2017-11-18 07:46] VITALS: O2SAT 96
[2017-11-18 07:49] VITALS: PULSE 100
[2017-11-18] MEDS: ASPIRIN 81 MG CHEW TAB CHEW SCH (08:21)
[2017-11-18] MEDS: hydrALAZINE HCL 100 MG TAB PO SCH ×2 (08:21→13:36)
[2017-11-18] MEDS: GABAPENTIN 100 MG CAP PO SCH (08:21)
[2017-11-18] MEDS: SODIUM CHLORIDE 0.9% FLUSH 10 ML FLUSH IV FLUSH SCH (08:28)
[2017-11-18] MEDS: DOCUSATE SODIUM 50 MG/SENNA 8.6 MG TAB PO SCH (08:29)
[2017-11-18] MEDS: levETIRAcetam INJ 750 MG in SODIUM CHLORIDE 0.9% INJ 100 ML IV SCH (08:42)
--- NOTE | 2017-11-18 09:08 | MG ---
cc: Pedro Luis Gardiner MD EEG#: [id number] A 72-year-old. Right MCA infarct. Witnessed seizure. Neurontin, Prozac, Norvasc. There is some focal 3 Hz slowing over the right hemisphere, not seen as much over the left. Some sharp features are seen such as a sharply contoured wave at epoch 64 in the transverse montage over the left temporal head region although the patient is asleep and this could be a sleep variant. No other abnormalities are noted. Photic stimulation was performed without significant posterior driving. The patient does not really reach stage II sleep. IMPRESSION: Some right temporal and hemisphere slowing consistent with an old infarct. One sharp was seen over the left temporal region, though it could have been a sleep variant. No seizures are noted coming out of the right hemisphere. Clinical correlation is needed. Pedro Luis Gardiner MD DJM/TI , 08:54 AM , 09:07 AM
[2017-11-18] MEDS: HEPARIN SODIUM - SQ 10,000 UNITS/ML VIAL SQ SCH (12:14)
[2017-11-18] MEDS ORDERED: KEPP750T PO (15:33)
--- NOTE | 2017-11-18 15:34 | HHI.DCPOC ---
Discharge Care Plan Diagnosis: (1) New onset seizure (2) chronic low back pain (3) pneumonia during this hospitalization (4) pain (5) dysphagia (6) depression (7) hypertension (8) acute ischemic stroke 02/14/17, with dense left hemiparesis, moderate dysphagia, and demonstrated aspiration (9) hyperlipidemia (10) cough (11) lifelong cigarette smoker (12) Left hemiparesis Goals to Promote Your Health * To prevent worsening of your condition and complications * To maintain your health at the optimal level Directions to Meet Your Goals Take your medications as prescribed Follow your dietary instruction Follow activity as directed Keep your appointments as scheduled Take your immunizations and boosters as scheduled If your symptoms worsen call your PCP, if no PCP go to Urgent Care Center or Emergency Room Smoking is Dangerous to Your Health. Avoid second hand smoke Call the 24-hour hour crisis hotline for domestic abuse at Vazquez Sanchez MD Nov 18, 2017 15:34
--- NOTE | 2017-11-18 15:37 | HHI.DS ---
Discharge Summary Admission Date Nov 16, 2017 at 19:08 Discharge Date: Nov 18, 2017 Admitting Diagnosis New onset seizure (1) chronic low back pain Status: Acute (2) pneumonia during this hospitalization Status: Acute (3) pain Status: Acute (4) dysphagia Status: Acute (5) depression Status: Acute (6) hypertension Status: Acute (7) acute ischemic stroke 02/14/17, with dense left hemiparesis, moderate dysphagia, and demonstrated aspiration Status: Acute (8) hyperlipidemia Status: Acute (9) cough Status: Acute (10) lifelong cigarette smoker Status: Acute (11) Left hemiparesis ICD Codes: G81.94 - Hemiplegia, unspecified affecting left nondominant side Status: Acute (12) New onset seizure ICD Codes: R56.9 - Unspecified convulsions Status: Acute CBC/BMP: 11/16/17 1620 11/18/17 0407 Significant Findings Laboratory Tests Test 11/16/17 16:20 11/16/17 22:25 11/17/17 06:48 11/18/17 04:07 White Blood Count 17.8 TH/MM3 (4.0-11.0) Red Blood Count 3.88 MIL/MM3 (4.00-5.30) Hemoglobin 11.1 GM/DL (11.6-15.3) Hematocrit 33.1 % (35.0-46.0) Neutrophils (%) (Auto) 87.0 % (16.0-70.0) Lymphocytes (%) (Auto) 5.0 % (9.0-44.0) Neutrophils # (Auto) 15.5 TH/MM3 (1.8-7.7) Lymphocytes # (Auto) 0.9 TH/MM3 (1.0-4.8) Monocytes # (Auto) 1.3 TH/MM3 (0-0.9) Urine Protein 300 mg/dL (NEG-TRACE) Urine Bacteria RARE /hpf (NONE) Urine Yeast (Budding) FEW (NONE) Creatinine 1.16 MG/DL (0.50-1.00) 1.15 MG/DL (0.50-1.00) 1.33 MG/DL (0.50-1.00) Random Glucose 108 MG/DL (74-106) 147 MG/DL (74-106) 171 MG/DL (74-106) Albumin 3.1 GM/DL (3.4-5.0) 3.1 GM/DL (3.4-5.0) 2.8 GM/DL (3.4-5.0) Calcium Level 8.4 MG/DL (8.5-10.1) 8.0 MG/DL (8.5-10.1) 8.0 MG/DL (8.5-10.1) Alkaline Phosphatase 43 U/L (45-117) 43 U/L (45-117) 36 U/L (45-117) Estimat Glomerular Filtration Rate 46 ML/MIN (>89) 46 ML/MIN (>89) 39 ML/MIN (>89) Ammonia LESS THAN 10 MCMOL/L 25-Hydroxy Vitamin D Total 21.4 ng/ML (30-100) Aspartate Amino Transf (AST/SGOT) 13 U/L (15-37) 11 U/L (15-37) Total Protein 6.3 GM/DL (6.4-8.2) Chloride Level 108 MEQ/L (98-107) Imaging Last 72 hours Impressions Chest X-Ray 11/17/17 0600 Signed Impressions: Service Date/Time: Friday, November 17, 2017 06:56 - CONCLUSION: Normal examination. Easton Macario MD Brain MRI 11/17/17 0000 Signed Impressions: Service Date/Time: Friday, November 17, 2017 15:32 - CONCLUSION: 1. Post infarct right cerebral encephalomalacia with hemosiderin deposits and Wallerian degeneration. 2. No evidence of acute infarct, hemorrhage, mass or edema. Khang Shoemaker MD Head CT 11/16/17 0000 Signed Impressions: Service Date/Time: Thursday, November 16, 2017 17:22 - CONCLUSION: 1. No acute intracranial hemorrhage. 2. Large old infarct involving the right MCA territory. 3. Bilateral cortical atrophy. Nicola Hillman MD PE at Discharge GENERAL: SKIN: Warm and dry. HEAD: Atraumatic. Normocephalic. EYES: Pupils equal and round. No scleral icterus. No injection or drainage. ENT: No nasal bleeding or discharge. Mucous membranes pink and moist. NECK: Trachea midline. No JVD. CARDIOVASCULAR: Regular rate and rhythm. RESPIRATORY: No accessory muscle use. Clear to auscultation. Breath sounds equal bilaterally. GASTROINTESTINAL: Abdomen soft, non-tender, nondistended. Hepatic and splenic margins not palpable. MUSCULOSKELETAL: Extremities without clubbing, cyanosis, or edema. No obvious deformities. NEUROLOGICAL: Awake and alert. No obvious cranial nerve deficits. Motor grossly within normal limits. L BELEN. Normal speech. PSYCHIATRIC: Appropriate mood and affect; insight and judgment normal. Hospital Course HOSPITAL COURSE AND PLAN: This is a 72-year-old female with a long history of chronic obstructive pulmonary disease and cerebrovascular accident with left hemiparesis residing at [facility] who had a witnessed seizure and remains postictal. Stable now, on keppra, no cough. reqs dc home to her mothers house - Seizures: NPO, IV fluids, consult neurology. - Cerebrovascular accident with left hemiparesis: Seizure possibly from previous cerebrovascular accident or cortical atrophy. - Chronic obstructive pulmonary disease: IV methylprednisolone, DuoNeb four times a day, will discontinue her antibiotics to not precipitate seizures. - Hypertension: Increase the hydralazine to 100 three times a day, continue Norvasc. - Leukocytosis: Check smart cultures, possibly due to seizure. - Physical therapy. - Occupational therapy. - Speech therapy. - Disposition: Discharge back to [facility] after seizure workup and will follow labs and patient will likely be here for two midnights depending on the length of time for imaging and consultations. - Deep venous thrombosis prophylaxis: Heparin 5000 twice a day. - Gastrointestinal prophylaxis: Pantoprazole 40 IV daily. - Telemetry. - 45 minutes spent with patient half of which was counseling and coordination of care. Pt Condition on Discharge: Stable Discharge Disposition: Discharge to SNF Discharge Instructions DIET: Follow Instructions for: Heart Healthy Diet Speech Therapy-Diet Recommenda: Pureed, Niotaze Thickened Liquids Activities you can perform: Regular-No Restrictions New Medications: Levetiracetam (Keppra) 750 Mg Tab 750 MG PO BID for Control Seizures, #60 TAB 5 Refills Continued Medications: Albuterol Neb (Albuterol Neb) 2.5 Mg/0.5 Ml Neb 2.5 MG NEB Q2HR NEB PRN for SOB/WHEEZING, EA Note: The Albuterol Sulfate Inhalation Solution is concentrated and must be diluted. Read complete instructions carefully before using. Amlodipine (Amlodipine) 10 Mg Tab 10 MG PO DAILY for Blood Pressure Management, #30 TAB 0 Refills Aspirin (Aspirin) 81 Mg Chew 81 MG CHEW DAILY, #30 TAB 0 Refills Fluoxetine (Fluoxetine) 20 Mg Capsule 20 MG PO HS, #30 Gabapentin (Gabapentin) 100 Mg Cap 100 MG PO BID, #60 CAP Hydralazine (Hydralazine) 100 Mg Tab 75 MG PO TID for Blood Pressure Management, TAB 0 Refills Take with meals Discontinued Medications: Doxycycline (Doxycycline) 40 Mg Cap 100 MG PO DAILY for Infection, CAP 0 Refills Levofloxacin (Levaquin) 500 Mg Tablet 500 MG PO DAILY for Infection, TAB 0 Refills Vazquez Sanchez MD Nov 18, 2017 15:37
[2017-11-18 17:13] VITALS: BP 119/60; PULSE 105; RESP 20; TEMP 98; O2SAT 98
== END 2017-11-18 19:06 | disposition home or self-care (01) ==
LOC: NEPC 16:17 → NEDA 19:08 → MERGE 19:08 → NEPGCP 21:34
PROVIDERS: ADMIT Family Medicine; ATTEND Family Medicine
DX: R56.9 Unspecified convulsions (principal); I10 Essential (primary) hypertension; J44.0 Chronic obstructive pulmonary disease with (acute) lower respiratory infection; J18.9 Pneumonia, unspecified organism; R13.10 Dysphagia, unspecified; I25.10 Atherosclerotic heart disease of native coronary artery without angina pectoris; E78.5 Hyperlipidemia, unspecified; R00.0 Tachycardia, unspecified; I49.3 Ventricular premature depolarization; I69.354 Hemiplegia and hemiparesis following cerebral infarction affecting left non-dominant side; M54.5 Low back pain; G89.29 Other chronic pain; G31.9 Degenerative disease of nervous system, unspecified; G93.89 Other specified disorders of brain; F32.9 Major depressive disorder, single episode, unspecified; M19.90 Unspecified osteoarthritis, unspecified site; F17.210 Nicotine dependence, cigarettes, uncomplicated; Z79.899 Other long term (current) drug therapy; Z79.82 Long term (current) use of aspirin
CPT/HCPCS: 70450; 70551; 71045; 80053; 81001; 82140; 82306; 83605; 84443; 85025; 87040; 92526; 92610; 93005; 94640; 94664; 95819; 96361; 96365; 96366; 96372; 96375; 96376; 97162; 97167; 99285; C9113; G0378; G8987; G8988; G8996; G8997; J0456; J1644; J1953; J2930; J7042; J7050; P9612